=== PATIENT | male | born 1970 | race Caucasian/White ===

== ENCOUNTER → 2017-12-09 12:31 | Outpatient (CLI) | payer MEDICARE, MEDICAID, SELFPAY ==
[2017-12-09 13:37] LABS: Abs Immature Grans 0.04 k/cumm (0.0-0.09); Absolute Basophil Count 0.02 k/cumm (0.0-0.2); Absolute Lymphocyte Count 2.01 k/cumm (1.2-3.4); Absolute Monocyte Count 0.66 k/cumm (0.11-0.7); Absolute Neutrophil Count 6.44 k/cumm (1.2-6.7); Basophils % 0.2; HGB 15.5 g/dL (13.5-17.5); Immature Grans % 0.4; Lymphocytes % 21.9; Mean Corpuscular Hemoglobin 29.1 pg (27.0-33.0); Mean Corpuscular Volume 88.2 fL (80-95); Mean Platelet Volume 9.7 fL (8.0-11.0); Monocytes % 7.2; Neutrophils % 70.3; Platelet Count 240 x1000/uL (130-400); RBC 5.33 m/cumm (4.50-6.00); White Blood Cell Count 9.17 k/cumm (4.4-10.8)
[2017-12-09 14:11] LABS: ALT 24 U/L (12-78); AST 18 U/L (15-37); Albumin 3.6 g/dL (3.4-5.0); Alkaline Phosphatase 97 U/L (46-116); Anion Gap 7.6 mmol/L (3-11); BUN 20 mg/dL (7-18); Bilirubin, Total 0.3 mg/dL (0.2-1.0); CO2 25.4 mmol/L (21.0-32.0); CREATININE 1.44 mg/dL (0.70-1.30); Calcium 9.6 mg/dL (8.5-10.1); Chloride 110 mmol/L (98-107); Estimated GFR 52.58 (mL/min/1.73m2); Glucose 109 mg/dL (70-100); Potassium 4.4 mmol/L (3.5-5.1); Sodium 143 mmol/L (136-145); TSH 0.52 uIU/mL (0.358-3.74); Total Protein 6.6 g/dL (6.4-8.2)
[2017-12-10 22:57] LABS: Clozapine 612 ng/mL (>350); Clozapine+Norclozapine Total 1111 ng/mL (>450); Norclozapine 499 ng/mL
== END ==
PROVIDERS: PCP Internal Medicine; Visit Provider Psychiatry & Neurology Psychiatry
DX: F25.9 Schizoaffective disorder, unspecified (principal); Z51.81 Encounter for therapeutic drug level monitoring; Z79.899 Other long term (current) drug therapy
CPT/HCPCS: 36415; 80053; 80159; 80178; 84443; 85025

== ENCOUNTER 2018-01-03 08:44 | Outpatient (CLI) | payer MEDICARE, MEDICAID, SELFPAY ==
[2018-01-03 09:38] LABS: Abs Immature Grans 0.02 k/cumm (0.0-0.09); Absolute Basophil Count 0.02 k/cumm (0.0-0.2); Absolute Lymphocyte Count 1.71 k/cumm (1.2-3.4); Absolute Monocyte Count 0.56 k/cumm (0.11-0.7); Absolute Neutrophil Count 5.91 k/cumm (1.2-6.7); Basophils % 0.2; HCT 46.8 % (40.0-50.0); HGB 15.7 g/dL (13.5-17.5); Immature Grans % 0.2; Lymphocytes % 20.8; Mean Corp. HGB Concentration 33.5 g/dL (32.0-36.0); Mean Corpuscular Hemoglobin 29.4 pg (27.0-33.0); Mean Corpuscular Volume 87.6 fL (80-95); Mean Platelet Volume 9.5 fL (8.0-11.0); Monocytes % 6.8; Platelet Count 210 x1000/uL (130-400); RBC 5.34 m/cumm (4.50-6.00); RBC Distribution Width 14.3 % (11.8-14.1); White Blood Cell Count 8.22 k/cumm (4.4-10.8)
[2018-01-03 10:43] LABS: Lithium 0.51 mmol/L (0.60-1.20)
[2018-01-03 10:55] LABS: ALT 28 U/L (12-78); AST 14 U/L (15-37); Albumin 3.5 g/dL (3.4-5.0); Alkaline Phosphatase 97 U/L (46-116); Anion Gap 10.4 mmol/L (3-11); BUN 20 mg/dL (7-18); Bilirubin, Total 0.3 mg/dL (0.2-1.0); CO2 25.6 mmol/L (21.0-32.0); CREATININE 1.18 mg/dL (0.70-1.30); Calcium 9.5 mg/dL (8.5-10.1); Chloride 106 mmol/L (98-107); Glucose 123 mg/dL (70-100); Potassium 4.4 mmol/L (3.5-5.1); Sodium 142 mmol/L (136-145); TSH 0.78 uIU/mL (0.358-3.74); Total Protein 6.6 g/dL (6.4-8.2)
[2018-01-07 01:13] LABS: Clozapine 767 ng/mL (>350); Clozapine+Norclozapine Total 1222 ng/mL (>450); Norclozapine 455 ng/mL
== END 2018-01-03 09:04 ==
PROVIDERS: PCP Internal Medicine; Visit Provider Psychiatry & Neurology Psychiatry
DX: F25.9 Schizoaffective disorder, unspecified (principal); Z79.899 Other long term (current) drug therapy; Z51.81 Encounter for therapeutic drug level monitoring
CPT/HCPCS: 80053; 80159; 80178; 84443; 85025

== ENCOUNTER 2018-01-27 08:00 | Outpatient (CLI) | payer MEDICARE, MEDICAID, SELFPAY ==
[2018-01-27 08:33] LABS: Abs Immature Grans 0.02 k/cumm (0.0-0.09); Absolute Basophil Count 0.01 k/cumm (0.0-0.2); Absolute Lymphocyte Count 1.71 k/cumm (1.2-3.4); Absolute Monocyte Count 0.51 k/cumm (0.11-0.7); Absolute Neutrophil Count 4.99 k/cumm (1.2-6.7); Basophils % 0.1; HCT 46.1 % (40.0-50.0); Immature Grans % 0.3; Lymphocytes % 23.6; Mean Corp. HGB Concentration 32.5 g/dL (32.0-36.0); Mean Corpuscular Hemoglobin 28.6 pg (27.0-33.0); Mean Platelet Volume 9.4 fL (8.0-11.0); Platelet Count 226 x1000/uL (130-400); RBC 5.24 m/cumm (4.50-6.00); RBC Distribution Width 14.3 % (11.8-14.1); White Blood Cell Count 7.24 k/cumm (4.4-10.8)
[2018-01-27 08:57] LABS: ALT 28 U/L (12-78); AST 12 U/L (15-37); Albumin 3.3 g/dL (3.4-5.0); Alkaline Phosphatase 83 U/L (46-116); Anion Gap 8.6 mmol/L (3-11); BUN 18 mg/dL (7-18); Bilirubin, Total 0.3 mg/dL (0.2-1.0); CO2 26.4 mmol/L (21.0-32.0); CREATININE 1.17 mg/dL (0.70-1.30); Calcium 9.6 mg/dL (8.5-10.1); Chloride 108 mmol/L (98-107); Glucose 134 mg/dL (70-100); Potassium 3.9 mmol/L (3.5-5.1); Sodium 143 mmol/L (136-145); Total Protein 6.7 g/dL (6.4-8.2)
[2018-01-27 09:24] LABS: Lithium 0.56 mmol/L (0.60-1.20)
[2018-01-28 22:51] LABS: Clozapine 579 ng/mL (>350); Clozapine+Norclozapine Total 953 ng/mL (>450); Norclozapine 374 ng/mL
== END 2018-01-27 08:20 ==
PROVIDERS: PCP Internal Medicine; Visit Provider Psychiatry & Neurology Psychiatry
DX: F25.9 Schizoaffective disorder, unspecified (principal); Z51.81 Encounter for therapeutic drug level monitoring; Z79.899 Other long term (current) drug therapy
CPT/HCPCS: 36415; 80053; 80159; 80178; 84443; 85025

== ENCOUNTER 2018-02-18 12:31 | Outpatient (CLI) | payer MEDICARE, MEDICAID, SELFPAY ==
[2018-02-18 13:02] LABS: Abs Immature Grans 0.03 k/cumm (0.0-0.09); Absolute Basophil Count 0.02 k/cumm (0.0-0.2); Absolute Eosinophil Count 0.01 k/cumm (0.0-0.7); Absolute Lymphocyte Count 2.06 k/cumm (1.2-3.4); Absolute Monocyte Count 0.63 k/cumm (0.11-0.7); Absolute Neutrophil Count 6.79 k/cumm (1.2-6.7); Basophils % 0.2; Eosinophils % 0.1; HCT 43.5 % (40.0-50.0); HGB 14.4 g/dL (13.5-17.5); Immature Grans % 0.3; Lymphocytes % 21.6; Mean Corp. HGB Concentration 33.1 g/dL (32.0-36.0); Mean Corpuscular Volume 87.7 fL (80-95); Mean Platelet Volume 9.4 fL (8.0-11.0); Monocytes % 6.6; Neutrophils % 71.2; Platelet Count 237 x1000/uL (130-400); RBC 4.96 m/cumm (4.50-6.00); RBC Distribution Width 14.4 % (11.8-14.1); White Blood Cell Count 9.54 k/cumm (4.4-10.8)
[2018-02-18 14:21] LABS: ALT 31 U/L (12-78); AST 13 U/L (15-37); Albumin 3.4 g/dL (3.4-5.0); Alkaline Phosphatase 92 U/L (46-116); Anion Gap 8.4 mmol/L (3-11); BUN 22 mg/dL (7-18); Bilirubin, Total 0.3 mg/dL (0.2-1.0); CO2 26.6 mmol/L (21.0-32.0); CREATININE 1.32 mg/dL (0.70-1.30); Calcium 9.3 mg/dL (8.5-10.1); Chloride 109 mmol/L (98-107); Estimated GFR 58.14 (mL/min/1.73m2); Glucose 98 mg/dL (70-100); Potassium 4.2 mmol/L (3.5-5.1); Sodium 144 mmol/L (136-145); TSH (W/Ref FT4) 0.52 uIU/mL (0.358-3.74); Total Protein 6.3 g/dL (6.4-8.2)
[2018-02-18 14:57] LABS: Lithium 0.36 mmol/L (0.60-1.20)
[2018-02-20 05:57] LABS: Clozapine 637 ng/mL (>350); Clozapine+Norclozapine Total 1067 ng/mL (>450); Norclozapine 430 ng/mL
== END 2018-02-18 12:51 ==
PROVIDERS: PCP Internal Medicine; Visit Provider Psychiatry & Neurology Psychiatry
DX: F25.9 Schizoaffective disorder, unspecified (principal); Z51.81 Encounter for therapeutic drug level monitoring; Z79.899 Other long term (current) drug therapy
CPT/HCPCS: 36415; 80053; 80159; 80178; 84443; 85025

== ENCOUNTER 2018-03-10 08:36 | Outpatient (CLI) | payer MEDICARE, MEDICAID, SELFPAY ==
[2018-03-10 09:10] LABS: Abs Immature Grans 0.01 k/cumm (0.0-0.09); Absolute Basophil Count 0.02 k/cumm (0.0-0.2); Absolute Lymphocyte Count 1.43 k/cumm (1.2-3.4); Absolute Monocyte Count 0.54 k/cumm (0.11-0.7); Absolute Neutrophil Count 5.85 k/cumm (1.2-6.7); Basophils % 0.3; HCT 45.1 % (40.0-50.0); HGB 14.6 g/dL (13.5-17.5); Immature Grans % 0.1; Lymphocytes % 18.2; Mean Corp. HGB Concentration 32.4 g/dL (32.0-36.0); Mean Corpuscular Hemoglobin 28.3 pg (27.0-33.0); Mean Corpuscular Volume 87.4 fL (80-95); Mean Platelet Volume 9.4 fL (8.0-11.0); Monocytes % 6.9; Neutrophils % 74.5; Platelet Count 231 x1000/uL (130-400); RBC 5.16 m/cumm (4.50-6.00); RBC Distribution Width 14.6 % (11.8-14.1); White Blood Cell Count 7.85 k/cumm (4.4-10.8)
[2018-03-10 10:31] LABS: Lithium 0.51 mmol/L (0.60-1.20)
[2018-03-10 10:53] LABS: ALT 27 U/L (12-78); AST 14 U/L (15-37); Albumin 3.4 g/dL (3.4-5.0); Alkaline Phosphatase 89 U/L (46-116); Anion Gap 9.3 mmol/L (3-11); BUN 21 mg/dL (7-18); Bilirubin, Total 0.3 mg/dL (0.2-1.0); CO2 26.7 mmol/L (21.0-32.0); CREATININE 1.19 mg/dL (0.70-1.30); Calcium 9.6 mg/dL (8.5-10.1); Chloride 106 mmol/L (98-107); Glucose 125 mg/dL (70-100); Potassium 4.2 mmol/L (3.5-5.1); Sodium 142 mmol/L (136-145); TSH 0.67 uIU/mL (0.358-3.74); Total Protein 6.3 g/dL (6.4-8.2)
[2018-03-11 23:20] LABS: Clozapine 735 ng/mL (>350); Clozapine+Norclozapine Total 1137 ng/mL (>450); Norclozapine 402 ng/mL
== END 2018-03-10 08:56 ==
PROVIDERS: PCP Internal Medicine; Visit Provider Psychiatry & Neurology Psychiatry
DX: F25.9 Schizoaffective disorder, unspecified (principal); Z51.81 Encounter for therapeutic drug level monitoring; Z79.899 Other long term (current) drug therapy
CPT/HCPCS: 36415; 80053; 80159; 80178; 84443; 85025

== ENCOUNTER 2018-03-31 08:10 | Outpatient (CLI) | payer MEDICARE, MEDICAID, SELFPAY ==
[2018-03-31 09:31] LABS: Abs Immature Grans 0.02 k/cumm (0.0-0.09); Absolute Basophil Count 0.02 k/cumm (0.0-0.2); Absolute Lymphocyte Count 1.66 k/cumm (1.2-3.4); Absolute Monocyte Count 0.64 k/cumm (0.11-0.7); Basophils % 0.2; HCT 46.1 % (40.0-50.0); Immature Grans % 0.2; Lymphocytes % 14.5; Mean Corp. HGB Concentration 32.5 g/dL (32.0-36.0); Mean Corpuscular Hemoglobin 28.5 pg (27.0-33.0); Mean Corpuscular Volume 87.6 fL (80-95); Mean Platelet Volume 9.9 fL (8.0-11.0); Monocytes % 5.6; Neutrophils % 79.5; Platelet Count 246 x1000/uL (130-400); RBC 5.26 m/cumm (4.50-6.00); RBC Distribution Width 14.6 % (11.8-14.1); White Blood Cell Count 11.46 k/cumm (4.4-10.8)
[2018-03-31 09:33] LABS: Absolute Neutrophil Count 9.11 k/cumm (1.2-6.7)
[2018-03-31 09:45] LABS: Lithium 0.52 mmol/L (0.60-1.20)
[2018-03-31 09:58] LABS: ALT 25 U/L (12-78); AST 13 U/L (15-37); Albumin 3.4 g/dL (3.4-5.0); Alkaline Phosphatase 86 U/L (46-116); BUN 22 mg/dL (7-18); Bilirubin, Total 0.3 mg/dL (0.2-1.0); CREATININE 1.16 mg/dL (0.70-1.30); Calcium 9.7 mg/dL (8.5-10.1); Chloride 108 mmol/L (98-107); Glucose 129 mg/dL (70-100); Potassium 4.4 mmol/L (3.5-5.1); Sodium 143 mmol/L (136-145); TSH 0.71 uIU/mL (0.358-3.74); Total Protein 6.5 g/dL (6.4-8.2)
[2018-04-02 00:14] LABS: Clozapine 564 ng/mL (>350); Clozapine+Norclozapine Total 938 ng/mL (>450); Norclozapine 374 ng/mL
== END 2018-03-31 08:30 ==
PROVIDERS: PCP Internal Medicine; Visit Provider Psychiatry & Neurology Psychiatry
DX: F25.9 Schizoaffective disorder, unspecified (principal); Z51.81 Encounter for therapeutic drug level monitoring; Z79.899 Other long term (current) drug therapy
CPT/HCPCS: 36415; 80053; 80159; 80178; 84443; 85025

== ENCOUNTER 2018-04-21 07:50 | Outpatient (CLI) | payer MEDICARE, MEDICAID, SELFPAY ==
[2018-04-21 08:35] LABS: Abs Immature Grans 0.02 k/cumm (0.0-0.09); Absolute Basophil Count 0.02 k/cumm (0.0-0.2); Absolute Eosinophil Count 0.01 k/cumm (0.0-0.7); Absolute Lymphocyte Count 1.81 k/cumm (1.2-3.4); Absolute Monocyte Count 0.62 k/cumm (0.11-0.7); Absolute Neutrophil Count 4.74 k/cumm (1.2-6.7); Basophils % 0.3; Eosinophils % 0.1; HCT 45.5 % (40.0-50.0); HGB 14.5 g/dL (13.5-17.5); Immature Grans % 0.3; Lymphocytes % 25.1; Mean Corp. HGB Concentration 31.9 g/dL (32.0-36.0); Mean Corpuscular Hemoglobin 27.7 pg (27.0-33.0); Mean Platelet Volume 9.6 fL (8.0-11.0); Monocytes % 8.6; Neutrophils % 65.6; Platelet Count 273 x1000/uL (130-400); RBC 5.23 m/cumm (4.50-6.00); RBC Distribution Width 14.5 % (11.8-14.1); White Blood Cell Count 7.22 k/cumm (4.4-10.8)
[2018-04-21 09:27] LABS: ALT 25 U/L (12-78); AST 12 U/L (15-37); Albumin 3.3 g/dL (3.4-5.0); Alkaline Phosphatase 98 U/L (46-116); Anion Gap 5.9 mmol/L (3-11); BUN 19 mg/dL (7-18); Bilirubin, Total 0.3 mg/dL (0.2-1.0); CO2 29.1 mmol/L (21.0-32.0); CREATININE 1.36 mg/dL (0.70-1.30); Calcium 9.9 mg/dL (8.5-10.1); Chloride 107 mmol/L (98-107); Estimated GFR 56.17 (mL/min/1.73m2); Glucose 133 mg/dL (70-100); Potassium 4.2 mmol/L (3.5-5.1); Sodium 142 mmol/L (136-145); TSH (W/Ref FT4) 0.79 uIU/mL (0.358-3.74); Total Protein 6.5 g/dL (6.4-8.2)
[2018-04-22 20:49] LABS: Lithium 0.52 mmol/L (0.60-1.20)
[2018-04-23 04:01] LABS: Clozapine 589 ng/mL (>350); Clozapine+Norclozapine Total 984 ng/mL (>450); Norclozapine 395 ng/mL
== END 2018-04-21 08:10 ==
PROVIDERS: PCP Internal Medicine; Visit Provider Psychiatry & Neurology Psychiatry
DX: F25.9 Schizoaffective disorder, unspecified (principal); Z79.899 Other long term (current) drug therapy; Z51.81 Encounter for therapeutic drug level monitoring
CPT/HCPCS: 36415; 80053; 80159; 80178; 84443; 85025

== ENCOUNTER 2018-05-12 08:50 | Outpatient (CLI) | payer MEDICARE, MEDICAID, SELFPAY ==
[2018-05-12 09:25] LABS: Abs Immature Grans 0.02 k/cumm (0.0-0.09); Absolute Basophil Count 0.04 k/cumm (0.0-0.2); Absolute Lymphocyte Count 1.49 k/cumm (1.2-3.4); Absolute Monocyte Count 0.53 k/cumm (0.11-0.7); Absolute Neutrophil Count 5.12 k/cumm (1.2-6.7); Basophils % 0.6; HCT 43.5 % (40.0-50.0); HGB 14.1 g/dL (13.5-17.5); Immature Grans % 0.3; Lymphocytes % 20.7; Mean Corp. HGB Concentration 32.4 g/dL (32.0-36.0); Mean Corpuscular Hemoglobin 27.4 pg (27.0-33.0); Mean Corpuscular Volume 84.5 fL (80-95); Mean Platelet Volume 9.5 fL (8.0-11.0); Monocytes % 7.4; Platelet Count 268 x1000/uL (130-400); RBC 5.15 m/cumm (4.50-6.00); RBC Distribution Width 14.6 % (11.8-14.1)
[2018-05-12 10:32] LABS: Lithium 0.58 mmol/L (0.60-1.20)
[2018-05-12 10:36] LABS: ALT 26 U/L (12-78); AST 13 U/L (15-37); Albumin 3.3 g/dL (3.4-5.0); Alkaline Phosphatase 101 U/L (46-116); Anion Gap 6.1 mmol/L (3-11); BUN 18 mg/dL (7-18); Bilirubin, Total 0.3 mg/dL (0.2-1.0); CO2 27.9 mmol/L (21.0-32.0); CREATININE 1.38 mg/dL (0.70-1.30); Calcium 9.9 mg/dL (8.5-10.1); Chloride 107 mmol/L (98-107); Estimated GFR 55.23 (mL/min/1.73m2); Glucose 127 mg/dL (70-100); Potassium 4.6 mmol/L (3.5-5.1); Sodium 141 mmol/L (136-145); TSH 0.61 uIU/mL (0.358-3.74); Total Protein 6.6 g/dL (6.4-8.2)
[2018-05-14 03:21] LABS: Clozapine 780 ng/mL (>350); Clozapine+Norclozapine Total 1246 ng/mL (>450); Norclozapine 466 ng/mL
== END 2018-05-12 09:10 ==
PROVIDERS: PCP Internal Medicine; Visit Provider Psychiatry & Neurology Psychiatry
DX: F25.9 Schizoaffective disorder, unspecified (principal); Z79.899 Other long term (current) drug therapy; Z51.81 Encounter for therapeutic drug level monitoring
CPT/HCPCS: 36415; 80053; 80159; 80178; 84443; 85025

== ENCOUNTER 2018-06-02 08:40 | Outpatient (CLI) | payer MEDICARE, MEDICAID, SELFPAY ==
[2018-06-02 09:11] LABS: Abs Immature Grans 0.02 k/cumm (0.0-0.09); Absolute Basophil Count 0.02 k/cumm (0.0-0.2); Absolute Lymphocyte Count 1.57 k/cumm (1.2-3.4); Absolute Monocyte Count 0.43 k/cumm (0.11-0.7); Absolute Neutrophil Count 5.57 k/cumm (1.2-6.7); Basophils % 0.3; HCT 42.7 % (40.0-50.0); HGB 13.3 g/dL (13.5-17.5); Immature Grans % 0.3; Lymphocytes % 20.6; Mean Corp. HGB Concentration 31.1 g/dL (32.0-36.0); Mean Corpuscular Hemoglobin 26.1 pg (27.0-33.0); Mean Corpuscular Volume 83.9 fL (80-95); Mean Platelet Volume 9.7 fL (8.0-11.0); Monocytes % 5.7; Neutrophils % 73.1; Platelet Count 255 x1000/uL (130-400); RBC 5.09 m/cumm (4.50-6.00); RBC Distribution Width 14.6 % (11.8-14.1); White Blood Cell Count 7.61 k/cumm (4.4-10.8)
[2018-06-02 10:46] LABS: ALT 24 U/L (12-78); AST 16 U/L (15-37); Albumin 3.2 g/dL (3.4-5.0); Alkaline Phosphatase 98 U/L (46-116); Anion Gap 8.2 mmol/L (3-11); BUN 17 mg/dL (7-18); Bilirubin, Total 0.3 mg/dL (0.2-1.0); CO2 26.8 mmol/L (21.0-32.0); CREATININE 1.31 mg/dL (0.70-1.30); Calcium 9.5 mg/dL (8.5-10.1); Chloride 106 mmol/L (98-107); Estimated GFR 58.65 (mL/min/1.73m2); Glucose 146 mg/dL (70-100); Potassium 4.3 mmol/L (3.5-5.1); Sodium 141 mmol/L (136-145); TSH 0.66 uIU/mL (0.358-3.74); Total Protein 6.5 g/dL (6.4-8.2)
[2018-06-06 00:16] LABS: Clozapine 840 ng/mL (>350); Clozapine+Norclozapine Total 1334 ng/mL (>450); Norclozapine 494 ng/mL
== END 2018-06-02 09:00 ==
PROVIDERS: PCP Internal Medicine; Visit Provider Psychiatry & Neurology Psychiatry
DX: F25.9 Schizoaffective disorder, unspecified (principal); Z79.899 Other long term (current) drug therapy; Z51.81 Encounter for therapeutic drug level monitoring
CPT/HCPCS: 36415; 80053; 80159; 80178; 84443; 85025

== ENCOUNTER 2018-06-06 16:00 | Outpatient (REF) | payer MEDICARE, MEDICAID, SELFPAY ==
[2018-06-11 14:24] LABS: Testosterone, Total 651 ng/dL (240-950)
== END 2018-06-06 16:20 ==
LOC: NCHCN 16:00
PROVIDERS: PCP Internal Medicine; Visit Provider Internal Medicine
DX: E29.1 Testicular hypofunction (principal)
CPT/HCPCS: 84402; 84403

== ENCOUNTER 2018-06-23 09:04 | Outpatient (CLI) | payer MEDICARE, MEDICAID, SELFPAY ==
[2018-06-23 10:03] LABS: Abs Immature Grans 0.01 k/cumm (0.0-0.09); Absolute Basophil Count 0.02 k/cumm (0.0-0.2); Absolute Lymphocyte Count 1.47 k/cumm (1.2-3.4); Absolute Monocyte Count 0.48 k/cumm (0.11-0.7); Absolute Neutrophil Count 4.73 k/cumm (1.2-6.7); Basophils % 0.3; HCT 42.5 % (40.0-50.0); HGB 13.7 g/dL (13.5-17.5); Immature Grans % 0.1; Lymphocytes % 21.9; Mean Corp. HGB Concentration 32.2 g/dL (32.0-36.0); Mean Corpuscular Hemoglobin 26.3 pg (27.0-33.0); Mean Corpuscular Volume 81.7 fL (80-95); Mean Platelet Volume 9.9 fL (8.0-11.0); Monocytes % 7.2; Neutrophils % 70.5; Platelet Count 266 x1000/uL (130-400); RBC Distribution Width 14.8 % (11.8-14.1); White Blood Cell Count 6.71 k/cumm (4.4-10.8)
[2018-06-23 11:30] LABS: Lithium 0.46 mmol/L (0.60-1.20)
[2018-06-23 11:41] LABS: ALT 23 U/L (12-78); AST 14 U/L (15-37); Albumin 3.4 g/dL (3.4-5.0); Alkaline Phosphatase 108 U/L (46-116); BUN 21 mg/dL (7-18); Bilirubin, Total 0.2 mg/dL (0.2-1.0); CREATININE 1.41 mg/dL (0.70-1.30); Calcium 9.7 mg/dL (8.5-10.1); Chloride 106 mmol/L (98-107); Estimated GFR 53.88 (mL/min/1.73m2); Glucose 142 mg/dL (70-100); Potassium 4.1 mmol/L (3.5-5.1); Sodium 141 mmol/L (136-145); TSH 0.53 uIU/mL (0.358-3.74); Total Protein 6.5 g/dL (6.4-8.2)
[2018-06-25 15:44] LABS: Clozapine 763 ng/mL (>350); Clozapine+Norclozapine Total 1176 ng/mL (>450); Norclozapine 413 ng/mL
== END 2018-06-23 09:24 ==
PROVIDERS: PCP Internal Medicine; Visit Provider Psychiatry & Neurology Psychiatry
DX: F25.9 Schizoaffective disorder, unspecified (principal); Z79.899 Other long term (current) drug therapy; Z51.81 Encounter for therapeutic drug level monitoring
CPT/HCPCS: 36415; 80053; 80159; 80178; 84443; 85025

== ENCOUNTER 2018-07-13 13:15 | Emergency (ER) | payer MEDICARE, MEDICAID, SELFPAY ==
[2018-07-13 13:18] VITALS: BP 133/74; PULSE 98; RESP 16; TEMP 36.8; O2SAT 98
--- NOTE | 2018-07-13 13:45 | ED.GENADUL_ITS ---
Discharge Plan Disposition Patient Disposition: HOME Condition: Good Discharge Details Chief Complaint: RashLesion Clinical Impression: Meralgia paraesthetica Primary Care Provider: Tomás Carvalho ED Provider: Ankur Pereyra Home Meds and New Rx's Prescriptions: No Action clozapine [Clozaril] 100 MG tablet 100 mg PO DIRECTED RF: 0 pantoprazole [Protonix] 20 MG tablet,delayed release (DR/EC) 1 tab PO BID RF: 0 lorazepam 2 MG tablet 2 mg PO BID RF: 0 propranolol 10 MG tablet 10 mg PO BID RF: 0 bupropion HCl 150 MG tablet extended release 24 hr 150 - 300 mg PO DIRECTED RF: 0 lithium carbonate 300 MG tablet extended release 600 mg PO HS RF: 0 Androderm 1 EACH patch 24 hour 4 mg Transdermal DAILY RF: 0 Halperidol capsule 1 mg PO TID RF: 0 Discharge Instructions Instructions: Meralgia Paresthetica (ED) Additional Instructions: Please make sure that your belt stays loose at all times around her waist, but not to the point that your pants would fall down. Avoid any pressure on your lower waist as this is what causes your symptoms. If you notice any worsening of your symptoms, or any new symptoms such as vomiting, diarrhea, fever, chills, shortness of breath, chest pain, numbness, weakness, or fainting , please return immediately to the emergency department for reevaluation. Please follow up with your primary care provider as soon as possible for reassessment and reevaluation. As always, it was a pleasure participating in your medical care today. Referrals: Tomás Carvalho MD [Primary Care Provider] - Medical Decision Making This is a pleasant 47-year-old male who presents today for evaluation of tingling over the anterior lateral thigh that started last night. Patient states that he fell asleep in a recliner, with a tight belt on, and when he woke up he had tingling over his right thigh. Physical exam demonstrates no neurologic deficits. Subjective tingling over that location, suggestive for meralgia paresthetica. I suspect that the belt caused the subjective tingling over the lateral cutaneous nerve. With no other focal neurologic deficits, no red flags or risk factors for A. fib, stroke, diabetes or hypertension I do not think that he needs further workup or imaging. I discussed red flags which to return, the importance of keeping his belt loose, and not falling asleep in those positions I have extensively reviewed the treatment plan and discharge instructions with the patient. I have addressed all patient concerns at this time. The patient was made aware of what symptoms to monitor for that would warrant a return to the emergency department. Discussed the plan with the patient, they demonstrate verbal understanding and agreement with our assessment and plan at this time. HPI General Date/Time Provider Initiated Documentation: 07/13/18 13:29 . HPI Narrative: This is a pleasant 47-year-old male who presents for evaluation of anterior lateral thigh tingling. It began last night after he fell asleep with a very tight belt on while in the seated position. Is continued today but is slightly improved with time. He denies any associated weakness, pain, bowel or bladder incontinence, saddle anesthesia, or other complaint. He has no history of stroke or cardiac disease. He has no other complaints or modifying factors at this time. Related Data Home Medications Medication Instructions Recorded Confirmed clozapine [Clozaril] 100 mg PO DIRECTED 11/19/16 07/13/18 lorazepam 2 mg PO BID 11/19/16 07/13/18 pantoprazole [Protonix] 1 tab PO BID 11/19/16 07/13/18 Androderm 4 mg TRANSDERMAL DAILY 12/14/16 07/13/18 bupropion HCl 150 - 300 mg PO DIRECTED 12/14/16 07/13/18 lithium carbonate 600 mg PO HS 12/14/16 07/13/18 propranolol 10 mg PO BID 12/14/16 07/13/18 Halperidol 1 mg PO TID 07/13/18 Allergies Allergy/AdvReac Type Severity Reaction Status Date / Time codeine Allergy Unknown Unverified 07/13/18 13:23 Sulfa (Sulfonamide Allergy Unknown Unverified 07/13/18 13:23 Antibiotics) Penicillins Allergy Unverified 07/13/18 13:23 General Stated Complaint: RashLesion DELORIS: 4 Review of Systems Review of Systems All systems reviewed & are unremarkable except as noted in HPI and below PFSH Social History Smoking/Tobacco Use Status: Current every day Tobacco Type: cigarettes Alcohol Intake: never Drug use: Never Do you feel safe at home: Yes Do you feel safe in your relationship?: Yes Exam Narrative Exam Narrative: 1.Const: Well-nourished, Well-developed, appearing stated age 2.Eyes: PERRL, no conjunctival injection, and symmetrical lids. 3.ENT: Atraumatic external nose and ears. Moist MM. Neck: Symmetric, trachea midline, No thyromegaly. 4.CVS: +S1/S2, No murmurs or gallops. Peripheral pulses 2+ and equal in all extremities. Brisk capillary refill in all extremities. 5.RESP: Unlabored respiratory effort. Clear to auscultation bilaterally. No wheezes rales or rhonchi 6.GI: Soft, Nontender/Nondistended, No hepatosplenomegaly. No guarding or rebound. 7.MSK: Normocephalic/Atraumatic, Extremities w/o deformity or ttp No cyanosis or clubbing, Normal movement of all extremities 8.Skin: Warm, Dry. No rashes or lesions. 9.Neuro: cylinder grinder II-XII grossly intact. Sensation grossly intact, no focal neurologic deficits. Minimal subjective tingling over the right mdirvwzm-ktpx-izp thigh extending down roughly 12 inches from the greater trochanter down towards the knee. No evidence of weakness, or saddle anesthesia all 6 cardinal planes of vision are fully intact. No evidence of rotatory or vertical nystagmus. The patient demonstrated a normal hsymti-dokn-ummfiu, good dexterity. There was no evidence of dysdiadochokinesia. Patient was able to ambulate without difficulty. There was no wide-based gait. Romberg, and sveu-re-ffby are both normal on testing. Sensation was intact bilaterally as well as muscle strength bilaterally for all extremities. Patient was able to verbalize butter cup with no slurring, or miss pronunciation. No midline tenderness to palpation over the CTLS spine. Normal ROM in flexion, extension, side bend, and rotation. Patient has +5 out of 5 strength in the lower extremities in dorsiflexion and plantarflexion, knee flexion and extension, hip flexion and extension. There is +2 over 2 dorsalis pedis pulses bilaterally. There is normal sensation to the skin with light touch at the foot, knee, and hip. Normal saddle sensation. Good sensation over the deep sural nerve area bilaterally. Rectal exam deferred. Reflexes are +2 over 4 in the patellar reflex bilaterally. +5 out of 5 strength in the medial, ulnar, radial nerve distribution bilaterally in the hands as well as intact light touch sensation to these dermatomes on the hands 10.Psych: (AAO) x3. Appropriate mood and affect Course Vital Signs Temperature 36.8 C 07/13/18 13:18 Pulse 98 H 07/13/18 13:18 Respiratory Rate 16 07/13/18 13:18 Blood Pressure 133/74 07/13/18 13:18 Pulse Oximetry 98 07/13/18 13:18 Temperature 36.8 C 07/13/18 13:18 Temperature Source Skin 07/13/18 13:18 Pulse 98 H 07/13/18 13:18 Respiratory Rate 16 07/13/18 13:18 Respiratory Effort 07/13/18 13:22 Blood Pressure 133/74 07/13/18 13:18 Blood Pressure Position Sitting 07/13/18 13:18 Pulse Oximetry 98 07/13/18 13:18 Oxygen Delivery Method Room Air 07/13/18 13:18 Oxygen Flow Rate 0 07/13/18 13:18
[2018-07-13 13:56] VITALS: BP 133/74; PULSE 98; RESP 16; TEMP 36.8; O2SAT 98
== END 2018-07-13 13:57 | disposition home or self-care (01) ==
PROVIDERS: Emergency Provider Student in an Organized Health Care Education/Training Program; PCP Internal Medicine
DX: G57.11 Meralgia paresthetica, right lower limb (principal)
CPT/HCPCS: 99282

== ENCOUNTER 2018-07-21 08:37 | Outpatient (CLI) | payer MEDICARE, MEDICAID, SELFPAY ==
[2018-07-21 09:29] LABS: Abs Immature Grans 0.02 k/cumm (0.0-0.09); Absolute Basophil Count 0.02 k/cumm (0.0-0.2); Absolute Lymphocyte Count 1.65 k/cumm (1.2-3.4); Absolute Monocyte Count 0.68 k/cumm (0.11-0.7); Absolute Neutrophil Count 7.74 k/cumm (1.2-6.7); Basophils % 0.2; HCT 42.2 % (40.0-50.0); HGB 13.5 g/dL (13.5-17.5); Immature Grans % 0.2; Lymphocytes % 16.3; Mean Corpuscular Hemoglobin 25.9 pg (27.0-33.0); Mean Platelet Volume 9.8 fL (8.0-11.0); Monocytes % 6.7; Neutrophils % 76.6; Platelet Count 261 x1000/uL (130-400); RBC 5.21 m/cumm (4.50-6.00); RBC Distribution Width 15.7 % (11.8-14.1); White Blood Cell Count 10.11 k/cumm (4.4-10.8)
[2018-07-21 10:01] LABS: ALT 28 U/L (12-78); AST 12 U/L (15-37); Albumin 3.3 g/dL (3.4-5.0); Alkaline Phosphatase 100 U/L (46-116); Anion Gap 8.4 mmol/L (3-11); BUN 19 mg/dL (7-18); Bilirubin, Total 0.3 mg/dL (0.2-1.0); CO2 27.6 mmol/L (21.0-32.0); CREATININE 1.33 mg/dL (0.70-1.30); Calcium 9.8 mg/dL (8.5-10.1); Chloride 105 mmol/L (98-107); Estimated GFR 57.63 (mL/min/1.73m2); Glucose 149 mg/dL (70-100); Potassium 4.4 mmol/L (3.5-5.1); Sodium 141 mmol/L (136-145); Total Protein 6.5 g/dL (6.4-8.2)
[2018-07-21 10:13] LABS: Lithium 0.45 mmol/L (0.60-1.20)
[2018-07-23 09:44] LABS: Clozapine 618 ng/mL (>350); Clozapine+Norclozapine Total 1061 ng/mL (>450); Norclozapine 443 ng/mL
== END 2018-07-21 08:57 ==
PROVIDERS: PCP Internal Medicine; Visit Provider Psychiatry & Neurology Psychiatry
DX: F25.9 Schizoaffective disorder, unspecified (principal); Z51.81 Encounter for therapeutic drug level monitoring; Z79.899 Other long term (current) drug therapy
CPT/HCPCS: 36415; 80053; 80159; 80178; 84443; 85025

== ENCOUNTER 2018-08-18 08:53 | Outpatient (CLI) | payer MEDICARE, MEDICAID, SELFPAY ==
[2018-08-18 09:38] LABS: Abs Immature Grans 0.02 k/cumm (0.0-0.09); Absolute Basophil Count 0.02 k/cumm (0.0-0.2); Absolute Lymphocyte Count 1.29 k/cumm (1.2-3.4); Absolute Monocyte Count 0.44 k/cumm (0.11-0.7); Absolute Neutrophil Count 4.67 k/cumm (1.2-6.7); Basophils % 0.3; HCT 40.1 % (40.0-50.0); HGB 12.8 g/dL (13.5-17.5); Immature Grans % 0.3; Mean Corp. HGB Concentration 31.9 g/dL (32.0-36.0); Mean Corpuscular Hemoglobin 25.5 pg (27.0-33.0); Mean Corpuscular Volume 79.9 fL (80-95); Mean Platelet Volume 9.8 fL (8.0-11.0); Monocytes % 6.8; Neutrophils % 72.6; Platelet Count 269 x1000/uL (130-400); RBC 5.02 m/cumm (4.50-6.00); RBC Distribution Width 15.8 % (11.8-14.1); White Blood Cell Count 6.44 k/cumm (4.4-10.8)
[2018-08-18 10:07] LABS: Lithium 0.57 mmol/L (0.60-1.20)
[2018-08-18 10:20] LABS: ALT 28 U/L (12-78); AST 12 U/L (15-37); Albumin 3.3 g/dL (3.4-5.0); Alkaline Phosphatase 99 U/L (46-116); Anion Gap 8.9 mmol/L (3-11); BUN 21 mg/dL (7-18); Bilirubin, Total 0.3 mg/dL (0.2-1.0); CO2 25.1 mmol/L (21.0-32.0); Calcium 9.6 mg/dL (8.5-10.1); Chloride 106 mmol/L (98-107); Glucose 136 mg/dL (70-100); Potassium 4.3 mmol/L (3.5-5.1); Sodium 140 mmol/L (136-145); Total Protein 6.4 g/dL (6.4-8.2)
[2018-08-20 13:30] LABS: Clozapine 923 ng/mL (>350); Clozapine+Norclozapine Total 1419 ng/mL (>450); Norclozapine 496 ng/mL
== END 2018-08-18 09:13 ==
PROVIDERS: PCP Internal Medicine; Visit Provider Psychiatry & Neurology Psychiatry
DX: F25.9 Schizoaffective disorder, unspecified (principal); Z79.899 Other long term (current) drug therapy; Z51.81 Encounter for therapeutic drug level monitoring
CPT/HCPCS: 36415; 80053; 80159; 80178; 84443; 85025

== ENCOUNTER 2018-09-09 08:25 | Outpatient (CLI) | payer MEDICARE, MEDICAID, SELFPAY ==
[2018-09-09 09:22] LABS: Abs Immature Grans 0.01 k/cumm (0.0-0.09); Absolute Basophil Count 0.02 k/cumm (0.0-0.2); Absolute Lymphocyte Count 1.43 k/cumm (1.2-3.4); Absolute Monocyte Count 0.48 k/cumm (0.11-0.7); Absolute Neutrophil Count 5.18 k/cumm (1.2-6.7); Basophils % 0.3; HCT 40.4 % (40.0-50.0); HGB 12.8 g/dL (13.5-17.5); Immature Grans % 0.1; Lymphocytes % 20.1; Mean Corp. HGB Concentration 31.7 g/dL (32.0-36.0); Mean Corpuscular Hemoglobin 25.3 pg (27.0-33.0); Mean Platelet Volume 9.9 fL (8.0-11.0); Monocytes % 6.7; Neutrophils % 72.8; Platelet Count 279 x1000/uL (130-400); RBC 5.05 m/cumm (4.50-6.00); RBC Distribution Width 15.8 % (11.8-14.1); White Blood Cell Count 7.12 k/cumm (4.4-10.8)
[2018-09-09 09:48] LABS: ALT 30 U/L (12-78); AST 11 U/L (15-37); Albumin 3.4 g/dL (3.4-5.0); Alkaline Phosphatase 105 U/L (46-116); BUN 23 mg/dL (7-18); Bilirubin, Total 0.3 mg/dL (0.2-1.0); CREATININE 1.31 mg/dL (0.70-1.30); Calcium 9.6 mg/dL (8.5-10.1); Chloride 108 mmol/L (98-107); Estimated GFR 58.65 (mL/min/1.73m2); Glucose 136 mg/dL (70-100); Potassium 4.2 mmol/L (3.5-5.1); Sodium 142 mmol/L (136-145); TSH 0.75 uIU/mL (0.358-3.74); Total Protein 6.5 g/dL (6.4-8.2)
[2018-09-09 09:54] LABS: Lithium 0.52 mmol/L (0.60-1.20)
[2018-09-11 00:44] LABS: Clozapine 1110 ng/mL (>350); Clozapine+Norclozapine Total 1751 ng/mL (>450); Norclozapine 641 ng/mL
== END 2018-09-09 08:45 ==
PROVIDERS: PCP Internal Medicine; Visit Provider Psychiatry & Neurology Psychiatry
DX: F25.9 Schizoaffective disorder, unspecified (principal); Z51.81 Encounter for therapeutic drug level monitoring; Z79.899 Other long term (current) drug therapy
CPT/HCPCS: 36415; 80053; 80159; 80178; 84443; 85025

== ENCOUNTER 2018-09-16 09:09 | Outpatient (REF) | payer MEDICARE, MEDICAID, SELFPAY ==
[2018-09-19 18:47] LABS: Testosterone, Free 4.49 ng/dL (4.26-16.4); Testosterone, Total 132 ng/dL (240-950)
== END 2018-09-16 09:29 ==
LOC: NCHCN 09:09
PROVIDERS: PCP Internal Medicine; Visit Provider Internal Medicine
DX: E29.1 Testicular hypofunction (principal)
CPT/HCPCS: 84402; 84403

== ENCOUNTER 2018-10-06 08:05 | Outpatient (CLI) | payer MEDICARE, MEDICAID, SELFPAY ==
[2018-10-06 08:40] LABS: Abs Immature Grans 0.01 k/cumm (0.0-0.09); Absolute Basophil Count 0.02 k/cumm (0.0-0.2); Absolute Lymphocyte Count 1.44 k/cumm (1.2-3.4); Absolute Monocyte Count 0.54 k/cumm (0.11-0.7); Absolute Neutrophil Count 4.39 k/cumm (1.2-6.7); Basophils % 0.3; HCT 37.4 % (40.0-50.0); HGB 11.4 g/dL (13.5-17.5); Immature Grans % 0.2; Lymphocytes % 22.5; Mean Corp. HGB Concentration 30.5 g/dL (32.0-36.0); Mean Corpuscular Hemoglobin 24.6 pg (27.0-33.0); Mean Corpuscular Volume 80.8 fL (80-95); Mean Platelet Volume 9.5 fL (8.0-11.0); Monocytes % 8.4; Neutrophils % 68.6; Platelet Count 270 x1000/uL (130-400); RBC 4.63 m/cumm (4.50-6.00); RBC Distribution Width 15.6 % (11.8-14.1)
[2018-10-06 09:34] LABS: Lithium 0.58 mmol/L (0.60-1.20)
[2018-10-06 09:51] LABS: ALT 42 U/L (12-78); AST 19 U/L (15-37); Albumin 3.4 g/dL (3.4-5.0); Alkaline Phosphatase 109 U/L (46-116); Anion Gap 8.5 mmol/L (3-11); BUN 16 mg/dL (7-18); Bilirubin, Total 0.3 mg/dL (0.2-1.0); CO2 27.5 mmol/L (21.0-32.0); CREATININE 1.39 mg/dL (0.70-1.30); Calcium 9.5 mg/dL (8.5-10.1); Chloride 110 mmol/L (98-107); Estimated GFR 54.54 (mL/min/1.73m2); Glucose 133 mg/dL (70-100); Potassium 4.3 mmol/L (3.5-5.1); Sodium 146 mmol/L (136-145); Total Protein 6.4 g/dL (6.4-8.2)
[2018-10-08 21:04] LABS: Clozapine 1020 ng/mL (>350); Clozapine+Norclozapine Total 1642 ng/mL (>450); Norclozapine 622 ng/mL
== END 2018-10-06 08:25 ==
PROVIDERS: PCP Internal Medicine; Visit Provider Psychiatry & Neurology Psychiatry
DX: F25.9 Schizoaffective disorder, unspecified (principal); Z79.899 Other long term (current) drug therapy; Z51.81 Encounter for therapeutic drug level monitoring
CPT/HCPCS: 36415; 80053; 80159; 80178; 84443; 85025

== ENCOUNTER 2018-11-03 08:10 | Outpatient (CLI) | payer MEDICARE, MEDICAID, SELFPAY ==
[2018-11-03 08:37] LABS: Abs Immature Grans 0.02 k/cumm (0.0-0.09); Absolute Basophil Count 0.01 k/cumm (0.0-0.2); Absolute Lymphocyte Count 1.43 k/cumm (1.2-3.4); Absolute Monocyte Count 0.46 k/cumm (0.11-0.7); Absolute Neutrophil Count 4.41 k/cumm (1.2-6.7); Basophils % 0.2; HCT 35.4 % (40.0-50.0); Immature Grans % 0.3; Lymphocytes % 22.6; Mean Corp. HGB Concentration 31.1 g/dL (32.0-36.0); Mean Corpuscular Hemoglobin 24.4 pg (27.0-33.0); Mean Corpuscular Volume 78.7 fL (80-95); Mean Platelet Volume 9.7 fL (8.0-11.0); Monocytes % 7.3; Neutrophils % 69.6; Platelet Count 268 x1000/uL (130-400); RBC Distribution Width 15.3 % (11.8-14.1); White Blood Cell Count 6.33 k/cumm (4.4-10.8)
[2018-11-03 10:14] LABS: ALT 26 U/L (12-78); AST 12 U/L (15-37); Albumin 3.2 g/dL (3.4-5.0); Alkaline Phosphatase 103 U/L (46-116); Anion Gap 10.2 mmol/L (3-11); BUN 19 mg/dL (7-18); Bilirubin, Total 0.3 mg/dL (0.2-1.0); CO2 24.8 mmol/L (21.0-32.0); CREATININE 1.23 mg/dL (0.70-1.30); Calcium 9.4 mg/dL (8.5-10.1); Chloride 108 mmol/L (98-107); Glucose 140 mg/dL (70-100); Potassium 4.2 mmol/L (3.5-5.1); Sodium 143 mmol/L (136-145); TSH 0.77 uIU/mL (0.36-3.74); Total Protein 6.4 g/dL (6.4-8.2)
[2018-11-03 10:50] LABS: Lithium 0.52 mmol/L (0.60-1.20)
[2018-11-05 09:43] LABS: Clozapine 1010 ng/mL (>350); Clozapine+Norclozapine Total 1553 ng/mL (>450); Norclozapine 543 ng/mL
== END 2018-11-03 08:30 ==
PROVIDERS: PCP Internal Medicine; Visit Provider Psychiatry & Neurology Psychiatry
DX: F25.9 Schizoaffective disorder, unspecified (principal); Z79.899 Other long term (current) drug therapy; Z51.81 Encounter for therapeutic drug level monitoring
CPT/HCPCS: 36415; 80053; 80159; 80178; 84443; 85025

== ENCOUNTER 2018-11-18 09:01 | Emergency (ER) | payer MEDICARE, MEDICAID, SELFPAY ==
[2018-11-18 09:05] VITALS: BP 108/72; PULSE 78; RESP 15; TEMP 36.4; O2SAT 98
--- NOTE | 2018-11-18 09:17 | ED.GENADUL_ITS ---
Discharge Plan Disposition Patient Disposition: HOME Condition: Stable Discharge Details Chief Complaint: Laceration Clinical Impression: Laceration Primary Care Provider: Tomás Carvalho ED Provider: Racheal Isaac Home Meds and New Rx's Prescriptions: Continued clozapine [Clozaril] 100 MG tablet 100 mg PO DIRECTED RF: 0 pantoprazole [Protonix] 20 MG tablet,delayed release (DR/EC) 1 tab PO BID RF: 0 lorazepam 2 MG tablet 2 mg PO BID RF: 0 propranolol 10 MG tablet 10 mg PO BID RF: 0 bupropion HCl 150 MG tablet extended release 24 hr 300 mg PO DIRECTED RF: 0 lithium carbonate 300 MG tablet extended release 600 mg PO HS RF: 0 Androderm 1 EACH patch 24 hour 4 mg Transdermal DAILY RF: 0 acetaminophen 500 mg Tablet 1,000 mg PO Q6H PRNRF: 0 ascorbic acid (vitamin C) 250 mg Tablet 250 mg PO BID RF: 0 docusate sodium 100 mg Capsule 100 mg PO BID PRNRF: 0 ibuprofen 600 mg Tablet 600 mg PO Q6H PRNRF: 0 lactulose 10 gram/15 mL Solution 15 - 30 ml PO DAILY PRNRF: 0 Halperidol capsule 1 mg PO TID RF: 0 Discharge Instructions Instructions: Laceration (ED) Additional Instructions: Please return immediately to the emergency department he develop any new or worsening symptoms or if you become otherwise concerned. It is extremely important that you call as soon as possible to make an appointment to be seen in follow-up this visit by your primary care doctor. Referrals: Tomás Carvalho MD [Primary Care Provider] - Discharge Data Discharge Date/Time-TO BE ENTERED AT DEPARTURE: 11/18/18 10:03 Medical Decision Making Sean Fernandez is a 48-year-old man with a history of schizophrenia, GERD who presented to the emergency department with skin wound to the left lower leg inflicted by his pet dog scratching him. On exam patient is well and nontoxic appearing. 7 cm somewhat zigzag very superficial laceration to the left anterior lower leg. No gaping wound, no wound closure indicated. Exam/history is not consistent with foreign body, fracture, infection, other acute emergent l eladio/limb-threatening process. Plan for wound irrigation, bacitracin, wound dressing. I had a lengthy discussion with the patient regarding return to emergency department precautions, importance of outpatient follow-up, home care. Patient verbalized understanding of the plan was amenable. Patient was discharged home with clear plan for outpatient follow-up. All questions were answered. Medical Records Medical records reviewed: Yes I reviewed the patient's medical records. HPI General Mode of arrival: ambulatory . Date/Time Provider Initiated Documentation: 11/18/18 09:16 . Limitations to Documentation: no limitations . Information obtained by: patient . HPI Narrative: Sean Fernandez is a 48-year-old man with a history of schizophrenia, GERD presenting to the emergency department with skin wound. Patient reports that this morning he was scratched by his pet dog on his left lower leg. He denies any other injury or pain. Patient reports that he was previously in his usual state of health without recent illness. Patient reports that his dog is vaccinated, and that wound was from dog's nails and not from teeth. Last tetanus 2015. Related Data Home Medications Medication Instructions Recorded Confirmed clozapine [Clozaril] 100 mg PO DIRECTED 11/19/16 11/18/18 lorazepam 2 mg PO BID 11/19/16 11/18/18 pantoprazole [Protonix] 1 tab PO BID 11/19/16 11/18/18 Androderm 4 mg TRANSDERMAL DAILY 12/14/16 11/18/18 bupropion HCl 300 mg PO DIRECTED 12/14/16 11/18/18 lithium carbonate 600 mg PO HS 12/14/16 11/18/18 propranolol 10 mg PO BID 12/14/16 11/18/18 Halperidol 1 mg PO TID 07/13/18 11/18/18 acetaminophen 1,000 mg PO Q6H PRN 11/18/18 11/18/18 ascorbic acid (vitamin C) 250 mg PO BID 11/18/18 11/18/18 docusate sodium 100 mg PO BID PRN 11/18/18 11/18/18 ibuprofen 600 mg PO Q6H PRN 11/18/18 11/18/18 lactulose 15 - 30 ml PO DAILY PRN 11/18/18 11/18/18 Allergies Allergy/AdvReac Type Severity Reaction Status Date / Time codeine Allergy Unknown Unverified 11/18/18 09:11 Sulfa (Sulfonamide Allergy Unknown Unverified 11/18/18 09:11 Antibiotics) esomeprazole [From Nexium] Allergy Unverified 11/18/18 09:22 fenofibrate [From Tricor] Allergy Unverified 11/18/18 09:22 ferrous gluconate Allergy Unverified 11/18/18 09:22 Penicillins Allergy Unverified 11/18/18 09:11 General Stated Complaint: Laceration DELORIS: 4 Review of Systems Review of Systems Constitutional: denies fevers Eyes: denies eye pain ENT: denies facial pain, dental pain, sore throat Cardiovascular: denies chest pain Respiratory: denies cough GI: denies abdominal pain, vomiting, diarrhea : denies flank pain MSK: denies back pain, neck pain, arthralgias, myalgias Skin: Reports skin wound Neuro: denies headaches, numbness, weakness PFSH Social History Smoking/Tobacco Use Status: Current every day Tobacco Type: cigarettes Alcohol Intake: never Drug use: Never Do you feel safe at home: Yes Do you feel safe in your relationship?: Yes Exam Narrative Exam Narrative: Constitutional: well and ieq-nvpgu-ufwqvgowr, pleasant, conversing normally HENT: head atraumatic/normocephalic/normal inspection, mucous membranes moist Eyes: conjunctiva normal, sclera normal, pupils 3mm b/l Neck: no stridor, normal ROM, trachea midline Resp: normal work of breathing, LCTAB Cardio: normal rate, normal rhythm, no murmur appreciated Skin: warm, dry, normal color, no rash, 7 cm somewhat zigzag very superficial laceration to the left anterior lower leg, no bleeding, no drainage, no surrounding erythema Neuro: alert, not altered, grossly non-focal, normal tone Ext: no edema Psych: normal mood, normal affect, normal behavior Course Vital Signs Temperature 36.4 C L 11/18/18 09:05 Pulse 78 11/18/18 09:05 Respiratory Rate 15 11/18/18 09:05 Blood Pressure 108/72 11/18/18 09:05 Pulse Oximetry 98 11/18/18 09:05 Temperature 36.4 C L 11/18/18 09:05 Temperature Source Temporal Artery Scan 11/18/18 09:05 Pulse 78 11/18/18 09:05 Respiratory Rate 15 11/18/18 09:05 Respiratory Effort Non-Labored 11/18/18 09:09 Blood Pressure 108/72 11/18/18 09:05 Blood Pressure Position Sitting 11/18/18 09:05 Pulse Oximetry 98 11/18/18 09:05 Oxygen Delivery Method Room Air 11/18/18 09:05 Oxygen Flow Rate 0 11/18/18 09:05 Pain Level 0 11/18/18 09:10
== END 2018-11-18 10:03 | disposition home or self-care (01) ==
PROVIDERS: Emergency Provider Student in an Organized Health Care Education/Training Program; PCP Internal Medicine
DX: S81.812A Laceration without foreign body, left lower leg, initial encounter (principal); W54.8XXA Other contact with dog, initial encounter
CPT/HCPCS: 99282

== ENCOUNTER 2018-11-29 13:32 | Emergency (ER) | payer MEDICARE, MEDICAID, SELFPAY ==
[2018-11-29 13:37] VITALS: BP 125/78; PULSE 98; RESP 16; TEMP 36.7; O2SAT 95
--- NOTE | 2018-11-29 13:37 | NUR.NOTE ---
Nursing Note: pt has been experiencing increasing SOB for the past week or so
--- NOTE | 2018-11-29 14:03 | DI.RAD_ITS ---
SYMPTOM/DIAGNOSIS: SOB PA AND LATERAL CHEST: The heart is normal in size. The lungs are clear. The mediastinal structures and pleura appear intact. CONCLUSION: Normal chest.
--- NOTE | 2018-11-29 14:05 | ED.GENADUL_ITS ---
Discharge Plan Disposition Patient Disposition: HOME Condition: Improving Discharge Details Chief Complaint: SOB Clinical Impression: Shortness of breath Primary Care Provider: Tomás Carvalho ED Provider: Hira Aceves Home Meds and New Rx's Prescriptions: Continued clozapine [Clozaril] 100 MG tablet 100 mg PO DIRECTED RF: 0 pantoprazole [Protonix] 20 MG tablet,delayed release (DR/EC) 1 tab PO BID RF: 0 lorazepam 2 MG tablet 2 mg PO BID RF: 0 propranolol 10 MG tablet 10 mg PO BID RF: 0 bupropion HCl 150 MG tablet extended release 24 hr 300 mg PO DIRECTED RF: 0 lithium carbonate 300 MG tablet extended release 600 mg PO HS RF: 0 Androderm 1 EACH patch 24 hour 4 mg Transdermal DAILY RF: 0 lactulose 10 gram/15 mL Solution 15 - 30 ml PO DAILY PRNRF: 0 Halperidol capsule 1 mg PO TID RF: 0 Discharge Instructions Instructions: Dyspnea (ED) Additional Instructions: Please keep your scheduled follow-up appointment for further testing of your shortness of breath your pulmonary function testing is on Saturday at 8 AM.. Return to the emergency department for any new or worsening symptoms otherwise use inhaler as directed. Follow-up with your primary care provider for reassessment preferably next week. Referrals: Tomás Carvalho MD [Primary Care Provider] - Discharge Data Discharge Date/Time-TO BE ENTERED AT DEPARTURE: 11/29/18 15:55 Medical Decision Making Patient presenting to the emergency department for chief complaint of shortness of breath. Patient states that this is been intermittent for the past 6 months but he has noticed it more over the past week with some intermittent chest tightness. He does state over the last month he has quit smoking cigarettes and he does have a 68-zgyd-vvbr history. Physical exam is unremarkable and shows clear lung sounds, normal cardiac exam, patient in no signs of distress per and EKG shows sinus rhythm with rate of 92, no STEMI, no acute changes since 2017. Plan to check labs and x-ray imaging. Review of labs is unremarkable except for a baseline anemia, mild decreased renal function but negative troponin, and negative d-dimer. Chest x-ray reviewed and showed no acute findings. Patient did state slight improvement after the inhaler. I do feel that patient is able to be safely discharged and do not feel that additional testing is required at this time given duration of symptoms has been over 6 months. Was able to contact respiratory for arrangement of pulmonary function test as I feel patient may have possible COPD given his smoking history. This was able to be arranged. Return precautions were discussed. Patient placed upon follow-up list with primary care provider the next 1 to 2 weeks HPI General Mode of arrival: ambulatory . Date/Time Provider Initiated Documentation: 11/29/18 13:40 . Limitations to Documentation: no limitations . Information obtained by: patient and RN notes reviewed . History of Present Illness 48 year old M presents to the emergency department with the chief complaint of Shortness of breath, described as moderate and similar to prior episodes, Quality is described as other (Denies pain or discomfort), Patient started experiencing this month(s) (6) and it has been intermittent. Rest improves symptom(s), Other factors that worsen symptoms (Activity) . Patient notes no other symptoms.. Patient did receive the following treatments prior to arrival, none Related Data Home Medications Medication Instructions Recorded Confirmed clozapine [Clozaril] 100 mg PO DIRECTED 11/19/16 11/29/18 lorazepam 2 mg PO BID 11/19/16 11/29/18 pantoprazole [Protonix] 1 tab PO BID 11/19/16 11/29/18 Androderm 4 mg TRANSDERMAL DAILY 12/14/16 11/29/18 bupropion HCl 300 mg PO DIRECTED 12/14/16 11/29/18 lithium carbonate 600 mg PO HS 12/14/16 11/29/18 propranolol 10 mg PO BID 12/14/16 11/29/18 Halperidol 1 mg PO TID 07/13/18 11/29/18 lactulose 15 - 30 ml PO DAILY PRN 11/18/18 11/29/18 Allergies Allergy/AdvReac Type Severity Reaction Status Date / Time codeine Allergy Unknown Unverified 11/29/18 13:42 Sulfa (Sulfonamide Allergy Unknown Unverified 11/29/18 13:42 Antibiotics) esomeprazole [From Nexium] Allergy Unverified 11/29/18 13:42 fenofibrate [From Tricor] Allergy Unverified 11/29/18 13:42 ferrous gluconate Allergy Unverified 11/29/18 13:42 Penicillins Allergy Unverified 11/29/18 13:42 General Stated Complaint: SOB DELORIS: 3 Review of Systems Constitutional Denies chills, Denies fever(s) and Reports malaise Cardiovascular Reports as per HPI, Denies chest pain, Denies chest pain with activity, Denies syncope, Denies irregular heart rhythm, Denies palpitations, Reports dyspnea and Reports dyspnea on exertion Respiratory Denies cough, Denies hemoptysis, Reports dyspnea and Reports dyspnea on exertion Gastrointestinal Denies abdominal pain, Denies nausea and Denies vomiting Neurologic Denies syncope Endocrine Denies palpitations [facility] Social History Smoking/Tobacco Use Status: Former Tobacco Use Quit Date: 10/29/18 Alcohol Intake: never Drug use: Never Substance use type: does not use Do you feel safe at home: Yes Do you feel safe in your relationship?: Yes Exam Const General: cooperative, healthy appearing, comfortable, no acute distress, not diaphoretic and not ill appearing Nutritional Appearance: average body habitus Orientation: alert, awake and oriented x3 Limitations: mental status not altered Neck Neck: normal visual inspection, full ROM, trachea midline, supple and no anterior neck swelling Thyroid: thyroid normal Carotids: normal carotid upstroke and no bruits Chest Chest: normal inspection of the chest Resp Effort & Inspection: normal respiratory effort and able to speak in complete sentences Auscultation: clear to auscultation bilaterally Cardio Jugular venous pressure: no JVD Palpation: normal PMI Rate: regular rate Rhythm: regular rhythm Heart Sounds: S1 normal, S2 normal, no click, no gallops, no murmurs and no rubs Bruits: no abdominal aortic bruits and no carotid bruits Pulses: radial pulses present bilaterally 2+ GI Inspection: normal to inspection Palpation: soft, no aortic enlargement, no pulsatile masses and nontender Auscultation: normal bowel sounds Skin General skin exam: no rashes or lesions noted Neuro General: alert, awake, oriented x3, tone normal and moves all extremities Course Vital Signs Temperature 36.7 C 11/29/18 13:37 Pulse 98 H 11/29/18 13:37 Respiratory Rate 16 11/29/18 13:37 Blood Pressure 125/78 11/29/18 13:37 Pulse Oximetry 95 11/29/18 13:37 Temperature 36.7 C 11/29/18 13:37 Temperature Source Skin 11/29/18 13:37 Pulse 98 H 11/29/18 13:37 Respiratory Rate 16 11/29/18 13:37 Blood Pressure 125/78 11/29/18 13:37 Blood Pressure Position Sitting 11/29/18 13:37 Pulse Oximetry 95 11/29/18 13:37 Oxygen Delivery Method Room Air 11/29/18 13:37 Oxygen Flow Rate 0 11/29/18 13:37 Pain Level 0 11/29/18 13:37
[2018-11-29 14:14] LABS: Abs Immature Grans 0.01 k/cumm (0.0-0.09); Absolute Basophil Count 0.02 k/cumm (0.0-0.2); Absolute Eosinophil Count 0.01 k/cumm (0.0-0.7); Absolute Monocyte Count 0.53 k/cumm (0.11-0.7); Absolute Neutrophil Count 4.36 k/cumm (1.2-6.7); Basophils % 0.3; Eosinophils % 0.2; HCT 37.6 % (40.0-50.0); HGB 11.5 g/dL (13.5-17.5); Immature Grans % 0.2; Lymphocytes % 24.5; Mean Corp. HGB Concentration 30.6 g/dL (32.0-36.0); Mean Corpuscular Hemoglobin 23.3 pg (27.0-33.0); Mean Corpuscular Volume 76.3 fL (80-95); Mean Platelet Volume 9.7 fL (8.0-11.0); Monocytes % 8.1; Neutrophils % 66.7; Platelet Count 345 x1000/uL (130-400); RBC 4.93 m/cumm (4.50-6.00); RBC Distribution Width 15.5 % (11.8-14.1); White Blood Cell Count 6.53 k/cumm (4.4-10.8)
[2018-11-29 14:32] LABS: ALT 20 U/L (12-78); AST 5 U/L (15-37); Albumin 3.2 g/dL (3.4-5.0); Alkaline Phosphatase 106 U/L (46-116); Anion Gap 7.6 mmol/L (3-11); BUN 20 mg/dL (7-18); Bilirubin, Total 0.3 mg/dL (0.2-1.0); CO2 27.4 mmol/L (21.0-32.0); CREATININE 1.44 mg/dL (0.70-1.30); Calcium 9.5 mg/dL (8.5-10.1); Chloride 108 mmol/L (98-107); Estimated GFR 52.36 (mL/min/1.73m2); Glucose 136 mg/dL (70-100); Potassium 3.8 mmol/L (3.5-5.1); Sodium 143 mmol/L (136-145); Total Protein 6.8 g/dL (6.4-8.2)
[2018-11-29 14:33] LABS: Troponin I < 0.05 ng/mL (0.00-0.06)
[2018-11-29 14:47] LABS: D-Dimer 306 ng/mlFEU (<500)
--- NOTE | 2018-11-29 15:02 | DI.VRAD_ITS ---
EXAM: XR Chest, 2 Views EXAM DATE/TIME: 11/29/2018 2:04 PM CLINICAL HISTORY: 48 years old, male; Shortness of breath TECHNIQUE: Imaging protocol: XR of the chest, 2 views. COMPARISON: No relevant prior studies available. FINDINGS: Lungs: Unremarkable. No consolidation. Pleural space: Unremarkable. No pleural effusion. No pneumothorax. Heart/Mediastinum: Unremarkable. No cardiomegaly. Bones/joints: Unremarkable. IMPRESSION: No acute findings. Dictated and Authenticated by: Ezequiel Lerner MD. Ordering:JEET Iniguez MD
[2018-11-29 15:16] VITALS: RESP 16
[2018-11-29] MEDS: Inhaler, Assist Device 1 EACH MC (15:44)
[2018-11-29] MEDS: Normal Saline Flush 10 ML SYR IVP (15:44)
[2018-11-29] MEDS: Albuterol HFA 8 GM 60 PUFF INH IH (15:44)
--- NOTE | 2018-11-29 16:10 | NUR.NOTE ---
referral faxed to pcp [facility].Nursing Note:
== END 2018-11-29 15:55 | disposition home or self-care (01) ==
PROVIDERS: Emergency Provider Nurse Practitioner Family; PCP Internal Medicine
DX: R06.02 Shortness of breath (principal); Z87.891 Personal history of nicotine dependence
CPT/HCPCS: 36415; 80053; 93005; 99285; 71046; 83735; 84484; 85025; 85379; 93010

== ENCOUNTER 2018-11-30 07:19 | Outpatient (CLI) | payer MEDICARE, MEDICAID, SELFPAY ==
[2018-11-30 10:08] LABS: Abs Immature Grans 0.01 k/cumm (0.0-0.09); Absolute Basophil Count 0.02 k/cumm (0.0-0.2); Absolute Eosinophil Count 0.01 k/cumm (0.0-0.7); Absolute Lymphocyte Count 1.35 k/cumm (1.2-3.4); Absolute Monocyte Count 0.63 k/cumm (0.11-0.7); Absolute Neutrophil Count 6.83 k/cumm (1.2-6.7); Basophils % 0.2; Eosinophils % 0.1; HCT 36.5 % (40.0-50.0); HGB 10.9 g/dL (13.5-17.5); Immature Grans % 0.1; Lymphocytes % 15.3; Mean Corp. HGB Concentration 29.9 g/dL (32.0-36.0); Mean Corpuscular Hemoglobin 22.8 pg (27.0-33.0); Mean Corpuscular Volume 76.2 fL (80-95); Mean Platelet Volume 10.3 fL (8.0-11.0); Monocytes % 7.1; Neutrophils % 77.2; Platelet Count 336 x1000/uL (130-400); RBC 4.79 m/cumm (4.50-6.00); RBC Distribution Width 15.4 % (11.8-14.1); White Blood Cell Count 8.85 k/cumm (4.4-10.8)
[2018-11-30 10:21] LABS: Lithium 0.53 mmol/L (0.60-1.20)
[2018-11-30 10:34] LABS: ALT 21 U/L (12-78); Albumin 3.3 g/dL (3.4-5.0); Alkaline Phosphatase 106 U/L (46-116); Anion Gap 9.7 mmol/L (3-11); BUN 21 mg/dL (7-18); Bilirubin, Total 0.2 mg/dL (0.2-1.0); CO2 25.3 mmol/L (21.0-32.0); CREATININE 1.41 mg/dL (0.70-1.30); Calcium 9.9 mg/dL (8.5-10.1); Chloride 107 mmol/L (98-107); Estimated GFR 53.65 (mL/min/1.73m2); Glucose 157 mg/dL (70-100); Potassium 4.4 mmol/L (3.5-5.1); Sodium 142 mmol/L (136-145); TSH 0.15 uIU/mL (0.36-3.74); Total Protein 6.6 g/dL (6.4-8.2)
[2018-11-30 10:39] LABS: AST < 5 U/L (15-37)
[2018-12-02 12:03] LABS: Clozapine 1260 ng/mL (>350); Clozapine+Norclozapine Total 1888 ng/mL (>450); Norclozapine 628 ng/mL
== END 2018-11-30 07:39 ==
PROVIDERS: PCP Internal Medicine; Visit Provider Psychiatry & Neurology Psychiatry
DX: F25.9 Schizoaffective disorder, unspecified (principal); Z79.899 Other long term (current) drug therapy
CPT/HCPCS: 36415; 80053; 80159; 80178; 84443; 85025

== ENCOUNTER 2018-12-01 02:32 | Outpatient (CLI) | payer MEDICARE, MEDICAID, SELFPAY ==
--- NOTE | 2018-12-01 | PFT_ITS ---
PULMONARY FUNCTION TEST REPORT Patient - Sean Fernandez DATE OF SERVICE December 01, 2018 REQUESTING PROVIDER Tomás Carvalho M.D. INTERPRETATION OF STUDY Spirometry shows no evidence of obstructive airways disease. No bronchodilator testing was carried out. LUNG VOLUMES - Lung volumes show mild restriction. DIFFUSION CAPACITY- Mildly reduced, which is normal when corrected to alveolar volume. AIRWAY RESISTANCE - Elevated. IMPRESSION Overall borderline mild restrictive lung disease associated with borderline mild diffusion defect. Clinical correlation recommended. Mulu Terrazas M.D. HILARY/ T- 12/08/2018
== END 2018-12-01 02:52 ==
PROVIDERS: PCP Internal Medicine; Visit Provider Internal Medicine
DX: R06.02 Shortness of breath (principal); Z87.891 Personal history of nicotine dependence
CPT/HCPCS: 94060; 94150; 94726; 94729

== ENCOUNTER 2018-12-02 15:00 | Outpatient (REF) | payer MEDICARE, MEDICAID, SELFPAY ==
[2018-12-02 21:13] LABS: HCT 37.2 % (40.0-50.0); Mean Corp. HGB Concentration 29.6 g/dL (32.0-36.0); Mean Corpuscular Hemoglobin 22.6 pg (27.0-33.0); Mean Corpuscular Volume 76.4 fL (80-95); Mean Platelet Volume 10.7 fL (8.0-11.0); Platelet Count 359 x1000/uL (130-400); RBC 4.87 m/cumm (4.50-6.00); RBC Distribution Width 15.5 % (11.8-14.1); Reticulocyte 1.5 % (0.5-2.4); White Blood Cell Count 7.55 k/cumm (4.4-10.8)
[2018-12-02 21:29] LABS: Iron 24 ug/dL (50-175); Total Iron Binding Capacity 305 ug/dL (250-450); Transferrin Sat 8 % (20-55)
[2018-12-02 21:50] LABS: FREE T4 1.15 ng/dL (0.76-1.46); TSH 0.15 uIU/mL (0.36-3.74)
[2018-12-02 22:10] LABS: NT-proBNP 12 pg/mL
== END 2018-12-02 15:20 ==
LOC: NCHCN 15:00
PROVIDERS: PCP Internal Medicine; Visit Provider Internal Medicine
DX: D50.9 Iron deficiency anemia, unspecified (principal); R06.09 Other forms of dyspnea
CPT/HCPCS: 85027; 83540; 83550; 83880; 84439; 84443; 85045

== ENCOUNTER → 2018-12-12 09:09 | Outpatient (BNVA) | payer MEDICARE, MEDICAID, SELFPAY | PROVIDERS: PCP Internal Medicine; Referring Provider Internal Medicine; Visit Provider Physical Therapy Assistant | DX: D64.9 Anemia, unspecified (principal) | CPT/HCPCS: 99213 ==

== ENCOUNTER 2018-12-29 08:55 | Outpatient (CLI) | payer MEDICARE, MEDICAID, SELFPAY ==
[2018-12-29 09:20] LABS: Abs Immature Grans 0.01 k/cumm (0.0-0.09); Absolute Basophil Count 0.02 k/cumm (0.0-0.2); Absolute Lymphocyte Count 1.42 k/cumm (1.2-3.4); Absolute Monocyte Count 0.49 k/cumm (0.11-0.7); Absolute Neutrophil Count 4.57 k/cumm (1.2-6.7); Basophils % 0.3; HCT 43.6 % (40.0-50.0); HGB 13.3 g/dL (13.5-17.5); Immature Grans % 0.2; Lymphocytes % 21.8; Mean Corp. HGB Concentration 30.5 g/dL (32.0-36.0); Mean Corpuscular Hemoglobin 24.7 pg (27.0-33.0); Mean Corpuscular Volume 80.9 fL (80-95); Mean Platelet Volume 9.9 fL (8.0-11.0); Monocytes % 7.5; Neutrophils % 70.2; RBC 5.39 m/cumm (4.50-6.00); RBC Distribution Width 21.7 % (11.8-14.1); White Blood Cell Count 6.51 k/cumm (4.4-10.8)
[2018-12-29 09:45] LABS: Anisocytosis 2+; Diff Comment RBC Morph Reviewed; Platelet Count 255 x1000/uL (130-400)
[2018-12-29 10:18] LABS: ALT 28 U/L (16-63); AST 13 U/L (15-37); Albumin 3.7 g/dL (3.4-5.0); Alkaline Phosphatase 109 U/L (46-116); Anion Gap 7.7 mmol/L (3-11); BUN 18 mg/dL (7-18); Bilirubin, Total 0.3 mg/dL (0.2-1.0); CO2 26.3 mmol/L (21.0-32.0); CREATININE 1.58 mg/dL (0.70-1.30); Chloride 108 mmol/L (98-107); Estimated GFR 47.04 (mL/min/1.73m2); Glucose 120 mg/dL (70-100); Potassium 4.4 mmol/L (3.5-5.1); Sodium 142 mmol/L (136-145); TSH 0.05 uIU/mL (0.36-3.74); Total Protein 6.8 g/dL (6.4-8.2)
[2018-12-29 11:01] LABS: Lithium 0.61 mmol/L (0.60-1.20)
[2018-12-31 10:59] LABS: Clozapine 767 ng/mL (>350); Clozapine+Norclozapine Total 1263 ng/mL (>450); Norclozapine 496 ng/mL
== END 2018-12-29 09:15 ==
PROVIDERS: PCP Internal Medicine; Visit Provider Psychiatry & Neurology Psychiatry
DX: F25.9 Schizoaffective disorder, unspecified (principal); Z79.899 Other long term (current) drug therapy
CPT/HCPCS: 36415; 80053; 80159; 80178; 84443; 85025

== ENCOUNTER 2019-01-15 07:11 | Day surgery (SDC) | payer MEDICARE, MEDICAID, SELFPAY ==
[2019-01-15 07:32] VITALS: BP 119/66; PULSE 95; RESP 18; TEMP 36.2; O2SAT 98
[2019-01-15] MEDS: Lactated Ringers 1,000 ML 80 ML IV (07:37)
--- NOTE | 2019-01-15 08:20 | BOWEL_PTH ---
PATIENT: Sean Fernandez JR LOC: [facility] U#:[id number] AGE/SX: 48/M ROOM: RE01/15/[address]: Sarah Monsalve : 1970 BED: DIS: 01/15/2019 SPEC #: [id number] RECD: 01/15/19 12:34 STATUS: PIETRO RE #: [id number] JOHN: 01/15/19 08:[address]: Sarah Monsalve DEPT: Surgical Specimen RECD BY: Africa Velásquez ENTERED: 01/15/19 12:36 SP TYPE: Bowel OTHR DR: Tomás Carvalho Tissues: 1 - BIOPSY BOWEL 2 - STOMACH BIOPSY 3 - STOMACH BIOPSY 4 - ESOPHAGUS BIOPSY 5 - ESOPHAGUS BIOPSY Procedures: GROSS AND MICRO LEVEL 4 Comments: [id number]
--- NOTE | 2019-01-15 08:57 | ENDO_ITS ---
Date of service: 01/15/19 Time of Service: 08:58 Endoscopy Report DATE OF PROCEDURE: 01/15/19 PRE-OP DIAGNOSIS: Fe Defn anemia POST-OP DIAGNOSIS: other (bile reflux gastritis/moderate gastritis/sm hiatal hernia ) PROCEDURE: egd ce SURGEON: Sarah Monsalve ANESTHESIA: GETA ESTIMATED BLOOD LOSS: 1 PATHOLOGY: other COMPLICATIONS: None DISPOSITION: same day PREP: Miralax/Dulcolax COLONOSCOPY RETRACTION TIME: 10 mins PROCEDURE DESCRIPTION: After informed consent was obtained the patient was take to the procedure room and placed in a supine position. Monitors were applied and a time out was done. The patients name, date of , procedure type, allergies to medications and metal in their body was reviewed. A bite block was placed and the patient was sedated. Once sedated and comfortable the gastroscope was advanced through the oropharynx which was grossly normal into the esophagus. The proximal and mid-esophagus were nl. In the distal esophagus there was sm hiatal hernia noted. The scope was advanced into the stomach and through the pylorus into the 3rd portion of the duodenum. The duodenum was noted to be nl. Biopsies were done . The scope was retracted back into the stomach and biopsies were done to rule out H. pylori. There were no ulcers. There was some mild gastritis noted around the antrum in a linear striped patter. The scope was retroflexed. The cardia and fundus were noted to be normal. There a sm. hiatal hernia noted. The scope was retracted back into the esophagus and biopsies were done of the GE junction to rule out Samuels's. All specimens are retrieved and no bleeding is noted. The Z line was regular. The scope was removed and the patient was woken up and taken back to [facility] in stable condition. After informed consent was obtained the patient was taken to the procedure room and placed in a left decubitous position. The patients name, date of , procedure, allergies to medications and metal in their body was reviewed. The patient was then sedated. Once sedated and comfortable a rectal exam was done. External exam was normal. Internal exam revealed a normal sphincter tone and no palpable masses. The scope was then introduced and retrofelexed. No internal hemorrhoids were identified. The scope was then advanced to the cecum without difficulty. The TI and appendiceal orifice were identified. The prep was good. The scope was then slowly retracted over 10 minutes back into the rectum. there were no polyps/AVM's or diverticula noted. The scope was removed and the patient was woken up and taken back to Same day surgery in stable condition. The patient tolerated the procedure well and there were no immediate complications. Follow up: The patient should follow up in 10 years unless they develop changes in bowel habits or other new gastrointestinal complaints. -carafate was added -pt will receive IV Iron prior to D/c.
--- NOTE | 2019-01-15 09:02 | W.PM.DSUDISC ---
Discharge Plan Disposition Patient Disposition: HOME Condition: Good Discharge Details Reason For Visit: SCREENING\GERD Attending Provider: Sarah Monsalve Primary Care Provider: Tomás Carvalho Home Meds and New Rx's Prescriptions: New sucralfate 1 gram tablet 1 gm PO QACHS Qty: 120 RF: 12 Discontinued ibuprofen 800 mg tablet 800 mg PO Q6H RF: 0 docusate sodium 100 mg capsule 100 mg PO BID RF: 0 ferrous gluconate 324 mg (37.5 mg iron) tablet 324 mg PO BID RF: 0 No Action polyethylene glycol 3350 17 gram/dose powder 238 g PO ONCE Qty: 238 RF: 0 bisacodyl [Dulcolax (bisacodyl)] 5 mg tablet,delayed release (DR/EC) 5 mg PO ONCE Qty: 4 RF: 0 bupropion HCl 150 mg tablet extended release 24 hr 300 mg PO DAILY RF: 0 Halperidol capsule 1 mg PO TID RF: 0 Androderm 4 mg/24 hr patch 24 hour 4 mg Transdermal DAILY RF: 0 ascorbic acid (vitamin C) 250 mg tablet 250 mg PO BID RF: 0 nicotine 14 mg/24 hr patch 24 hour 1 patch TD Q24H RF: 0 PNV-Select 27-1 mg tablet PO DAILY RF: 0 acetaminophen 500 mg tablet 500 mg PO Q4H PRNRF: 0 nicotine [Nicoderm CQ] 21 mg/24 hr patch 24 hour 1 patch TD Q24H RF: 0 clozapine [Clozaril] 100 MG tablet 100 mg PO DIRECTED RF: 0 pantoprazole [Protonix] 20 MG tablet,delayed release (DR/EC) 1 tab PO BID RF: 0 lorazepam 2 MG tablet 2 mg PO BID RF: 0 propranolol 10 MG tablet 10 mg PO BID RF: 0 lithium carbonate 300 MG tablet extended release 600 mg PO HS RF: 0 lactulose 10 gram/15 mL Solution 15 - 30 ml PO DAILY PRNRF: 0 Discharge Instructions Additional Instructions: Continue with lifestyle modifications: no alcohol, tobacco products, Aspirin or NSAID's (ibuprofen, motrin, naprosyn, aleve, etc). Try to avoid or limit: soda, or any carbonated beverages, caffeine (including tea & chocolate), and acidic foods, (tomatoes, citrus, onions, peppermints) or spicy foods. It is very important to not lie down for 30 minutes after eating, and do not eat 2 hours prior to bedtime. Try to avoid wearing tight fitting clothing/ belts. -added carafate to medication regime- non formulary so will need to do a prior auth. Activity:: no strenuous acitivity x 24 hrs Diet:: sm lt meals for 24 hrs Discharge Orders Discharge Orders: Discharge Order (Routine); Ordered 01/15/19 Ordered By: Sarah Monsalve DS: Diagnosis Discharge Diagnosis (1) Gastritis, bile acid reflux: Status: Acute (2) Hiatal hernia: Status: Chronic
[2019-01-15 09:35] VITALS: BP 110/78; PULSE 71; RESP 18; TEMP 36; O2SAT 95
[2019-01-15] MEDS: IRON SUCROSE COMPLEX 200 MG in Normal Saline 100 ML 110 MG IVPB (09:51)
[2019-01-15 10:38] VITALS: BP 107/78; PULSE 71; RESP 16; TEMP 36.4; O2SAT 97
== END 2019-01-15 11:13 | disposition home or self-care (01) ==
PROVIDERS: PCP Internal Medicine; Visit Provider Surgery
PROC: (CPT 43239; principal; 2019-01-15 08:15)
DX: D50.9 Iron deficiency anemia, unspecified (principal); K31.89 Other diseases of stomach and duodenum; K21.0 Gastro-esophageal reflux disease with esophagitis; K44.9 Diaphragmatic hernia without obstruction or gangrene; K29.60 Other gastritis without bleeding; K63.89 Other specified diseases of intestine
CPT/HCPCS: 43239; 88305; 96365; J1756

== ENCOUNTER 2019-01-25 09:04 | Outpatient (CLI) | payer MEDICARE, MEDICAID, SELFPAY ==
[2019-01-25 09:59] LABS: Abs Immature Grans 0.01 k/cumm (0.0-0.09); Absolute Basophil Count 0.03 k/cumm (0.0-0.2); Absolute Lymphocyte Count 1.56 k/cumm (1.2-3.4); Absolute Monocyte Count 0.64 k/cumm (0.11-0.7); Absolute Neutrophil Count 7.57 k/cumm (1.2-6.7); Basophils % 0.3; HGB 13.1 g/dL (13.5-17.5); Immature Grans % 0.1; Lymphocytes % 15.9; Mean Corpuscular Hemoglobin 26.4 pg (27.0-33.0); Mean Corpuscular Volume 82.5 fL (80-95); Mean Platelet Volume 9.4 fL (8.0-11.0); Monocytes % 6.5; Neutrophils % 77.2; Platelet Count 291 x1000/uL (130-400); RBC 4.97 m/cumm (4.50-6.00); RBC Distribution Width 19.4 % (11.8-14.1); White Blood Cell Count 9.81 k/cumm (4.4-10.8)
[2019-01-25 11:39] LABS: Lithium 0.49 mmol/L (0.60-1.20)
[2019-01-25 11:42] LABS: Iron 29 ug/dL (50-175); Total Iron Binding Capacity 229 ug/dL (250-450); Transferrin Sat 13 % (20-55)
[2019-01-25 11:48] LABS: ALT 25 U/L (16-63); AST 11 U/L (15-37); Albumin 3.4 g/dL (3.4-5.0); Alkaline Phosphatase 115 U/L (46-116); Anion Gap 8.4 mmol/L (3-11); BUN 12 mg/dL (7-18); Bilirubin, Total 0.3 mg/dL (0.2-1.0); CO2 27.6 mmol/L (21.0-32.0); Calcium 9.8 mg/dL (8.5-10.1); Chloride 107 mmol/L (98-107); Glucose 102 mg/dL (70-100); Potassium 4.6 mmol/L (3.5-5.1); Sodium 143 mmol/L (136-145); TSH 0.02 uIU/mL (0.36-3.74); Total Protein 6.7 g/dL (6.4-8.2)
[2019-01-27 07:54] LABS: Clozapine 863 ng/mL (>350); Clozapine+Norclozapine Total 1382 ng/mL (>450); Norclozapine 519 ng/mL
== END 2019-01-25 09:24 ==
PROVIDERS: PCP Internal Medicine; Visit Provider Psychiatry & Neurology Psychiatry
DX: D50.9 Iron deficiency anemia, unspecified (principal); F25.9 Schizoaffective disorder, unspecified; Z79.899 Other long term (current) drug therapy
CPT/HCPCS: 36415; 80053; 80159; 80178; 83540; 83550; 84443; 85025

== ENCOUNTER 2019-02-20 01:54 | Outpatient (CLI) | payer MEDICARE, MEDICAID, SELFPAY ==
--- NOTE | 2019-02-20 10:00 | NS.NUTBLAN_ITS ---
DESCRIPTION:? Sean Fernandez presents for nutrition consult for obesity.? BMI 33? ?States his weight has been stable for 10 years.? He self-reports medications for anxiety and mental/emotional concerns including lithium, lorazepam, haldol and others.? Sean states he just quit cigarettes and is feeling good about this. Sean is not interested in weight loss and does not believe he needs to lose weight, however he is very concerned about his bleeding ulcer and wonders what can be done about that. He takes protonix and colace.? He does take vitamin, vitamin?C and iron. Currently eats breakfast of daryn charms and milk or eggs fried in butter.? He snacks on donuts and candy.? He does not describe contents of his other meals. He drinks coffee, tea and soda and milk. INTERVENTION:? Discussed healthier eating plan that may result in some slow weight loss to include more vegetables.? He wilL stay away from acidic foods like tomato, but will increase other vegetables.? He will cut back on his snack foods in place of 'safe' fruit for snack.? Discussed high calorie foods that are low in nutritional value and he voices understanding. Created list of good foods and foods to avoid including some high fat choices. Discussed other foods to avoid to protect his stomach including pepper, spicy foods, caffeine foods, carbonated foods. He asks about fiber and explained sources of fiber from food and reading the food label. PLAN:? Sean agrees to:? have at least 1 cup vegetables daily from the accepted list; protein source twice a day; fruit for snack; starch with supper; oils in place of butter. ? ? Sean has the contact information for this office and will be in touch if he desires. Face to Face 40 minutes MNT
== END 2019-02-20 02:14 ==
PROVIDERS: PCP Internal Medicine; Visit Provider Dietitian, Registered
DX: E66.9 Obesity, unspecified (principal); Z71.3 Dietary counseling and surveillance
CPT/HCPCS: 97802

== ENCOUNTER 2019-02-23 07:29 | Outpatient (CLI) | payer MEDICARE, MEDICAID, SELFPAY ==
[2019-02-23 08:03] LABS: Abs Immature Grans 0.02 k/cumm (0.0-0.09); Absolute Basophil Count 0.01 k/cumm (0.0-0.2); Absolute Lymphocyte Count 1.53 k/cumm (1.2-3.4); Absolute Monocyte Count 0.48 k/cumm (0.11-0.7); Absolute Neutrophil Count 4.33 k/cumm (1.2-6.7); Basophils % 0.2; HCT 43.9 % (40.0-50.0); HGB 14.3 g/dL (13.5-17.5); Immature Grans % 0.3; Mean Corp. HGB Concentration 32.6 g/dL (32.0-36.0); Mean Corpuscular Hemoglobin 27.6 pg (27.0-33.0); Mean Corpuscular Volume 84.6 fL (80-95); Mean Platelet Volume 9.2 fL (8.0-11.0); Monocytes % 7.5; Platelet Count 234 x1000/uL (130-400); RBC 5.19 m/cumm (4.50-6.00); RBC Distribution Width 17.3 % (11.8-14.1); White Blood Cell Count 6.37 k/cumm (4.4-10.8)
[2019-02-23 08:48] LABS: Lithium 0.55 mmol/L (0.60-1.20)
[2019-02-23 09:00] LABS: ALT 36 U/L (16-63); AST 13 U/L (15-37); Albumin 3.7 g/dL (3.4-5.0); Alkaline Phosphatase 105 U/L (46-116); Anion Gap 12.5 mmol/L (3-11); BUN 24 mg/dL (7-18); Bilirubin, Total 0.2 mg/dL (0.2-1.0); CO2 25.5 mmol/L (21.0-32.0); CREATININE 1.15 mg/dL (0.70-1.30); Calcium 9.6 mg/dL (8.5-10.1); Chloride 107 mmol/L (98-107); Glucose 120 mg/dL (70-100); Potassium 4.2 mmol/L (3.5-5.1); Sodium 145 mmol/L (136-145); TSH 0.24 uIU/mL (0.36-3.74); Total Protein 6.9 g/dL (6.4-8.2)
[2019-02-25 07:15] LABS: Clozapine 491 ng/mL (>350); Clozapine+Norclozapine Total 865 ng/mL (>450); Norclozapine 374 ng/mL
== END 2019-02-23 07:49 ==
PROVIDERS: PCP Internal Medicine; Visit Provider Psychiatry & Neurology Psychiatry
DX: F25.9 Schizoaffective disorder, unspecified (principal); Z79.899 Other long term (current) drug therapy
CPT/HCPCS: 36415; 80053; 80159; 80178; 84443; 85025

== ENCOUNTER 2019-03-21 07:29 | Outpatient (CLI) | payer MEDICARE, MEDICAID, SELFPAY ==
[2019-03-21 09:23] LABS: Abs Immature Grans 0.03 k/cumm (0.0-0.09); Absolute Basophil Count 0.02 k/cumm (0.0-0.2); Absolute Eosinophil Count 0.01 k/cumm (0.0-0.7); Absolute Monocyte Count 0.64 k/cumm (0.11-0.7); Absolute Neutrophil Count 6.57 k/cumm (1.2-6.7); Basophils % 0.2; Eosinophils % 0.1; HCT 42.2 % (40.0-50.0); Immature Grans % 0.3; Mean Corp. HGB Concentration 33.2 g/dL (32.0-36.0); Mean Corpuscular Hemoglobin 28.4 pg (27.0-33.0); Mean Corpuscular Volume 85.6 fL (80-95); Mean Platelet Volume 9.4 fL (8.0-11.0); Monocytes % 7.2; Neutrophils % 74.2; Platelet Count 247 x1000/uL (130-400); RBC 4.93 m/cumm (4.50-6.00); RBC Distribution Width 14.9 % (11.8-14.1); White Blood Cell Count 8.87 k/cumm (4.4-10.8)
[2019-03-21 11:10] LABS: Lithium 0.56 mmol/L (0.60-1.20)
[2019-03-21 11:47] LABS: ALT 27 U/L (16-63); AST 13 U/L (15-37); Albumin 3.7 g/dL (3.4-5.0); Alkaline Phosphatase 101 U/L (46-116); Anion Gap -1.7 mmol/L (3-11); BUN 20 mg/dL (7-18); Bilirubin, Total 0.2 mg/dL (0.2-1.0); CO2 25.7 mmol/L (21.0-32.0); Calcium 9.9 mg/dL (8.5-10.1); Chloride 107 mmol/L (98-107); Glucose 99 mg/dL (74-106); Potassium 4.1 mmol/L (3.5-5.1); Sodium 131 mmol/L (136-145); TSH 1.05 uIU/mL (0.36-3.74); Total Protein 6.7 g/dL (6.4-8.2)
[2019-03-24 16:14] LABS: Clozapine 956 ng/mL (>350); Clozapine+Norclozapine Total 1454 ng/mL (>450); Norclozapine 498 ng/mL
== END 2019-03-21 07:49 ==
PROVIDERS: PCP Internal Medicine; Visit Provider Psychiatry & Neurology Psychiatry
DX: F25.9 Schizoaffective disorder, unspecified (principal); Z79.899 Other long term (current) drug therapy
CPT/HCPCS: 36415; 80053; 80159; 80178; 84443; 85025

== ENCOUNTER 2019-04-17 13:03 | Outpatient (CLI) | payer MEDICARE, MEDICAID, SELFPAY ==
[2019-04-17 13:43] LABS: Abs Immature Grans 0.01 k/cumm (0.0-0.09); Absolute Basophil Count 0.01 k/cumm (0.0-0.2); Absolute Lymphocyte Count 1.45 k/cumm (1.2-3.4); Absolute Neutrophil Count 5.21 k/cumm (1.2-6.7); Basophils % 0.1; HCT 39.9 % (40.0-50.0); Immature Grans % 0.1 %; Lymphocytes % 19.9; Mean Corp. HGB Concentration 32.6 g/dL (32.0-36.0); Mean Corpuscular Hemoglobin 28.1 pg (27.0-33.0); Mean Corpuscular Volume 86.2 fL (80-95); Mean Platelet Volume 9.3 fL (8.0-11.0); Monocytes % 8.2; Neutrophils % 71.7; Platelet Count 267 x1000/uL (130-400); RBC 4.63 m/cumm (4.50-6.00); RBC Distribution Width 14.5 % (11.8-14.1); White Blood Cell Count 7.28 k/cumm (4.4-10.8)
[2019-04-17 14:43] LABS: Lithium 0.39 mmol/L (0.60-1.20)
[2019-04-17 14:55] LABS: ALT 27 U/L (16-63); AST 10 U/L (15-37); Albumin 3.4 g/dL (3.4-5.0); Alkaline Phosphatase 92 U/L (46-116); Anion Gap 10.4 mmol/L (3-11); BUN 18 mg/dL (7-18); Bilirubin, Total 0.2 mg/dL (0.2-1.0); CO2 27.6 mmol/L (21.0-32.0); CREATININE 1.11 mg/dL (0.70-1.30); Calcium 9.8 mg/dL (8.5-10.1); Chloride 108 mmol/L (98-107); Glucose 116 mg/dL (74-106); Potassium 4.1 mmol/L (3.5-5.1); Sodium 146 mmol/L (136-145); TSH 0.62 uIU/mL (0.36-3.74); Total Protein 6.3 g/dL (6.4-8.2)
[2019-04-21 07:08] LABS: Clozapine 812 ng/mL (>350); Clozapine+Norclozapine Total 1362 ng/mL (>450); Norclozapine 550 ng/mL
== END 2019-04-17 13:23 ==
PROVIDERS: PCP Internal Medicine; Visit Provider Psychiatry & Neurology Psychiatry
DX: F25.9 Schizoaffective disorder, unspecified (principal); Z79.899 Other long term (current) drug therapy
CPT/HCPCS: 36415; 80053; 80159; 80178; 84443; 85025

== ENCOUNTER 2019-05-17 08:56 | Outpatient (CLI) | payer MEDICARE, MEDICAID, SELFPAY ==
[2019-05-17 09:41] LABS: Abs Immature Grans 0.02 k/cumm (0.0-0.09); Absolute Basophil Count 0.02 k/cumm (0.0-0.2); Absolute Lymphocyte Count 1.46 k/cumm (1.2-3.4); Absolute Monocyte Count 0.54 k/cumm (0.11-0.7); Absolute Neutrophil Count 5.57 k/cumm (1.2-6.7); Basophils % 0.3; HGB 14.5 g/dL (13.5-17.5); Immature Grans % 0.3 %; Lymphocytes % 19.2; Mean Corp. HGB Concentration 32.2 g/dL (32.0-36.0); Mean Platelet Volume 9.6 fL (8.0-11.0); Monocytes % 7.1; Neutrophils % 73.1; Platelet Count 276 x1000/uL (130-400); RBC 5.17 m/cumm (4.50-6.00); RBC Distribution Width 15.1 % (11.8-14.1); White Blood Cell Count 7.61 k/cumm (4.4-10.8)
[2019-05-17 10:08] LABS: Lithium 0.61 mmol/L (0.60-1.20)
[2019-05-17 10:11] LABS: ALT 27 U/L (16-63); AST 12 U/L (15-37); Albumin 3.9 g/dL (3.4-5.0); Alkaline Phosphatase 114 U/L (46-116); Anion Gap 10.2 mmol/L (3-11); BUN 18 mg/dL (7-18); Bilirubin, Total 0.3 mg/dL (0.2-1.0); CO2 26.8 mmol/L (21.0-32.0); CREATININE 1.46 mg/dL (0.70-1.30); Calcium 10.3 mg/dL (8.5-10.1); Chloride 108 mmol/L (98-107); Estimated GFR 51.53 (mL/min/1.73m2); Glucose 114 mg/dL (74-106); Potassium 4.3 mmol/L (3.5-5.1); Sodium 145 mmol/L (136-145); TSH 0.19 uIU/mL (0.36-3.74)
[2019-05-20 09:23] LABS: Clozapine 568 ng/mL (>350); Clozapine+Norclozapine Total 1021 ng/mL (>450); Norclozapine 453 ng/mL
== END 2019-05-17 09:16 ==
PROVIDERS: PCP Internal Medicine; Visit Provider Psychiatry & Neurology Psychiatry
DX: F25.9 Schizoaffective disorder, unspecified (principal); Z79.899 Other long term (current) drug therapy
CPT/HCPCS: 36415; 80053; 80159; 80178; 84443; 85025

== ENCOUNTER 2019-06-14 09:04 | Outpatient (CLI) | payer MEDICARE, MEDICAID, SELFPAY ==
[2019-06-14 09:26] LABS: Abs Immature Grans 0.02 k/cumm (0.0-0.09); Absolute Basophil Count 0.02 k/cumm (0.0-0.2); Absolute Eosinophil Count 0.01 k/cumm (0.0-0.7); Absolute Lymphocyte Count 1.91 k/cumm (1.2-3.4); Absolute Monocyte Count 0.63 k/cumm (0.11-0.7); Absolute Neutrophil Count 6.94 k/cumm (1.2-6.7); Basophils % 0.2; Eosinophils % 0.1; HCT 43.4 % (40.0-50.0); HGB 14.1 g/dL (13.5-17.5); Immature Grans % 0.2 %; Mean Corp. HGB Concentration 32.5 g/dL (32.0-36.0); Mean Corpuscular Hemoglobin 28.7 pg (27.0-33.0); Mean Corpuscular Volume 88.2 fL (80-95); Mean Platelet Volume 8.9 fL (8.0-11.0); Monocytes % 6.6; Neutrophils % 72.9; Platelet Count 254 x1000/uL (130-400); RBC 4.92 m/cumm (4.50-6.00); RBC Distribution Width 15.4 % (11.8-14.1); White Blood Cell Count 9.53 k/cumm (4.4-10.8)
[2019-06-14 10:25] LABS: Lithium 0.56 mmol/L (0.60-1.20)
[2019-06-14 10:38] LABS: ALT 32 U/L (16-63); AST 12 U/L (15-37); Albumin 3.6 g/dL (3.4-5.0); Alkaline Phosphatase 109 U/L (46-116); Anion Gap 6.3 mmol/L (3-11); BUN 22 mg/dL (7-18); Bilirubin, Total 0.3 mg/dL (0.2-1.0); CO2 29.7 mmol/L (21.0-32.0); CREATININE 1.15 mg/dL (0.70-1.30); Chloride 106 mmol/L (98-107); Glucose 105 mg/dL (74-106); Potassium 4.4 mmol/L (3.5-5.1); Sodium 142 mmol/L (136-145); TSH 0.25 uIU/mL (0.36-3.74); Total Protein 6.5 g/dL (6.4-8.2)
[2019-06-16 09:01] LABS: Clozapine 322 ng/mL (>350); Clozapine+Norclozapine Total 616 ng/mL (>450); Norclozapine 294 ng/mL
== END 2019-06-14 09:24 ==
PROVIDERS: PCP Internal Medicine; Visit Provider Psychiatry & Neurology Psychiatry
DX: F25.9 Schizoaffective disorder, unspecified (principal); Z79.899 Other long term (current) drug therapy
CPT/HCPCS: 36415; 80053; 80159; 80178; 84443; 85025

== ENCOUNTER 2019-07-11 00:46 | Outpatient (CLI) | payer MEDICARE, MEDICAID, SELFPAY ==
[2019-07-11 09:52] LABS: Abs Immature Grans 0.03 k/cumm (0.0-0.09); Absolute Basophil Count 0.02 k/cumm (0.0-0.2); Absolute Lymphocyte Count 1.48 k/cumm (1.2-3.4); Absolute Monocyte Count 0.61 k/cumm (0.11-0.7); Absolute Neutrophil Count 5.82 k/cumm (1.2-6.7); Basophils % 0.3; HCT 45.5 % (40.0-50.0); Immature Grans % 0.4 %; Lymphocytes % 18.6; Mean Corpuscular Hemoglobin 28.6 pg (27.0-33.0); Mean Corpuscular Volume 86.7 fL (80-95); Mean Platelet Volume 9.5 fL (8.0-11.0); Monocytes % 7.7; Platelet Count 254 x1000/uL (130-400); RBC 5.25 m/cumm (4.50-6.00); RBC Distribution Width 15.1 % (11.8-14.1); White Blood Cell Count 7.96 k/cumm (4.4-10.8)
[2019-07-11 10:44] LABS: Lithium 0.66 mmol/L (0.60-1.20)
[2019-07-11 10:51] LABS: ALT 81 U/L (16-63); AST 25 U/L (15-37); Albumin 3.9 g/dL (3.4-5.0); Alkaline Phosphatase 130 U/L (46-116); Anion Gap 9.2 mmol/L (3-11); BUN 19 mg/dL (7-18); Bilirubin, Total 0.4 mg/dL (0.2-1.0); CO2 28.8 mmol/L (21.0-32.0); Calcium 10.2 mg/dL (8.5-10.1); Chloride 104 mmol/L (98-107); Estimated GFR 58.92 (mL/min/1.73m2); Glucose 117 mg/dL (74-106); Potassium 4.6 mmol/L (3.5-5.1); Sodium 142 mmol/L (136-145); Total Protein 7.1 g/dL (6.4-8.2)
[2019-07-14 04:32] LABS: Clozapine 615 ng/mL (>350); Clozapine+Norclozapine Total 1027 ng/mL (>450); Norclozapine 412 ng/mL
== END 2019-07-11 01:06 ==
PROVIDERS: PCP Internal Medicine; Visit Provider Psychiatry & Neurology Psychiatry
DX: F25.9 Schizoaffective disorder, unspecified (principal); Z79.899 Other long term (current) drug therapy
CPT/HCPCS: 36415; 80053; 80159; 80178; 84443; 85025

== ENCOUNTER 2019-08-10 00:56 | Outpatient (CLI) | payer MEDICARE, MEDICAID, SELFPAY ==
[2019-08-10 09:37] LABS: Abs Immature Grans 0.01 k/cumm (0.0-0.09); Absolute Basophil Count 0.02 k/cumm (0.0-0.2); Absolute Lymphocyte Count 1.67 k/cumm (1.2-3.4); Absolute Monocyte Count 0.54 k/cumm (0.11-0.7); Absolute Neutrophil Count 6.36 k/cumm (1.2-6.7); Basophils % 0.2; HCT 42.5 % (40.0-50.0); Immature Grans % 0.1 %; Lymphocytes % 19.4; Mean Corp. HGB Concentration 32.9 g/dL (32.0-36.0); Mean Corpuscular Hemoglobin 28.7 pg (27.0-33.0); Mean Corpuscular Volume 87.1 fL (80-95); Mean Platelet Volume 9.1 fL (8.0-11.0); Monocytes % 6.3; Platelet Count 254 x1000/uL (130-400); RBC 4.88 m/cumm (4.50-6.00); RBC Distribution Width 15.1 % (11.8-14.1)
[2019-08-10 11:00] LABS: Lithium 0.55 mmol/L (0.60-1.20)
[2019-08-10 11:06] LABS: ALT 30 U/L (16-63); AST 14 U/L (15-37); Albumin 3.6 g/dL (3.4-5.0); Alkaline Phosphatase 93 U/L (46-116); Anion Gap 8.2 mmol/L (3-11); BUN 16 mg/dL (7-18); Bilirubin, Total 0.3 mg/dL (0.2-1.0); CO2 27.8 mmol/L (21.0-32.0); CREATININE 1.21 mg/dL (0.70-1.30); Chloride 104 mmol/L (98-107); Glucose 128 mg/dL (74-106); Potassium 4.2 mmol/L (3.5-5.1); Sodium 140 mmol/L (136-145); TSH 0.62 uIU/mL (0.36-3.74); Total Protein 6.6 g/dL (6.4-8.2)
[2019-08-12 02:46] LABS: Clozapine 638 ng/mL (>350); Clozapine+Norclozapine Total 1088 ng/mL (>450); Norclozapine 450 ng/mL
== END 2019-08-10 01:16 ==
PROVIDERS: PCP Internal Medicine; Visit Provider Psychiatry & Neurology Psychiatry
DX: F25.9 Schizoaffective disorder, unspecified (principal); Z79.899 Other long term (current) drug therapy
CPT/HCPCS: 36415; 80053; 80159; 80178; 84443; 85025

== ENCOUNTER 2019-09-08 01:36 | Outpatient (CLI) | payer MEDICARE, MEDICAID, SELFPAY ==
[2019-09-08 08:03] LABS: Abs Immature Grans 0.01 k/cumm (0.0-0.09); Absolute Basophil Count 0.01 k/cumm (0.0-0.2); Absolute Lymphocyte Count 1.34 k/cumm (1.2-3.4); Absolute Monocyte Count 0.47 k/cumm (0.11-0.7); Absolute Neutrophil Count 5.55 k/cumm (1.2-6.7); Basophils % 0.1; HCT 40.9 % (40.0-50.0); HGB 13.4 g/dL (13.5-17.5); Immature Grans % 0.1 %; Lymphocytes % 18.2; Mean Corp. HGB Concentration 32.8 g/dL (32.0-36.0); Mean Corpuscular Volume 88.5 fL (80-95); Mean Platelet Volume 9.3 fL (8.0-11.0); Monocytes % 6.4; Neutrophils % 75.2; Platelet Count 233 x1000/uL (130-400); RBC 4.62 m/cumm (4.50-6.00); RBC Distribution Width 14.8 % (11.8-14.1); White Blood Cell Count 7.38 k/cumm (4.4-10.8)
[2019-09-08 09:58] LABS: Lithium 0.59 mmol/L (0.60-1.20)
[2019-09-08 10:03] LABS: ALT 47 U/L (16-63); AST 16 U/L (15-37); Albumin 3.5 g/dL (3.4-5.0); Alkaline Phosphatase 101 U/L (46-116); Anion Gap 5.7 mmol/L (3-11); BUN 21 mg/dL (7-18); Bilirubin, Total 0.3 mg/dL (0.2-1.0); CO2 27.3 mmol/L (21.0-32.0); CREATININE 1.21 mg/dL (0.70-1.30); Calcium 9.9 mg/dL (8.5-10.1); Chloride 107 mmol/L (98-107); Glucose 121 mg/dL (74-106); Potassium 4.2 mmol/L (3.5-5.1); Sodium 140 mmol/L (136-145); TSH 0.68 uIU/mL (0.36-3.74); Total Protein 6.4 g/dL (6.4-8.2)
[2019-09-10 23:15] LABS: Clozapine 414 ng/mL (350-600); Clozapine+Norclozapine Total 738 ng/mL; Norclozapine 324 ng/mL
== END 2019-09-08 01:56 ==
PROVIDERS: PCP Internal Medicine; Visit Provider Psychiatry & Neurology Psychiatry
DX: F25.9 Schizoaffective disorder, unspecified (principal); Z79.899 Other long term (current) drug therapy
CPT/HCPCS: 80053; 80159; 80178; 84443; 85025

== ENCOUNTER 2019-09-28 14:35 | Emergency (ER) | payer MEDICARE, MEDICAID, SELFPAY ==
[2019-09-28 14:40] VITALS: BP 124/83; PULSE 99; RESP 17; TEMP 36.5; O2SAT 96
--- NOTE | 2019-09-28 15:23 | ED.GENADUL_ITS ---
Discharge Plan Disposition Patient Disposition: HOME Condition: Stable Discharge Details Chief Complaint: Headache Clinical Impression: Otitis externa Primary Care Provider: Tomás Carvalho ED Provider: Román Dover Home Meds and New Rx's Prescriptions: New Cortisporin-TC 3.3-3-10-0.5 mg/mL drops,suspension 4 drp OT TID 7 Days Qty: 10 RF: 0 Continued bupropion HCl 150 mg tablet extended release 24 hr 300 mg PO DAILY RF: 0 Halperidol capsule 1 mg PO TID RF: 0 Androderm 4 mg/24 hr patch 24 hour 4 mg Transdermal DAILY RF: 0 ascorbic acid (vitamin C) 250 mg tablet 250 mg PO BID RF: 0 PNV-Select 27-1 mg tablet PO DAILY RF: 0 clozapine [Clozaril] 100 MG tablet 100 mg PO DIRECTED RF: 0 pantoprazole [Protonix] 20 MG tablet,delayed release (DR/EC) 1 tab PO BID RF: 0 lorazepam 2 MG tablet 2 mg PO BID RF: 0 propranolol 10 MG tablet 10 mg PO BID RF: 0 lithium carbonate 300 MG tablet extended release 600 mg PO HS RF: 0 lactulose 10 gram/15 mL Solution 15 - 30 ml PO DAILY PRNRF: 0 Discharge Instructions Instructions: Otitis Externa (ED) Additional Instructions: Cortisporin as directed. [id number] Tylenol and/or Motrin as directed for discomfort. Please watch for new or worsening symptoms and return to the ER for any concerns. I do recommend that you follow-up with your primary care provider 1 week from today as already scheduled. Discharge Data Discharge Date/Time-TO BE ENTERED AT DEPARTURE: 09/28/19 15:25 Medical Decision Making 39-year-old gentleman presents with 3-day history of left ear discomfort which is also associated with what he describes as head pain directly behind his ear. There is no mastoid discomfort or erythema. He denies any other symptoms. He is neurologically intact and appears well. Examination is consistent with a mild and otitis externa and I believe initiating antibiotic therapy is reasonable. Discussed this with patient he is agreeable. He is scheduled to be seen by his primary care provider in 1 week from today and will follow-up regarding his symptoms, otherwise return to the ER for new or worsening symptoms. Medical Records Medical records reviewed: Yes I reviewed the patient's medical records. HPI General Mode of arrival: ambulatory . Date/Time Provider Initiated Documentation: 09/28/19 14:48 . Limitations to Documentation: no limitations . Information obtained by: patient . HPI Narrative: This is a 49-year-old gentleman with history of thyroid disease, anemia, anxiety, fatigue, gastritis, hepatitis C, schizoaffective disorder, presenting to the ER today for what he describes as a pain in and just behind his left ear. He reports a minimal decrease of hearing from his left ear. He denies a global headache, neck pain, fever, ear discharge, sore throat, cough, shortness of breath. He denies recent illness or trauma. He denies any symptoms of his right ear. I do see in his triage note that he reports the pain is sharp and stabbing although to me he reports at times it is dull and aching, is not constantly there, comes in twinges every 30 seconds or so. He denies any radiation of his pain. Denies numbness, tingling, weakness. Related Data Home Medications Medication Instructions Recorded Confirmed clozapine [Clozaril] 100 mg PO DIRECTED 11/19/16 09/28/19 lorazepam 2 mg PO BID 11/19/16 09/28/19 pantoprazole [Protonix] 1 tab PO BID 11/19/16 09/28/19 lithium carbonate 600 mg PO HS 12/14/16 09/28/19 propranolol 10 mg PO BID 12/14/16 09/28/19 lactulose 15 - 30 ml PO DAILY PRN 11/18/18 09/28/19 Halperidol 1 mg PO TID 12/08/18 09/28/19 ascorbic acid (vitamin C) 250 mg 250 mg PO BID 12/08/18 09/28/19 tablet bupropion HCl 150 mg 24 hr tablet, 300 mg PO DAILY 12/08/18 09/28/19 extended release vit,calcium no.40-iron tab PO DAILY tab 12/08/18 12/12/18 fum 27 mg iron-folate no.1 1 mg tablet testosterone 4 mg/24 hr 4 mg TRANSDERMAL DAILY 12/08/18 09/28/19 transdermal 24 hour patch yqwnmffh-suyick-SD-thonzonium 4 drp OT TID 7 Days #10 ml 09/28/19 [Cortisporin-TC] Previous Rx's Medication Instructions Recorded jiigekry-chwety-EV-thonzonium 4 drp OT TID 7 Days #10 ml 09/28/19 [Cortisporin-TC] Allergies Allergy/AdvReac Type Severity Reaction Status Date / Time codeine Allergy Unknown Verified 01/15/19 07:24 Sulfa (Sulfonamide Allergy Unknown Verified 01/15/19 07:24 Antibiotics) esomeprazole [From Nexium] Allergy Verified 01/15/19 07:24 fenofibrate [From Tricor] Allergy Verified 01/15/19 07:24 ferrous gluconate Allergy Verified 01/15/19 07:24 Penicillins Allergy Verified 01/15/19 07:24 General Stated Complaint: Headache DELORIS: 3 Review of Systems Constitutional Constitutional: Denies fatigue, Denies fever(s), Reports headache(s) and Denies weakness Eyes Eyes: Denies change in vision ENT Ears, Nose, Mouth, and Throat: Denies dizziness, Reports otalgia, Reports headache(s), Denies neck pain and Denies sore throat Cardiovascular Cardiovascular: Denies chest pain and Denies dyspnea Respiratory Respiratory: Denies cough and Denies dyspnea Gastrointestinal Gastrointestinal: Denies abdominal pain, Denies nausea and Denies vomiting Musculoskeletal Musculoskeletal: Denies back pain, Denies neck pain, Denies numbness and Denies tingling Integumentary/Breasts Skin/Breast: Denies rash Neurologic Neurologic: Denies dizziness, Reports headache(s), Denies numbness, Denies tingling and Denies weakness Endocrine Endocrine: Denies fatigue [facility] Medical History Abnormal thyroid stimulating hormone (TSH) level (Acute) Anemia (Chronic) Anxiety (Chronic) Chronic constipation (Acute) Dyspepsia (Acute) Dysphagia (Acute) Fatigue (Acute) Former smoker (Acute) Gastritis (Acute) Gastritis, bile acid reflux (Acute) Heme positive stool (Acute) Hepatitis C (Chronic) Hiatal hernia (Chronic) History of hepatitis C (Acute) Hypogonadism (Acute) Lactose intolerance (Acute) Lightheadedness (Acute) Low energy (Acute) Microcytic anemia (Acute) Obesity (Chronic) Onychomycosis of toenail (Acute) Schizoaffective disorder (Acute) SOB (shortness of breath) on exertion (Acute) Vitamin D deficiency (Acute) Surgical History H/O esophagogastroduodenoscopy (Chronic) History of surgery (Acute) Surgery to penis Normal colonoscopy (Acute) Social History Smoking/Tobacco Use Status: Former Tobacco Use Quit Date: 10/29/18 Alcohol Intake: never Drug use: Never Substance use type: does not use Do you feel safe at home: Yes Do you feel safe in your relationship?: Yes Exam Const General: cooperative, healthy appearing, comfortable and no acute distress Orientation: alert, awake and oriented x3 HENMT Head: normal to inspection, no palpable skull fracture, normocephalic and atraumatic Ears: external ears normal, TM's normal bilaterally, mastoids normal, no periauricular adenopathy and EAC abnormal erythema on the left (Minimal, as sociated with mild swelling, no drainage) General nose exam: external nose normal Face and sinus: normal facial exam Mouth: oral mucosae normal and moist mucous membranes Eyes Conjunctivae: conjunctivae normal Sclera: sclerae normal Neck Neck: normal visual inspection, full ROM, no lymphadenopathy, no meningeal signs, trachea midline, supple and nontender Resp Effort & Inspection: normal respiratory effort and able to speak in complete sentences Cardio Rate: regular rate Rhythm: regular rhythm Skin General skin exam: no rashes or lesions noted Neuro General: patient alert, patient awake, patient oriented x3, moves all extremities and no focal motor deficits Cranial Nerves: CN's II-XI intact bilaterally Cognition: normal cognition Speech: speech normal Gait: normal gait Motor: muscle tone normal throughout and strength 5/5 throughout Sensory Exam: no sensory deficits noted Extrem General: normal to inspection, full ROM and capillary refill normal Psych Appearance: grossly normal Mental Status: mental status grossly normal Course Vital Signs Vital signs: Vital Signs Temperature 36.5 C 09/28/19 14:40 Pulse 99 H 09/28/19 14:40 Respiratory Rate 17 09/28/19 14:40 Blood Pressure 124/83 09/28/19 14:40 Pulse Oximetry 96 09/28/19 14:40 Temperature 36.5 C 09/28/19 14:40 Temperature Source Temporal Artery Scan 09/28/19 14:40 Pulse 99 H 09/28/19 14:40 Respiratory Rate 17 09/28/19 14:40 Blood Pressure 124/83 09/28/19 14:40 Blood Pressure Position Sitting 09/28/19 14:40 Pulse Oximetry 96 09/28/19 14:40 Oxygen Delivery Method Room Air 09/28/19 14:40 Oxygen Flow Rate 0 09/28/19 14:40 Pain Level 7 09/28/19 14:40
== END 2019-09-28 15:25 | disposition home or self-care (01) ==
PROVIDERS: Emergency Provider Physician Assistant; PCP Internal Medicine
DX: R51 Headache (principal); H60.502 Unspecified acute noninfective otitis externa, left ear
CPT/HCPCS: 99283

== ENCOUNTER 2019-10-05 01:16 | Outpatient (CLI) | payer MEDICARE, MEDICAID, SELFPAY ==
[2019-10-05 13:41] LABS: Abs Immature Grans 0.02 k/cumm (0.0-0.09); Absolute Basophil Count 0.01 k/cumm (0.0-0.2); Absolute Eosinophil Count 0.01 k/cumm (0.0-0.7); Absolute Lymphocyte Count 1.83 k/cumm (1.2-3.4); Absolute Monocyte Count 0.43 k/cumm (0.11-0.7); Absolute Neutrophil Count 5.96 k/cumm (1.2-6.7); Basophils % 0.1; Eosinophils % 0.1; HCT 42.1 % (40.0-50.0); HGB 13.8 g/dL (13.5-17.5); Immature Grans % 0.2 %; Lymphocytes % 22.2; Mean Corp. HGB Concentration 32.8 g/dL (32.0-36.0); Mean Corpuscular Hemoglobin 29.2 pg (27.0-33.0); Mean Corpuscular Volume 89.2 fL (80-95); Mean Platelet Volume 9.2 fL (8.0-11.0); Monocytes % 5.2; Neutrophils % 72.2; Platelet Count 247 x1000/uL (130-400); RBC 4.72 m/cumm (4.50-6.00); RBC Distribution Width 14.7 % (11.8-14.1); White Blood Cell Count 8.26 k/cumm (4.4-10.8)
[2019-10-05 14:25] LABS: Lithium 0.46 mmol/L (0.60-1.20)
[2019-10-05 14:36] LABS: ALT 44 U/L (16-63); AST 20 U/L (15-37); Albumin 3.5 g/dL (3.4-5.0); Alkaline Phosphatase 97 U/L (46-116); Anion Gap 8.2 mmol/L (3-11); BUN 14 mg/dL (7-18); Bilirubin, Total 0.3 mg/dL (0.2-1.0); CO2 26.8 mmol/L (21.0-32.0); CREATININE 1.16 mg/dL (0.70-1.30); Calcium 10.2 mg/dL (8.5-10.1); Chloride 109 mmol/L (98-107); Glucose 108 mg/dL (74-106); Sodium 144 mmol/L (136-145); Total Protein 6.5 g/dL (6.4-8.2)
[2019-10-07 07:04] LABS: Clozapine 370 ng/mL (350-600); Clozapine+Norclozapine Total 706 ng/mL; Norclozapine 336 ng/mL
== END 2019-10-05 01:36 ==
PROVIDERS: PCP Internal Medicine; Visit Provider Psychiatry & Neurology Psychiatry
DX: F25.9 Schizoaffective disorder, unspecified (principal); Z79.899 Other long term (current) drug therapy
CPT/HCPCS: 36415; 80053; 80159; 80178; 84443; 85025

== ENCOUNTER 2019-10-05 11:48 | Outpatient (REF) | payer MEDICARE, MEDICAID, SELFPAY ==
[2019-10-11 16:37] LABS: Testosterone, Free 1.89 ng/dL (4.26-16.4); Testosterone, Total 86 ng/dL (240-950)
== END 2019-10-05 12:08 ==
LOC: NCHCN 11:48
PROVIDERS: PCP Internal Medicine; Visit Provider Internal Medicine
DX: E29.1 Testicular hypofunction (principal)
CPT/HCPCS: 84402; 84403

== ENCOUNTER 2019-11-02 02:22 | Outpatient (CLI) | payer MEDICARE, MEDICAID, SELFPAY ==
[2019-11-02 08:43] LABS: Abs Immature Grans 0.02 k/cumm (0.0-0.09); Absolute Basophil Count 0.02 k/cumm (0.0-0.2); Absolute Monocyte Count 0.73 k/cumm (0.11-0.7); Absolute Neutrophil Count 7.37 k/cumm (1.2-6.7); Basophils % 0.2; HCT 44.8 % (40.0-50.0); HGB 14.9 g/dL (13.5-17.5); Immature Grans % 0.2 %; Lymphocytes % 12.8; Mean Corp. HGB Concentration 33.3 g/dL (32.0-36.0); Mean Corpuscular Hemoglobin 29.6 pg (27.0-33.0); Mean Corpuscular Volume 89.1 fL (80-95); Mean Platelet Volume 9.6 fL (8.0-11.0); Monocytes % 7.8; Platelet Count 225 x1000/uL (130-400); RBC 5.03 m/cumm (4.50-6.00); RBC Distribution Width 14.4 % (11.8-14.1); White Blood Cell Count 9.34 k/cumm (4.4-10.8)
[2019-11-02 09:37] LABS: CREATININE 1.16 mg/dL (0.70-1.30); TSH 0.58 uIU/mL (0.36-3.74)
[2019-11-04 16:26] LABS: Testosterone, Free 6.02 ng/dL (4.26-16.4); Testosterone, Total 215 ng/dL (240-950)
== END 2019-11-02 02:42 ==
PROVIDERS: PCP Internal Medicine; Visit Provider Psychiatry & Neurology Psychiatry
DX: F20.0 Paranoid schizophrenia (principal); E29.1 Testicular hypofunction; Z79.899 Other long term (current) drug therapy
CPT/HCPCS: 36415; 84402; 84403; 80178; 82310; 82565; 84443; 85025

== ENCOUNTER 2019-11-30 01:59 | Outpatient (CLI) | payer MEDICARE, MEDICAID, SELFPAY ==
[2019-11-30 07:19] LABS: Abs Immature Grans 0.02 10^3/uL (0.0-0.06); Absolute Basophil Count 0.03 10^3/uL (0.0-0.2); Absolute Lymphocyte Count 1.48 10^3/uL (1.2-3.4); Absolute Monocyte Count 0.52 10^3/uL (0.1-0.8); Absolute Neutrophil Count 5.57 10^3/uL (1.2-6.7); Basophils % 0.4; HCT 43.5 % (40.0-50.0); HGB 14.2 g/dL (13.5-17.5); Immature Grans % 0.3; Lymphocytes % 19.4; MCH 28.9 pg (27.0-33.0); MCHC 32.6 % (32.0-36.0); MCV 88.4 fL (80-95); MPV 9.4 fL (8.0-11.0); Monocytes % 6.8; Neutrophils % 73.1; Nucleated RBC 0 %; Platelet Count 202 10^3/uL (130-400); RBC 4.92 10^6/uL (4.36-5.78); RDW 13.8 % (11.8-14.1); RDW-SD 44.9 fL; WBC 7.62 10^3/uL (4.4-10.8)
[2019-11-30 08:27] LABS: Lithium 0.53 mmol/L (0.60-1.20)
[2019-12-03 12:58] LABS: Testosterone, Free 1.65 ng/dL (4.26-16.4); Testosterone, Total 59 ng/dL (240-950)
== END 2019-11-30 02:19 ==
PROVIDERS: PCP Internal Medicine; Visit Provider Psychiatry & Neurology Psychiatry
DX: F20.0 Paranoid schizophrenia (principal); Z79.899 Other long term (current) drug therapy; E29.1 Testicular hypofunction
CPT/HCPCS: 36415; 84402; 84403; 80178; 85025

== ENCOUNTER 2019-12-28 03:03 | Outpatient (CLI) | payer MEDICARE, MEDICAID, SELFPAY ==
[2019-12-28 08:02] LABS: Abs Immature Grans 0.03 10^3/uL (0.0-0.06); Absolute Basophil Count 0.03 10^3/uL (0.0-0.2); Absolute Lymphocyte Count 1.72 10^3/uL (1.2-3.4); Absolute Monocyte Count 0.51 10^3/uL (0.1-0.8); Basophils % 0.4; HCT 45.5 % (40.0-50.0); HGB 14.6 g/dL (13.5-17.5); Immature Grans % 0.4; Lymphocytes % 21.3; MCH 28.6 pg (27.0-33.0); MCHC 32.1 % (32.0-36.0); MPV 9.3 fL (8.0-11.0); Monocytes % 6.3; Neutrophils % 71.6; Nucleated RBC 0 %; Platelet Count 218 10^3/uL (130-400); RBC 5.11 10^6/uL (4.36-5.78); RDW 14.2 % (11.8-14.1); RDW-SD 46.5 fL; WBC 8.09 10^3/uL (4.4-10.8)
[2019-12-28 09:06] LABS: Lithium 0.58 mmol/L (0.60-1.20)
[2019-12-28 09:20] LABS: CREATININE 1.29 mg/dL (0.70-1.30); Calcium 9.8 mg/dL (8.5-10.1); TSH 0.61 uIU/mL (0.36-3.74)
== END 2019-12-28 03:23 ==
PROVIDERS: PCP Internal Medicine; Visit Provider Psychiatry & Neurology Psychiatry
DX: F20.0 Paranoid schizophrenia (principal); Z79.899 Other long term (current) drug therapy; Z51.81 Encounter for therapeutic drug level monitoring
CPT/HCPCS: 36415; 80178; 82310; 82565; 84443; 85025

== ENCOUNTER 2020-01-25 01:38 | Outpatient (CLI) | payer MEDICARE, MEDICAID, SELFPAY ==
[2020-01-25 07:26] LABS: Abs Immature Grans 0.02 10^3/uL (0.0-0.06); Absolute Basophil Count 0.03 10^3/uL (0.0-0.2); Absolute Lymphocyte Count 1.26 10^3/uL (1.2-3.4); Absolute Monocyte Count 0.54 10^3/uL (0.1-0.8); Basophils % 0.4; HCT 45.6 % (40.0-50.0); HGB 14.8 g/dL (13.5-17.5); Immature Grans % 0.3; Lymphocytes % 17.4; MCH 29.1 pg (27.0-33.0); MCHC 32.5 % (32.0-36.0); MCV 89.6 fL (80-95); MPV 9.6 fL (8.0-11.0); Monocytes % 7.4; Neutrophils % 74.5; Nucleated RBC 0 %; Platelet Count 223 10^3/uL (130-400); RBC 5.09 10^6/uL (4.36-5.78); RDW 14.1 % (11.8-14.1); RDW-SD 46.6 fL; WBC 7.25 10^3/uL (4.4-10.8)
[2020-01-25 08:23] LABS: Lithium 0.65 mmol/L (0.60-1.20)
[2020-01-25 08:37] LABS: CREATININE 1.33 mg/dL (0.70-1.30); Estimated GFR 57.15 (mL/min/1.73m2); TSH 0.62 uIU/mL (0.36-3.74)
[2020-02-02 21:06] LABS: Testosterone, Total 117 ng/dL (240-950)
== END 2020-01-25 01:58 ==
PROVIDERS: PCP Internal Medicine; Visit Provider Psychiatry & Neurology Psychiatry
DX: F20.0 Paranoid schizophrenia (principal); Z79.899 Other long term (current) drug therapy; Z51.81 Encounter for therapeutic drug level monitoring; E29.1 Testicular hypofunction
CPT/HCPCS: 36415; 84403; 80178; 82310; 82565; 84443; 85025

== ENCOUNTER 2020-02-04 10:42 | Emergency (ER) | payer MEDICARE, MEDICAID, SELFPAY ==
--- NOTE | 2020-02-04 11:01 | PDOC.CMSAFED ---
- If Service Date Differs Date of service: 02/04/20 Time of Service: 11:01 Care Management Safety Plan Chief Complaint: Sean is a 49 year old male who comes to the ED via police on a Warrant for Emergency Examination. Sean reportedly placed an ad in the newspaper over the weekend that raised concerns for the safety of an [facility] employee. When Sean was contacted by telephone by [facility] to discuss the ad, he refused to talk about it and hung up the telephone. A Warrant for Emergency Examination was subsequently obtained so Sean could be brought to the ED by police and evaluated by [facility] crisis screener. CM will respond to ED to assess patient after patient has been medically cleared and assessed by screener. If screener deems patient meets criteria for psychiatric stabilization CM will facilitate interdepartmental huddle with [facility] screener for safety planning considerations and meet with patient to review [facility] policy and safety plan, establish individual wishes for treatment and maintain patient rights. In the interim; please note safety plan below to guide patient care while awaiting further assessment in the ED. SAFETY PLAN: 1. Will remain on suicide precautions and in paper clothes. 2. Will remain in room under direct supervision of one-on-one staff at all times provided by [employer], [employer], [employer] labor gang supervisor. 3. May have paper cups, plates, finger foods as well as a cardboard spoon with which to eat meals. 4. Follow [facility] Management of the Admitted Behavioral Health Patient policy. 5. Comfort bath system only. 6. No personal belongings 7. Visitors: No visitors at this time. 8. Activities: Soft tip markers, paper, books, television if available, and other activities at nursing discretion. 8. No telephone privileges at this time. 9. Due to VOLUNTARY status, if patient wishes to leave [facility], the [facility] cooler worker must be contacted to evaluate patient prior to patient exiting the building. If deemed appropriate for inpatient psychiatric care, safety plan will be established with patient, and care team, to adhere to patient goals, identify restrictions based on behavioral status, address nutrition, and determine allowed personal belongings, tools for hygiene and personal care. As well plan will determine level of activity including ambulation, level of supervision, visitors, and determine privileges based on level of acuity, behaviors and level of engagement by patient. DISPOSITION: Sean is evaluated by [facility] crisis screener, and found not to meet criteria for an involuntary hospitalization. Sean is discharged home with his mother.
[2020-02-04 11:03] VITALS: BP 116/83; PULSE 98; RESP 16; TEMP 35.9; O2SAT 98
--- NOTE | 2020-02-04 11:05 | ED.GENADUL_ITS ---
Discharge Plan Disposition Patient Disposition: HOME Condition: Stable Discharge Details Clinical Impression: General psychiatric examination requested by authority Primary Care Provider: Tomás Carvalho ED Provider: Radha Murdock Home Meds and New Rx's Prescriptions: Continued bupropion HCl 150 mg tablet extended release 24 hr 300 mg PO DAILY RF: 0 Halperidol capsule 1 mg PO TID RF: 0 Androderm 4 mg/24 hr patch 24 hour 4 mg Transdermal DAILY RF: 0 ascorbic acid (vitamin C) 250 mg tablet 250 mg PO BID RF: 0 PNV-Select 27-1 mg tablet PO DAILY RF: 0 clozapine [Clozaril] 100 MG tablet 100 mg PO DIRECTED RF: 0 pantoprazole [Protonix] 20 MG tablet,delayed release (DR/EC) 1 tab PO BID RF: 0 lorazepam 2 MG tablet 2 mg PO BID RF: 0 propranolol 10 MG tablet 10 mg PO BID RF: 0 lithium carbonate 300 MG tablet extended release 600 mg PO HS RF: 0 lactulose 10 gram/15 mL Solution 15 - 30 ml PO DAILY PRNRF: 0 Discharge Instructions Instructions: Normal Exam (ED) Additional Instructions: Continue your regular medications as directed. You can contact [facility] [employer] by their listed phone number as needed. Follow-up with your therapist and psychiatrist as directed. Return immediately to the emergency department if you develop any worsening or new concerning symptoms. Discharge Data Discharge Physician: Radha Murdock Medical Decision Making 49-year-old male with a history of schizophrenia, anxiety presents for evaluatio n with mental health and law enforcement per request from mental health for questioning behavior this week. Patient printed an add in the local newspaper offering a reward for someone to know the whereabouts of a specific [facility] worker. Patient denies any suicidal or homicidal ideation. He states he was purely trying to contact her to help him. He is being followed by a counselor and psychiatrist in [place]. He denies any acute complaints. He states he has been doing well at his new job at [employer] for the past month. Patient evaluated by myself and Zulay from mental health at bedside and we agree that there does not appear to be an acute psychiatric condition requiring further evaluation or placement at this time. Patient is cleared for discharge to home and advised to follow-up with his psychiatrist in [place]. Usual and customary return precautions given prior to discharge. Medical Records Medical records reviewed: Yes I reviewed the patient's medical records. HPI General Mode of arrival: ambulatory . Date/Time Provider Initiated Documentation: 02/04/20 10:52 . Limitations to Documentation: no limitations . Information obtained by: patient . 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 Per Zulay from [facility], it was found this week that patient had posted an article in the newspaper this her last week offering a reward for anyone who had information about the whereabouts of one of [facility] human services geothermal hvac technician. Noble chang [employer] attempted to reach the patient this week to ask him about this and he was not answering all questions and hung up on him. A warrant was obtained through a drug to have patient evaluated regarding his actions which was signed by the drugs this morning and patient is brought here in the ED for evaluation and questioning. Patient was picked up at his workplace at [employer] by mental health and law enforcement. 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 Patient states his intentions were only to speak with her and think her for her health in the past with him. Patient is currently being followed by therapy and psychiatrist Dr. Rashid in [place]. He denies any suicidal or homicidal ideation or hallucinations. He denies any alcohol or drug use. Patient denies any recent illnesses, fever, headache, vomiting. He started working at [employer] 1 month ago and has been doing well. Related Data Home Medications Medication Instructions Recorded Confirmed clozapine [Clozaril] 100 mg PO DIRECTED 11/19/16 09/28/19 lorazepam 2 mg PO BID 11/19/16 09/28/19 pantoprazole [Protonix] 1 tab PO BID 11/19/16 09/28/19 lithium carbonate 600 mg PO HS 12/14/16 09/28/19 propranolol 10 mg PO BID 12/14/16 09/28/19 lactulose 15 - 30 ml PO DAILY PRN 11/18/18 09/28/19 Halperidol 1 mg PO TID 12/08/18 09/28/19 ascorbic acid (vitamin C) 250 mg 250 mg PO BID 12/08/18 09/28/19 tablet bupropion HCl 150 mg 24 hr tablet, 300 mg PO DAILY 12/08/18 09/28/19 extended release vit,calcium no.40-iron tab PO DAILY tab 12/08/18 12/12/18 fum 27 mg iron-folate no.1 1 mg tablet testosterone 4 mg/24 hr 4 mg TRANSDERMAL DAILY 12/08/18 09/28/19 transdermal 24 hour patch Allergies Allergy/AdvReac Type Severity Reaction Status Date / Time codeine Allergy Unknown Verified 02/04/20 11:08 Sulfa (Sulfonamide Allergy Unknown Verified 02/04/20 11:08 Antibiotics) esomeprazole [From Nexium] Allergy Verified 02/04/20 11:08 fenofibrate [From Tricor] Allergy Verified 02/04/20 11:08 ferrous gluconate Allergy Verified 02/04/20 11:08 Penicillins Allergy Verified 02/04/20 11:08 General DELORIS: 3 Review of Systems All systems reviewed & are unremarkable except as noted in HPI and below Constitutional Constitutional: Reports as per HPI, Denies chills and Denies fever(s) Eyes Eyes: Denies blurry vision ENT Ears, Nose, Mouth, and Throat: Denies dizziness, Denies sore throat and Denies throat swelling Cardiovascular Cardiovascular: Denies chest pain and Denies dyspnea Respiratory Respiratory: Denies cough and Denies dyspnea Gastrointestinal Gastrointestinal: Denies abdominal pain, Denies diarrhea and Denies vomiting Genitourinary Genitourinary: Denies hematuria and Denies dysuria Musculoskeletal Musculoskeletal: Denies back pain and Denies numbness Integumentary/Breasts Skin/Breast: Denies lesions and Denies rash Neurologic Neurologic: Denies dizziness, Denies localized weakness and Denies numbness Allergic/Immunologic Allergic/Immunologic: Denies throat swelling [facility] Medical History (Updated 02/04/20 @ 11:41 by Radha Murdock DO) Abnormal thyroid stimulating hormone (TSH) level Anemia Anxiety Chronic constipation Dyspepsia Dysphagia Fatigue Former smoker Gastritis Gastritis, bile acid reflux Heme positive stool Hepatitis C Hiatal hernia History of hepatitis C Hypogonadism Lactose intolerance Lightheadedness Low energy Microcytic anemia Obesity Onychomycosis of toenail Schizoaffective disorder SOB (shortness of breath) on exertion Vitamin D deficiency Surgical History H/O esophagogastroduodenoscopy History of surgery Surgery to penis Normal colonoscopy Social History Smoking/Tobacco Use Status: Former Tobacco Use Quit Date: 10/29/18 Alcohol Intake: never Drug use: Never Substance use type: does not use Do you feel safe at home: Yes Do you feel safe in your relationship?: Yes Exam Const General: cooperative and no acute distress Orientation: alert, awake and oriented x3 HENMT Head: normal to inspection Face and sinus: normal facial exam Eyes General: appearance normal, both eyes and all related structures Pupils: PERRL EOM: EOM intact bilaterally Neck Neck: normal visual inspection and No submandibular swelling Lymphatic: no lymphadenopathy noted Chest Chest: normal inspection of the chest and no tenderness Resp Effort & Inspection: normal respiratory effort and able to speak in complete sentences Auscultation: clear to auscultation bilaterally Cardio Rate: regular rate Rhythm: regular rhythm GI Inspection: normal to inspection Palpation: soft, not firm, not rigid and nontender Auscultation: normal bowel sounds Skin General skin exam: no rashes or lesions noted Neuro General: patient alert, patient awake and patient oriented x3 Cognition: normal cognition Speech: speech normal Motor: muscle tone normal throughout Sensory Exam: no sensory deficits noted Extrem General: normal to inspection, full ROM, capillary refill normal, no calf tenderness bilaterally and no edema Psych Appearance: grossly normal Mental Status: mental status grossly normal Speech and Movement: speech and movement normal Affect: blunted
--- NOTE | 2020-02-04 20:52 | PDOC.MHCN_ITS ---
Date of service: 02/04/20 Time of Service: 20:52 Mental Health Crisis Note Presenting Issue How did you arrive at the ED and why did you come: Sean arrived today via [place] [employer] after a MH Warrant was written for him to be evaluated. Precipitating Factors Sean denied SI and HI. He is not showing any signs of delusions or halluciantions. Disposition BEHAVIOR: Sean is cooperative and engaged. He is friendly and respectful. He is slightly anxious about the reason that he is at the ER but handles that appropriately. EYE CONTACT: Eye contact is great and appropriate. MOOD: Sean's mood appears normal and expected and he is in good control dispite the circumstances. AFFECT: Affect is flat and blunted however, this is normal for him. APPETITE: Sean reports good appetite. SLEEP(trouble falling/staying asleep: Sean reports good sleep. Plan Patt is to be discharged and to continue to follow treatment recommendations of his psychiatrist, therapist and [employer] case manger as directed in his care plans. Sean to continue taking medications as prescribed/ Signature Clinician's Name/Title: Zulay Og MS, [facility] Emergency Services Clinician
== END 2020-02-04 11:50 | disposition home or self-care (01) ==
LOC: ER 11:53
PROVIDERS: Emergency Provider Physician Assistant; PCP Internal Medicine
DX: F25.9 Schizoaffective disorder, unspecified (principal)
CPT/HCPCS: 99284; 99283

== ENCOUNTER 2020-02-22 03:44 | Outpatient (CLI) | payer MEDICARE, MEDICAID, SELFPAY ==
[2020-02-22 08:13] LABS: Abs Immature Grans 0.02 10^3/uL (0.0-0.06); Absolute Basophil Count 0.03 10^3/uL (0.0-0.2); Absolute Lymphocyte Count 1.66 10^3/uL (1.2-3.4); Absolute Monocyte Count 0.53 10^3/uL (0.1-0.8); Absolute Neutrophil Count 5.94 10^3/uL (1.2-6.7); Basophils % 0.4; HCT 49.3 % (40.0-50.0); HGB 15.9 g/dL (13.5-17.5); Immature Grans % 0.2; Lymphocytes % 20.3; MCH 28.4 pg (27.0-33.0); MCHC 32.3 % (32.0-36.0); MCV 88.2 fL (80-95); MPV 9.1 fL (8.0-11.0); Monocytes % 6.5; Neutrophils % 72.6; Nucleated RBC 0 %; Platelet Count 217 10^3/uL (130-400); RBC 5.59 10^6/uL (4.36-5.78); RDW 13.8 % (11.8-14.1); RDW-SD 44.4 fL; WBC 8.18 10^3/uL (4.4-10.8)
[2020-02-22 10:05] LABS: CREATININE 1.27 mg/dL (0.70-1.30); Calcium 9.9 mg/dL (8.5-10.1); TSH 0.58 uIU/mL (0.36-3.74)
[2020-02-22 11:11] LABS: Lithium 0.59 mmol/L (0.60-1.20)
== END 2020-02-22 04:04 ==
PROVIDERS: PCP Internal Medicine; Visit Provider Psychiatry & Neurology Psychiatry
DX: F20.9 Schizophrenia, unspecified (principal); Z79.899 Other long term (current) drug therapy; Z51.81 Encounter for therapeutic drug level monitoring
CPT/HCPCS: 36415; 80178; 82310; 82565; 84443; 85025

== ENCOUNTER 2020-03-21 03:02 | Outpatient (CLI) | payer MEDICARE, MEDICAID, SELFPAY ==
[2020-03-21 09:39] LABS: Abs Immature Grans 0.02 10^3/uL (0.0-0.06); Absolute Basophil Count 0.03 10^3/uL (0.0-0.2); Absolute Lymphocyte Count 1.59 10^3/uL (1.2-3.4); Absolute Monocyte Count 0.61 10^3/uL (0.1-0.8); Absolute Neutrophil Count 7.08 10^3/uL (1.2-6.7); Basophils % 0.3; HCT 46.5 % (40.0-50.0); HGB 15.6 g/dL (13.5-17.5); Immature Grans % 0.2; MCH 28.9 pg (27.0-33.0); MCHC 33.5 % (32.0-36.0); MCV 86.3 fL (80-95); MPV 9.3 fL (8.0-11.0); Monocytes % 6.5; Nucleated RBC 0 %; Platelet Count 221 10^3/uL (130-400); RBC 5.39 10^6/uL (4.36-5.78); RDW-SD 44.3 fL; WBC 9.33 10^3/uL (4.4-10.8)
[2020-03-21 10:46] LABS: Lithium 0.61 mmol/L (0.60-1.20)
[2020-03-21 11:00] LABS: CREATININE 1.28 mg/dL (0.70-1.30); Calcium 9.8 mg/dL (8.5-10.1); Estimated GFR 59.73 (mL/min/1.73m2); TSH 0.67 uIU/mL (0.36-3.74)
== END 2020-03-21 03:22 ==
PROVIDERS: PCP Internal Medicine; Visit Provider Psychiatry & Neurology Psychiatry
DX: F20.0 Paranoid schizophrenia (principal); Z51.81 Encounter for therapeutic drug level monitoring; Z79.899 Other long term (current) drug therapy
CPT/HCPCS: 36415; 80178; 82310; 82565; 84443; 85025

== ENCOUNTER 2020-04-18 04:05 | Outpatient (CLI) | payer MEDICARE, MEDICAID, SELFPAY ==
[2020-04-18 08:47] LABS: Abs Immature Grans 0.02 10^3/uL (0.0-0.06); Absolute Basophil Count 0.03 10^3/uL (0.0-0.2); Absolute Lymphocyte Count 1.49 10^3/uL (1.2-3.4); Absolute Monocyte Count 0.54 10^3/uL (0.1-0.8); Absolute Neutrophil Count 5.97 10^3/uL (1.2-6.7); Basophils % 0.4; HCT 49.5 % (40.0-50.0); HGB 15.8 g/dL (13.5-17.5); Immature Grans % 0.2; Lymphocytes % 18.5; MCH 28.2 pg (27.0-33.0); MCHC 31.9 % (32.0-36.0); MCV 88.4 fL (80-95); MPV 9.2 fL (8.0-11.0); Monocytes % 6.7; Neutrophils % 74.2; Nucleated RBC 0 %; Platelet Count 238 10^3/uL (130-400); RDW 13.9 % (11.8-14.1); RDW-SD 45.1 fL; WBC 8.05 10^3/uL (4.4-10.8)
== END 2020-04-18 04:25 ==
PROVIDERS: PCP Internal Medicine; Visit Provider Psychiatry & Neurology Psychiatry
DX: F20.0 Paranoid schizophrenia (principal); Z79.899 Other long term (current) drug therapy
CPT/HCPCS: 36415; 85025

== ENCOUNTER 2020-04-21 09:34 | Outpatient (REF) | payer MEDICARE, MEDICAID, SELFPAY ==
[2020-04-21 21:09] LABS: ALT 28 U/L (16-63); AST 13 U/L (15-37); Albumin 3.8 g/dL (3.4-5.0); Alkaline Phosphatase 99 U/L (46-116); Anion Gap 9.8 mmol/L (3-11); BUN 18 mg/dL (7-18); Bilirubin, Total 0.4 mg/dL (0.2-1.0); CO2 25.2 mmol/L (21.0-32.0); Chloride 107 mmol/L (98-107); Glucose 94 mg/dL (74-106); Lipase 81 U/L (73-393); Potassium 4.3 mmol/L (3.5-5.1); Sodium 142 mmol/L (136-145); Total Protein 6.8 g/dL (6.4-8.2)
== END 2020-04-21 09:54 ==
LOC: NCHCN 09:34
PROVIDERS: PCP Internal Medicine; Visit Provider Internal Medicine
DX: R10.13 Epigastric pain (principal)
CPT/HCPCS: 80053; 83690

== ENCOUNTER 2020-04-24 01:12 | Inpatient (IN) | payer MEDICARE, MEDICAID, SELFPAY ==
[2020-04-24] VITALS (7 sets, daily range): BP systolic 107–111; BP diastolic 68–71; PULSE 88–99; RESP 16–18; TEMP 36–37.3; O2SAT 96–99
--- NOTE | 2020-04-24 01:12 | W.ED.GENAD ---
Discharge Plan Disposition Patient Disposition: [facility] INPATIENT Condition: Fair Discharge Details Clinical Impression: Unsteady gait, Confusion Primary Care Provider: Tomás Carvalho ED Provider: Rhys Hall [place] Meds and New Rx's Prescriptions: No Action bupropion HCl 150 mg tablet extended release 24 hr 300 mg PO DAILY RF: 0 Halperidol capsule 1 mg PO TID RF: 0 Androderm 4 mg/24 hr patch 24 hour 2 patch Transdermal DAILY RF: 0 ascorbic acid (vitamin C) 250 mg tablet 250 mg PO BID RF: 0 PNV-Select 27-1 mg tablet PO DAILY RF: 0 clozapine [Clozaril] 100 MG tablet 100 mg PO DIRECTED RF: 0 pantoprazole [Protonix] 20 MG tablet,delayed release (DR/EC) 40 mg PO BID RF: 0 lorazepam 2 MG tablet 2 mg PO BID RF: 0 propranolol 10 MG tablet 10 mg PO BID RF: 0 lithium carbonate 300 MG tablet extended release 600 mg PO HS RF: 0 lactulose 10 gram/15 mL Solution 15 - 30 ml PO DAILY PRNRF: 0 sucralfate 1 gram tablet RF: 0 Medical Decision Making Patient presenting with altered mental status, confusion, intermittent abdominal pain, vomiting, dizziness and falling when walking. Symptoms ongoing for a couple weeks. I did speak with his mother to help with history as he seems slow and confused here. Exam is otherwise unremarkable though gait is not tested. Will obtain laboratory studies including lithium level. CBC and CMP from few days ago were okay. CT head as well as abdomen pelvis. Patient's laboratory studies are unremarkable. [place] level is therapeutic. TSH is normal. CT scan of the head unremarkable. CT scan of abdomen pelvis with slight ileus otherwise unremarkable. Spoke with mother again. Per nursing patient very ataxic and almost fell just trying to transfer to CT scan table. Case discussed with hospitalist. Will admit for further work-up and MRI of brain. Medical Records Medical records reviewed: Yes I reviewed the patient's medical records. Lab Data Lab results reviewed: Yes I reviewed the patient's lab results. ECG Data Attestation: I personally reviewed and interpreted this ECG (s) as follows: Interpretation: see EKG HPI General Mode of arrival: EMS. Date/Time Provider Initiated Documentation: 04/24/20 01:12. Limitations to Documentation: no limitations. Information obtained by: patient, family and RN notes reviewed. HPI Narrative: Patient brought in by ambulance after his mother called due to dizziness and falling. Patient has history of schizophrenia. He is a little difficult to understand. Currently he states that he does not feel dizzy. He denies having pain anywhere. He states that his dad recently. Since then he has not felt well. He is not eating and drinking. When he does it makes his abdomen hurt. He does admit to feeling dizzy at times. I called his mother whom he lives with. She report that he has been complaining of abdominal pain on and off. He has not been eating or drinking. He has been vomiting repeatedly. Tonight he is fallen 3 times whenever he gets up and tries to walk. She gets very dizzy and starts falling forward, unable to stand and falls. He has been confused. He did see primary care a few days ago. Labs were drawn and further outpatient work-up was supposed to be ordered. Related Data Home Medications Medication Instructions Recorded Confirmed clozapine [Clozaril] 100 mg PO DIRECTED 11/19/16 04/24/20 lorazepam 2 mg PO BID 11/19/16 04/24/20 pantoprazole [Protonix] 40 mg PO BID 11/19/16 04/24/20 lithium carbonate 600 mg PO HS 12/14/16 04/24/20 propranolol 10 mg PO BID 12/14/16 04/24/20 lactulose 15 - 30 ml PO DAILY PRN 11/18/18 04/24/20 Halperidol 1 mg PO TID 12/08/18 04/24/20 ascorbic acid (vitamin C) 250 mg 250 mg PO BID 12/08/18 04/24/20 tablet bupropion HCl 150 mg 24 hr tablet, 300 mg PO DAILY 12/08/18 04/24/20 extended release vit,calcium no.40-iron tab PO DAILY tab 12/08/18 12/12/18 fum 27 mg iron-folate no.1 1 mg tablet testosterone 4 mg/24 hr 2 patch TRANSDERMAL DAILY 12/08/18 04/24/20 transdermal 24 hour patch sucralfate 04/24/20 04/24/20 Allergies Allergy/AdvReac Type Severity Reaction Status Date / Time codeine Allergy Unknown Verified 02/04/20 11:08 Sulfa (Sulfonamide Allergy Unknown Verified 02/04/20 11:08 Antibiotics) esomeprazole [From Nexium] Allergy Verified 02/04/20 11:08 fenofibrate [From Tricor] Allergy Verified 02/04/20 11:08 ferrous gluconate Allergy Verified 02/04/20 11:08 Penicillins Allergy Verified 02/04/20 11:08 General Stated Complaint: Abd Prob DELORIS: 3 Review of Systems Unobtainable due to mental status [facility] Medical History (Updated 04/24/20 @ 03:07 by Rhys Hall MD) Abnormal thyroid stimulating hormone (TSH) level Anemia Anxiety Chronic constipation Dyspepsia Dysphagia Fatigue Former smoker Gastritis Gastritis, bile acid reflux Heme positive stool Hepatitis C Hiatal hernia History of hepatitis C Hypogonadism Lactose intolerance Lightheadedness Low energy Microcytic anemia Obesity Onychomycosis of toenail Schizoaffective disorder SOB (shortness of breath) on exertion Vitamin D deficiency Surgical History H/O esophagogastroduodenoscopy History of surgery Surgery to penis Normal colonoscopy Social History Smoking/Tobacco Use Status: Current every day Tobacco Type: cigarettes Smoking risk assessment performed?: Yes Alcohol Intake: never Drug use: Never Substance use type: does not use Do you feel safe at home: Yes Do you feel safe in your relationship?: Yes Exam Narrative Exam Narrative: Const: WDWN male in NAD. HEENT: NC/AT. Normal facial exam. Eyes: PERRL and EOMI. No nystagmus. Normal conjunctiva and sclera. Neck: Supple. Trachea midline. Lungs: Normal respiratory effort. Lungs are clear. Cor: RRR without murmur/gallop. Good radial pulses. GI: Soft. NT/ND. No guarding or rebound. Neuro: A+O x 3. Slowed speech and mentation. Cranial nerves II - XII grossly intact. No gross motor or sensory deficit. Ext: No C/C/E. Skin: Warm and dry without rash. Course Vital Signs Vital signs: Vital Signs Temperature 96.8 F L 04/24/20 01:02 Temperature 96.8 F L 04/24/20 01:02 Temperature Source Skin 04/24/20 01:02 Respiratory Effort 04/24/20 01:08 Pain Level 0 04/24/20 01:02
--- NOTE | 2020-04-24 01:15 | RT.EKG_ITS ---
APPROVED REPORT Exam: Resting ECG Patient Location: E HR:97 bpm ECG Measurements Heart Rate 97 AXIS TN 151 P 57 QRSd 137 QRS -51 QT 380 T 26 QTc 483 Conclusion Sinus rhythm...normal P axis, V-rate 60- 99 RBBB and LAFB...QRSd >120mS, axis(-40,240) Borderline ST elevation, lateral leads...ST >0.06mV, I aVL V5 V6 There are no significant changes compared to prior EKG performed on 11/29/2018 at 13:43.
--- NOTE | 2020-04-24 01:30 | DI.CT_ITS ---
EXAM: CT ABDOMEN PELVIS W CLINICAL HISTORY: vomiting, intermittent pain, not eating. TECHNIQUE: Imaging Protocol: Axial computed tomography images with coronal and sagittal reformatted images were created and reviewed CONTRAST MATERIAL: Intravenous: Omnipaque 350 Contrast volume:structured data in ml Oral: yes / no COMPARISON: No exams were available for comparison FINDINGS: Exam is somewhat limited by motion. ABDOMEN: Lung Bases: Normal where visualized. Liver: Normal density. No measurable mass. Gallbladder and biliary tract: No radiodense calculus or dilation. Pancreas: Normal density, no abnormal calcifications or inflammatory process. Spleen: Normal. Kidneys: Normal size, contour and axis. No radiodense stones or obstructive uropathy. No masses seen. Adrenal glands: No masses seen. Abdominal Aorta: Abdominal portion non-dilated. PELVIS: Bladder: Symmetric distention, no gross wall thickening. Bowel: Dilated loops of small bowel in the upper and mid abdomen. There are few loops distal decompr essed small bowel. There may be a transition point in the mid abdomen at the level of the umbilicus. The appendix appears normal. There is increased stool in the colon. No bowel wall thickening or p neumatosis is seen. Peritoneal cavity: No ascites, collection or mesenteric inflammatory response. Bones: Degenerative changes are seen in the spine. Reproductive organs: Within normal limits. Lymph nodes: Unremarkable. Impression: Dilated loops of small bowel with question of transition point in the mid abdomen with distal decompr essed loops, suspicious for partial small bowel obstruction. RADIATION DOSE DELIVERED: 916.89mGy.cm Total DLP DATA REPOSITORY: All CT scans at this facility are submitted to the National Radiology Data Registry (NRDR) Dose Index Registry (DIR) with the [employer] ([employer]). RADIATION OPTIMIZATION: All CT scans at this facility use at least one of these dose optimization te chniques: automated exposure control; mA and/or kV adjustment per patient size (includes targeted exa ms where dose is matched to clinical indication); or iterative reconstruction.
--- NOTE | 2020-04-24 01:30 | DI.CT_ITS ---
EXAM: CT HEAD WO CLINICAL HISTORY: dizzy with falls. TECHNIQUE: Imaging Protocol: Axial computed tomography images with coronal and sagittal reformatted images were created and reviewed COMPARISON: CT HEAD WITHOUT CONTRAST from 09/13/2015 FINDINGS: Ventricles and Extra axial spaces: Normal in size and morphology for the patient's age. Hemorrhage: None. Cerebral parenchyma: Normal. Midline shift: None. Brainstem/Cerebellum: Normal. Calvarium: Normal. Visualized Paranasal sinuses/Mastoids: Clear. Soft Tissues: Unremarkable. IMPRESSION: No acute intracranial process. RADIATION DOSE DELIVERED: 777.73mGy.cm Total DLP DATA REPOSITORY: All CT scans at this facility are submitted to the National Radiology Data Registry (NRDR) Dose Index Registry (DIR) with the [employer] (ACR). RADIATION OPTIMIZATION: All CT scans at this facility use at least one of these dose optimization te chniques: automated exposure control; mA and/or kV adjustment per patient size (includes targeted exa ms where dose is matched to clinical indication); or iterative reconstruction.
[2020-04-24 01:55] LABS: ALT 19 U/L (16-63); AST 10 U/L (15-37); Alkaline Phosphatase 80 U/L (46-116); Anion Gap 8.2 mmol/L (3-11); BUN 30 mg/dL (7-18); Bilirubin, Total 0.6 mg/dL (0.2-1.0); CO2 25.8 mmol/L (21.0-32.0); CREATININE 1.42 mg/dL (0.70-1.30); Calcium 9.4 mg/dL (8.5-10.1); Chloride 106 mmol/L (98-107); Estimated GFR 52.99 (mL/min/1.73m2); Glucose 124 mg/dL (74-106); Lipase 26 U/L (73-393); Magnesium 2.2 mg/dL (1.8-2.4); Potassium 3.8 mmol/L (3.5-5.1); Sodium 140 mmol/L (136-145); Total Protein 6.5 g/dL (6.4-8.2)
[2020-04-24 02:07] LABS: Troponin I < 0.05 ng/mL (<0.06)
--- NOTE | 2020-04-24 02:08 | NUR.NOTE ---
LORI Godinez from home with c/o dizziness, nausea, confusion and difficulty walking x 1 week. Lives at home with mom. Sent in for eval. Pt reports lightheadedness. Denies chest/abd pain. Speech slurred, per EMS is his baseline. #20 RAC, labs drawn, LR infusing. LSCTA. Abd soft, reports pain on palpation. MD Hall spoke with pt mother to confirm pt med list.
[2020-04-24 02:15] LABS: Lithium 0.99 mmol/L (0.60-1.20)
[2020-04-24 02:28] LABS: Abs Immature Grans 0.01 10^3/uL (0.0-0.06); Absolute Basophil Count 0.03 10^3/uL (0.0-0.2); Absolute Lymphocyte Count 1.21 10^3/uL (1.2-3.4); Absolute Monocyte Count 0.91 10^3/uL (0.1-0.8); Basophils % 0.5; HCT 45.1 % (40.0-50.0); HGB 14.8 g/dL (13.5-17.5); Immature Grans % 0.2; Lymphocytes % 19.6; MCH 28.7 pg (27.0-33.0); MCHC 32.8 % (32.0-36.0); MCV 87.4 fL (80-95); Monocytes % 14.8; Neutrophils % 64.9; Nucleated RBC 0 %; Platelet Count 230 10^3/uL (130-400); RBC 5.16 10^6/uL (4.36-5.78); RDW 13.6 % (11.8-14.1); RDW-SD 43.9 fL; WBC 6.16 10^3/uL (4.4-10.8)
[2020-04-24] MEDS: Omnipaque 350 MG/ML 100 ML BTL IJ (02:32)
[2020-04-24] MEDS: Normal Saline - Diluent 50 ML VIAL IV (02:33)
--- NOTE | 2020-04-24 02:35 | NUR.NOTE ---
To CT via stretcher. Pt ataxic when attempting to move from bed to CT stretcher. MD Hall aware.
--- NOTE | 2020-04-24 02:42 | DI.VRAD_ITS ---
PROCEDURE INFORMATION: Exam: CT Head Without Contrast Exam date and time: 04/24/2020 2:20 AM Age: 49 years old Clinical indication: Dizziness; Patient HX: Dizzy with falls TECHNIQUE: Imaging protocol: Computed tomography of the head without contrast. COMPARISON: No relevant prior studies available. FINDINGS: Brain: Normal. No hemorrhage. Unremarkable white matter. No mass effect. Cerebral ventricles: No ventriculomegaly. Bones/joints: Unremarkable. No acute fracture. Paranasal sinuses: Visualized sinuses are unremarkable. No fluid levels. Mastoid air cells: Visualized mastoid air cells are well aerated. Soft tissues: Unremarkable. IMPRESSION: No acute intracranial abnormality. Dictated and Authenticated by: Hood Galdamez MD. Ordering:SUSAN Joiner MD
--- NOTE | 2020-04-24 02:44 | DI.VRAD_ITS ---
PROCEDURE INFORMATION: Exam: CT Abdomen And Pelvis With Contrast Exam date and time: 04/24/2020 2:25 AM Age: 49 years old Clinical indication: Abdominal pain; Generalized; Patient HX: Vomiting, intermittent pain, not eating; Additional info: Per PT: Hiccups for 2 days TECHNIQUE: Imaging protocol: Computed tomography of the abdomen and pelvis with intravenous contrast. COMPARISON: No relevant prior studies available. FINDINGS: Liver: Normal. No mass. Gallbladder and bile ducts: Normal. No calcified stones. No ductal dilation. Pancreas: Normal. No ductal dilation. Spleen: Normal. No splenomegaly. Adrenal glands: Normal. No mass. Kidneys and ureters: Normal. No hydronephrosis. Stomach and bowel: Mildly dilated small bowel loops in the left lower quadrant could indicate ileus or element of obstruction. Appendix: No evidence of appendicitis. Intraperitoneal space: Unremarkable. No free air. No significant fluid collection. Vasculature: Unremarkable. No abdominal aortic aneurysm. Lymph nodes: Unremarkable. No enlarged lymph nodes. Urinary bladder: Unremarkable as visualized. Reproductive: Unremarkable as visualized. Bones/joints: Unremarkable. No acute fracture. Soft tissues: Unremarkable. IMPRESSION: Mildly dilated small bowel loops in the left lower quadrant could indicate ileus or element of obstruction. Dictated and Authenticated by: Hood Galdamez MD. Ordering:SUSAN Joiner MD
[2020-04-24 02:50] LABS: TSH (W/Ref FT4) 0.72 uIU/mL (0.36-3.74)
[2020-04-24 03:56] LABS: Ammonia 13 umol/L (11-32)
[2020-04-24] MEDS: Normal Saline 1,000 ML 80 ML IV ×2 (04:49→11:45)
--- NOTE | 2020-04-24 06:28 | HPE_ITS ---
Date of service: 04/24/20 Time of Service: 03:19 Assessment and Plan Assessment and plan (1) Unsteady gait: Status: Acute Assessment and plan: CT head negative. If persists despite hydration, consider MRI. Likely d/t dehydration. IV fluids. PT eval. (2) Gastritis, bile acid reflux: Status: Acute Assessment and plan: Cont PPI He doesn't describe pain but N/V; possibly a viral gastroenteritis. For any recurrence of N/V would have to use antiemetics caustiously d/t interactiions with his psychiatric meds. PRN diphenhydramine ordered. (3) Lightheadedness: Status: Acute Assessment and plan: Likely from dehydration d/t N/V. IV hydration. Orthostatic VS (4) ANAND (acute kidney injury): Status: Acute Assessment and plan: Mild; pre-renal d/t decreased intake and emesis. Creatinine 1.42; normally in the 1.2 range. He feels he has had the flu. He calls abdominal symptoms the flu. H/O gastritis. IV fluids Monitor. History of Present Illness History of Present Illness Chief Complaint: Dizziness and falls Narrative: This is a 49 yo male with a h/o schizoaffective disorder, gastritis, hypogonadism. He present by ambulance after his mother called due to dizziness and falling. On initial evaluation in the ED he stated that he did not feel d jakob. He denied having pain anywhere. He stated to the ED physician that his dad recently and siince then he has not felt well. He had not been eating and drinking adequately. When he does, he stated, it makes his abdomen hurt. He mentioned that he feels this way with dizziness when I have the flu. When asked he confirms he means a GI illness. The ED physician called his mother whom he lives with. She report that he has been complaining of abdominal pain on and off. He has not been eating or drinking well. He has been vomiting repeatedly. She endorsed that he had fallen 3 times;whenever he gets up and tries to walk. She gets very dizzy and starts falling forward, unable to stand and falls. He has been confused. He did see primary care a few days ago. Labs were drawn and further outpatient work-up was supposed to be ordered. When he stood to transfer to the radiology table for a CT he flailed his arms and was unsteady. When asked he stated he did not feel like he or the room were spinning at that time, but rather that he felt like he might pass out. Lab and CT head were unremarkable other than mildly elevated BUN and creatinine. Vital signs normal other than a HR in the 90's. He has had no fever/chills, cough, SOA/dyspnea on exertion, CP/palpitations. No diarrhea/melena/hematochezia/hematemesis. COUNTS INCLUDE 234 BEDS AT THE [facility] Medical History (Updated 04/24/20 @ 06:49 by Mulugeta Chisholm MD) Abnormal thyroid stimulating hormone (TSH) level Anemia Anxiety Chronic constipation Dyspepsia Dysphagia Fatigue Former smoker Gastritis Gastritis, bile acid reflux Heme positive stool Hepatitis C Hiatal hernia History of hepatitis C Hypogonadism Lactose intolerance Lightheadedness Low energy Microcytic anemia Obesity Onychomycosis of toenail Schizoaffective disorder SOB (shortness of breath) on exertion Vitamin D deficiency Surgical History H/O esophagogastroduodenoscopy History of surgery Surgery to penis Normal colonoscopy Social History Smoking/Tobacco Use Status: Current every day Tobacco Type: cigarettes Smoking risk assessment performed?: Yes Alcohol Intake: never Drug use: Never Substance use type: does not use Do you feel safe at home: Yes Do you feel safe in your relationship?: Yes Meds Home Medications and Allergies Home Medications Medication Instructions Recorded Confirmed Type clozapine [Clozaril] 100 mg PO DIRECTED 11/19/16 04/24/20 History lorazepam 2 mg PO BID 11/19/16 04/24/20 History pantoprazole [Protonix] 40 mg PO BID 11/19/16 04/24/20 History lithium carbonate 600 mg PO HS 12/14/16 04/24/20 History propranolol 10 mg PO BID 12/14/16 04/24/20 History lactulose 15 - 30 ml PO DAILY PRN 11/18/18 04/24/20 History Halperidol 1 mg PO TID 12/08/18 04/24/20 History ascorbic acid (vitamin C) 250 mg 250 mg PO BID 12/08/18 04/24/20 History tablet bupropion HCl 150 mg 24 hr tablet, 300 mg PO DAILY 12/08/18 04/24/20 History extended release vit,calcium no.40-iron tab PO DAILY tab 12/08/18 12/12/18 History fum 27 mg iron-folate no.1 1 mg tablet testosterone 4 mg/24 hr 2 patch TRANSDERMAL DAILY 12/08/18 04/24/20 History transdermal 24 hour patch sucralfate 04/24/20 04/24/20 History Allergies Allergy/AdvReac Type Severity Reaction Status Date / Time codeine Allergy Unknown Verified 02/04/20 11:08 Sulfa (Sulfonamide Allergy Unknown Verified 02/04/20 11:08 Antibiotics) esomeprazole [From Nexium] Allergy Verified 02/04/20 11:08 fenofibrate [From Tricor] Allergy Verified 02/04/20 11:08 ferrous gluconate Allergy Verified 02/04/20 11:08 Penicillins Allergy Verified 02/04/20 11:08 Exam Const General: cooperative and no acute distress Nutritional Appearance: overweight Orientation: alert, oriented to person and oriented to place [facility] Head: normocephalic and atraumatic Eyes Sclera: sclerae normal Pupils: pupil size (equal) Resp Effort & Inspection: normal respiratory effort Auscultation: clear to auscultation bilaterally Cardio Rate: tachycardic Rhythm: regular rhythm Heart Sounds: S1 normal and S2 normal GI Palpation: soft and nontender Auscultation: normal bowel sounds Skin General skin exam: no rashes or lesions noted Extrem General: no pedal edema and no calf tenderness Psych Appearance: grossly normal Speech and Movement: speech and movement normal Affect: blunted Results Labs Result diagrams: 04/24/20 01:30 04/24/20 01:30 Labs: Laboratory Results - last 24 hr 04/24/20 04/24/20 04/24/20 01:30 01:30 01:30 WBC 6.16 RBC 5.16 Hgb 14.8 Hct 45.1 MCV 87.4 MCH 28.7 MCHC 32.8 RDW 13.6 Plt Count 230 MPV 10.0 Immature Gran % 0.2 Neutrophils % 64.9 Lymphocytes % 19.6 Monocytes % 14.8 Eosinophils % 0.0 Basophils % 0.5 Nucleated RBC % 0 Absolute Neutrophils 4.00 Absolute Lymphocytes 1.21 Absolute Monocytes 0.91 H Absolute Eosinophils 0.00 Absolute Basophils 0.03 Sodium 140 Potassium 3.8 Chloride 106 Carbon Dioxide 25.8 Anion Gap 8.2 BUN 30 H D Creatinine 1.42 H Estimated GFR/1.73 m2 52.99 Glucose 124 H Calcium 9.4 Magnesium 2.2 Total Bilirubin 0.6 AST 10 L ALT 19 Alkaline Phosphatase 80 Ammonia Troponin I < 0.05 Total Protein 6.5 Albumin 3.0 L Lipase 26 TSH [place] 0.99 04/24/20 04/24/20 02:30 03:40 WBC RBC Hgb Hct MCV MCH MCHC RDW Plt Count MPV Immature Gran % Neutrophils % Lymphocytes % Monocytes % Eosinophils % Basophils % Nucleated RBC % Absolute Neutrophils Absolute Lymphocytes Absolute Monocytes Absolute Eosinophils Absolute Basophils Sodium Potassium Chloride Carbon Dioxide Anion Gap BUN Creatinine Estimated GFR/1.73 m2 Glucose Calcium Magnesium Total Bilirubin AST ALT Alkaline Phosphatase Ammonia 13 Troponin I Total Protein Albumin Lipase TSH 0.72 [place] Last Vital Signs Temp 36.6 C 04/24/20 04:56 Pulse 96 H 04/24/20 04:56 Resp 18 04/24/20 04:56 BP 107/71 04/24/20 04:56 Pulse Ox 97 04/24/20 04:56 COVID-19 Screening Have you, or household traveled for leisure in last 14 days?: No Had IN PERSON contact w/suspected or confirmed C-19 person: No
[2020-04-24] MEDS: Normal Saline 500 ML IV (07:37)
[2020-04-24] MEDS: Propranolol 10 MG TAB PO (08:01)
[2020-04-24] MEDS: Pantoprazole 20 MG TABCR 40 MG PO (08:01)
[2020-04-24] MEDS: buPROPion-XL 150 MG TABCR 300 MG PO (08:01)
[2020-04-24] MEDS: Haloperidol 1 MG TAB PO (08:02)
[2020-04-24] MEDS: Enoxaparin 40 MG/0.4 ML SYR SC (08:02)
[2020-04-24 09:48] LABS: Anion Gap 5.4 mmol/L (3-11); BUN 23 mg/dL (7-18); CO2 24.6 mmol/L (21.0-32.0); CREATININE 1.25 mg/dL (0.70-1.30); Calcium 9.5 mg/dL (8.5-10.1); Chloride 110 mmol/L (98-107); Glucose 125 mg/dL (74-106); Potassium 4.1 mmol/L (3.5-5.1); Sodium 140 mmol/L (136-145)
--- NOTE | 2020-04-24 11:20 | IN_ITS ---
Date of service: 04/24/20 Time of Service: 11:05 PT Notes Visit Reasons: DIZZINESS WITH FALLS Inpatient Physical Therapy Evaluation Date: 04/24/20 Referring Doctor: Dr. Chisholm PT Orders: PT CONSULT: unsteady gait Precautions: fall, standard Patient Profile/Admitting Diagnosis: Patient admitted early this morning from the ED, where he presented with c/o abdominal pain and falls at home. Diagnosed with ANAND and dehydration. PMHX: Abnormal thyroid stimulating hormone (TSH) level Anemia Anxiety Chronic constipation Dyspepsia Dysphagia Fatigue Former smoker Gastritis Gastritis, bile acid reflux Heme positive stool Hepatitis C Hiatal hernia History of hepatitis C Hypogonadism Lactose intolerance Lightheadedness Low energy Microcytic anemia Obesity Onychomycosis of toenail Schizoaffective disorder SOB (shortness of breath) on exertion Vitamin D deficiency Social History/Home Situation: Patient lives in a private home with his mother. Denies mobility issues at baseline. No use of assistive device. States that he's having a lot of anxiety. He reports that his father had similar symptoms prior to passing away, and so he's very nervous. Equipment Owned/DME: none Subjective: Sean states that he hasn't been feeling well for a few days. He c/o abdominal pain and feeling like he has the flu. States that he fell at home 7 times yesterday. No prior history of falls. Objective: General Observation: Resting in bed with IV in RUE, telemetry in place. Patient in no acute distress. Mental Status: A&Ox3. Reports feeling anxious about his health status. Pain: ongoing abdominal pain ROM: Right Upper Extremity: WNL Left Upper Extremity: WNL Right Lower Extremity: WNL Left Lower Extremity: WNL Strength: Right Upper Extremity: Shoulder flexion 4/5. Biceps 4+/5. Wrist flexion 4/5. Wrist extension 4/5. Insurance Sales Executive is weak, but equal. Patient is tremulous with all resisted motions. Left Upper Extremity: Shoulder flexion 4/5. Biceps 4+/5. Wrist flexion 4/5. Wrist extension 4/5. Insurance Sales Executive is weak, but equal. Patient is tremulous with all resisted motions. Right Lower Extremity: Hip flexion 4+/5. Quads 4+/5. Ankle DF 5/5 Left Lower Extremity: Hip flexion 4+/5. Quads 4+/5. Ankle DF 5/5 Sensation: intact distally Bed Mobility/Transfers: supine-sit: independent sit-supine: independent sit-stand: supervision, with impulsive movements and decreased safety awareness stand-sit: supervision, with impulsive movements and decreased safety awareness. Gait: Patient ambulates 25' with FWW and CGA. He ambulates an additional 10' with CGA and no assistive device, although with poor safety awareness and with deviating path. Balance: Static Sitting: normal Dynamic Sitting: normal Static Standing: good Dynamic Standing: fair Special Tests: Rhomberg (-) Static standing with vestibular cancellation is normal rapid alternating motions of LEs show diminished coordination fine motor is diminished with thumb to digit tapping Mobility Limitations Standardized Measure [facility] AM-PAC 6 clicks Basic Mobility Inpatient Short Form: Raw Score: 21 CMS Score: 29% deficit Informed Consent/Education: Patient instructed in purpose of PT consult and plan of care. Patient was instructed in seated and standing exercises for balance retraining and UE/LE strengthening, as noted on flowsheet. Assessment: Patient is a 49 year old male referred to physical therapy services with the diagnosis of ataxic gait. Patient presents with clinical signs and symptoms consistent with diagnosis, as demonstrated by the following impairment level findings: 1. Decreased LE strength 2. decreased coordination 3. gait impairments 4. balance deficits 5. h/o falls 6. limited safety awareness Impairments are contributing to the following functional limitations: 1. increased fall risk 2. unable to safely ambulate without assistive device Patient is assessed as Moderate [id number] complexity based on the following: History: 49 year old male presenting with gait impairments. Patient undergoing work up for GI symptoms. Complicating factors include mental health issues, with patient reporting significant anxiety around current symptoms. Additional medical history as noted above. Examination: functional limitations as noted above Presentation: evolving Decision Making: moderate complexity Goals: Goals X1 week 1. Supine-Sit : independent 2. Sit-Supine : independent 3. Sit-Stand : independent 4. Stand-Sit : independent 5. Bed-Chair: independent 6. Chair-Bed : independent 7. Gait: supervision x 50' without AD Plan of Care/Treatment Plan: 1-2x/day, 7 days/week x 1 week. Plan of care has been reviewed with the CONSTRUCTION TRADES CONTRACTOR providing the service under Physical Therapy direction. Initiate Physical Therapy intervention for strengthening, bed mobility, transfers, gait, stairs, balance training, use of assistive device. DISCHARGE RECOMMENDATIONS: home, without anticipated equipment needs TREATMENT CODE/TIME: 11:05-11:25 ([id number]) Rachel Cleary, PT, DPT [facility]
--- NOTE | 2020-04-24 11:50 | NUR.NOTE ---
Nursing Note: Patient stated that he took carafate with meals r/t gastric hx. Not ordered on his mar at this time, but noted on home med rec. I have forwarded this info to the [facility]
--- NOTE | 2020-04-24 13:42 | DSE_ITS ---
Date of service: 04/24/20 Time of Service: 13:43 DS: Diagnosis Discharge Diagnosis (1) Unsteady gait: Start date: 04/24/20 Start time: 13:44 Status: Resolved Asessment and Plan: Resolved worked with PT they recommend home without any equipment needs (2) Gastritis, bile acid reflux: Start date: 04/24/20 Start time: 13:45 Status: Resolved Asessment and Plan: Will give carafate and omeprazole for treatment. Follow up with PCP in 2 weeks Follow bland diet for a couple of days (3) Lightheadedness: Start date: 04/24/20 Start time: 13:46 Status: Resolved Asessment and Plan: Hydrated with IVF overnight, resolved. Ambulated and able to get up without any problems with lightheadedness. (4) ANAND (acute kidney injury): Start date: 04/24/20 Start time: 13:47 Status: Resolved Asessment and Plan: Resolved with IV hydration above case discussed with Dr. Rutledge who is in agreement Discharge Plan Disposition Patient Disposition: HOME Condition: Improving Discharge Details Reason For Visit: DIZZINESS WITH FALLS Admit Date/Time: 04/24/20 03:02 Admit Provider: Mulugeta Chisholm Attending Provider: Mulugeta Chisholm Primary Care Provider: Tomás Carvalho Hospital Course Hospital Course: This is a 49 yo male with a h/o schizoaffective disorder, gastritis, hypogonadism. He presented to [facility] by ambulance after his mother called due to dizziness and falling. On initial evaluation in the ED he stated that he did not feel dizzy. He denied having pain anywhere. He stated to the ED physician that his dad recently and since then he has not felt well. He had not been eating and drinking adequately. When he does, he stated, it makes his abdomen hurt. He mentioned that he feels this way with dizziness when I have the flu. When asked he confirms he means a GI illness. The ED physician called his mother whom he lives with. She report that he has been complaining of abdominal pain on and off. He has not been eating or drinking well. He has been vomiting repeatedly. She endorsed that he had fallen 3 times;whenever he gets up and tries to walk. She gets very dizzy and starts falling forward, unable to stand and falls. He has been confused. He did see primary care a few days ago. Labs were drawn and further outpatient work-up was supposed to be ordered. When he stood to transfer to the radiology table for a CT he flailed his arms and was unsteady. When asked he stated he did not feel like he or the room were spinning at that time, but rather that he felt like he might pass out. Lab and CT head were unremarkable other than mildly elevated BUN and creatinine. Vital signs normal other than a HR in the 90's. He was admitted for IVF, started on carafate and omeprazole. PT evaluated him this morning and he was cleared for home with no services. He has not vomited since admission, denies dizziness, ambulated in the hallway with [employer]PORATE HEALTH CONSULTANT without any difficulty and therefore is being discharged home. Likely his pain is gastritis he will be discharged home on omeprazole and carafate with follow up with PCP in 2 weeks. He has had no fever/chills, cough, SOA/dyspnea on exertion, CP/palpitations. No diarrhea/melena/hematochezia/hematemesis. Total discharge time 30 mins. Home Meds and New Rx's Prescriptions: New sucralfate 1 gram Tablet 1 g PO AC & HS Qty: 120 RF: 0 dicyclomine 10 mg capsule 10 mg PO TID Qty: 30 RF: 0 Continued bupropion HCl 150 mg tablet extended release 24 hr 300 mg PO DAILY RF: 0 Halperidol capsule 1 mg PO TID RF: 0 Androderm 4 mg/24 hr patch 24 hour 2 patch Transdermal DAILY RF: 0 ascorbic acid (vitamin C) 250 mg tablet 250 mg PO BID RF: 0 PNV-Select 27-1 mg tablet PO DAILY RF: 0 clozapine [Clozaril] 100 MG tablet 100 mg PO DIRECTED RF: 0 pantoprazole [Protonix] 20 MG tablet,delayed release (DR/EC) 40 mg PO BID RF: 0 lorazepam 2 MG tablet 2 mg PO BID RF: 0 propranolol 10 MG tablet 10 mg PO BID RF: 0 lithium carbonate 300 MG tablet extended release 600 mg PO HS RF: 0 lactulose 10 gram/15 mL Solution 15 - 30 ml PO DAILY PRNRF: 0 Discontinued sucralfate 1 gram tablet RF: 0 Discharge Instructions Instructions: Dehydration (DC), Acute Kidney Injury (DC), Chronic Abdominal Pain (GEN) Additional Instructions: Make sure you drink plenty of water especially in setting of lithium Take dicyclomine TID as needed for abdominal pain Follow up with your PCP in 1-2 weeks Your lithium level was normal PT worked with you and cleared you Stand Alone Forms: Nursing Discharge Form Referrals: Tomás Carvalho MD [Primary Care Provider] - (Please call to make a follow up appointment on Saturday. ) Activity:: Activity as Tolerated Equipment/Supplies:: No Equipment Needed Diet:: Low Sodium Discharge Orders Discharge Orders: Discharge Order (Routine); Ordered 04/24/20 Ordered By: Chelo Lobo DS: Summary Status at Discharge Functional status at discharge: independent ambulation Overall status at discharge: patient is back to baseline Mental Status: mental status grossly normal Speech and Movement: speech and movement normal Mood: congruent mood Affect: blunted Exam Const General: cooperative and no acute distress Nutritional Appearance: overweight Orientation: alert, oriented to person and oriented to place [facility] Head: normocephalic and atraumatic Eyes Sclera: sclerae normal Pupils: pupil size (equal) Resp Effort & Inspection: normal respiratory effort Auscultation: clear to auscultation bilaterally Cardio Rate: tachycardic Rhythm: regular rhythm Heart Sounds: S1 normal and S2 normal GI Palpation: soft and nontender Auscultation: normal bowel sounds Skin General skin exam: no rashes or lesions noted Extrem General: no pedal edema and no calf tenderness Psych Appearance: grossly normal Mental Status: mental status grossly normal Speech and Movement: speech and movement normal Mood: congruent mood Affect: blunted DS: Data Vitals/I&O Vitals and I&O: Vital Signs Temperature 37.3 C 04/24/20 11:23 Temperature Source Tympanic 04/24/20 11:23 Pulse 94 H 04/24/20 11:23 Pulse Rhythm Regular 04/24/20 11:09 Respiratory Rate 18 04/24/20 11:23 Respiratory Effort Non-Labored 04/24/20 11:09 Respiratory Depth Normal 04/24/20 11:09 Respiratory Pattern Normal 04/24/20 11:09 Blood Pressure 108/70 04/24/20 11:23 Pulse Oximetry 96 04/24/20 11:23 Oxygen Delivery Method Room Air 04/24/20 11:23 Oxygen Flow Rate 0 04/24/20 11:23 Pain Level 0 04/24/20 11:23 Intake & Output 04/23/20 04/24/20 04/24/20 23:59 11:59 23:59 Intake Total 554.667 / 554.667 Output Total 600 / 600 Balance -45.333 / -45.333 Weight 86.6 kg Intake: IV 554.667 / 554.667 Output: Urine 600 / 600 Other: Urine Color Yellow Urine Appearance Clear Voiding Methods Toilet Data Completed and Pending Completed studies during hospitalization [Text1]: COMPARISON: No relevant prior studies available. FINDINGS: Brain: Normal. No hemorrhage. Unremarkable white matter. No mass effect. Cerebral ventricles: No ventriculomegaly. Bones/joints: Unremarkable. No acute fracture. Paranasal sinuses: Visualized sinuses are unremarkable. No fluid levels. Mastoid air cells: Visualized mastoid air cells are well aerated. Soft tissues: Unremarkable. IMPRESSION: No acute intracranial abnormality. FINDINGS: Liver: Normal. No mass. Gallbladder and bile ducts: Normal. No calcified stones. No ductal dilation. Pancreas: Normal. No ductal dilation. Spleen: Normal. No splenomegaly. Adrenal glands: Normal. No mass. Kidneys and ureters: Normal. No hydronephrosis. Stomach and bowel: Mildly dilated small bowel loops in the left lower quadrant could indicate ileus or element of obstruction. Appendix: No evidence of appendicitis. Intraperitoneal space: Unremarkable. No free air. No significant fluid collection. Vasculature: Unremarkable. No abdominal aortic aneurysm. Lymph nodes: Unremarkable. No enlarged lymph nodes. Urinary bladder: Unremarkable as visualized. Reproductive: Unremarkable as visualized. Bones/joints: Unremarkable. No acute fracture. Soft tissues: Unremarkable. IMPRESSION: Mildly dilated small bowel loops in the left lower quadrant could indicate ileus or element of obstruction. Labs on day of discharge: Labs from last 24 hours 04/24/20 04/24/20 04/24/20 09:35 03:40 03:40 WBC RBC Hgb Hct MCV MCH MCHC RDW Plt Count MPV Immature Gran % Neutrophils % Lymphocytes % Monocytes % Eosinophils % Basophils % Nucleated RBC % Absolute Neutrophils Absolute Lymphocytes Absolute Monocytes Absolute Eosinophils Absolute Basophils Sodium 140 Potassium 4.1 Chloride 110 H Carbon Dioxide 24.6 Anion Gap 5.4 BUN 23 H Creatinine 1.25 Estimated GFR/1.73 m2 >= 60.00 Glucose 125 H Calcium 9.5 Magnesium Total Bilirubin AST ALT Alkaline Phosphatase Ammonia 13 Troponin I Total Protein Albumin Lipase 25-Hydroxyvitamin D2 25-Hydroxyvitamin D3 Total 25-OH Vitamin D TSH [place] SARS-CoV-2 (PCR) Pending Nasopharyn COVID-19 PCR Pending Ref Test Perform Site Pending 04/24/20 04/24/20 04/24/20 02:30 02:30 01:30 WBC 6.16 RBC 5.16 Hgb 14.8 Hct 45.1 MCV 87.4 MCH 28.7 MCHC 32.8 RDW 13.6 Plt Count 230 MPV 10.0 Immature Gran % 0.2 Neutrophils % 64.9 Lymphocytes % 19.6 Monocytes % 14.8 Eosinophils % 0.0 Basophils % 0.5 Nucleated RBC % 0 Absolute Neutrophils 4.00 Absolute Lymphocytes 1.21 Absolute Monocytes 0.91 H Absolute Eosinophils 0.00 Absolute Basophils 0.03 Sodium Potassium Chloride Carbon Dioxide Anion Gap BUN Creatinine Estimated GFR/1.73 m2 Glucose Calcium Magnesium Total Bilirubin AST ALT Alkaline Phosphatase Ammonia Troponin I Total Protein Albumin Lipase 25-Hydroxyvitamin D2 Pending 25-Hydroxyvitamin D3 Pending Total 25-OH Vitamin D Pending TSH 0.72 [place] SARS-CoV-2 (PCR) Nasopharyn COVID-19 PCR Ref Test Perform Site 04/24/20 04/24/20 01:30 01:30 WBC RBC Hgb Hct MCV MCH MCHC RDW Plt Count MPV Immature Gran % Neutrophils % Lymphocytes % Monocytes % Eosinophils % Basophils % Nucleated RBC % Absolute Neutrophils Absolute Lymphocytes Absolute Monocytes Absolute Eosinophils Absolute Basophils Sodium 140 Potassium 3.8 Chloride 106 Carbon Dioxide 25.8 Anion Gap 8.2 BUN 30 H D Creatinine 1.42 H Estimated GFR/1.73 m2 52.99 Glucose 124 H Calcium 9.4 Magnesium 2.2 Total Bilirubin 0.6 AST 10 L ALT 19 Alkaline Phosphatase 80 Ammonia Troponin I < 0.05 Total Protein 6.5 Albumin 3.0 L Lipase 26 25-Hydroxyvitamin D2 25-Hydroxyvitamin D3 Total 25-OH Vitamin D TSH [place] 0.99 SARS-CoV-2 (PCR) Nasopharyn COVID-19 PCR Ref Test Perform Site [facility] Medical History Abnormal thyroid stimulating hormone (TSH) level Anemia Anxiety Chronic constipation Dyspepsia Dysphagia Fatigue Former smoker Gastritis Gastritis, bile acid reflux Heme positive stool Hepatitis C Hiatal hernia History of hepatitis C Hypogonadism Lactose intolerance Lightheadedness Low energy Microcytic anemia Obesity Onychomycosis of toenail Schizoaffective disorder SOB (shortness of breath) on exertion Vitamin D deficiency Surgical History H/O esophagogastroduodenoscopy History of surgery Surgery to penis Normal colonoscopy Social History Smoking/Tobacco Use Status: Current every day Tobacco Type: cigarettes Smoking risk assessment performed?: Yes Alcohol Intake: never Drug use: Never Substance use type: does not use Do you feel safe at home: Yes Do you feel safe in your relationship?: Yes
--- NOTE | 2020-04-24 13:49 | PHA.REVIEW ---
Pharmacy Admission Review - Admission Clinical Review (Last Reviewed 04/24/20 @ 13:47 by Chelo Lboo NP) Confusion (Acute) codeine Allergy (Unknown, Verified 02/04/20 11:08) Sulfa (Sulfonamide Antibiotics) Allergy (Unknown, Verified 02/04/20 11:08) esomeprazole [From Nexium] Allergy (Verified 02/04/20 11:08) fenofibrate [From Tricor] Allergy (Verified 02/04/20 11:08) ferrous gluconate Allergy (Verified 02/04/20 11:08) Penicillins Allergy (Verified 02/04/20 11:08) Height 5 ft 4 in Weight 86.6 kg - Renal Dosing Renal Dosing: BUN 23 mg/dL (7-18) H 04/24/20 09:35 Creatinine 1.25 mg/dL (0.70-1.30) 04/24/20 09:35 Medications needing adjustments: Reviewed List of meds needing interventions: eCrCl 59 ml/min, higher if use abw - Anticoagulation Anticoagulation: Hgb 14.8 g/dL (13.5-17.5) 04/24/20 01:30 Hct 45.1 % (40.0-50.0) 04/24/20 01:30 Plt Count 230 10^3/uL (130-400) 04/24/20 01:30 Creatinine 1.25 mg/dL (0.70-1.30) 04/24/20 09:35 DVT Prohphylaxis: Reviewed Medications: Enoxaparin - Opiate Usage Evaluate Pain Scale/Pains Meds: N/A - Relevant Labs Sodium 140 mmol/L (136-145) 04/24/20 09:35 Potassium 4.1 mmol/L (3.5-5.1) 04/24/20 09:35 Chloride 110 mmol/L (98-107) H 04/24/20 09:35 Magnesium 2.2 mg/dL (1.8-2.4) 04/24/20 01:30 Electrolytes, C-Reactive P, ESR: Reviewed - DM Control DM Control: Glucose 125 mg/dL (74-106) H 04/24/20 09:35 Insulin Dosing: N/A - Heart Failure/NJ Heart Failure/N[place]: Troponin I < 0.05 ng/mL (<0.06) 04/24/20 01:30 EF%, MARIBEL's, B-Blockers, Diuretics: Reviewed - BP Control BP Control: Blood Pressure 108/70 Blood Pressure 107/70 Blood Pressure 107/71 Blood Pressure 107/71 Blood Pressure 111/68 If elevated: Reviewed List meds needing interventions: consider parameters if bp drops lower - Qtc Review If Elevated: Reviewed List meds needing interventions: QTc 483 on admission - IV to PO Switch IV Medications: Reviewed - Home Meds Home Med List reviewed: Reviewed Relevent Home Meds Not ordered & why?: confirmed clozapine dose with pharmacy, entered in ANC value on registry and verified eligibility
[2020-04-24 21:07] LABS: COVID-19 RT-PCR UVMMC Result Negative (Negative)
--- NOTE | 2020-04-25 08:37 | INDS_ITS ---
Date of service: 04/25/20 Time of Service: 08:37 PT Notes Visit Reasons: DIZZINESS WITH FALLS Physical Therapy Inpatient Discharge Summary Date: 04/25/20 Date of service: 04/25/2020 only This is a clinical summary of care provided on the duration of dates listed above. No charge was made in the completion of this documentation. Referring Doctor: Dr. Chisholm PT Orders: PT CONSULT: unsteady gait Precautions: fall, standard Patient Profile/Admitting Diagnosis: Patient admitted early this morning from the ED, where he presented with c/o abdominal pain and falls at home. Diagnosed with ANAND and dehydration. PMHX: Abnormal thyroid stimulating hormone (TSH) level Anemia Anxiety Chronic constipation Dyspepsia Dysphagia Fatigue Former smoker Gastritis Gastritis, bile acid reflux Heme positive stool Hepatitis C Hiatal hernia History of hepatitis C Hypogonadism Lactose intolerance Lightheadedness Low energy Microcytic anemia Obesity Onychomycosis of toenail Schizoaffective disorder SOB (shortness of breath) on exertion Vitamin D deficiency Social History/Home Situation: Patient lives in a private home with his mother. Denies mobility issues at baseline. No use of assistive device. States that he's having a lot of anxiety. He reports that his father had similar symptoms prior to passing away, and so he's very nervous. Equipment Owned/DME: none Subjective: NT. See most recent RADIO FREQUENCY TECHNICIAN notes. Objective: General Observation: NT. See most recent RADIO FREQUENCY TECHNICIAN notes. Mental Status: NT. See most recent RADIO FREQUENCY TECHNICIAN notes. Pain: oNT. See most recent RADIO FREQUENCY TECHNICIAN notes. ROM: Right Upper Extremity: WNL Left Upper Extremity: WNL Right Lower Extremity: WNL Left Lower Extremity: WNL Strength: Right Upper Extremity: Shoulder flexion 4/5. Biceps 4+/5. Wrist flexion 4/5. Wrist extension 4/5. Theater Manager is weak, but equal. Patient is tremulous with all resisted motions. Left Upper Extremity: Shoulder flexion 4/5. Biceps 4+/5. Wrist flexion 4/5. Wrist extension 4/5. Theater Manager is weak, but equal. Patient is tremulous with all resisted motions. Right Lower Extremity: Hip flexion 4+/5. Quads 4+/5. Ankle DF 5/5 Left Lower Extremity: Hip flexion 4+/5. Quads 4+/5. Ankle DF 5/5 Sensation: intact distally Bed Mobility/Transfers: supine-sit: independent sit-supine: independent sit-stand: supervision, with impulsive movements and decreased safety awareness stand-sit: supervision, with impulsive movements and decreased safety awareness. Gait: Patient ambulates 25' with FWW and CGA. He ambulates an additional 10' with CGA and no assistive device, although with poor safety awareness and with deviating path. Balance: Static Sitting: normal Dynamic Sitting: normal Static Standing: good Dynamic Standing: fair Special Tests: Rhomberg (-) Static standing with vestibular cancellation is normal rapid alternating motions of LEs show diminished coordination fine motor is diminished with thumb to digit tapping Assessment: Patient has only been seen once by physical therapy on initial evaluation. Patient is a 49 year old male referred to physical therapy services with the diagnosis of ataxic gait. Patient presents with clinical signs and symptoms consistent with diagnosis, as demonstrated by the following impairment level findings: 1. Decreased LE strength 2. decreased coordination 3. gait impairments 4. balance deficits 5. h/o falls 6. limited safety awareness Impairments are contributing to the following functional limitations: 1. increased fall risk 2. unable to safely ambulate without assistive device Goals: Goals X1 week 1. Supine-Sit : independent MET 2. Sit-Supine : independent NOT MET 3. Sit-Stand : independent NOT MET 4. Stand-Sit : independent NOT MET 5. Bed-Chair: independent NOT MET 6. Chair-Bed : independent NOT MET 7. Gait: supervision x 50' without AD NOT MET DISCHARGE RECOMMENDATIONS: home, without anticipated equipment needs TREATMENT CODE/TIME: NC Thank you for the opportunity to participate in the care of this patient. Hannah Buchanan PT, DPT, CLT [facility] [place], [place]
[2020-04-27 16:20] LABS: 25-Hydroxy D Total 25 ng/mL; 25-Hydroxy D2 <4.0 ng/mL; 25-Hydroxy D3 25 ng/mL
== END 2020-04-24 14:12 | disposition home or self-care (01) | DRG 684 ==
LOC: ER 03:27 → MS 03:58
PROVIDERS: Nurse Practitioner Family; Admitting Provider Family Medicine; Emergency Provider Emergency Medicine; PCP Internal Medicine; Visit Provider Family Medicine
DX: N17.9 Acute kidney failure, unspecified (principal); K29.60 Other gastritis without bleeding; R42 Dizziness and giddiness; R26.81 Unsteadiness on feet; F25.9 Schizoaffective disorder, unspecified; R29.6 Repeated falls; F41.9 Anxiety disorder, unspecified; K59.09 Other constipation; E73.9 Lactose intolerance, unspecified; D50.9 Iron deficiency anemia, unspecified; E66.9 Obesity, unspecified; E55.9 Vitamin D deficiency, unspecified; F17.210 Nicotine dependence, cigarettes, uncomplicated; Z86.19 Personal history of other infectious and parasitic diseases
CPT/HCPCS: 36415; 80048; 80053; 82306; 83690; 93005; 97162; 99222; 99238; 99285; J1650; U0003; 70450; 74177; 80178; 82140; 83735; 84443; 84484; 85025; 93010; J3490

== ENCOUNTER 2020-05-10 01:51 | Outpatient (CLI) | payer MEDICARE, MEDICAID, SELFPAY ==
--- NOTE | 2020-05-10 | DI.US_ITS ---
EXAM: US ABDOMEN CLINICAL HISTORY: EPIGASTRIC ABD PAIN,R1013,H/O GI BLEED,Z87.19 TECHNIQUE: Ultrasound abdomen performed using standard protocol. COMPARISON: CT CT ABDOMEN PELVIS W from 04/24/[address] ABDOMEN PELVIS W from 04/24/2020 FINDINGS: LIVER: Normal size and echogenicity. No focal liver lesions are seen.. GALLBLADDER: Few mobile stones are seen. No evidence of wall thickening. No pericholecystic fluid id entified. SANDOVAL'S SIGN: Negative. BILIARY SYSTEM: No intrahepatic or extrahepatic biliary ductal dilation. KIDNEYS: Kidneys are symmetric in size. No evidence of renal calculi. No evidence of hydronephrosis. No renal mass or cyst identified. Duplex collecting system left kidney. PANCREAS: Normal where visualized. SPLEEN: Not enlarged. ABDOMINAL AORTA AND IVC: Visualized portions normal caliber. ASCITES: None seen. IMPRESSION: Cholelithiasis. No evidence of acute cholecystitis. DATA REPOSITORY:
== END 2020-05-10 02:11 ==
PROVIDERS: PCP Internal Medicine; Visit Provider Internal Medicine
DX: K80.20 Calculus of gallbladder without cholecystitis without obstruction (principal); Z87.19 Personal history of other diseases of the digestive system
CPT/HCPCS: 76700

== ENCOUNTER 2020-05-16 04:23 | Outpatient (CLI) | payer MEDICARE, MEDICAID, SELFPAY ==
[2020-05-16 07:56] LABS: Abs Immature Grans 0.03 10^3/uL (0.0-0.06); Absolute Basophil Count 0.03 10^3/uL (0.0-0.2); Absolute Lymphocyte Count 1.35 10^3/uL (1.2-3.4); Absolute Neutrophil Count 4.45 10^3/uL (1.2-6.7); Basophils % 0.5; HCT 45.8 % (40.0-50.0); HGB 14.7 g/dL (13.5-17.5); Immature Grans % 0.5; Lymphocytes % 21.2; MCH 28.2 pg (27.0-33.0); MCHC 32.1 % (32.0-36.0); MCV 87.7 fL (80-95); MPV 9.5 fL (8.0-11.0); Monocytes % 7.9; Neutrophils % 69.9; Nucleated RBC 0 %; Platelet Count 215 10^3/uL (130-400); RBC 5.22 10^6/uL (4.36-5.78); RDW 13.8 % (11.8-14.1); RDW-SD 44.8 fL; WBC 6.36 10^3/uL (4.4-10.8)
[2020-05-16 08:43] LABS: CREATININE 1.3 mg/dL (0.70-1.30); Calcium 9.9 mg/dL (8.5-10.1); Estimated GFR 58.67 (mL/min/1.73m2); TSH 1.55 uIU/mL (0.36-3.74)
[2020-05-16 08:51] LABS: Lithium 0.6 mmol/l (0.6-1.2)
== END 2020-05-16 04:43 ==
PROVIDERS: PCP Internal Medicine; Visit Provider Psychiatry & Neurology Psychiatry
DX: F20.0 Paranoid schizophrenia (principal); Z79.899 Other long term (current) drug therapy; Z51.81 Encounter for therapeutic drug level monitoring
CPT/HCPCS: 36415; 80178; 82310; 82565; 84443; 85025

== ENCOUNTER 2020-06-13 04:29 | Outpatient (CLI) | payer MEDICARE, MEDICAID, SELFPAY ==
[2020-06-13 07:31] LABS: Abs Immature Grans 0.02 10^3/uL (0.0-0.06); Absolute Basophil Count 0.03 10^3/uL (0.0-0.2); Absolute Lymphocyte Count 1.38 10^3/uL (1.2-3.4); Absolute Monocyte Count 0.41 10^3/uL (0.1-0.8); Absolute Neutrophil Count 5.72 10^3/uL (1.2-6.7); Basophils % 0.4; HCT 44.9 % (40.0-50.0); HGB 14.2 g/dL (13.5-17.5); Immature Grans % 0.3; Lymphocytes % 18.3; MCH 27.4 pg (27.0-33.0); MCHC 31.6 % (32.0-36.0); MCV 86.7 fL (80-95); MPV 9.4 fL (8.0-11.0); Monocytes % 5.4; Neutrophils % 75.6; Nucleated RBC 0 %; Platelet Count 222 10^3/uL (130-400); RBC 5.18 10^6/uL (4.36-5.78); RDW 13.8 % (11.8-14.1); RDW-SD 44.5 fL; WBC 7.56 10^3/uL (4.4-10.8)
[2020-06-13 09:00] LABS: CREATININE 1.4 mg/dL (0.70-1.30); Calcium 9.9 mg/dL (8.5-10.1); Estimated GFR 53.86 (mL/min/1.73m2); TSH 0.36 uIU/mL (0.36-3.74)
[2020-06-13 09:08] LABS: Lithium 0.5 mmol/l (0.6-1.2)
== END 2020-06-13 04:30 | disposition home or self-care (01) ==
PROVIDERS: PCP Internal Medicine; Visit Provider Psychiatry & Neurology Psychiatry
DX: F20.0 Paranoid schizophrenia (principal); Z79.899 Other long term (current) drug therapy
CPT/HCPCS: 36415; 80178; 82310; 82565; 84443; 85025

== ENCOUNTER 2020-07-06 04:19 | Outpatient (CLI) | payer MEDICARE, MEDICAID, SELFPAY ==
[2020-07-06 11:08] LABS: Lithium < 0.2 mmol/l (0.6-1.2)
[2020-07-06 11:26] LABS: CREATININE 1.2 mg/dL (0.70-1.30); Calcium 9.9 mg/dL (8.5-10.1)
[2020-07-06 11:44] LABS: FREE T4 1.06 ng/dL (0.76-1.46)
== END 2020-07-06 04:20 | disposition home or self-care (01) ==
PROVIDERS: PCP Internal Medicine; Visit Provider Psychiatry & Neurology Psychiatry
DX: R79.89 Other specified abnormal findings of blood chemistry (principal); F20.0 Paranoid schizophrenia; Z79.899 Other long term (current) drug therapy; Z51.81 Encounter for therapeutic drug level monitoring
CPT/HCPCS: 36415; 80178; 82310; 82565; 84439; 84443

== ENCOUNTER 2020-07-11 04:22 | Outpatient (CLI) | payer MEDICARE, MEDICAID, SELFPAY ==
[2020-07-11 09:02] LABS: Lithium < 0.2 mmol/l (0.6-1.2)
[2020-07-11 09:09] LABS: CREATININE 1.3 mg/dL (0.70-1.30); Calcium 9.7 mg/dL (8.5-10.1); Estimated GFR 58.67 (mL/min/1.73m2); TSH (W/Ref FT4) 0.51 uIU/mL (0.36-3.74)
[2020-07-11 09:14] LABS: Abs Immature Grans 0.04 10^3/uL (0.0-0.06); Absolute Basophil Count 0.03 10^3/uL (0.0-0.2); Absolute Lymphocyte Count 1.58 10^3/uL (1.2-3.4); Absolute Monocyte Count 0.61 10^3/uL (0.1-0.8); Absolute Neutrophil Count 6.78 10^3/uL (1.2-6.7); Basophils % 0.3; HCT 44.3 % (40.0-50.0); Immature Grans % 0.4; Lymphocytes % 17.5; MCH 26.9 pg (27.0-33.0); MCHC 31.6 % (32.0-36.0); MCV 85.2 fL (80-95); MPV 9.2 fL (8.0-11.0); Monocytes % 6.7; Neutrophils % 75.1; Nucleated RBC 0 %; Platelet Count 257 10^3/uL (130-400); RDW 12.8 % (11.8-14.1); RDW-SD 40.3 fL; WBC 9.04 10^3/uL (4.4-10.8)
== END 2020-07-11 04:23 | disposition home or self-care (01) ==
LOC: LBO 04:23
PROVIDERS: PCP Internal Medicine; Visit Provider Psychiatry & Neurology Psychiatry
DX: F20.0 Paranoid schizophrenia (principal); Z79.899 Other long term (current) drug therapy; Z51.81 Encounter for therapeutic drug level monitoring
CPT/HCPCS: 36415; 80178; 82310; 82565; 84443; 85025

== ENCOUNTER 2020-07-25 15:30 | Outpatient (REF) | payer MEDICARE, MEDICAID, SELFPAY ==
[2020-07-28 16:15] LABS: Testosterone, Total 706 ng/dL (240-950)
== END 2020-07-25 15:31 | disposition home or self-care (01) ==
LOC: NCHCN 15:30
PROVIDERS: PCP Internal Medicine; Visit Provider Internal Medicine
DX: E29.1 Testicular hypofunction (principal)
CPT/HCPCS: 84403

== ENCOUNTER 2020-08-08 04:14 | Outpatient (CLI) | payer MEDICARE, MEDICAID, SELFPAY ==
[2020-08-08 08:19] LABS: Abs Immature Grans 0.02 10^3/uL (0.0-0.06); Absolute Basophil Count 0.02 10^3/uL (0.0-0.2); Absolute Lymphocyte Count 1.51 10^3/uL (1.2-3.4); Absolute Monocyte Count 0.51 10^3/uL (0.1-0.8); Absolute Neutrophil Count 4.71 10^3/uL (1.2-6.7); Basophils % 0.3; HCT 46.2 % (40.0-50.0); HGB 14.3 g/dL (13.5-17.5); Immature Grans % 0.3; Lymphocytes % 22.3; MCH 25.6 pg (27.0-33.0); MCV 82.8 fL (80-95); MPV 9.1 fL (8.0-11.0); Monocytes % 7.5; Neutrophils % 69.6; Nucleated RBC 0 %; Platelet Count 263 10^3/uL (130-400); RBC 5.58 10^6/uL (4.36-5.78); RDW 13.4 % (11.8-14.1); RDW-SD 39.8 fL; WBC 6.77 10^3/uL (4.4-10.8)
[2020-08-08 09:10] LABS: CREATININE 1.4 mg/dL (0.70-1.30); Calcium 9.8 mg/dL (8.5-10.1); Estimated GFR 53.86 (mL/min/1.73m2); Lithium < 0.2 mmol/l (0.6-1.2)
[2020-08-08 09:34] LABS: TSH (W/Ref FT4) 0.24 uIU/mL (0.36-3.74)
== END 2020-08-08 04:15 | disposition home or self-care (01) ==
PROVIDERS: PCP Internal Medicine; Visit Provider Psychiatry & Neurology Psychiatry
DX: F20.0 Paranoid schizophrenia (principal); R79.89 Other specified abnormal findings of blood chemistry; Z79.899 Other long term (current) drug therapy; Z51.81 Encounter for therapeutic drug level monitoring
CPT/HCPCS: 36415; 80178; 82310; 82565; 84439; 84443; 85025

== ENCOUNTER 2020-09-06 03:35 | Outpatient (CLI) | payer MEDICARE, MEDICAID, SELFPAY ==
[2020-09-06 12:45] LABS: Abs Immature Grans 0.01 10^3/uL (0.0-0.06); Absolute Basophil Count 0.02 10^3/uL (0.0-0.2); Absolute Lymphocyte Count 1.57 10^3/uL (1.2-3.4); Absolute Neutrophil Count 3.65 10^3/uL (1.2-6.7); Basophils % 0.3; HCT 40.5 % (40.0-50.0); HGB 12.5 g/dL (13.5-17.5); Immature Grans % 0.2; Lymphocytes % 27.3; MCH 24.4 pg (27.0-33.0); MCHC 30.9 % (32.0-36.0); MCV 78.9 fL (80-95); MPV 9.4 fL (8.0-11.0); Monocytes % 8.7; Neutrophils % 63.5; Nucleated RBC 0 %; Platelet Count 278 10^3/uL (130-400); RBC 5.13 10^6/uL (4.36-5.78); RDW 13.9 % (11.8-14.1); RDW-SD 39.8 fL; WBC 5.75 10^3/uL (4.4-10.8)
[2020-09-06 13:58] LABS: Lithium < 0.2 mmol/l (0.6-1.2)
[2020-09-06 14:08] LABS: CREATININE 1.2 mg/dL (0.70-1.30); Calcium 9.4 mg/dL (8.5-10.1); TSH (W/Ref FT4) 0.25 uIU/mL (0.36-3.74)
[2020-09-06 14:27] LABS: FREE T4 1.11 ng/dL (0.76-1.46)
== END 2020-09-06 03:36 | disposition home or self-care (01) ==
PROVIDERS: PCP Internal Medicine; Visit Provider Psychiatry & Neurology Psychiatry
DX: F20.0 Paranoid schizophrenia (principal); R79.89 Other specified abnormal findings of blood chemistry; Z79.899 Other long term (current) drug therapy
CPT/HCPCS: 36415; 80178; 82310; 82565; 84439; 84443; 85025

== ENCOUNTER 2020-10-03 03:13 | Outpatient (CLI) | payer MEDICARE, MEDICAID, SELFPAY ==
[2020-10-03 08:08] LABS: Abs Immature Grans 0.02 10^3/uL (0.0-0.06); Absolute Basophil Count 0.03 10^3/uL (0.0-0.2); Absolute Lymphocyte Count 1.38 10^3/uL (1.2-3.4); Absolute Monocyte Count 0.43 10^3/uL (0.1-0.8); Absolute Neutrophil Count 4.32 10^3/uL (1.2-6.7); Basophils % 0.5; HCT 39.9 % (40.0-50.0); HGB 12.2 g/dL (13.5-17.5); Immature Grans % 0.3; Lymphocytes % 22.3; MCH 23.5 pg (27.0-33.0); MCHC 30.6 % (32.0-36.0); MCV 76.9 fL (80-95); MPV 9.4 fL (8.0-11.0); Neutrophils % 69.9; Nucleated RBC 0 %; Platelet Count 242 10^3/uL (130-400); RBC 5.19 10^6/uL (4.36-5.78); RDW 14.9 % (11.8-14.1); RDW-SD 40.6 fL; WBC 6.18 10^3/uL (4.4-10.8)
[2020-10-03 09:21] LABS: Lithium < 0.2 mmol/l (0.6-1.2)
[2020-10-03 09:28] LABS: CREATININE 1.3 mg/dL (0.70-1.30); Calcium 9.6 mg/dL (8.5-10.1); Estimated GFR 58.43 (mL/min/1.73m2)
[2020-10-03 09:52] LABS: FREE T4 1.03 ng/dL (0.76-1.46)
== END 2020-10-03 03:14 | disposition home or self-care (01) ==
LOC: LBO 03:13
PROVIDERS: PCP Internal Medicine; Visit Provider Psychiatry & Neurology Psychiatry
DX: R79.89 Other specified abnormal findings of blood chemistry (principal); F20.0 Paranoid schizophrenia; Z79.899 Other long term (current) drug therapy; Z51.81 Encounter for therapeutic drug level monitoring
CPT/HCPCS: 36415; 80178; 82310; 82565; 84439; 84443; 85025

== ENCOUNTER 2020-10-31 03:26 | Outpatient (CLI) | payer MEDICARE, MEDICAID, SELFPAY ==
[2020-10-31 12:09] LABS: CREATININE 1.5 mg/dL (0.70-1.30); Calcium 9.7 mg/dL (8.5-10.1); Estimated GFR 49.54 (mL/min/1.73m2); TSH (W/Ref FT4) 0.45 uIU/mL (0.36-3.74)
[2020-10-31 12:24] LABS: Lithium < 0.2 mmol/l (0.6-1.2)
== END 2020-10-31 03:27 | disposition home or self-care (01) ==
PROVIDERS: PCP Internal Medicine; Visit Provider Psychiatry & Neurology Psychiatry
DX: F20.0 Paranoid schizophrenia (principal); R79.89 Other specified abnormal findings of blood chemistry; Z79.899 Other long term (current) drug therapy; Z51.81 Encounter for therapeutic drug level monitoring
CPT/HCPCS: 36415; 80178; 82310; 82565; 84443

== ENCOUNTER 2020-10-31 08:51 | Outpatient (REF) | payer MEDICARE, MEDICAID, SELFPAY | END 2020-10-31 08:52 | disposition home or self-care (01) | LOC: NCHCN 08:51 | PROVIDERS: PCP Internal Medicine; Visit Provider Family Medicine | DX: N39.0 Urinary tract infection, site not specified; R94.6 Abnormal results of thyroid function studies | CPT/HCPCS: 84443; 87086 ==

== ENCOUNTER 2020-11-28 03:18 | Outpatient (CLI) | payer MEDICARE, MEDICAID, SELFPAY ==
[2020-11-28 09:31] LABS: Abs Immature Grans 0.02 10^3/uL (0.0-0.06); Absolute Basophil Count 0.03 10^3/uL (0.0-0.2); Absolute Lymphocyte Count 1.33 10^3/uL (1.2-3.4); Absolute Monocyte Count 0.61 10^3/uL (0.1-0.8); Absolute Neutrophil Count 6.14 10^3/uL (1.2-6.7); Basophils % 0.4; HCT 38.3 % (40.0-50.0); HGB 11.4 g/dL (13.5-17.5); Immature Grans % 0.2; Lymphocytes % 16.4; MCH 22.2 pg (27.0-33.0); MCHC 29.8 % (32.0-36.0); MCV 74.5 fL (80-95); MPV 9.5 fL (8.0-11.0); Monocytes % 7.5; Neutrophils % 75.5; Nucleated RBC 0 %; Platelet Count 266 10^3/uL (130-400); RBC 5.14 10^6/uL (4.36-5.78); RDW 16.7 % (11.8-14.1); RDW-SD 44.7 fL; WBC 8.13 10^3/uL (4.4-10.8)
[2020-11-28 10:25] LABS: Diff Comment Diff Reviewed; Microcytosis 2+
[2020-11-28 10:26] LABS: Poikilocytes 1+
[2020-11-28 10:41] LABS: Lithium < 0.2 mmol/l (0.6-1.2)
[2020-11-28 10:56] LABS: CREATININE 1.3 mg/dL (0.70-1.30); Calcium 9.9 mg/dL (8.5-10.1); Estimated GFR 58.43 (mL/min/1.73m2); TSH 0.46 uIU/mL (0.36-3.74)
== END 2020-11-28 03:19 | disposition home or self-care (01) ==
LOC: LBO 03:18
PROVIDERS: PCP Internal Medicine; Visit Provider Psychiatry & Neurology Psychiatry
DX: F20.0 Paranoid schizophrenia (principal); Z79.899 Other long term (current) drug therapy; Z51.81 Encounter for therapeutic drug level monitoring
CPT/HCPCS: 36415; 80178; 82310; 82565; 84443; 85025

== ENCOUNTER 2020-12-01 14:03 | Emergency (ER) | payer MEDICARE, MEDICAID, SELFPAY ==
--- NOTE | 2020-12-01 14:00 | RT.EKG_ITS ---
APPROVED REPORT Exam: Resting ECG Reason for Exam: sob Patient Location: E HR:90 bpm ECG Measurements Heart Rate 90 AXIS WV 163 P 30 QRSd 132 QRS -42 QT 375 T 22 QTc 460 Conclusion Sinus rhythm...normal P axis, V-rate 60- 99 RBBB and LAFB...QRSd >120mS, axis(-40,240)
[2020-12-01 14:26] VITALS: BP 113/80; PULSE 92; RESP 22; TEMP 36.6; O2SAT 96
--- NOTE | 2020-12-01 14:30 | DI.RAD_ITS ---
Exam(s) XR PORTABLE CHEST AP EXAM: XR PORTABLE CHEST AP CLINICAL HISTORY: cough TECHNIQUE: 2D digital imaging was performed. COMPARISON: No exams were available for comparison FINDINGS: MEDIASTINUM: Normal. HEART: Normal. PULMONARY VASCULATURE: Normal. LUNGS: Clear. PLEURAL SPACE: No pleural effusion or pneumothorax. BONE:Within normal limits for the patient's age. OTHER FINDINGS:Normal. IMPRESSION: No acute pulmonary findings. DATA REPOSITORY: RADIATION DOSE DELIVERED:
--- NOTE | 2020-12-01 14:47 | W.ED.GENAD ---
Discharge Plan Disposition Patient Disposition: HOME Condition: Stable Discharge Details Clinical Impression: Cough, Shortness of breath Primary Care Provider: Tomás Carvalho ED Provider: Hood Deleon Home Meds and New Rx's Prescriptions: New prednisone 20 mg tablet 60 mg PO DAILY 4 Days Qty: 12 RF: 0 doxycycline hyclate 100 mg tablet 100 mg PO BID Qty: 14 RF: 0 Continued bupropion HCl 150 mg tablet extended release 24 hr 300 mg PO DAILY RF: 0 Halperidol capsule 1 mg PO TID RF: 0 Androderm 4 mg/24 hr patch 24 hour 2 patch Transdermal DAILY RF: 0 ascorbic acid (vitamin C) 250 mg tablet 250 mg PO BID RF: 0 PNV-Select 27-1 mg tablet PO DAILY RF: 0 clozapine [Clozaril] 100 MG tablet 100 mg PO DIRECTED RF: 0 pantoprazole [Protonix] 20 MG tablet,delayed release (DR/EC) 40 mg PO BID RF: 0 lorazepam 2 MG tablet 2 mg PO BID RF: 0 propranolol 10 MG tablet 10 mg PO BID RF: 0 lithium carbonate 300 MG tablet extended release 600 mg PO HS RF: 0 lactulose 10 gram/15 mL Solution 15 - 30 ml PO DAILY PRNRF: 0 sucralfate 1 gram Tablet 1 g PO AC & HS Qty: 120 RF: 0 dicyclomine 10 mg capsule 10 mg PO TID Qty: 30 RF: 0 Discharge Instructions Additional Instructions: your blood work and chest xray did not show any concerning findings follow up with your primary care provider in 1-2 weeks if you feel more ill, have worsening shortness of breath or fevers return to the emergency department Stand Alone Forms: PENDING COVID-19 TESTING Medical Decision Making 50 yo male with hx of anxiety, schizoaffective disorer, former smoker, who comes in with complaints of productive cough without fevers for 3 days and when he coughs he has anterior chest pain and also feels short of breath with coughing. He denies any chest pain currently and no abdomen pain. He appears well speaking in full sentences on exam. HE has clear lungs on exam and normal heart sounds, no leg swelling or jvd. Suspect bronchitis vs pneumonia vs covid based on symptoms, will obtain xray and though his chest pain is only when he coughs and doesn't seem typical for acs will obtain troponin. He has no hypoxia, tachycardia or leg pain/swelling so doubt PE at this time. Pt's labs and xray unremarkable and he remains stable. Given over a day of symptoms do not feel delta troponin indicated. He does state he is diagnosed with copd so suspect copd as a component of his symptoms, will start him on prednisone and doxy for the increaed cough from baseline and advised to isolate until covid test returns. Return precautions given Differential Diagnosis Differential Diagnosis: pneumonia, bronchitis, nstemi, covid Medical Records Medical records reviewed: Yes I reviewed the patient's medical records. Imaging Data Radiologic Study: Attestation: I personally reviewed and interpreted this imaging study as follows: Radiologist's impression: no acute findings Lab Data Lab results reviewed: Yes I reviewed the patient's lab results. ECG Data Attestation: I personally reviewed and interpreted this ECG (s) as follows: Prior ECG tracings: available for review Interpretation: sinus rhythm, rat eof [address] t wave ischemic changes from prior ekg HPI General Mode of arrival: ambulatory. Date/Time Provider Initiated Documentation: 12/01/20 14:27. Limitations to Documentation: no limitations. Information obtained by: patient. History of Present Illness 50 year old M presents to the emergency department with the chief complaint of cough, described as moderate, Patient started experiencing this day(s) (3) and it has been constant. No relieving factors improve symptom(s), No exacerbating factors reported . Patient notes denies fever/chills. Patient did receive the following treatments prior to arrival, none Related Data Home Medications Medication Instructions Recorded Confirmed clozapine [Clozaril] 100 mg PO DIRECTED 11/19/16 04/24/20 lorazepam 2 mg PO BID 11/19/16 04/24/20 pantoprazole [Protonix] 40 mg PO BID 11/19/16 04/24/20 lithium carbonate 600 mg PO HS 12/14/16 04/24/20 propranolol 10 mg PO BID 12/14/16 04/24/20 lactulose 15 - 30 ml PO DAILY PRN 11/18/18 04/24/20 Halperidol 1 mg PO TID 12/08/18 04/24/20 ascorbic acid (vitamin C) 250 mg 250 mg PO BID 12/08/18 04/24/20 tablet bupropion HCl 150 mg 24 hr tablet, 300 mg PO DAILY 12/08/18 04/24/20 extended release vit,calcium no.40-iron tab PO DAILY tab 12/08/18 12/12/18 fum 27 mg iron-folate no.1 1 mg tablet testosterone 4 mg/24 hr 2 patch TRANSDERMAL DAILY 12/08/18 04/24/20 transdermal 24 hour patch dicyclomine 10 mg PO TID #30 cap 04/24/20 sucralfate 1 g PO AC & HS #120 tab 04/24/20 doxycycline hyclate 100 mg PO BID #14 tab 12/01/20 prednisone 60 mg PO DAILY 4 Days #12 tab 12/01/20 Previous Rx's Medication Instructions Recorded dicyclomine 10 mg PO TID #30 cap 04/24/20 sucralfate 1 g PO AC & HS #120 tab 04/24/20 doxycycline hyclate 100 mg PO BID #14 tab 12/01/20 prednisone 60 mg PO DAILY 4 Days #12 tab 12/01/20 Allergies Allergy/AdvReac Type Severity Reaction Status Date / Time codeine Allergy Unknown Verified 12/01/20 14:27 Sulfa (Sulfonamide Allergy Unknown Verified 12/01/20 14:27 Antibiotics) esomeprazole [From Nexium] Allergy Verified 12/01/20 14:27 fenofibrate [From Tricor] Allergy Verified 12/01/20 14:27 ferrous gluconate Allergy Verified 12/01/20 14:27 Penicillins Allergy Verified 12/01/20 14:27 General Stated Complaint: RespSymp DELORIS: 3 Review of Systems All systems reviewed & are unremarkable except as noted in HPI and below Constitutional Constitutional: Denies chills, Denies fever(s) and Denies weakness Gastrointestinal Gastrointestinal: Denies abdominal pain, Denies nausea and Denies vomiting Musculoskeletal Musculoskeletal: Denies joint swelling Neurologic Neurologic: Denies weakness [facility] Medical History Abnormal thyroid stimulating hormone (TSH) level Anemia Anxiety Chronic constipation Dyspepsia Dysphagia Fatigue Former smoker Gastritis Gastritis, bile acid reflux Heme positive stool Hepatitis C Hiatal hernia History of hepatitis C Hypogonadism Lactose intolerance Lightheadedness Low energy Microcytic anemia Obesity Onychomycosis of toenail Schizoaffective disorder SOB (shortness of breath) on exertion Vitamin D deficiency Surgical History H/O esophagogastroduodenoscopy History of surgery Surgery to penis Normal colonoscopy Social History Smoking/Tobacco Use Status: Former Tobacco Use Quit Date: 10/29/18 Smoking risk assessment performed?: Yes Alcohol Intake: never Drug use: Never Substance use type: does not use Do you feel safe at home: Yes Do you feel safe in your relationship?: Yes Exam Const General: no acute distress Orientation: alert HENMT Head: normal to inspection Ears: external ears normal General nose exam: external nose normal Mouth: moist mucous membranes Eyes General: appearance normal, both eyes and all related structures Neck Neck: normal visual inspection Resp Effort & Inspection: normal respiratory effort and able to speak in complete sentences Cardio Rate: regular rate Skin General skin exam: no rashes or lesions noted Neuro General: patient alert and patient oriented x3 Extrem General: normal to inspection Psych Mental Status: mental status grossly normal Course Vital Signs Vital signs: Vital Signs Temperature 36.6 C 12/01/20 14:26 Pulse 92 H 12/01/20 14:26 Respiratory Rate 22 12/01/20 14:26 Blood Pressure 113/80 12/01/20 14:26 Pulse Oximetry 96 12/01/20 14:26 Temperature 36.6 C 12/01/20 14:26 Temperature Source Skin 12/01/20 14:26 Pulse 92 H 12/01/20 14:26 Respiratory Rate 22 12/01/20 14:26 Respiratory Effort Non-Labored 12/01/20 14:31 Blood Pressure 113/80 12/01/20 14:26 Blood Pressure Position Supine 12/01/20 14:26 Pulse Oximetry 96 12/01/20 14:26 Oxygen Delivery Method Room Air 12/01/20 14:26 Oxygen Flow Rate 0 12/01/20 14:26 Pain Level 8 12/01/20 14:26
[2020-12-01 15:30] LABS: Abs Immature Grans 0.02 10^3/uL (0.0-0.06); Absolute Basophil Count 0.04 10^3/uL (0.0-0.2); Absolute Lymphocyte Count 1.31 10^3/uL (1.2-3.4); Absolute Monocyte Count 0.56 10^3/uL (0.1-0.8); Absolute Neutrophil Count 4.34 10^3/uL (1.2-6.7); Basophils % 0.6; HCT 36.1 % (40.0-50.0); HGB 10.9 g/dL (13.5-17.5); Immature Grans % 0.3; Lymphocytes % 20.9; MCHC 30.2 % (32.0-36.0); MCV 72.9 fL (80-95); MPV 9.5 fL (8.0-11.0); Monocytes % 8.9; Neutrophils % 69.3; Nucleated RBC 0 %; Platelet Count 276 10^3/uL (130-400); RBC 4.95 10^6/uL (4.36-5.78); RDW 16.5 % (11.8-14.1); RDW-SD 42.6 fL; WBC 6.27 10^3/uL (4.4-10.8)
[2020-12-01 15:38] LABS: Diff Comment RBC Morph Reviewed; Microcytosis 3+
[2020-12-01 15:43] LABS: Magnesium 2.4 mg/dL (1.8-2.4)
[2020-12-01 15:49] LABS: ALT 16 U/L (16-63); AST 6 U/L (15-37); Albumin 3.1 g/dL (3.4-5.0); Alkaline Phosphatase 102 U/L (46-116); BUN 20 mg/dL (7-18); Bilirubin, Total 0.3 mg/dL (0.2-1.0); CREATININE 1.4 mg/dL (0.70-1.30); Calcium 9.7 mg/dL (8.5-10.1); Chloride 110 mmol/L (98-107); Estimated GFR 53.64 (mL/min/1.73m2); Glucose 125 mg/dL (74-106); Potassium 4.2 mmol/L (3.5-5.1); Sodium 143 mmol/L (136-145); Total Protein 6.7 g/dL (6.4-8.2)
[2020-12-01 15:50] LABS: Troponin I < 0.05 ng/mL (<0.06)
--- NOTE | 2020-12-01 17:10 | DI.VRAD_ITS ---
PROCEDURE INFORMATION: Exam: XR Chest Exam date and time: 12/01/2020 2:44 PM Age: 50 years old Clinical indication: Cough TECHNIQUE: Imaging protocol: XR of the chest. Views: 1 view. COMPARISON: CR XR CHEST 2V PA LATERAL 11/29/2018 2:29 PM FINDINGS: Lungs: No mass. No consolidation. Pleural spaces: Unremarkable. No pleural effusion. No pneumothorax. Heart/Mediastinum: Unremarkable cardiomediastinal silhouette. No cardiomegaly. Bones/joints: Unremarkable. IMPRESSION: No evidence for acute cardiopulmonary disease. Dictated and Authenticated by: Julio De La Cruz MD. Ordering:GERRI Morataya MD
[2020-12-01] MEDS: Albuterol HFA 8 GM 60 PUFF INH IH (17:33)
[2020-12-01] MEDS: Doxycycline Hyclate 100 MG CAP PO (17:34)
[2020-12-01] MEDS: predniSONE 20 MG TAB 60 MG PO (17:34)
[2020-12-01] MEDS: Inhaler, Assist Device 1 EACH MC (17:34)
[2020-12-01 17:39] VITALS: BP 113/80; PULSE 92; RESP 22; TEMP 36.6; O2SAT 96
[2020-12-03 13:23] LABS: COVID-19 RT-PCR UVMMC Result Negative (Negative)
--- NOTE | 2020-12-03 17:28 | NUR.NOTE ---
Nursing Note: Attempted to call with Negative Covid result. Both phone numbers listed were unable to recieve calls. Result mailed to pt.
== END 2020-12-01 17:38 | disposition home or self-care (01) ==
PROVIDERS: Emergency Provider Emergency Medicine; PCP Internal Medicine
DX: R06.02 Shortness of breath (principal); R05 Cough; Z87.891 Personal history of nicotine dependence; Z20.822 Contact with and (suspected) exposure to COVID-19; Z03.818 Encounter for observation for suspected exposure to other biological agents ruled out
CPT/HCPCS: 36415; 80053; 93005; 99285; U0003; U0005; 71045; 83735; 84484; 85025; 93010; 99284; J7512

== ENCOUNTER 2020-12-22 12:00 | Outpatient (REF) | payer MEDICARE, MEDICAID, SELFPAY ==
[2020-12-22 15:50] LABS: HGB 10.8 g/dL (13.5-17.5)
== END 2020-12-22 12:01 | disposition home or self-care (01) ==
LOC: NCHCN 12:00
PROVIDERS: PCP Internal Medicine; Visit Provider Internal Medicine
DX: Z87.19 Personal history of other diseases of the digestive system (principal)
CPT/HCPCS: 85014; 85018

== ENCOUNTER 2020-12-26 04:22 | Outpatient (CLI) | payer MEDICARE, MEDICAID, SELFPAY ==
[2020-12-26 10:07] LABS: Abs Immature Grans 0.01 10^3/uL (0.0-0.06); Absolute Basophil Count 0.04 10^3/uL (0.0-0.2); Absolute Lymphocyte Count 1.33 10^3/uL (1.2-3.4); Absolute Monocyte Count 0.38 10^3/uL (0.1-0.8); Absolute Neutrophil Count 4.09 10^3/uL (1.2-6.7); Basophils % 0.7; HCT 36.5 % (40.0-50.0); HGB 10.8 g/dL (13.5-17.5); Immature Grans % 0.2; Lymphocytes % 22.7; MCH 22.3 pg (27.0-33.0); MCHC 29.6 % (32.0-36.0); MCV 75.3 fL (80-95); MPV 9.8 fL (8.0-11.0); Monocytes % 6.5; Neutrophils % 69.9; Nucleated RBC 0 %; Platelet Count 290 10^3/uL (130-400); RBC 4.85 10^6/uL (4.36-5.78); RDW 17.3 % (11.8-14.1); RDW-SD 46.1 fL; WBC 5.85 10^3/uL (4.4-10.8)
== END 2020-12-26 04:23 | disposition home or self-care (01) ==
LOC: LBO 04:22
PROVIDERS: PCP Internal Medicine; Visit Provider Psychiatry & Neurology Psychiatry
DX: F20.0 Paranoid schizophrenia (principal); Z79.899 Other long term (current) drug therapy
CPT/HCPCS: 36415; 85025

== ENCOUNTER 2021-01-19 10:18 | Outpatient (REF) | payer MEDICARE, MEDICAID, SELFPAY ==
[2021-01-19 14:15] LABS: HCT 43.9 % (40.0-50.0); HGB 12.9 g/dL (13.5-17.5); MCH 23.2 pg (27.0-33.0); MCHC 29.4 % (32.0-36.0); MCV 78.8 fL (80-95); MPV 10.1 fL (8.0-11.0); Platelet Count 247 10^3/uL (130-400); RBC 5.57 10^6/uL (4.36-5.78); RDW 20.9 % (11.8-14.1); WBC 5.95 10^3/uL (4.4-10.8)
[2021-01-19 14:47] LABS: ALT 25 U/L (16-63); AST 12 U/L (15-37); Alkaline Phosphatase 113 U/L (46-116); Anion Gap 4.7 mmol/L (3-11); BUN 27 mg/dL (7-18); Bilirubin, Total 0.3 mg/dL (0.2-1.0); CO2 30.3 mmol/L (21.0-32.0); CREATININE 1.3 mg/dL (0.70-1.30); Calcium 10.3 mg/dL (8.5-10.1); Chloride 108 mmol/L (98-107); Estimated GFR 58.43 (mL/min/1.73m2); Glucose 115 mg/dL (74-106); Iron 130 ug/dL (65-175); Potassium 4.4 mmol/L (3.5-5.1); Sodium 143 mmol/L (136-145); Total Iron Binding Capacity 323 ug/dL (250-450); Total Protein 7.2 g/dL (6.4-8.2); Transferrin Sat 40 % (20-55)
== END 2021-01-19 10:19 | disposition home or self-care (01) ==
LOC: NCHCN 10:18
PROVIDERS: PCP Internal Medicine; Visit Provider Internal Medicine
DX: D50.9 Iron deficiency anemia, unspecified (principal); R63.4 Abnormal weight loss; E29.1 Testicular hypofunction; N18.31 Chronic kidney disease, stage 3a; Z87.19 Personal history of other diseases of the digestive system
CPT/HCPCS: 80053; 85027; 83540; 83550

== ENCOUNTER 2021-01-23 01:44 | Outpatient (CLI) | payer MEDICARE, MEDICAID, SELFPAY ==
[2021-01-23 08:59] LABS: Abs Immature Grans 0.01 10^3/uL (0.0-0.06); Absolute Basophil Count 0.02 10^3/uL (0.0-0.2); Absolute Lymphocyte Count 1.44 10^3/uL (1.2-3.4); Absolute Monocyte Count 0.45 10^3/uL (0.1-0.8); Absolute Neutrophil Count 5.09 10^3/uL (1.2-6.7); Basophils % 0.3; HCT 40.5 % (40.0-50.0); HGB 12.1 g/dL (13.5-17.5); Immature Grans % 0.1; Lymphocytes % 20.5; MCH 23.7 pg (27.0-33.0); MCHC 29.9 % (32.0-36.0); MCV 79.3 fL (80-95); Monocytes % 6.4; Neutrophils % 72.7; Nucleated RBC 0 %; Platelet Count 220 10^3/uL (130-400); RBC 5.11 10^6/uL (4.36-5.78); RDW 20.5 % (11.8-14.1); RDW-SD 58.1 fL; WBC 7.01 10^3/uL (4.4-10.8)
[2021-01-23 09:13] LABS: Anisocytosis 2+; Diff Comment Diff Reviewed; Hypochromasia 1+; Microcytosis 1+; Poikilocytes 1+
== END 2021-01-23 01:45 | disposition home or self-care (01) ==
PROVIDERS: PCP Internal Medicine; Visit Provider Psychiatry & Neurology Psychiatry
DX: Z79.899 Other long term (current) drug therapy (principal); F20.0 Paranoid schizophrenia
CPT/HCPCS: 36415; 85025

== ENCOUNTER 2021-02-20 04:06 | Outpatient (CLI) | payer MEDICARE, MEDICAID, SELFPAY ==
[2021-02-20 10:39] LABS: Abs Immature Grans 0.03 10^3/uL (0.0-0.06); Absolute Basophil Count 0.03 10^3/uL (0.0-0.2); Absolute Lymphocyte Count 1.62 10^3/uL (1.2-3.4); Absolute Monocyte Count 0.57 10^3/uL (0.1-0.8); Absolute Neutrophil Count 8.22 10^3/uL (1.2-6.7); Basophils % 0.3; HCT 40.4 % (40.0-50.0); HGB 12.3 g/dL (13.5-17.5); Immature Grans % 0.3; Lymphocytes % 15.5; MCH 24.1 pg (27.0-33.0); MCHC 30.4 % (32.0-36.0); MCV 79.2 fL (80-95); Monocytes % 5.4; Neutrophils % 78.5; Nucleated RBC 0 %; Platelet Count 271 10^3/uL (130-400); RDW 17.5 % (11.8-14.1); WBC 10.47 10^3/uL (4.4-10.8)
== END 2021-02-20 04:07 | disposition home or self-care (01) ==
LOC: LBO 04:06
PROVIDERS: PCP Internal Medicine; Visit Provider Psychiatry & Neurology Psychiatry
DX: F20.0 Paranoid schizophrenia (principal); Z79.899 Other long term (current) drug therapy
CPT/HCPCS: 36415; 85025

== ENCOUNTER 2021-02-21 15:23 | Outpatient (REF) | payer MEDICARE, MEDICAID, SELFPAY ==
[2021-02-21 14:15] LABS: HCT 41.8 % (40.0-50.0); HGB 12.4 g/dL (13.5-17.5); MCH 23.7 pg (27.0-33.0); MCHC 29.7 % (32.0-36.0); MCV 79.9 fL (80-95); Platelet Count 317 10^3/uL (130-400); RBC 5.23 10^6/uL (4.36-5.78); RDW 17.6 % (11.8-14.1); RDW-SD 51.5 fL; WBC 7.42 10^3/uL (4.4-10.8)
[2021-02-22 00:22] LABS: NT-proBNP 24 pg/mL (<300); TSH 0.26 uIU/mL (0.36-3.74)
[2021-02-23 18:29] LABS: T3, Total 142 ng/dL (97-169)
== END 2021-02-21 15:24 | disposition home or self-care (01) ==
LOC: NCHCN 15:23
PROVIDERS: PCP Internal Medicine; Visit Provider Internal Medicine
DX: F41.9 Anxiety disorder, unspecified (principal); R00.2 Palpitations; R06.02 Shortness of breath
CPT/HCPCS: 85027; 83880; 84443; 84480

== ENCOUNTER 2021-02-23 00:59 | Outpatient (CLI) | payer MEDICARE, MEDICAID, SELFPAY ==
--- NOTE | 2021-02-23 09:14 | DI.RAD_ITS ---
Exam(s) XR CHEST 2V PA LATERAL EXAM: XR CHEST 2V PA LATERAL CLINICAL HISTORY: SOB,R06.02 TECHNIQUE: 2D digital imaging was performed. COMPARISON: CR,XR XR PORTABLE CHEST AP from 12/01/2020 FINDINGS: MEDIASTINUM: Normal. HEART: Normal. PULMONARY VASCULATURE: Normal. LUNGS: Clear. PLEURAL SPACE: No pleural effusion or pneumothorax. BONE:Flowing osteophytes are noted in the spine. IMPRESSION: No acute abnormality. DATA REPOSITORY: RADIATION DOSE DELIVERED:
== END 2021-02-23 01:19 ==
PROVIDERS: PCP Internal Medicine; Visit Provider Internal Medicine
DX: R06.02 Shortness of breath (principal)
CPT/HCPCS: 71046

== ENCOUNTER 2021-03-20 03:14 | Outpatient (CLI) | payer MEDICARE, MEDICAID, SELFPAY ==
[2021-03-20 09:48] LABS: Abs Immature Grans 0.02 10^3/uL (0.0-0.06); Absolute Basophil Count 0.04 10^3/uL (0.0-0.2); Absolute Lymphocyte Count 1.72 10^3/uL (1.2-3.4); Absolute Monocyte Count 0.42 10^3/uL (0.1-0.8); Absolute Neutrophil Count 4.37 10^3/uL (1.2-6.7); Basophils % 0.6; HCT 42.2 % (40.0-50.0); HGB 12.5 g/dL (13.5-17.5); Immature Grans % 0.3; Lymphocytes % 26.2; MCH 23.9 pg (27.0-33.0); MCHC 29.6 % (32.0-36.0); MCV 80.7 fL (80-95); MPV 9.3 fL (8.0-11.0); Monocytes % 6.4; Neutrophils % 66.5; Nucleated RBC 0 %; Platelet Count 265 10^3/uL (130-400); RBC 5.23 10^6/uL (4.36-5.78); RDW 16.5 % (11.8-14.1); RDW-SD 48.4 fL; WBC 6.57 10^3/uL (4.4-10.8)
== END 2021-03-20 03:15 | disposition home or self-care (01) ==
LOC: LBO 03:14
PROVIDERS: PCP Internal Medicine; Visit Provider Psychiatry & Neurology Psychiatry
DX: F20.0 Paranoid schizophrenia (principal); Z79.899 Other long term (current) drug therapy
CPT/HCPCS: 36415; 85025

== ENCOUNTER 2021-04-17 02:47 | Outpatient (CLI) | payer MEDICARE, MEDICAID, SELFPAY ==
[2021-04-17 09:48] LABS: Abs Immature Grans 0.02 10^3/uL (0.0-0.06); Absolute Basophil Count 0.03 10^3/uL (0.0-0.2); Absolute Lymphocyte Count 1.55 10^3/uL (1.2-3.4); Absolute Monocyte Count 0.47 10^3/uL (0.1-0.8); Absolute Neutrophil Count 4.18 10^3/uL (1.2-6.7); Basophils % 0.5; HCT 42.2 % (40.0-50.0); HGB 12.7 g/dL (13.5-17.5); Immature Grans % 0.3; Lymphocytes % 24.8; MCH 24.3 pg (27.0-33.0); MCHC 30.1 % (32.0-36.0); MCV 80.7 fL (80-95); MPV 9.2 fL (8.0-11.0); Monocytes % 7.5; Neutrophils % 66.9; Nucleated RBC 0 %; Platelet Count 227 10^3/uL (130-400); RBC 5.23 10^6/uL (4.36-5.78); RDW 15.4 % (11.8-14.1); RDW-SD 45.1 fL; WBC 6.25 10^3/uL (4.4-10.8)
== END 2021-04-17 02:48 | disposition home or self-care (01) ==
LOC: LBO 02:47
PROVIDERS: PCP Internal Medicine; Visit Provider Psychiatry & Neurology Psychiatry
DX: Z79.899 Other long term (current) drug therapy (principal); F20.9 Schizophrenia, unspecified
CPT/HCPCS: 36415; 85025

== ENCOUNTER 2021-04-19 09:51 | Emergency (ER) | payer MEDICARE, MEDICAID, SELFPAY ==
[2021-04-19 09:56] VITALS: BP 109/79; PULSE 97; RESP 17; TEMP 36.2; O2SAT 97
--- NOTE | 2021-04-19 10:02 | ED.GENADUL_ITS ---
Discharge Plan Disposition Patient Disposition: HOME Condition: Stable Discharge Details Clinical Impression: Lesion of mouth Primary Care Provider: Tomás Carvalho ED Provider: Román Dover Home Meds and New Rx's Prescriptions: Continued bupropion HCl 150 mg tablet extended release 24 hr 300 mg PO DAILY RF: 0 Halperidol capsule 1 mg PO TID RF: 0 Androderm 4 mg/24 hr patch 24 hour 2 patch Transdermal DAILY RF: 0 PNV-Select 27-1 mg tablet PO DAILY RF: 0 clozapine [Clozaril] 100 MG tablet 100 mg PO TID RF: 0 pantoprazole [Protonix] 20 MG tablet,delayed release (DR/EC) 40 mg PO BID RF: 0 lorazepam 2 MG tablet 2 mg PO BID RF: 0 propranolol 10 MG tablet 10 mg PO BID RF: 0 lithium carbonate 300 MG tablet extended release 150 mg PO HS RF: 0 lactulose 10 gram/15 mL Solution 15 - 30 ml PO DAILY PRNRF: 0 Discharge Instructions Additional Instructions: The lesion in your mouth may just be secondary to irritation from friction from your teeth. As we discussed, please watch for new or worsening symptoms and return to the ER for any concerns. If the lesion does not resolve on its own, or worsen, you develop pain, fever, this may require additional evaluation from an oral surgeon for potential biopsy for further evaluation. Please follow-up with your dentist as already scheduled in the next month. Please contact your primary care provider to discuss your ongoing symptoms and potential need for reevaluation and outpatient referral. Medical Decision Making 50-year-old gentleman presents for a painless lesion to the right inside of his mouth. Patient reports noticing the couple of days ago. Clinically he appears well, nontoxic. He is hemodynamically stable. No difficulty with maintaining an airway, speaking, breathing. No evidence of trismus. Neck with full range of motion, no lymphadenopathy patient does have a small area of irritation to the right occlusion line although he does not recall biting his cheek. There are no signs of obvious abscess, infection, nothing to physically drain. Discussed findings with patient. Discussed conservative measures of simply observing, not picking at the area, and hopefully this will resolve on its own. Patient asks if this could be cancer. We explained the importance of outpatient follow-up if things are not improving on their own. He may require a biopsy. He tells me he has an appointment with his dentist on May 18. Strict discharge and return precautions provided, he was encouraged to return to the ER for new or worsening symptoms. Otherwise he will follow up with his dentist as directed. We discussed contacting his primary care provider if symptoms not resolving on their own in the next several days in order to discuss outpatient referral for potential oral surgeon for a biopsy. Patient is agreeable to this plan and has no additional questions or concerns. Medical Records Medical records reviewed: Yes I reviewed the patient's medical records. HPI General Mode of arrival: ambulatory . Date/Time Provider Initiated Documentation: 04/19/21 10:02 . Limitations to Documentation: no limitations . Information obtained by: patient . HPI Narrative: This is a 50-year-old male, past medical history that includes anxiety, former smoker, hepatitis C, anemia, schizoaffective disorder, presents to the ER for evaluation of a painless lesion he noticed in his mouth a couple of days ago. Patient states that he touches his mouth and face very frequently and incidentally noted some irritation to his right inner cheek. He denies any fever, mouth pain, difficulty speaking, breathing, swallowing, swelling. Patient denies any difficulty with p.o. intak e. Patient wonders if there is anything to drain. Related Data Home Medications Medication Instructions Recorded Confirmed clozapine [Clozaril] 100 mg PO TID 11/19/16 04/24/20 lorazepam 2 mg PO BID 11/19/16 04/24/20 pantoprazole [Protonix] 40 mg PO BID 11/19/16 04/24/20 lithium carbonate 150 mg PO HS 12/14/16 04/19/21 propranolol 10 mg PO BID 12/14/16 04/24/20 lactulose 15 - 30 ml PO DAILY PRN 11/18/18 04/24/20 Halperidol 1 mg PO TID 12/08/18 04/24/20 bupropion HCl 150 mg 24 hr tablet, 300 mg PO DAILY 12/08/18 04/24/20 extended release vit,calcium no.40-iron tab PO DAILY tab 12/08/18 12/12/18 fum 27 mg iron-folate no.1 1 mg tablet testosterone 4 mg/24 hr 2 patch TRANSDERMAL DAILY 12/08/18 04/24/20 transdermal 24 hour patch Allergies Allergy/AdvReac Type Severity Reaction Status Date / Time codeine Allergy Unknown Verified 04/19/21 10:01 Sulfa (Sulfonamide Allergy Unknown Verified 04/19/21 10:01 Antibiotics) esomeprazole [From Nexium] Allergy Verified 04/19/21 10:01 fenofibrate [From Tricor] Allergy Verified 04/19/21 10:01 ferrous gluconate Allergy Verified 04/19/21 10:01 Penicillins Allergy Verified 04/19/21 10:01 General Stated Complaint: DentalOral DELORIS: 4 Review of Systems Constitutional Constitutional: Denies fever(s) and Denies headache(s) ENT Ears, Nose, Mouth, and Throat: Denies headache(s), Reports mouth lesions, Denies sore throat, Denies throat swelling and Denies tongue swelling Cardiovascular Cardiovascular: Denies chest pain and Denies dyspnea Respiratory Respiratory: Denies dyspnea Integumentary/Breasts Skin/Breast: Denies rash Neurologic Neurologic: Denies headache(s) Allergic/Immunologic Allergic/Immunologic: Denies throat swelling and Denies tongue swelling PFSH All Active Problems Cough (Acute) Shortness of breath (Acute) Lesion of mouth (Acute) Confusion (Acute) Hiatal hernia (Chronic) Medical History Abnormal thyroid stimulating hormone (TSH) level Anemia Anxiety Chronic constipation Dyspepsia Dysphagia Fatigue Former smoker Gastritis Heme positive stool Hepatitis C History of hepatitis C Hypogonadism Lactose intolerance Low energy Microcytic anemia Obesity Onychomycosis of toenail Schizoaffective disorder SOB (shortness of breath) on exertion Vitamin D deficiency Surgical History H/O esophagogastroduodenoscopy History of surgery Surgery to penis Normal colonoscopy Social History Smoking/Tobacco Use Status: Former Tobacco Use Quit Date: 10/29/18 Smoking risk assessment performed?: Yes Alcohol Intake: never Drug use: Never Substance use type: does not use Do you feel safe at home: Yes Do you feel safe in your relationship?: Yes Exam Const General: cooperative, healthy appearing, comfortable and no acute distress Orientation: alert and awake [facility] Head: normal to inspection, normocephalic and atraumatic General nose exam: external nose normal Face and sinus: normal facial exam Mouth: lip normal, tongue normal, moist mucous membranes and no trismus Teeth and gingiva: poor dentition Throat: posterior oropharynx normal Other: Along the right cheek occlusion line there is a mild amount of irritated looking tissue. There is no tenderness to palpation, fluctuance, induration. Eyes General: appearance normal, both eyes and all related structures Conjunctivae: conjunctivae normal Neck Neck: normal visual inspection, full ROM, no lymphadenopathy, no meningeal signs, trachea midline, supple and nontender Resp Effort & Inspection: normal respiratory effort and able to speak in complete sentences Skin Rashes: no rashes Neuro General: patient alert, patient awake, moves all extremities and no focal motor deficits Sensory Exam: no sensory deficits noted Psych Appearance: grossly normal Mental Status: mental status grossly normal Course Vital Signs Vital signs: Vital Signs Temperature 36.2 C L 04/19/21 09:56 Pulse 97 H 04/19/21 09:56 Respiratory Rate 17 04/19/21 09:56 Blood Pressure 109/79 04/19/21 09:56 Pulse Oximetry 97 04/19/21 09:56 Temperature 36.2 C L 04/19/21 09:56 Temperature Source Temporal Artery Scan 04/19/21 09:56 Pulse 97 H 04/19/21 09:56 Respiratory Rate 17 04/19/21 09:56 Respiratory Effort Non-Labored 04/19/21 09:59 Blood Pressure 109/79 04/19/21 09:56 Blood Pressure Position Sitting 04/19/21 09:56 Pulse Oximetry 97 04/19/21 09:56 Oxygen Delivery Method Room Air 04/19/21 09:56 Oxygen Flow Rate 0 04/19/21 09:56 Pain Level 0 04/19/21 09:59
[2021-04-19 10:30] VITALS: BP 109/79; PULSE 97; RESP 17; TEMP 36.2; O2SAT 97
== END 2021-04-19 10:27 | disposition home or self-care (01) ==
PROVIDERS: Emergency Provider Physician Assistant; PCP Internal Medicine
DX: K13.79 Other lesions of oral mucosa (principal)
CPT/HCPCS: 99281

== ENCOUNTER 2021-05-10 01:46 | Outpatient (CLI) | payer MEDICARE, MEDICAID, SELFPAY ==
[2021-05-10 12:04] LABS: Abs Immature Grans 0.02 10^3/uL (0.0-0.06); Absolute Basophil Count 0.03 10^3/uL (0.0-0.2); Absolute Lymphocyte Count 1.71 10^3/uL (1.2-3.4); Absolute Monocyte Count 0.31 10^3/uL (0.1-0.8); Absolute Neutrophil Count 4.08 10^3/uL (1.2-6.7); Basophils % 0.5; HCT 43.7 % (40.0-50.0); HGB 13.2 g/dL (13.5-17.5); Immature Grans % 0.3; Lymphocytes % 27.8; MCH 24.3 pg (27.0-33.0); MCHC 30.2 % (32.0-36.0); MCV 80.5 fL (80-95); MPV 9.3 fL (8.0-11.0); Neutrophils % 66.4; Nucleated RBC 0 %; Platelet Count 254 10^3/uL (130-400); RBC 5.43 10^6/uL (4.36-5.78); RDW 15.4 % (11.8-14.1); RDW-SD 44.9 fL; WBC 6.15 10^3/uL (4.4-10.8)
[2021-05-10 13:00] LABS: Lithium < 0.2 mmol/l (0.6-1.2)
[2021-05-10 13:05] LABS: CREATININE 1.3 mg/dL (0.70-1.30); Calcium 9.9 mg/dL (8.5-10.1); Estimated GFR 58.43 (mL/min/1.73m2); TSH 0.33 uIU/mL (0.36-3.74)
== END 2021-05-10 01:47 | disposition home or self-care (01) ==
LOC: LBO 01:46
PROVIDERS: PCP Internal Medicine; Visit Provider Psychiatry & Neurology Psychiatry
DX: F20.0 Paranoid schizophrenia (principal); Z79.899 Other long term (current) drug therapy
CPT/HCPCS: 36415; 80178; 82310; 82565; 84443; 85025

== ENCOUNTER 2021-06-05 02:49 | Outpatient (CLI) | payer MEDICARE, MEDICAID, SELFPAY ==
[2021-06-05 10:29] LABS: Abs Immature Grans 0.03 10^3/uL (0.0-0.06); Absolute Basophil Count 0.03 10^3/uL (0.0-0.2); Absolute Lymphocyte Count 1.77 10^3/uL (1.2-3.4); Absolute Monocyte Count 0.59 10^3/uL (0.1-0.8); Absolute Neutrophil Count 6.09 10^3/uL (1.2-6.7); Basophils % 0.4; HCT 40.9 % (40.0-50.0); HGB 12.5 g/dL (13.5-17.5); Immature Grans % 0.4; Lymphocytes % 20.8; MCH 24.5 pg (27.0-33.0); MCHC 30.6 % (32.0-36.0); MCV 80.2 fL (80-95); MPV 9.4 fL (8.0-11.0); Monocytes % 6.9; Neutrophils % 71.5; Nucleated RBC 0 %; Platelet Count 219 10^3/uL (130-400); WBC 8.51 10^3/uL (4.4-10.8)
[2021-06-05 12:49] LABS: Lithium < 0.2 mmol/l (0.6-1.2)
[2021-06-05 13:06] LABS: CREATININE 1.2 mg/dL (0.70-1.30); Calcium 9.7 mg/dL (8.5-10.1); TSH 0.46 uIU/mL (0.36-3.74)
== END 2021-06-05 02:50 | disposition home or self-care (01) ==
LOC: LBO 02:49
PROVIDERS: PCP Internal Medicine; Visit Provider Psychiatry & Neurology Psychiatry
DX: F20.0 Paranoid schizophrenia (principal); Z79.899 Other long term (current) drug therapy
CPT/HCPCS: 36415; 80178; 82310; 82565; 84443; 85025

== ENCOUNTER 2021-07-03 03:34 | Outpatient (CLI) | payer MEDICARE, MEDICAID, SELFPAY ==
[2021-07-03 10:23] LABS: Abs Immature Grans 0.02 10^3/uL (0.0-0.06); Absolute Basophil Count 0.04 10^3/uL (0.0-0.2); Absolute Monocyte Count 0.46 10^3/uL (0.1-0.8); Absolute Neutrophil Count 4.12 10^3/uL (1.2-6.7); Basophils % 0.7; HCT 40.5 % (40.0-50.0); HGB 12.2 g/dL (13.5-17.5); Immature Grans % 0.3; Lymphocytes % 24.4; MCH 24.2 pg (27.0-33.0); MCHC 30.1 % (32.0-36.0); MCV 80.4 fL (80-95); MPV 9.1 fL (8.0-11.0); Monocytes % 7.5; Neutrophils % 67.1; Nucleated RBC 0 %; Platelet Count 242 10^3/uL (130-400); RBC 5.04 10^6/uL (4.36-5.78); RDW 15.9 % (11.8-14.1); RDW-SD 46.5 fL; WBC 6.14 10^3/uL (4.4-10.8)
== END 2021-07-03 03:35 | disposition home or self-care (01) ==
LOC: LBO 03:35
PROVIDERS: PCP Internal Medicine; Visit Provider Psychiatry & Neurology Psychiatry
DX: Z79.899 Other long term (current) drug therapy (principal); F20.0 Paranoid schizophrenia
CPT/HCPCS: 36415; 85025

== ENCOUNTER 2021-07-29 08:11 | Emergency (ER) | payer MEDICARE, MEDICAID, SELFPAY ==
[2021-07-29 08:16] VITALS: BP 137/80; PULSE 95; RESP 16; TEMP 36.7; O2SAT 98
--- NOTE | 2021-07-29 08:43 | ED.GENADUL_ITS ---
Discharge Plan Disposition Patient Disposition: HOME Condition: Stable Discharge Details Clinical Impression: Meralgia paresthetica of right side Primary Care Provider: Tomás Carvalho ED Provider: Román Dover Home Meds and New Rx's Prescriptions: Continued bupropion HCl 150 mg tablet extended release 24 hr 300 mg PO DAILY 0RF Label Comments: 12/08/18 30 mg daily Halperidol capsule 1 mg PO TID 0RF Label Comments: 12/08/18 taking bid. TUYET Androderm 4 mg/24 hr patch 24 hour 2 patch Transdermal DAILY 0RF Label Comments: 12/08/18 1 patch Saturday, Saturday, Saturday. 2 patches the other days tuyet PNV-Select 27-1 mg tablet PO DAILY 0RF clozapine [Clozaril] 100 MG tablet 100 mg PO TID 0RF Label Comments: pt states he takes 100mg AM 100 mg afternoon and 350 mg HS pantoprazole [Protonix] 20 MG tablet,delayed release (DR/EC) 40 mg PO BID 0RF lorazepam 2 MG tablet 2 mg PO BID 0RF propranolol 10 MG tablet 10 mg PO BID 0RF lithium carbonate 300 MG tablet extended release 150 mg PO HS 0RF lactulose 10 gram/15 mL Solution 15 - 30 ml PO DAILY [id number] Discharge Instructions Instructions: Meralgia Paresthetica (ED) Additional Instructions: I recommend that you wear more loose fitting clothing and be sure not to wear your belt tightly or to bed. You may take [id number]-[id number]-[id number] medications such as Tylenol and or Motrin as directed for discomfort and/or symptomatic control. Gentle stretching as tolerated. Cool and/or warm compresses every 2 hours for 20 minutes. If conservative measures are not improving your overall symptoms then I would follow-up with your primary care provider to discuss potential outpatient physical therapy and/or referral to orthopedics for potential steroid injection. Please watch for new or worsening symptoms and return to the ER for any concerns. Medical Decision Making This is a 50-year-old gentleman, presenting to the ER today reporting 3-day history of right sided hip-leg tingling. He states it began 4 days ago as slight discomfort in his right hip, the next morning the pain was gone and he was left with altered sensation. Clinically he appears well, nontoxic. There is no evidence of any neurological deficit. He reports symptoms today are slightly better when compared to 3 days ago but not resolved. Examination is most distant with meralgia paresthetica. Given he has no other focal neurologic deficit, denies recent illness or trauma, lacks risk factors such as diabetes, hypertension, dysrhythmia, etc., I do not feel so further emergent work-up is indicated here in the ER. He denies any IV drug use, there is no midline back tenderness, no evidence of cauda equina, he is neurologically intact. We discussed strict discharge and return precautions. We discussed conservative measures of gentle stretching, cool and/or warm compresses, wvan-pzz-pryasgb medications such as Tylenol and/or anti-inflammatories. We discussed the importance of outpatient follow-up to his primary care, to contact them on Saturday, if symptoms persist and outpatient physical therapy and/or referral to orthopedics for potential steroid injection may be indicated. Patient understands this, has no additional questions or concerns, and is comfortable discharge. This documentation was generated using [employer] system, please disregard any oddities of phrase or misspellings. Medical Records Medical records reviewed: Yes I reviewed the patient's medical records. HPI General Mode of arrival: ambulatory . Date/Time Provider Initiated Documentation: 07/29/21 08:12 . Limitations to Documentation: no limitations . Information obtained by: patient . HPI Narrative: This is a 50-year-old gentleman, past medical history that includes anemia, anxiety, chronic constipation, gastritis, schizoaffective disorder, presenting to the ER reporting lateral right hip altered sensation for the past 3 days. Patient reports that these symptoms are exactly the same as what he experienced in the past when he was wearing his belt too tightly. He states about 4 days ago he felt as though his belt was rather tight and began having some soreness to his right hip but no altered sensation. He states that he typically wears his belt to bed, but that night did not wear his belt to bed, awoke in the morning with an altered sensation but now there was no discomfort. The altered sensation is very focal, does not travel or radiate. He states that it might be slightly better today than it was 3 days ago. He denies recent illness or trauma, fever, associated weakness, bowel or bladder incontinence, saddle pare sthesias, discomfort, or any other symptoms. Nothing makes his symptoms worse or better. He has not taken any medication for his symptoms. Denies headache, facial paresthesias or asymmetry, any symptoms of his upper extremities or left lower extremity. Related Data Home Medications Medication Instructions Recorded Confirmed clozapine 100 mg tablet (Clozaril) 100 mg PO TID 11/19/16 07/29/21 lorazepam 2 mg tablet 2 mg PO BID 11/19/16 07/29/21 pantoprazole 20 mg tablet,delayed 40 mg PO BID 11/19/16 07/29/21 release (Protonix) lithium carbonate 300 mg 150 mg PO HS 12/14/16 07/29/21 tablet,extended release propranolol 10 mg tablet 10 mg PO BID 12/14/16 07/29/21 lactulose 10 gram/15 mL oral 15 - 30 ml PO DAILY PRN 11/18/18 07/29/21 solution Halperidol 1 mg PO TID 12/08/18 07/29/21 bupropion HCl 150 mg 24 hr tablet, 300 mg PO DAILY 12/08/18 07/29/21 extended release vit,calcium no.40-iron tab PO DAILY tab 12/08/18 12/12/18 fum 27 mg iron-folate no.1 1 mg tablet (PNV-Select) testosterone 4 mg/24 hr 2 patch TRANSDERMAL DAILY 12/08/18 07/29/21 transdermal 24 hour patch (Androderm) Allergies Allergy/AdvReac Type Severity Reaction Status Date / Time codeine Allergy Unknown Verified 07/29/21 08:20 Sulfa (Sulfonamide Allergy Unknown Verified 07/29/21 08:20 Antibiotics) esomeprazole [From Nexium] Allergy Verified 07/29/21 08:20 fenofibrate [From Tricor] Allergy Verified 07/29/21 08:20 ferrous gluconate Allergy Verified 07/29/21 08:20 Penicillins Allergy Verified 07/29/21 08:20 General Stated Complaint: Orthopedic DELORIS: 4 Review of Systems Constitutional Constitutional: Denies fever(s), Denies headache(s) and Denies weakness ENT Ears, Nose, Mouth, and Throat: Denies headache(s) Cardiovascular Cardiovascular: Denies chest pain and Denies dyspnea Respiratory Respiratory: Denies dyspnea Gastrointestinal Gastrointestinal: Denies abdominal pain, Denies fecal incontinence, Denies diarrhea, Denies nausea and Denies vomiting Genitourinary Genitourinary: Denies urinary incontinence Musculoskeletal Musculoskeletal: Denies back pain, Denies arthralgias, Denies numbness, Denies stiffness and Reports tingling Integumentary/Breasts Skin/Breast: Denies rash Neurologic Neurologic: Denies headache(s), Denies numbness, Reports tingling and Denies w eakness [facility] All Active Problems Cough (Acute) Shortness of breath (Acute) Meralgia paresthetica of right side (Acute) Confusion (Acute) Hiatal hernia (Chronic) Medical History Abnormal thyroid stimulating hormone (TSH) level Anemia Anxiety Chronic constipation Dyspepsia Dysphagia Fatigue Former smoker Gastritis Heme positive stool Hepatitis C History of hepatitis C Hypogonadism Lactose intolerance Low energy Microcytic anemia Obesity Onychomycosis of toenail Schizoaffective disorder SOB (shortness of breath) on exertion Vitamin D deficiency Surgical History H/O esophagogastroduodenoscopy History of surgery Surgery to penis Normal colonoscopy Social History Smoking/Tobacco Use Status: Former Tobacco Use Quit Date: 10/29/18 Smoking risk assessment performed?: Yes Alcohol Intake: never Drug use: Never Substance use type: does not use Do you feel safe at home: Yes Do you feel safe in your relationship?: Yes Exam Const General: cooperative, healthy appearing, comfortable and no acute distress Orientation: alert, awake and oriented x3 HENMT Head: normal to inspection, normocephalic and atraumatic Face and sinus: normal facial exam Mouth: moist mucous membranes Eyes General: appearance normal, both eyes and all related structures Conjunctivae: conjunctivae normal Neck Neck: normal visual inspection, full ROM, no meningeal signs, trachea midline and supple Resp Effort & Inspection: normal respiratory effort and able to speak in complete sentences Auscultation: clear to auscultation bilaterally Cardio Rate: regular rate Rhythm: regular rhythm GI Palpation: soft and nontender Back/Spine/Pelvis Back: No back tenderness Skin General skin exam: no rashes or lesions noted Neuro General: patient alert, patient awake, patient oriented x3, moves all extremities, no focal motor deficits and CN's II-XI intact bilaterally Cognition: normal cognition Speech: speech normal Gait: normal gait Motor: muscle tone normal throughout, strength 5/5 throughout and no fasciculations Other: Upper extremities and left lower extremity unremarkable. Right lower extremity, sensation is grossly intact, no focal neurologic deficits. He is subjective mild tingling, altered sensation, over the right anterior thigh extending approximately 8 inches from the greater trochanter. 5 out of 5 strength. No weakness. No saddle paresthesias. Light touch sensation intact. Extrem General: normal to inspection, full ROM, capillary refill normal, no pedal edema and no calf tenderness Psych Appearance: grossly normal Mental Status: mental status grossly normal Course Vital Signs Vital signs: Vital Signs Temperature 36.7 C 07/29/21 08:16 Pulse 95 H 07/29/21 08:16 Respiratory Rate 16 07/29/21 08:16 Blood Pressure 137/80 07/29/21 08:16 Pulse Oximetry 98 07/29/21 08:16 Temperature 36.7 C 07/29/21 08:16 Temperature Source Skin 07/29/21 08:16 Pulse 95 H 07/29/21 08:16 Respiratory Rate 16 07/29/21 08:16 Respiratory Effort 07/29/21 08:16 Blood Pressure 137/80 07/29/21 08:16 Blood Pressure Position Sitting 07/29/21 08:16 Pulse Oximetry 98 07/29/21 08:16 Oxygen Delivery Method Room Air 07/29/21 08:16 Oxygen Flow Rate 0 07/29/21 08:16 Pain Level 0 07/29/21 08:16
== END 2021-07-29 08:49 | disposition home or self-care (01) ==
PROVIDERS: Emergency Provider Physician Assistant; PCP Internal Medicine
DX: G57.11 Meralgia paresthetica, right lower limb (principal)
CPT/HCPCS: 99282

== ENCOUNTER 2021-08-18 11:08 | Emergency (ER) | payer MEDICARE, MEDICAID, SELFPAY ==
[2021-08-18 11:10] VITALS: BP 115/77; PULSE 88; RESP 16; TEMP 36.1; O2SAT 98
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
--- NOTE | 2021-08-18 11:23 | ED.GENADUL_ITS ---
Discharge Plan Disposition Patient Disposition: HOME Condition: Improving Discharge Details Clinical Impression: Right ankle sprain Primary Care Provider: Tomás Carvalho ED Provider: Noble Sharma Home Meds and New Rx's Prescriptions: Continued bupropion HCl 150 mg tablet extended release 24 hr 150 mg PO DAILY 0RF Label Comments: 12/08/18 30 mg daily Halperidol capsule 1 mg PO TID 0RF Label Comments: 12/08/18 taking bid. TUYET Androderm 4 mg/24 hr patch 24 hour 2 patch Transdermal DAILY 0RF Label Comments: 12/08/18 1 patch Saturday, Saturday, Saturday. 2 patches the other days tuyet PNV-Select 27-1 mg tablet PO DAILY 0RF Label Comments: not taking clozapine [Clozaril] 100 MG tablet 100 mg PO TID 0RF Label Comments: pt states he takes 100mg AM 100 mg afternoon and 350 mg HS pantoprazole [Protonix] 20 MG tablet,delayed release (DR/EC) 40 mg PO BID 0RF lorazepam 2 MG tablet 2 mg PO BID 0RF propranolol 10 MG tablet 10 mg PO BID 0RF lithium carbonate 300 MG tablet extended release 150 mg PO HS 0RF lactulose 10 gram/15 mL Solution 15 - 30 ml PO DAILY PRN0RF Discharge Instructions Instructions: Ankle Sprain (ED) Additional Instructions: Elevate above the level of the heart to reduce pain and swelling. Wear lace up ankle brace an additional 7 to 10 days as needed. May remove for bathing and at bedtime. Apply cool compress to area to reduce discomfort. Return to the ER for any acute concerns. Medical Decision Making 50-year-old male suffered an inversion injury to the right ankle approximately 7 to 8 days ago. Now reports ongoing pain, worse with weightbearing. He has been able to walk. There is lateral malleoli are tenderness and mild swelling present on exam. Patient is referred for x-ray which does not show acute fracture, see formal report. Patient placed in lace up ankle brace. Instructed on anticipated course of resolution. Stable for discharge. HPI General Mode of arrival: ambulatory . Date/Time Provider Initiated Documentation: 08/18/21 11:10 . Limitations to Documentation: no limitations . Information obtained by: patient . History of Present Illness 50 year old M presents to the emergency department with the chief complaint of Right ankle pain after inversion, described as moderate, Quality is described as dull and constant, and is localized to the right and lower extremity. Patient reports no radiation. Patient started experiencing this day(s) and it has been intermittent. improves with Rest improves symptom(s), Movement worsens symptoms . Patient notes denies syncope and weakness. Related Data Home Medications Medication Instructions Recorded Confirmed clozapine 100 mg tablet (Clozaril) 100 mg PO TID 11/19/16 08/18/21 lorazepam 2 mg tablet 2 mg PO BID 11/19/16 08/18/21 pantoprazole 20 mg tablet,delayed 40 mg PO BID 11/19/16 08/18/21 release (Protonix) lithium carbonate 300 mg 150 mg PO HS 12/14/16 08/18/21 tablet,extended release propranolol 10 mg tablet 10 mg PO BID 12/14/16 08/18/21 lactulose 10 gram/15 mL oral 15 - 30 ml PO DAILY PRN 11/18/18 08/18/21 solution Halperidol 1 mg PO TID 12/08/18 08/18/21 bupropion HCl 150 mg 24 hr tablet, 150 mg PO DAILY 12/08/18 08/18/21 extended release vit,calcium no.40-iron tab PO DAILY tab 12/08/18 12/12/18 fum 27 mg iron-folate no.1 1 mg tablet (PNV-Select) testosterone 4 mg/24 hr 2 patch TRANSDERMAL DAILY 12/08/18 08/18/21 transdermal 24 hour patch (Androderm) Allergies Allergy/AdvReac Type Severity Reaction Status Date / Time codeine Allergy Unknown Verified 08/18/21 11:16 Sulfa (Sulfonamide Allergy Unknown Verified 08/18/21 11:16 Antibiotics) esomeprazole [From Nexium] Allergy Verified 08/18/21 11:16 fenofibrate [From Tricor] Allergy Verified 08/18/21 11:16 ferrous gluconate Allergy Verified 08/18/21 11:16 Penicillins Allergy Verified 08/18/21 11:16 General Stated Complaint: Orthopedic DELORIS: 4 Review of Systems Narrative: Denies other injury. Patient has otherwise been well. 6 systems were reviewed and negative PFSH All Active Problems (Updated 08/18/21 @ 11:49 by Noble Sharma MD) Cough (Acute) Shortness of breath (Acute) Meralgia paresthetica of right side (Acute) Right ankle sprain (Acute) Confusion (Acute) Hiatal hernia (Chronic) Medical History Abnormal thyroid stimulating hormone (TSH) level Anemia Anxiety Chronic constipation Dyspepsia Dysphagia Fatigue Former smoker Gastritis Heme positive stool Hepatitis C History of hepatitis C Hypogonadism Lactose intolerance Low energy Microcytic anemia Obesity Onychomycosis of toenail Schizoaffective disorder SOB (shortness of breath) on exertion Vitamin D deficiency Surgical History H/O esophagogastroduodenoscopy History of surgery Surgery to penis Normal colonoscopy Social History Smoking/Tobacco Use Status: Former Tobacco Use Quit Date: 10/29/18 Smoking risk assessment performed?: Yes Alcohol Intake: never Drug use: Never Substance use type: does not use Do you feel safe at home: Yes Do you feel safe in your relationship?: Yes Exam Narrative Exam Narrative: GEN: awake, alert, oriented 3. Pleasant, well groomed, interactive. HEAD: Normocephalic, atraumatic ENT: Mucous membranes moist, oropharynx unremarkable, External ear exam unrema rkable EYES: PERRL, EOMI NECK: Full ROM, no BONIFACIO, no menigismus CHEST/RESP: No respiratory distress EXT: Full ROM, right lateral malleoli are tenderness and mild swelling present. No laxity. Neuro: Grossly normal neurologic exam, conversant, interactive. Psych: Speech fluent, thoughts congruent, affect normal Course Vital Signs Vital signs: Vital Signs Temperature 36.1 C L 08/18/21 11:10 Pulse 88 08/18/21 11:10 Respiratory Rate 16 08/18/21 11:10 Blood Pressure 115/77 08/18/21 11:10 Pulse Oximetry 98 08/18/21 11:10 Temperature 36.1 C L 08/18/21 11:10 Temperature Source Skin 08/18/21 11:10 Pulse 88 08/18/21 11:10 Respiratory Rate 16 08/18/21 11:10 Respiratory Effort 08/18/21 11:18 Blood Pressure 115/77 08/18/21 11:10 Blood Pressure Position Sitting 08/18/21 11:10 Pulse Oximetry 98 08/18/21 11:10 Oxygen Delivery Method Room Air 08/18/21 11:10 Oxygen Flow Rate 0 08/18/21 11:10 Pain Level 5 08/18/21 11:10
== END 2021-08-18 13:53 | disposition home or self-care (01) ==
PROVIDERS: Emergency Provider Emergency Medicine; PCP Internal Medicine
DX: S93.491A Sprain of other ligament of right ankle, initial encounter (principal); X50.1XXA Overexertion from prolonged static or awkward postures, initial encounter
CPT/HCPCS: 29515; 99283; 73610

== ENCOUNTER 2021-08-28 03:23 | Outpatient (CLI) | payer MEDICARE, MEDICAID, SELFPAY ==
[2021-08-28 08:04] LABS: Abs Immature Grans 0.02 10^3/uL (0.0-0.06); Absolute Basophil Count 0.02 10^3/uL (0.0-0.2); Absolute Lymphocyte Count 1.45 10^3/uL (1.2-3.4); Absolute Monocyte Count 0.45 10^3/uL (0.1-0.8); Absolute Neutrophil Count 3.87 10^3/uL (1.2-6.7); Basophils % 0.3; HCT 40.8 % (40.0-50.0); HGB 12.2 g/dL (13.5-17.5); Immature Grans % 0.3; MCH 23.5 pg (27.0-33.0); MCHC 29.9 % (32.0-36.0); MCV 79 fL (80-95); MPV 9.3 fL (8.0-11.0); Monocytes % 7.7; Neutrophils % 66.7; Platelet Count 239 10^3/uL (130-400); RBC 5.19 10^6/uL (4.36-5.78); RDW 15.6 % (11.8-14.1); RDW-SD 43.9 fL; WBC 5.81 10^3/uL (4.4-10.8)
[2021-08-28 08:48] LABS: CREATININE 1.3 mg/dL (0.70-1.30); Calcium 9.3 mg/dL (8.5-10.1); Estimated GFR 58.43 (mL/min/1.73m2); TSH (W/Ref FT4) 0.39 uIU/mL (0.36-3.74)
[2021-08-28 08:57] LABS: Lithium < 0.2 mmol/l (0.6-1.2)
[2021-08-31 00:32] LABS: Clozapine 1300 ng/mL (350-600); Clozapine+Norclozapine Total 1925 ng/mL; Norclozapine 625 ng/mL
== END 2021-08-28 03:24 | disposition home or self-care (01) ==
LOC: LBO 03:23
PROVIDERS: PCP Internal Medicine; Visit Provider Psychiatry & Neurology Psychiatry
DX: F20.0 Paranoid schizophrenia (principal); Z79.899 Other long term (current) drug therapy
CPT/HCPCS: 36415; 80159; 80178; 82310; 82565; 84443; 85025

== ENCOUNTER 2021-09-25 04:24 | Outpatient (CLI) | payer MEDICARE, MEDICAID, SELFPAY ==
[2021-09-25 08:09] LABS: Abs Immature Grans 0.01 10^3/uL (0.0-0.06); Absolute Basophil Count 0.04 10^3/uL (0.0-0.2); Absolute Lymphocyte Count 1.63 10^3/uL (1.2-3.4); Absolute Monocyte Count 0.52 10^3/uL (0.1-0.8); Absolute Neutrophil Count 3.43 10^3/uL (1.2-6.7); Basophils % 0.7; HCT 41.5 % (40.0-50.0); HGB 12.5 g/dL (13.5-17.5); Immature Grans % 0.2; MCH 23.2 pg (27.0-33.0); MCHC 30.1 % (32.0-36.0); MCV 77 fL (80-95); MPV 9.1 fL (8.0-11.0); Monocytes % 9.2; Neutrophils % 60.9; Platelet Count 230 10^3/uL (130-400); RBC 5.38 10^6/uL (4.36-5.78); RDW-SD 44.6 fL; WBC 5.63 10^3/uL (4.4-10.8)
[2021-09-25 09:13] LABS: CREATININE 1.2 mg/dL (0.70-1.30); Calcium 9.9 mg/dL (8.5-10.1); TSH (W/Ref FT4) 0.65 uIU/mL (0.36-3.74)
[2021-09-25 15:43] LABS: Lithium < 0.2 mmol/l (0.6-1.2)
[2021-09-27 23:20] LABS: Clozapine 1270 ng/mL (350-600); Clozapine+Norclozapine Total 1844 ng/mL; Norclozapine 574 ng/mL
== END 2021-09-25 04:25 | disposition home or self-care (01) ==
LOC: LBO 04:24
PROVIDERS: PCP Internal Medicine; Visit Provider Psychiatry & Neurology Psychiatry
DX: F20.0 Paranoid schizophrenia (principal); Z51.81 Encounter for therapeutic drug level monitoring; Z79.899 Other long term (current) drug therapy
CPT/HCPCS: 36415; 80159; 80178; 82310; 82565; 84443; 85025

== ENCOUNTER 2021-10-11 15:02 | Emergency (ER) | payer MEDICARE, MEDICAID, SELFPAY ==
[2021-10-11 15:27] VITALS: BP 116/69; PULSE 102; RESP 16; TEMP 36.7; O2SAT 98
--- NOTE | 2021-10-11 15:45 | DI.CT_ITS ---
Exam(s) CT ABDOMEN PELVIS WO EXAM: CT ABDOMEN PELVIS WO CLINICAL HISTORY: abdominal pain, nausea vomiting. TECHNIQUE: Imaging Protocol: Axial computed tomography images with coronal and sagittal reformatted images were created and reviewed. COMPARISON: CT CT ABDOMEN PELVIS W from 04/24/2020 FINDINGS: ABDOMEN: Lung Bases: Normal where visualized. Liver: Normal density. No measurable mass. Gallbladder and biliary tract: No radiodense calculus or biliary ductal dilation. Pancreas: Normal density, no abnormal calcifications or inflammatory process. Spleen: Normal. Kidneys: Normal size, contour and axis.No radiodense stones or obstructive uropathy. No masses seen. Adrenal glands: No mass is seen. Lymph nodes: Within normal limits. Abdominal Aorta: Abdominal portion non-dilated. PELVIS: Bladder:Symmetric distention, no gross wall thickening. Bowel: No evidence of obstruction. Appendix is unremarkable. There is a loop of small bowel in the right lower quadrant which appears distended relative to the surrounding bowel loops. There is a que stion of bowel wall thickening but there is no inflammation in the surrounding soft tissues. Evaluat ion is limited due to lack of oral contrast. Peritoneal cavity: No ascites, collection or mesenteric inflammatory response. No free air. Reproductive organs: Unremarkable as visualized. Bones: Within normal limits. Soft Tissues: Within normal limits. IMPRESSION: 1. Focally distended loop of small bowel in the right lower quadrant. Further evaluation is limited due to lack of oral contrast. No definite inflammatory changes are seen in the surrounding soft tiss ues. Further evaluation with a small-bowel follow-through is recommended to exclude mass or other ab normality. 2. Otherwise unremarkable CT scan of the abdomen and pelvis. RADIATION DOSE DELIVERED: 877.85mGy.cm Total DLP DATA REPOSITORY: All CT scans at this facility are submitted to the National Radiology Data Registry (NRDR) Dose Index Registry (DIR) with the [employer] ([employer]). RADIATION OPTIMIZATION: All CT scans at this facility use at least one of these dose optimization te chniques: automated exposure control; mA and/or kV adjustment per patient size (includes targeted exa ms where dose is matched to clinical indication); or iterative reconstruction.
--- NOTE | 2021-10-11 15:59 | W.ED.GENAD ---
Discharge Plan Disposition Patient Disposition: HOME Condition: Improving Discharge Details Chief Complaint: Abd Prob Clinical Impression: Nausea Primary Care Provider: Tomás Carvalho ED Provider: Mulugeta Jack Home Meds and New Rx's Prescriptions: No Action bupropion HCl 150 mg tablet extended release 24 hr 150 mg PO DAILY Label Comments: 12/08/18 30 mg daily Halperidol capsule 1 mg PO TID Label Comments: 12/08/18 taking bid. TUYET Androderm 4 mg/24 hr patch 24 hour 2 patch Transdermal DAILY Label Comments: 12/08/18 1 patch Saturday, Saturday, Saturday. 2 patches the other days tuyet PNV-Select 27-1 mg tablet PO DAILY Label Comments: not taking clozapine [Clozaril] 100 MG tablet 100 mg PO TID Label Comments: pt states he takes 100mg AM 100 mg afternoon and 350 mg HS pantoprazole [Protonix] 20 MG tablet,delayed release (DR/EC) 40 mg PO BID lorazepam 2 MG tablet 2 mg PO BID propranolol 10 MG tablet 10 mg PO BID lithium carbonate 300 MG tablet extended release 150 mg PO HS lactulose 10 gram/15 mL Solution 15 - 30 ml PO DAILY PRN Discharge Instructions Instructions: Acute Nausea and Vomiting (ED) Additional Instructions: Please follow-up with your primary care physician. Please return to the emergency department if you are unable to keep down food, develop worsening pain nausea vomiting fevers or signs of dehydration. Medical Decision Making 51-year-old male presents with 4 days of nausea vomiting abdominal pain in the setting of eating [place] buffet, denies diarrhea, denies history of abdominal surgery, afebrile nontoxic, mildly tachycardic on arrival, abdomen soft nontender nondistended, nonperitoneal, nausea without active vomiting currently. Consider enteritis versus colitis versus foodborne illness versus gastritis versus biliary colic versus early cholecystitis versus appendicitis versus less likely diverticulitis. Screening labs fluids antiemetics imaging close reassessment disposition pending results. 18: 52 patient feeling much better after fluids and meds. No vomiting. Labs and imaging unremarkable. HPI General Date/Time Provider Initiated Documentation: 10/11/21 15:03. HPI Narrative: 51-year-old male presents with abdominal pain nausea vomiting since Saturday, endorses going to a [place] buffet and getting sick shortly after eating, denies diarrhea, denies history of abdominal surgery. Denies any new medication changes. Related Data Home Medications Medication Instructions Recorded Confirmed clozapine 100 mg tablet (Clozaril) 100 mg PO TID 11/19/16 10/11/21 lorazepam 2 mg tablet 2 mg PO BID 11/19/16 10/11/21 pantoprazole 20 mg tablet,delayed 40 mg PO BID 11/19/16 10/11/21 release (Protonix) lithium carbonate 300 mg 150 mg PO HS 12/14/16 10/11/21 tablet,extended release propranolol 10 mg tablet 10 mg PO BID 12/14/16 10/11/21 lactulose 10 gram/15 mL oral 15 - 30 ml PO DAILY PRN 11/18/18 10/11/21 solution Halperidol 1 mg PO TID 12/08/18 10/11/21 bupropion HCl 150 mg 24 hr tablet, 150 mg PO DAILY 12/08/18 10/11/21 extended release vit,calcium no.40-iron tab PO DAILY 12/08/18 12/12/18 fum 27 mg iron-folate no.1 1 mg tablet (PNV-Select) testosterone 4 mg/24 hr 2 patch transdermal DAILY 12/08/18 10/11/21 transdermal 24 hour patch (Androderm) Allergies Allergy/AdvReac Type Severity Reaction Status Date / Time codeine Allergy Unknown Verified 10/11/21 15:33 Sulfa (Sulfonamide Allergy Unknown Verified 10/11/21 15:33 Antibiotics) esomeprazole [From Nexium] Allergy Verified 10/11/21 15:33 fenofibrate [From Tricor] Allergy Verified 10/11/21 15:33 ferrous gluconate Allergy Verified 10/11/21 15:33 Penicillins Allergy Verified 10/11/21 15:33 General Stated Complaint: Abd Prob DELORIS: 4 Review of Systems Narrative: Review of Systems Constitutional: negative Eyes: negative ENT: negative Cardiovascular: negative Respiratory: negative Gastrointestinal: Nausea vomiting abdominal pain : negative Musculoskeletal: negative Skin: negative Neurologic: negative Psych: negative PFSH All Active Problems (Updated 10/11/21 @ 18:53 by Mulugeta Jack MD) Cough (Acute) Shortness of breath (Acute) Nausea (Acute) Confusion (Acute) Hiatal hernia (Chronic) Medical History Abnormal thyroid stimulating hormone (TSH) level Anemia Anxiety Chronic constipation Dyspepsia Dysphagia Fatigue Former smoker Gastritis Heme positive stool Hepatitis C History of hepatitis C Hypogonadism Lactose intolerance Low energy Microcytic anemia Obesity Onychomycosis of toenail Schizoaffective disorder SOB (shortness of breath) on exertion Vitamin D deficiency Surgical History H/O esophagogastroduodenoscopy History of surgery Surgery to penis Normal colonoscopy Social History Smoking/Tobacco Use Status: Former Tobacco Use Quit Date: 10/29/18 Smoking risk assessment performed?: Yes Alcohol Intake: never Drug use: Never Substance use type: does not use Do you feel safe at home: Yes Do you feel safe in your relationship?: Yes Exam Narrative Exam Narrative: Physical Examination General: alert, awake, cooperative, resting comfortably, no acute distress HEENT: normocephalic, atraumatic; PERRL, EOM intact, conjunctiva normal; no nasal discharge; moist mucous membranes, oral and pharyngeal mucosa normal, tolerating secretions Neck: supple, trachea midline; full ROM Chest: normal to inspection Respiratory: normal respiratory effort, speaking in full sentences, clear to auscultation, no wheezing, rales or rhonchi Cardiac: regular rate, regular rhythm, S1S2 intact, no murmurs rubs or gallops GI: abdomen soft, non-tender, non-distended; no palpable mass or hepatosplenomegaly Skin: no lesions, rashes or trauma appreciated Neuro: AAOx3, normal speech, moving all extremities Psych: Appropriate mood and affect Course Vital Signs Vital signs: Vital Signs Temperature 36.7 C 10/11/21 15:27 Pulse 102 H 10/11/21 15:27 Respiratory Rate 16 10/11/21 15:27 Blood Pressure 116/69 10/11/21 15:27 Pulse Oximetry 98 10/11/21 15:27 Temperature 36.7 C 10/11/21 15:27 Temperature Source Temporal Artery Scan 10/11/21 15:27 Pulse 102 H 10/11/21 15:27 Respiratory Rate 16 10/11/21 15:27 Respiratory Effort 10/11/21 15:27 Blood Pressure 116/69 10/11/21 15:27 Pulse Oximetry 98 10/11/21 15:27 Oxygen Delivery Method Room Air 10/11/21 15:27 Oxygen Flow Rate 0 10/11/21 15:27 Pain Level 10 10/11/21 15:27
[2021-10-11 16:17] LABS: Abs Immature Grans 0.02 10^3/uL (0.0-0.06); Absolute Basophil Count 0.03 10^3/uL (0.0-0.2); Absolute Eosinophil Count 0.01 10^3/uL (0.0-0.7); Absolute Lymphocyte Count 1.36 10^3/uL (1.2-3.4); Absolute Neutrophil Count 3.26 10^3/uL (1.2-6.7); Basophils % 0.6; Eosinophils % 0.2; HGB 12.1 g/dL (13.5-17.5); Immature Grans % 0.4; Lymphocytes % 26.8; MCH 23.7 pg (27.0-33.0); MCV 76 fL (80-95); MPV 9.5 fL (8.0-11.0); Monocytes % 7.9; Neutrophils % 64.1; Platelet Count 250 10^3/uL (130-400); RBC 5.11 10^6/uL (4.36-5.78); RDW 16.1 % (11.8-14.1); RDW-SD 44.4 fL; WBC 5.08 10^3/uL (4.4-10.8)
[2021-10-11] MEDS: Normal Saline 1,000 ML 1000 ML IV (16:20)
[2021-10-11] MEDS: Ondansetron 4 MG/2 ML VIAL IVP (16:25)
[2021-10-11] MEDS: Famotidine 20 MG/2 ML VIAL IVP (16:30)
[2021-10-11 16:31] LABS: ALT 25 U/L (16-63); AST 11 U/L (15-37); Albumin 3.4 g/dL (3.4-5.0); Alkaline Phosphatase 100 U/L (46-116); Anion Gap 6.1 mmol/L (3-11); BUN 15 mg/dL (7-18); Bilirubin, Total 0.3 mg/dL (0.2-1.0); CO2 26.9 mmol/L (21.0-32.0); CREATININE 1.3 mg/dL (0.70-1.30); Calcium 9.5 mg/dL (8.5-10.1); Chloride 107 mmol/L (98-107); Glucose 159 mg/dL (74-106); Lipase 87 U/L (73-393); Potassium 3.8 mmol/L (3.5-5.1); Sodium 140 mmol/L (136-145); Total Protein 6.9 g/dL (6.4-8.2)
[2021-10-11 17:18] LABS: Lithium < 0.2 mmol/l (0.6-1.2)
--- NOTE | 2021-10-11 17:38 | DI.VRAD_ITS ---
PROCEDURE INFORMATION: Exam: CT Abdomen And Pelvis Without Contrast Exam date and time: 10/11/2021 4:49 PM Age: 51 years old Clinical indication: Abd pain, nausea, vomiting TECHNIQUE: Imaging protocol: Computed tomography of the abdomen and pelvis without contrast. COMPARISON: CT ABDOMEN PELVIS W 04/24/2020 2:25 AM FINDINGS: Liver: Normal. No mass. Gallbladder and bile ducts: Normal. No calcified stones. No ductal dilation. Pancreas: Normal. No ductal dilation. Spleen: The spleen is just above the upper limits of normal in AP diameter measuring approximately 14 cm (image 16, series 2), similar to prior examination and could be related to orientation. Adrenal glands: Normal. No mass. Kidneys and ureters: No hydronephrosis. Stomach and bowel: No obstruction. No mucosal thickening. Appendix: No evidence of appendicitis. Intraperitoneal space: No free air. No significant fluid collection. Vasculature: No abdominal aortic aneurysm. Lymph nodes: No enlarged lymph nodes. Urinary bladder: Unremarkable as visualized. Reproductive: Unremarkable as visualized. Bones/joints: No acute fracture. Soft tissues: Unremarkable. IMPRESSION: No evidence of bowel obstruction or suggestion of acute bowel inflammation. Dictated and Authenticated by: Kendra Mckeon MD. Ordering:PRINCE Dalal MD
[2021-10-11 18:58] VITALS: BP 133/74; PULSE 95; RESP 15; TEMP 36.6; O2SAT 99
== END 2021-10-11 18:56 | disposition home or self-care (01) ==
PROVIDERS: Emergency Provider Emergency Medicine; PCP Internal Medicine
DX: R11.2 Nausea with vomiting, unspecified (principal); R10.9 Unspecified abdominal pain
CPT/HCPCS: 36415; 80053; 83690; 96361; 96374; 96375; 99284; 74176; 80178; 85025; 99283; J2405

== ENCOUNTER 2021-10-19 04:05 | Outpatient (CLI) | payer MEDICARE, MEDICAID, SELFPAY ==
[2021-10-19 08:11] LABS: Abs Immature Grans 0.02 10^3/uL (0.0-0.06); Absolute Basophil Count 0.03 10^3/uL (0.0-0.2); Absolute Lymphocyte Count 1.44 10^3/uL (1.2-3.4); Absolute Monocyte Count 0.53 10^3/uL (0.1-0.8); Absolute Neutrophil Count 4.26 10^3/uL (1.2-6.7); Basophils % 0.5; HCT 38.7 % (40.0-50.0); Immature Grans % 0.3; Lymphocytes % 22.9; MCH 23.4 pg (27.0-33.0); MCV 76 fL (80-95); MPV 9.4 fL (8.0-11.0); Monocytes % 8.4; Neutrophils % 67.9; Platelet Count 225 10^3/uL (130-400); RBC 5.12 10^6/uL (4.36-5.78); RDW 15.9 % (11.8-14.1); RDW-SD 43.1 fL; WBC 6.28 10^3/uL (4.4-10.8)
[2021-10-19 08:42] LABS: CREATININE 1.3 mg/dL (0.70-1.30); Calcium 9.6 mg/dL (8.5-10.1); TSH (W/Ref FT4) 0.76 uIU/mL (0.36-3.74)
[2021-10-19 08:50] LABS: Lithium < 0.2 mmol/l (0.6-1.2)
[2021-10-20 22:59] LABS: Clozapine 1810 ng/mL (350-600); Clozapine+Norclozapine Total 2576 ng/mL; Norclozapine 766 ng/mL
== END 2021-10-19 04:06 | disposition home or self-care (01) ==
LOC: LBO 04:05
PROVIDERS: PCP Internal Medicine; Visit Provider Psychiatry & Neurology Psychiatry
DX: F20.0 Paranoid schizophrenia (principal); Z51.81 Encounter for therapeutic drug level monitoring; Z79.899 Other long term (current) drug therapy
CPT/HCPCS: 36415; 80159; 80178; 82310; 82565; 84443; 85025

== ENCOUNTER 2021-11-14 16:52 | Outpatient (REF) | payer MEDICARE, MEDICAID, SELFPAY ==
[2021-11-24 13:37] LABS: Testosterone, Free 13.6 ng/dL (4.06-15.6); Testosterone, Total 272 ng/dL (240-950)
== END 2021-11-14 16:53 | disposition home or self-care (01) ==
LOC: NCHCN 16:52
PROVIDERS: PCP Internal Medicine; Visit Provider Internal Medicine
DX: E29.1 Testicular hypofunction (principal); F41.9 Anxiety disorder, unspecified; E66.9 Obesity, unspecified
CPT/HCPCS: 84402; 84403

== ENCOUNTER 2021-11-20 03:47 | Outpatient (CLI) | payer MEDICARE, MEDICAID, SELFPAY ==
[2021-11-20 09:44] LABS: Abs Immature Grans 0.02 10^3/uL (0.0-0.06); Absolute Basophil Count 0.02 10^3/uL (0.0-0.2); Absolute Lymphocyte Count 1.37 10^3/uL (1.2-3.4); Absolute Monocyte Count 0.41 10^3/uL (0.1-0.8); Absolute Neutrophil Count 3.45 10^3/uL (1.2-6.7); Basophils % 0.4; HCT 39.9 % (40.0-50.0); HGB 12.4 g/dL (13.5-17.5); Immature Grans % 0.4; MCH 23.1 pg (27.0-33.0); MCHC 31.1 % (32.0-36.0); MCV 74 fL (80-95); MPV 9.4 fL (8.0-11.0); Monocytes % 7.8; Neutrophils % 65.4; Platelet Count 256 10^3/uL (130-400); RBC 5.37 10^6/uL (4.36-5.78); RDW-SD 42.7 fL; WBC 5.27 10^3/uL (4.4-10.8)
[2021-11-20 10:22] LABS: CREATININE 1.3 mg/dL (0.70-1.30); Calcium 9.7 mg/dL (8.5-10.1); TSH (W/Ref FT4) 0.59 uIU/mL (0.36-3.74)
[2021-11-20 12:00] LABS: Lithium < 0.2 mmol/l (0.6-1.2)
[2021-11-22 00:42] LABS: Clozapine 1600 ng/mL (350-600); Clozapine+Norclozapine Total 2329 ng/mL; Norclozapine 729 ng/mL
== END 2021-11-20 03:48 | disposition home or self-care (01) ==
LOC: LBO 03:48
PROVIDERS: PCP Internal Medicine; Visit Provider Psychiatry & Neurology Psychiatry
DX: Z79.899 Other long term (current) drug therapy (principal); F20.0 Paranoid schizophrenia
CPT/HCPCS: 36415; 80159; 80178; 82310; 82565; 84443; 85025

== ENCOUNTER 2021-12-19 02:25 | Outpatient (CLI) | payer MEDICARE, MEDICAID, SELFPAY ==
[2021-12-19 09:54] LABS: Abs Immature Grans 0.02 10^3/uL (0.0-0.06); Absolute Basophil Count 0.03 10^3/uL (0.0-0.2); Absolute Lymphocyte Count 1.49 10^3/uL (1.2-3.4); Absolute Monocyte Count 0.55 10^3/uL (0.1-0.8); Absolute Neutrophil Count 5.38 10^3/uL (1.2-6.7); Basophils % 0.4; HCT 39.4 % (40.0-50.0); HGB 11.7 g/dL (13.5-17.5); Immature Grans % 0.3; Lymphocytes % 19.9; MCH 22.1 pg (27.0-33.0); MCHC 29.7 % (32.0-36.0); MCV 75 fL (80-95); MPV 9.6 fL (8.0-11.0); Monocytes % 7.4; Platelet Count 244 10^3/uL (130-400); RBC 5.29 10^6/uL (4.36-5.78); RDW 15.9 % (11.8-14.1); RDW-SD 42.2 fL; WBC 7.47 10^3/uL (4.4-10.8)
[2021-12-19 10:45] LABS: Lithium 0.2 mmol/l (0.6-1.2)
[2021-12-19 10:58] LABS: CREATININE 1.4 mg/dL (0.70-1.30); Calcium 9.8 mg/dL (8.5-10.1); Estimated GFR 60.85 (mL/min/1.73m2); TSH (W/Ref FT4) 0.37 uIU/mL (0.36-3.74)
[2021-12-21 01:57] LABS: Clozapine 1440 ng/mL (350-600); Clozapine+Norclozapine Total 2113 ng/mL; Norclozapine 673 ng/mL
== END 2021-12-19 02:26 | disposition home or self-care (01) ==
LOC: LBO 02:26
PROVIDERS: PCP Internal Medicine; Visit Provider Psychiatry & Neurology Psychiatry
DX: Z79.899 Other long term (current) drug therapy (principal); F20.0 Paranoid schizophrenia
CPT/HCPCS: 36415; 80159; 80178; 82310; 82565; 84443; 85025

== ENCOUNTER 2022-01-15 04:43 | Outpatient (CLI) | payer MEDICARE, MEDICAID, SELFPAY ==
[2022-01-15 13:27] LABS: Abs Immature Grans 0.01 10^3/uL (0.0-0.06); Absolute Basophil Count 0.02 10^3/uL (0.0-0.2); Absolute Lymphocyte Count 1.42 10^3/uL (1.2-3.4); Absolute Monocyte Count 0.38 10^3/uL (0.1-0.8); Absolute Neutrophil Count 2.76 10^3/uL (1.2-6.7); Basophils % 0.4; HCT 36.8 % (40.0-50.0); HGB 10.8 g/dL (13.5-17.5); Immature Grans % 0.2; Lymphocytes % 30.9; MCH 22.1 pg (27.0-33.0); MCHC 29.3 % (32.0-36.0); MCV 75 fL (80-95); MPV 9.2 fL (8.0-11.0); Monocytes % 8.3; Neutrophils % 60.2; Platelet Count 233 10^3/uL (130-400); RBC 4.89 10^6/uL (4.36-5.78); RDW 16.7 % (11.8-14.1); RDW-SD 43.9 fL; WBC 4.59 10^3/uL (4.4-10.8)
[2022-01-15 14:06] LABS: Lithium < 0.2 mmol/l (0.6-1.2)
[2022-01-15 14:16] LABS: CREATININE 1.3 mg/dL (0.70-1.30); Calcium 9.8 mg/dL (8.5-10.1); Estimated GFR 66.51 (mL/min/1.73m2); TSH (W/Ref FT4) 0.61 uIU/mL (0.36-3.74)
[2022-01-17 01:49] LABS: Clozapine 1080 ng/mL (350-600); Clozapine+Norclozapine Total 1776 ng/mL; Norclozapine 696 ng/mL
== END 2022-01-15 04:44 | disposition home or self-care (01) ==
LOC: LBO 04:43
PROVIDERS: PCP Internal Medicine; Visit Provider Psychiatry & Neurology Psychiatry
DX: F20.0 Paranoid schizophrenia (principal); Z79.899 Other long term (current) drug therapy; Z51.81 Encounter for therapeutic drug level monitoring
CPT/HCPCS: 36415; 80159; 80178; 82310; 82565; 84443; 85025

== ENCOUNTER 2022-02-07 18:22 | Emergency (ER) | payer MEDICARE, MEDICAID, SELFPAY ==
[2022-02-07] VITALS (28 sets, daily range): BP systolic 113–136; BP diastolic 69–89; PULSE 85–119; RESP 13–24; TEMP 36.8; O2SAT 97–100
--- NOTE | 2022-02-07 18:15 | RT.EKG_ITS ---
APPROVED REPORT Exam: Resting ECG Reason for Exam: SOB Patient Location: E HR:115 bpm ECG Measurements Heart Rate 115 AXIS GA 149 P 30 QRSd 128 QRS -73 QT 336 T 1 QTc 464 Conclusion Sinus tachycardia...rate> 99 RBBB and LAFB...QRSd >120mS, axis(-40,240). Sinus. RBBB. No STEMI. I have reviewed and interpreted ECG and agree with software generated interpretation.
--- NOTE | 2022-02-07 19:00 | W.ED.GENAD ---
Discharge Plan Disposition Patient Disposition: HOME Condition: Stable Discharge Details Clinical Impression: Pulmonary embolism Primary Care Provider: Tomás Carvalho ED Provider: Román Dover Home Meds and New Rx's Prescriptions: New Xarelto 15 mg tablet 15 mg PO BID 21 Days Qty: 42 0RF Rx Instructions: must administer with evening meal Continued bupropion HCl 150 mg tablet extended release 24 hr 150 mg PO DAILY Label Comments: 12/08/18 30 mg daily Halperidol capsule 1 mg PO TID Label Comments: 12/08/18 taking bid. TUYET Androderm 4 mg/24 hr patch 24 hour 2 patch Transdermal DAILY Label Comments: 12/08/18 1 patch Saturday, Saturday, Saturday. 2 patches the other days tuyet PNV-Select 27-1 mg tablet 1 tab PO DAILY Label Comments: not taking clozapine [Clozaril] 100 MG tablet 100 mg PO TID Label Comments: pt states he takes 100mg AM 100 mg afternoon and 350 mg HS pantoprazole [Protonix] 20 MG tablet,delayed release (DR/EC) 40 mg PO BID lorazepam 2 MG tablet 2 mg PO BID propranolol 10 MG tablet 10 mg PO BID lithium carbonate 300 MG tablet extended release 150 mg PO HS lactulose 10 gram/15 mL Solution 15 - 30 ml PO DAILY PRN Discharge Instructions Instructions: Pulmonary Embolism (ED) Additional Instructions: Your work-up in the ER reveals bilateral pulmonary embolism; however, it is unclear why you have these. It was recommended that you be admitted to our facility for further evaluation but you have declined. I have started you on Xarelto, this medication has the risk of bleeding so please be mindful to seek evaluation for falls, car accidents, etc. that you deem minor and would normally not seek medical attention. I have placed you on the care management list to help expedite outpatient primary care follow-up with your primary care provider. Please contact them tomorrow to discuss your ER visit, your diagnosis, and the importance of outpatient follow-up. Please watch for new or worsening symptoms and return to the ER for any concerns. Medical Decision Making This is a 51-year-old gentleman with past medical history of thyroid disease, anemia, anxiety, previous smoker, hepatitis C, schizoaffective disorder, presenting to the ER for a 1 month history of what he describes as a dry cough, shortness of breath, chest pain with coughing, lung pain. Clinically his pulse is 114 otherwise his evaluation is unremarkable. Given the duration of his symptoms, low suspicion for ACS. I believe obtaining a single troponin is reasonable for cardiac rule out but given his tachycardia we will also obtain D-dimer. He is afebrile, cough is nonproductive, O2 sat 99% on room air, lungs are clear to auscultation, less suspicious for infectious process. Laboratory values reveal no evidence of leukocytosis. He has mild anemia which appears to be at his baseline. Platelet count of 256. D-dimer elevated to 892, will pursue with a CTA of his chest to rule out PE. Sodium 141 potassium 3.6 BUN 18 creatinine 1.4 with a GFR of 60.85. Glucose 185, troponin less than 50. TSH 0.79 Patient receiving 1 L IV fluid, heart rate now in the 80s. COVID, flu, RSV negative CT reveals acute pulmonary emboli within the lobar and segmental branches of the bilateral lower lobes. No evidence of acute right heart strain. Small right pleural effusion. Added on coags Discussed work-up and CT findings with patient. We discussed his bilateral PE findings. Given his initial tachycardia, multiple comorbidities, new findings of PE, I believe admission for further evaluation is warranted. Patient understands the risk but declines admission, states that he has too much to do but may be could come back in a day or 2. He is currently satting 99%, heart rate in the 80s, no distress whatsoever. The patient and I had a very tisha conversation regarding the situation and diagnosis, needing anticoagulation and further work-up. Patient has capacity to make decisions and assures me he will return immediately for new or worsening symptoms. I will initiate Xarelto loading dose over the next 21 days. I have also placed him on the care management list to help expedite outpatient primary care follow-up Strict discharge and return precautions were provided. Patient understands, is agreeable to this plan, and has no additional questions or concerns upon discharge. This documentation was generated using [employer] system, please disregard any oddities of phrase or misspellings. Medical Records Medical records reviewed: Yes I reviewed the patient's medical records. Imaging Data Radiologic Study: Attestation: I personally reviewed and interpreted this imaging study as follows: Imaging: CT Scan Radiologist's impression: Initial Report created on 02/07/2022 9:05 PM Eastern Time ([place] & [place]): PROCEDURE INFORMATION: Exam: CTA Chest With Contrast Exam date and time: 02/07/2022 8:35 PM Age: 51 years old Clinical indication: Shortness of breath; Patient HX: Elevated d-dimer TECHNIQUE: Imaging protocol: Computed tomographic angiography of the chest with contrast. 3D rendering (Not supervised by radiologist): MIP and/or 3D reconstructed images were created by the technologist. Radiation optimization: All CT scans at this facility use at least one of these dose optimization techniques: automated exposure control; mA and/or kV adjustment per patient size (includes targeted exams where dose is matched to clinical indication); or iterative reconstruction. Contrast material: OMNIPAQUE 350; Contrast volume: 100 ml; Contrast route: INTRAVENOUS (IV); COMPARISON: CR XR CHEST 2V PA LATERAL 02/23/2021 9:14 AM FINDINGS: Pulmonary arteries: Acute pulmonary emboli within the lobar and segmental branches of the bilateral lower lobes. Aorta: Unremarkable. No aortic aneurysm. No aortic dissection. Lungs: Unremarkable. No consolidation. No masses Pleural spaces: Small right pleural effusion. Heart: No evidence of acute right heart strain (RV/LV ratio 0.9). Lymph nodes: Unremarkable. No enlarged lymph nodes. Bones/joints: Multilevel thoracic spine degenerative disc space narrowing and osteophyte formation. Soft tissues: Unremarkable. IMPRESSION: 1. Acute pulmonary emboli within the lobar and segmental branches of the bilateral lower lobes. No evidence of acute right heart strain (RV/LV ratio 0.9). 2. Small right pleural effusion. Thank you for allowing us to participate in the care of your patient Lab Data Lab results reviewed: Yes I reviewed the patient's lab results. Labs: Laboratory Tests Range/Units 02/07/22 02/07/22 02/07/22 18:55 18:55 18:55 WBC (4.4-10.8) 10^3/uL 6.25 RBC (4.36-5.78) 10^6/uL 5.10 Hgb (13.5-17.5) g/dL 11.3 L Hct (40.0-50.0) % 37.7 L MCV (80-95) fL 74 L MCH (27.0-33.0) pg 22.2 L MCHC (32.0-36.0) % 30.0 L RDW (11.8-14.1) % 16.6 H Plt Count (130-400) 10^3/uL 256 MPV (8.0-11.0) fL 9.4 Immature Gran % 0.2 Neutrophils % 62.5 Lymphocytes % 29.0 Monocytes % 8.0 Eosinophils % 0.0 Basophils % 0.3 Nucleated RBC % (0.0-0.3) % 0.0 Absolute Neutrophils (1.2-6.7) 10^3/uL 3.91 Absolute Lymphocytes (1.2-3.4) 10^3/uL 1.81 Absolute Monocytes (0.1-0.8) 10^3/uL 0.50 Absolute Eosinophils (0.0-0.7) 10^3/uL 0.00 Absolute Basophils (0.0-0.2) 10^3/uL 0.02 RBC Morphology See Below Microcytosis 2+ PT (9.3-11.0) sec INR (0.9-1.1) APTT (21.0-27.5) sec D-Dimer (<500) ng/mlFEU 892 H Sodium (136-145) mmol/L 141 Potassium (3.5-5.1) mmol/L 3.6 Chloride (98-107) mmol/L 108 H Carbon Dioxide (21.0-32.0) mmol/L 26.8 Anion Gap (3-11) mmol/L 6.2 BUN (7-18) mg/dL 18 Creatinine (0.70-1.30) mg/dL 1.4 H Est GFR (CKD-EPI 2020) (mL/min/1.73m2) 60.85 Glucose (74-106) mg/dL 185 H Calcium (8.5-10.1) mg/dL 10.0 Magnesium (1.8-2.4) mg/dL 2.1 Total Bilirubin (0.2-1.0) mg/dL 0.3 AST (15-37) U/L 12 L ALT (16-63) U/L 21 Alkaline Phosphatase (46-116) U/L 102 Troponin I (<or=60) ng/L < 50 Total Protein (6.4-8.2) g/dL 7.0 Albumin (3.4-5.0) g/dL 3.5 TSH (0.36-3.74) uIU/mL COVID-19 Source SARS-CoV-2 (PCR) (Negative) Influenza Type A (PCR) (Negative) Influenza Type B (PCR) (Negative) RSV (PCR) (Negative) Range/Units 02/07/22 02/07/22 02/07/22 18:55 19:20 21:15 WBC (4.4-10.8) 10^3/uL RBC (4.36-5.78) 10^6/uL Hgb (13.5-17.5) g/dL Hct (40.0-50.0) % MCV (80-95) fL MCH (27.0-33.0) pg MCHC (32.0-36.0) % RDW (11.8-14.1) % Plt Count (130-400) 10^3/uL MPV (8.0-11.0) fL Immature Gran % Neutrophils % Lymphocytes % Monocytes % Eosinophils % Basophils % Nucleated RBC % (0.0-0.3) % Absolute Neutrophils (1.2-6.7) 10^3/uL Absolute Lymphocytes (1.2-3.4) 10^3/uL Absolute Monocytes (0.1-0.8) 10^3/uL Absolute Eosinophils (0.0-0.7) 10^3/uL Absolute Basophils (0.0-0.2) 10^3/uL RBC Morphology Microcytosis PT (9.3-11.0) sec 10.2 INR (0.9-1.1) 1.0 APTT (21.0-27.5) sec 24.0 D-Dimer (<500) ng/mlFEU Sodium (136-145) mmol/L Potassium (3.5-5.1) mmol/L Chloride (98-107) mmol/L Carbon Dioxide (21.0-32.0) mmol/L Anion Gap (3-11) mmol/L BUN (7-18) mg/dL Creatinine (0.70-1.30) mg/dL Est GFR (CKD-EPI 2020) (mL/min/1.73m2) Glucose (74-106) mg/dL Calcium (8.5-10.1) mg/dL Magnesium (1.8-2.4) mg/dL Total Bilirubin (0.2-1.0) mg/dL AST (15-37) U/L ALT (16-63) U/L Alkaline Phosphatase (46-116) U/L Troponin I (<or=60) ng/L Total Protein (6.4-8.2) g/dL Albumin (3.4-5.0) g/dL TSH (0.36-3.74) uIU/mL 0.79 COVID-19 Source Nasopharynx SARS-CoV-2 (PCR) (Negative) Negative Influenza Type A (PCR) (Negative) Negative Influenza Type B (PCR) (Negative) Negative RSV (PCR) (Negative) Negative ECG Data Attestation: I personally reviewed and interpreted this ECG (s) as follows: Interpretation: Sinus tachycardia, ventricular rate of 115. Right bundle branch block. No STEMI HPI General Mode of arrival: ambulatory. Date/Time Provider Initiated Documentation: 02/07/22 18:26. Limitations to Documentation: no limitations. Information obtained by: patient. HPI Narrative: This is a 51-year-old gentleman with a past medical history of anxiety, anemia, thyroid disease, previous smoker, schizoaffective disorder presenting to the ER for month-long history of symptoms that include a dry cough, shortness of breath, lung pain, chest wall pain with coughing. Cough is dry. He is requesting a chest x-ray. He denies any other recent illness or trauma. Denies taking any [id number] medications for his symptoms. Denies headache, visual changes, neck pain, productive cough, abdominal pain, nausea, vomiting, change in bowel or bladder function, pain or swelling in his lower extremities Related Data Home Medications Medication Instructions Recorded Confirmed clozapine 100 mg tablet (Clozaril) 100 mg PO TID 11/19/16 02/07/22 lorazepam 2 mg tablet 2 mg PO BID 11/19/16 02/07/22 pantoprazole 20 mg tablet,delayed 40 mg PO BID 11/19/16 02/07/22 release (Protonix) lithium carbonate 300 mg 150 mg PO HS 12/14/16 02/07/22 tablet,extended release propranolol 10 mg tablet 10 mg PO BID 12/14/16 02/07/22 lactulose 10 gram/15 mL oral 15 - 30 ml PO DAILY PRN 11/18/18 02/07/22 solution Halperidol 1 mg PO TID 12/08/18 02/07/22 bupropion HCl 150 mg 24 hr tablet, 150 mg PO DAILY 12/08/18 02/07/22 extended release vit,calcium no.40-iron 1 tab PO DAILY 12/08/18 02/07/22 fum 27 mg iron-folate no.1 1 mg tablet (PNV-Select) testosterone 4 mg/24 hr 2 patch transdermal DAILY 12/08/18 02/07/22 transdermal 24 hour patch (Androderm) rivaroxaban 15 mg tablet (Xarelto) 15 mg PO BID 21 days #42 tabs 02/07/22 Previous Rx's Medication Instructions Recorded rivaroxaban 15 mg tablet (Xarelto) 15 mg PO BID 21 days #42 tabs 02/07/22 Allergies Allergy/AdvReac Type Severity Reaction Status Date / Time codeine Allergy Unknown Verified 02/07/22 18:29 Sulfa (Sulfonamide Allergy Unknown Verified 02/07/22 18:29 Antibiotics) esomeprazole [From Nexium] Allergy Verified 02/07/22 18:29 fenofibrate [From Tricor] Allergy Verified 02/07/22 18:29 ferrous gluconate Allergy Verified 02/07/22 18:29 Penicillins Allergy Verified 02/07/22 18:29 General Stated Complaint: Chest Pain DELORIS: 2 Review of Systems Constitutional Constitutional: Denies fever(s), Denies headache(s) and Denies weakness ENT Ears, Nose, Mouth, and Throat: Denies headache(s) and Denies neck pain Cardiovascular Cardiovascular: Reports chest pain and Reports dyspnea Respiratory Respiratory: Reports cough and Reports dyspnea Gastrointestinal Gastrointestinal: Denies abdominal pain, Denies nausea and Denies vomiting Musculoskeletal Musculoskeletal: Denies back pain and Denies neck pain Integumentary/Breasts Skin/Breast: Denies rash Neurologic Neurologic: Denies headache(s) and Denies weakness Hematologic/Lymphatic Hematologic/Lymphatic: Denies easy bleeding and Denies easy bruising PFSH All Active Problems (Updated 02/07/22 @ 21:20 by BRANDON Shanks) Cough (Acute) Shortness of breath (Acute) Pulmonary embolism (Chronic) Confusion (Acute) Hiatal hernia (Chronic) Medical History Abnormal thyroid stimulating hormone (TSH) level Anemia Anxiety Chronic constipation Dyspepsia Dysphagia Fatigue Former smoker Gastritis Heme positive stool Hepatitis C History of hepatitis C Hypogonadism Lactose intolerance Low energy Microcytic anemia Obesity Onychomycosis of toenail Schizoaffective disorder SOB (shortness of breath) on exertion Vitamin D deficiency Surgical History H/O esophagogastroduodenoscopy History of surgery Surgery to penis Normal colonoscopy Social History Smoking/Tobacco Use Status: Former Tobacco Use Quit Date: 10/29/18 Smoking risk assessment performed?: Yes Alcohol Intake: never Drug use: Never Substance use type: does not use Do you feel safe at home: Yes Do you feel safe in your relationship?: Yes Exam Const General: cooperative, healthy appearing, comfortable and no acute distress Orientation: alert, awake and oriented x3 HENMT Head: normal to inspection, normocephalic and atraumatic Face and sinus: normal facial exam Mouth: moist mucous membranes Throat: posterior oropharynx normal Eyes Conjunctivae: conjunctivae normal Neck Neck: normal visual inspection, full ROM, no meningeal signs, trachea midline and supple Chest Chest: normal inspection of the chest and normal palpation of entire chest wall Resp Effort & Inspection: normal respiratory effort and able to speak in complete sentences Auscultation: clear to auscultation bilaterally Cardio Rate: tachycardic (112) Rhythm: regular rhythm GI Inspection: normal to inspection Palpation: soft, not firm, no guarding, no pulsatile masses and nontender Auscultation: normal bowel sounds Back/Spine/Pelvis Back: no CVA tenderness and No back tenderness Skin General skin exam: no rashes or lesions noted Neuro General: patient alert, patient awake, patient oriented x3, moves all extremities and no focal motor deficits Cognition: normal cognition Speech: speech normal Gait: normal gait Motor: muscle tone normal throughout Sensory Exam: no sensory deficits noted Extrem General: normal to inspection, full ROM, capillary refill normal, no pedal edema and no calf tenderness Psych Appearance: grossly normal Mental Status: mental status grossly normal Course Vital Signs Vital signs: Vital Signs Temperature 36.8 C 02/07/22 18:26 Pulse 114 H 02/07/22 18:26 Respiratory Rate 18 02/07/22 18:26 Blood Pressure 136/83 02/07/22 18:26 Pulse Oximetry 99 02/07/22 18:26 Temperature 36.8 C 02/07/22 18:26 Temperature Source Oral 02/07/22 18:26 Pulse 114 H 02/07/22 18:26 Respiratory Rate 18 02/07/22 18:32 Respiratory Effort Short of Breath 02/07/22 18:32 Respiratory Depth Normal 02/07/22 18:32 Respiratory Pattern Normal 02/07/22 18:32 Blood Pressure 136/83 02/07/22 18:26 Blood Pressure Position Sitting 02/07/22 18:26 Pulse Oximetry 99 02/07/22 18:26 Oxygen Delivery Method Room Air 02/07/22 18:26 Oxygen Flow Rate 0 02/07/22 18:26 Pain Level 3 02/07/22 18:32
[2022-02-07 19:06] LABS: Abs Immature Grans 0.01 10^3/uL (0.0-0.06); Absolute Basophil Count 0.02 10^3/uL (0.0-0.2); Absolute Lymphocyte Count 1.81 10^3/uL (1.2-3.4); Absolute Neutrophil Count 3.91 10^3/uL (1.2-6.7); Basophils % 0.3; HCT 37.7 % (40.0-50.0); HGB 11.3 g/dL (13.5-17.5); Immature Grans % 0.2; MCH 22.2 pg (27.0-33.0); MCV 74 fL (80-95); MPV 9.4 fL (8.0-11.0); Neutrophils % 62.5; Platelet Count 256 10^3/uL (130-400); RDW 16.6 % (11.8-14.1); RDW-SD 44.2 fL; WBC 6.25 10^3/uL (4.4-10.8)
[2022-02-07 19:28] LABS: ALT 21 U/L (16-63); AST 12 U/L (15-37); Albumin 3.5 g/dL (3.4-5.0); Alkaline Phosphatase 102 U/L (46-116); Anion Gap 6.2 mmol/L (3-11); BUN 18 mg/dL (7-18); Bilirubin, Total 0.3 mg/dL (0.2-1.0); CO2 26.8 mmol/L (21.0-32.0); CREATININE 1.4 mg/dL (0.70-1.30); Chloride 108 mmol/L (98-107); Estimated GFR 60.85 (mL/min/1.73m2); Glucose 185 mg/dL (74-106); Magnesium 2.1 mg/dL (1.8-2.4); Potassium 3.6 mmol/L (3.5-5.1); Sodium 141 mmol/L (136-145); Troponin I < 50 ng/L (<or=60)
[2022-02-07 19:39] LABS: Diff Comment RBC Morph Reviewed; Microcytosis 2+
[2022-02-07 19:43] LABS: D-Dimer 892 ng/mlFEU (<500)
[2022-02-07 19:54] LABS: TSH (W/Ref FT4) 0.79 uIU/mL (0.36-3.74)
[2022-02-07 20:08] LABS: COVID-19 PCR Negative (Negative); Influenza A PCR Negative (Negative); Influenza B PCR Negative (Negative); RSV PCR Negative (Negative)
[2022-02-07] MEDS: Omnipaque 350 MG/ML 100 ML BTL IJ (20:25)
[2022-02-07] MEDS: Normal Saline Flush 10 ML SYR IVP (20:27)
[2022-02-07 20:30] LABS: Source Nasopharynx
--- NOTE | 2022-02-07 20:40 | DI.CT_ITS ---
Exam(s) CT CHEST PE CTA EXAM: CT CHEST PE CTA CLINICAL HISTORY: sob,elevated dimer. TECHNIQUE: Imaging Protocol: Axial CT angiography was performed with multi-slice acquisition and mu lti-planar and/or 3D reconstructions. CONTRAST MATERIAL: Intravenous: Omnipaque 350 contrast volume:100 mL COMPARISON: CT CT ABDOMEN PELVIS WO from 10/11/2021 FINDINGS: The examination is limited due to patient motion artifact. Tracheobronchial tree: Patent where visualized. Pulmonary parenchyma: No consolidation or dominant measurable mass. No architectural distortion. Pulmonary Arteries: There are filling defects in branches of the pulmonary arteries to the right and left lower lobes consistent with pulmonary emboli. Mediastinum and Leona: No dominant adenopathy or fluid collection. The esophagus is unremarkable. Visualized thyroid gland: Unremarkable. Pleura: There is a small right pleural effusion. No left pleural effusion. No pneumothorax. Heart: The heart is not dilated. No coronary artery calcifications are seen. No pericardial effusion. There is no evidence of right heart strain. Aorta: Thoracic aorta non-dilated. No evidence of dissection. Upper abdomen: Unremarkable. Soft tissues: Unremarkable. Bones: Within normal limits for the patient's age. IMPRESSION: 1. Findings of pulmonary emboli bilaterally in the lower lobes without evidence of right heart strain . 2. Small right pleural effusion. RADIATION DOSE DELIVERED: 439.24mGy.cm Total DLP DATA REPOSITORY: All CT scans at this facility are submitted to the National Radiology Data Registry (NRDR) Dose Index Registry (DIR) with the [employer] (A[employer]). RADIATION OPTIMIZATION: All CT scans at this facility use at least one of these dose optimization te chniques: automated exposure control; mA and/or kV adjustment per patient size (includes targeted exa ms where dose is matched to clinical indication); or iterative reconstruction.
--- NOTE | 2022-02-07 21:06 | DI.VRAD_ITS ---
Addendum created by Cyrus Schulte MD on 02/07/2022 9:08:44 PM EDT: THIS REPORT CONTAINS FINDINGS THAT MAY BE CRITICAL TO PATIENT CARE. The findings were verbally communicated by me to Román Dover via telephone conference at 9:08 PM EDT on 02/07/2022. The findings were acknowledged and understood. Initial report created on 02/07/2022 9:05:57 PM EDT: PROCEDURE INFORMATION: Exam: CTA Chest With Contrast Exam date and time: 02/07/2022 8:35 PM Age: 51 years old Clinical indication: Shortness of breath; Patient HX: Elevated d-dimer TECHNIQUE: Imaging protocol: Computed tomographic angiography of the chest with contrast. 3D rendering (Not supervised by radiologist): MIP and/or 3D reconstructed images were created by the technologist. Radiation optimization: All CT scans at this facility use at least one of these dose optimization techniques: automated exposure control; mA and/or kV adjustment per patient size (includes targeted exams where dose is matched to clinical indication); or iterative reconstruction. Contrast material: OMNIPAQUE 350; Contrast volume: 100 ml; Contrast route: INTRAVENOUS (IV); COMPARISON: CR XR CHEST 2V PA LATERAL 02/23/2021 9:14 AM FINDINGS: Pulmonary arteries: Acute pulmonary emboli within the lobar and segmental branches of the bilateral lower lobes. Aorta: Unremarkable. No aortic aneurysm. No aortic dissection. Lungs: Unremarkable. No consolidation. No masses. Pleural spaces: Small right pleural effusion. Heart: No evidence of acute right heart strain (RV/LV ratio 0.9). Lymph nodes: Unremarkable. No enlarged lymph nodes. Bones/joints: Multilevel thoracic spine degenerative disc space narrowing and osteophyte formation. Soft tissues: Unremarkable. IMPRESSION: 1. Acute pulmonary emboli within the lobar and segmental branches of the bilateral lower lobes. No evidence of acute right heart strain (RV/LV ratio 0.9). 2. Small right pleural effusion. Dictated and Authenticated by: Cyrus Schulte MD. Ordering:COLIN France MD
--- NOTE | 2022-02-07 21:22 | NUR.NOTE ---
Referral faxed to [facility], Dr Carvalho for f/u [facility] for P.E. patient started on xarelto.Nursing Note:
[2022-02-07 21:35] LABS: Prothrombin Time 10.2 sec (9.3-11.0)
[2022-02-07] MEDS: Rivaroxaban 15 MG TABLET PO (21:46)
== END 2022-02-07 21:47 | disposition home or self-care (01) ==
PROVIDERS: Physician Assistant; Emergency Provider Physician Assistant; PCP Internal Medicine
DX: I26.99 Other pulmonary embolism without acute cor pulmonale (principal); R00.0 Tachycardia, unspecified; R06.02 Shortness of breath; Z20.822 Contact with and (suspected) exposure to COVID-19; R79.1 Abnormal coagulation profile
CPT/HCPCS: 71275; 80053; 87637; 93005; 99284; 99285; 83735; 84443; 84484; 85025; 85379; 85610; 85730; 93010; J3490

== ENCOUNTER 2022-02-07 22:28 | Emergency (ER) | payer MEDICARE, MEDICAID, SELFPAY ==
[2022-02-07 22:33] VITALS: BP 128/78; PULSE 95; RESP 20; TEMP 36.8; O2SAT 98
--- NOTE | 2022-02-07 22:45 | ED.GENADUL_ITS ---
Discharge Plan Disposition Patient Disposition: ELOPED Discharge Details Chief Complaint: GenMedical Clinical Impression: Pulmonary embolism Primary Care Provider: Tomás Carvalho ED Provider: Román Dover Home Meds and New Rx's Prescriptions: No Action bupropion HCl 150 mg tablet extended release 24 hr 150 mg PO DAILY Label Comments: 12/08/18 30 mg daily Halperidol capsule 1 mg PO TID Label Comments: 12/08/18 taking bid. TUYET Androderm 4 mg/24 hr patch 24 hour 2 patch Transdermal DAILY Label Comments: 12/08/18 1 patch Saturday, Saturday, Saturday. 2 patches the other days tuyet PNV-Select 27-1 mg tablet 1 tab PO DAILY Label Comments: not taking clozapine [Clozaril] 100 MG tablet 100 mg PO TID Label Comments: pt states he takes 100mg AM 100 mg afternoon and 350 mg HS pantoprazole [Protonix] 20 MG tablet,delayed release (DR/EC) 40 mg PO BID lorazepam 2 MG tablet 2 mg PO BID propranolol 10 MG tablet 10 mg PO BID lithium carbonate 300 MG tablet extended release 150 mg PO HS lactulose 10 gram/15 mL Solution 15 - 30 ml PO DAILY PRN Xarelto 15 mg tablet 15 mg PO BID 21 Days Qty: 42 0RF Rx Instructions: must administer with evening meal Medical Decision Making 51-year-old gentleman who was evaluated in the ER earlier today by me, diagnosed with bilateral PE, initiated on Xarelto, at that time we discussed the potential of admission and he declined, now returns requesting admission, no new or evolving symptoms. He states that he went home and talked with his family and after reconsidering he would be open for admission. Upon this evaluation he appears well, nontoxic, speaks in full sentences, pulse in the 90s, respirations 20, O2 sat 98% on room air. He is hemodynamically stable without evidence of tachycardia or hypoxemia. I discussed the case with our hospitalist, Dr. Rutledge. He felt as though the patient was already initiated on Xarelto, was hemodynamically stable, and saw no clear reason for emergent admission. He did suggest that we could provide another 15 mg dose of Xarelto to take in the morning so that they would have time to fill the prescription without having to prieto around first thing in the morning. I discussed the conversation with Dr. Rutledge with the patient and his mother. They immediately became upset and eloped from the ER stating that they were going to go to [facility]. I did not have the opportunity to contact our hospitalist team again to discuss potential admission based upon family concern and their unhappiness being told that admission was not required. They could not understand why we discussed admission during his previous visit but now this was not an option. I tried to explain to them the admission process, the initial diagnosis here in the ER and then discussing the case with her hospitalist team to decide whether admission is warranted or not. They eloped without any paperwork This documentation was generated using [employer] system, please disregard any oddities of phrase or misspellings. Medical Records Medical records reviewed: Yes I reviewed the patient's medical records. HPI General Mode of arrival: ambulatory . Date/Time Provider Initiated Documentation: 02/07/22 22:38 . Limitations to Documentation: no limitations . Information obtained by: patient and family . HPI Narrative: This is a 51-year-old gentleman who I personally evaluated earlier this evening, diagnosed with bilateral PE, we discussed admission but he declined, initiated on Xarelto, and placed on the care management list to help expedite outpatient follow-up, now presenting having gone home, talked with his mother, and would like to be admitted. Patient active discharge actually called me at 2212 re questing admission and that he would like to return to the ER. I explained to him that I would contact the hospitalist and call him back but that he could certainly return to the ER for reevaluation. He then called me back approximately 5 minutes later stating that he was returning to the ER for evaluation. Patient reports 1 month history of dry cough, shortness of breath, lung pain and chest pain with coughing. Patient reports no new or evolving symptoms when compared to his earlier visit. Please see my initial note from earlier today. Related Data Home Medications Medication Instructions Recorded Confirmed clozapine 100 mg tablet (Clozaril) 100 mg PO TID 11/19/16 02/07/22 lorazepam 2 mg tablet 2 mg PO BID 11/19/16 02/07/22 pantoprazole 20 mg tablet,delayed 40 mg PO BID 11/19/16 02/07/22 release (Protonix) lithium carbonate 300 mg 150 mg PO HS 12/14/16 02/07/22 tablet,extended release propranolol 10 mg tablet 10 mg PO BID 12/14/16 02/07/22 lactulose 10 gram/15 mL oral 15 - 30 ml PO DAILY PRN 11/18/18 02/07/22 solution Halperidol 1 mg PO TID 12/08/18 02/07/22 bupropion HCl 150 mg 24 hr tablet, 150 mg PO DAILY 12/08/18 02/07/22 extended release vit,calcium no.40-iron 1 tab PO DAILY 12/08/18 02/07/22 fum 27 mg iron-folate no.1 1 mg tablet (PNV-Select) testosterone 4 mg/24 hr 2 patch transdermal DAILY 12/08/18 02/07/22 transdermal 24 hour patch (Androderm) rivaroxaban 15 mg tablet (Xarelto) 15 mg PO BID 21 days #42 tabs 02/07/22 Previous Rx's Medication Instructions Recorded rivaroxaban 15 mg tablet (Xarelto) 15 mg PO BID 21 days #42 tabs 02/07/22 Allergies Allergy/AdvReac Type Severity Reaction Status Date / Time codeine Allergy Unknown Verified 02/07/22 18:29 Sulfa (Sulfonamide Allergy Unknown Verified 02/07/22 18:29 Antibiotics) esomeprazole [From Nexium] Allergy Verified 02/07/22 18:29 fenofibrate [From Tricor] Allergy Verified 02/07/22 18:29 ferrous gluconate Allergy Verified 02/07/22 18:29 Penicillins Allergy Verified 02/07/22 18:29 General Stated Complaint: GenMedical DELORIS: 4 Review of Systems Unobtainable due to (Not obtained at this visit) PFSH All Active Problems (Updated 02/07/22 @ 22:59 by BRANDON Shanks) Cough (Acute) Shortness of breath (Acute) Pulmonary embolism (Chronic) Confusion (Acute) Hiatal hernia (Chronic) Medical History Abnormal thyroid stimulating hormone (TSH) level Anemia Anxiety Chronic constipation Dyspepsia Dysphagia Fatigue Former smoker Gastritis Heme positive stool Hepatitis C History of hepatitis C Hypogonadism Lactose intolerance Low energy Microcytic anemia Obesity Onychomycosis of toenail Schizoaffective disorder SOB (shortness of breath) on exertion Vitamin D deficiency Surgical History H/O esophagogastroduodenoscopy History of surgery Surgery to penis Normal colonoscopy Social History Smoking/Tobacco Use Status: Former Tobacco Use Quit Date: 10/29/18 Smoking risk assessment performed?: Yes Alcohol Intake: never Drug use: Never Substance use type: does not use Do you feel safe at home: Yes Do you feel safe in your relationship?: Yes Exam Const General: cooperative, healthy appearing, comfortable and no acute distress Orientation: alert and awake [facility] Head: normal to inspection, normocephalic and atraumatic Eyes Conjunctivae: conjunctivae normal Neck Neck: normal visual inspection, full ROM, no meningeal signs, trachea midline and supple Resp Effort & Inspection: normal respiratory effort and able to speak in complete sentences Cardio Rate: regular rate Rhythm: regular rhythm Neuro General: patient alert, patient awake, moves all extremities and no focal motor deficits Psych Appearance: grossly normal Mental Status: mental status grossly normal Course Vital Signs Vital signs: Vital Signs Temperature 36.8 C 02/07/22 22:33 Pulse 95 H 02/07/22 22:33 Respiratory Rate 20 02/07/22 22:33 Blood Pressure 128/78 02/07/22 22:33 Pulse Oximetry 98 02/07/22 22:33 Temperature 36.8 C 02/07/22 22:33 Temperature Source Tympanic 02/07/22 22:33 Pulse 95 H 02/07/22 22:33 Respiratory Rate 20 02/07/22 22:33 Respiratory Effort Non-Labored 02/07/22 22:38 Respiratory Depth Normal 02/07/22 22:38 Respiratory Pattern Normal 02/07/22 22:38 Blood Pressure 128/78 02/07/22 22:33 Blood Pressure Position Sitting 02/07/22 22:33 Pulse Oximetry 98 02/07/22 22:33 Oxygen Delivery Method Room Air 02/07/22 22:33 Oxygen Flow Rate 0 02/07/22 22:33
--- NOTE | 2022-02-07 23:26 | NUR.NOTE ---
Patient left on second admission to ER by elopjorge. Patient was ambulatory, no increased WOB, normal VS prior to elopement. Exstensive education of PE pathophysiology was reviewed with patient by this RN prior to BRANDON [place] seeing patient. Patient left prior to discussion with admitting team by ER provider, and prior to receiving discharge papers. Patient in NAD. Nursing Note:
== END 2022-02-07 22:41 ==
PROVIDERS: Emergency Provider Physician Assistant; PCP Internal Medicine
DX: I26.99 Other pulmonary embolism without acute cor pulmonale (principal); Z53.29 Procedure and treatment not carried out because of patient's decision for other reasons
CPT/HCPCS: 71275; 80053; 87637; 93005; 99281; 99284; 99285; 83735; 84443; 84484; 85025; 85379; 85610; 85730; J3490

== ENCOUNTER 2022-02-08 15:11 | Outpatient (REF) | payer MEDICARE, MEDICAID, SELFPAY ==
[2022-02-08 22:29] LABS: PSA, Screening 0.5 ng/mL (<=3.5)
== END 2022-02-08 15:12 | disposition home or self-care (01) ==
LOC: NCHCN 15:11
PROVIDERS: PCP Internal Medicine; Visit Provider Internal Medicine
DX: Z12.5 Encounter for screening for malignant neoplasm of prostate (principal); E29.1 Testicular hypofunction
CPT/HCPCS: 84153

== ENCOUNTER 2022-02-12 03:05 | Outpatient (CLI) | payer MEDICARE, MEDICAID, SELFPAY ==
[2022-02-12 15:25] LABS: Abs Immature Grans 0.03 10^3/uL (0.0-0.06); Absolute Basophil Count 0.03 10^3/uL (0.0-0.2); Absolute Lymphocyte Count 1.64 10^3/uL (1.2-3.4); Basophils % 0.3; HCT 37.2 % (40.0-50.0); Immature Grans % 0.3; Lymphocytes % 18.6; MCH 21.7 pg (27.0-33.0); MCHC 29.6 % (32.0-36.0); MCV 73 fL (80-95); MPV 9.5 fL (8.0-11.0); Monocytes % 6.8; Platelet Count 295 10^3/uL (130-400); RBC 5.07 10^6/uL (4.36-5.78); RDW 16.7 % (11.8-14.1); RDW-SD 43.8 fL
[2022-02-12 16:15] LABS: Anisocytosis 1+; Diff Comment RBC Morph Reviewed; Microcytosis 1+; Polychromasia Present
[2022-02-12 16:16] LABS: Poikilocytes 1+
[2022-02-12 16:40] LABS: Lithium < 0.2 mmol/l (0.6-1.2)
[2022-02-12 16:55] LABS: CREATININE 1.3 mg/dL (0.70-1.30); Estimated GFR 66.51 (mL/min/1.73m2); TSH (W/Ref FT4) 0.98 uIU/mL (0.36-3.74)
[2022-02-14 21:55] LABS: Clozapine 1290 ng/mL (350-600); Clozapine+Norclozapine Total 1998 ng/mL; Norclozapine 708 ng/mL
== END 2022-02-12 03:06 | disposition home or self-care (01) ==
LOC: LBO 03:05
PROVIDERS: PCP Internal Medicine; Visit Provider Psychiatry & Neurology Psychiatry
DX: F20.0 Paranoid schizophrenia (principal); Z79.899 Other long term (current) drug therapy; Z51.81 Encounter for therapeutic drug level monitoring
CPT/HCPCS: 36415; 80159; 80178; 82310; 82565; 84443; 85025

== ENCOUNTER 2022-02-27 06:50 | Emergency (ER) | payer MEDICARE, MEDICAID, SELFPAY ==
[2022-02-27] VITALS (56 sets, daily range): BP systolic 75–113; BP diastolic 27–85; PULSE 78–130; RESP 16–33; O2SAT 93–99
--- NOTE | 2022-02-27 07:00 | RT.EKG_ITS ---
APPROVED REPORT Exam: Resting ECG Reason for Exam: tachy/hypotension Patient Location: E HR:119 bpm ECG Measurements Heart Rate [address] 157 P 14 QRSd 133 QRS -64 QT 329 T 13 QTc 463 Conclusion Sinus tachycardia...rate> 99 RBBB and LAFB...QRSd >120mS, axis(-40,240) Physician: unchanged from prior ekg on 02/07/22
--- NOTE | 2022-02-27 07:06 | DI.CT_ITS ---
Exam(s) CT CHEST PE ABD PELVIS W EXAM: CT CHEST PE ABD PELVIS W CLINICAL HISTORY: Hx of PE's, now CP, SOB, tachy, hypotensive. TECHNIQUE: Imaging Protocol: Axial CT angiography was performed with multi-slice acquisition and m ulti-planar and/or 3D reconstructions. CONTRAST MATERIAL: Intravenous: Omnipaque 350 Contrast volume:100 ml Oral: None COMPARISON: CT CT CHEST PE CTA from 02/07/2022 FINDINGS: CHEST: PULMONARY ARTERIES: There are presently no obvious intraluminal filling defects (as was evident on CT scan of 02/07/2022) to suggest acute pulmonary emboli. There has been improvement in pulmonary veronica hanna when compared to the prior study. LUNGS: There is extensive infiltrate now evident in the right lung involving all lobes, both confluen t and nodular in configuration and not associated with pleural effusion. This was not evident on CT scan 02/07/2022. The opposite-left lung appears clear. No pleural effusion.. MEDIASTINUM: There is no hilar nor mediastinal adenopathy. Visualized thyroid unremarkable. CARDIAC: Heart size is upper normal. There is no pericardial effusion. There is no significant shif t of the interventricular septum.Caliber of the thoracic aorta is within normal limits. No dissectio n. OSSEOUS: No significant osseous lesions.. ABDOMEN: There is no ascites. LIVER: There are no focal hepatic lesions nor dilatation of intrahepatic ducts. GALLBLADDER/BILIARY: No obvious gallbladder pathology. CBD is not dilated. PANCREAS: No evidence of pancreatic mass nor dilatation of the pancreatic duct. SPLEEN: Spleen is not enlarged. There are no intrasplenic lesions. Splenic and portal veins are burden nt. ADRENALS: There are no significant adrenal masses. KIDNEYS:No cysts evident. No calculi nor hydronephrosis. No solid renal masses. ABDOMINAL AORTA: Abdominal aorta is not enlarged. LYMPH NODES: There is no retroperitoneal or para-aortic adenopathy. ABDOMINAL WALL/GI: No evidence of significant anterior abdominal wall hernia. Somewhat prominent issa iber size of the entire colon but without bowel wall edema or thickening to suggest colitis. There i s no significant sigmoid diverticular disease. No evidence of appendicitis. PELVIS: LYMPH NODES: There is no intrapelvic nor inguinal adenopathy. GI: No evidence of appendicitis.No evidence of sigmoid diverticulitis. URINARY BLADDER: No calculi nor masses evident REPRODUCTIVE: Prostate not enlarged. OSSEOUS: No significant osseous lesions. IMPRESSION: 1. Compared to the prior CT scan 02/07/2022 there has been clearing of the previously present bilater al pulmonary emboli. There presently no obvious intraluminal filling defects within the pulmonary ar terial tree. However, there is now extensive infiltrate throughout the right lung which was not prev iously present. No associated pleural effusion. Opposite-left lung is clear. 2. No acute rcyus-dudndnjky-rnkfvjzznrg findings. Appendix appears unremarkable. 3. Diameter of the colon is slightly prominent but without colitis pattern. 4. There is no ascites. RADIATION DOSE DELIVERED: 1,557.37mGy.cm Total DLP DATA REPOSITORY: All CT scans at this facility are submitted to the National Radiology Data Registry (NRDR) Dose Index Registry (DIR) with the [employer] (ACR). RADIATION OPTIMIZATION: All CT scans at this facility use at least one of these dose optimization te chniques: automated exposure control; mA and/or kV adjustment per patient size (includes targeted exa ms where dose is matched to clinical indication); or iterative reconstruction.
--- NOTE | 2022-02-27 07:07 | ED.GENADUL_ITS ---
Discharge Plan Disposition Patient Disposition: STILL A PATIENT Condition: Serious Discharge Details Chief Complaint: Abd Prob Clinical Impression: Abdominal pain, RLQ, Chest pain Primary Care Provider: Tomás Carvalho ED Provider: Ankur Pereyra Home Meds and New Rx's Prescriptions: No Action bupropion HCl 150 mg tablet extended release 24 hr 150 mg PO DAILY Label Comments: 12/08/18 30 mg daily Halperidol capsule 1 mg PO TID Label Comments: 12/08/18 taking bid. TUYET Androderm 4 mg/24 hr patch 24 hour 2 patch Transdermal DAILY Label Comments: 12/08/18 1 patch Saturday, Saturday, Saturday. 2 patches the other days tuyet PNV-Select 27-1 mg tablet 1 tab PO DAILY Label Comments: not taking clozapine [Clozaril] 100 MG tablet 100 mg PO TID Label Comments: pt states he takes 100mg AM 100 mg afternoon and 350 mg HS pantoprazole [Protonix] 20 MG tablet,delayed release (DR/EC) 40 mg PO BID lorazepam 2 MG tablet 2 mg PO BID propranolol 10 MG tablet 10 mg PO BID lithium carbonate 300 MG tablet extended release 150 mg PO HS lactulose 10 gram/15 mL Solution 15 - 30 ml PO DAILY PRN haloperidol 1 mg tablet 1 mg PO DAILY lithium carbonate 150 mg capsule 150 mg PO DAILY Label Comments: TAKE 1 CAPSULE BY MOUTH AT BEDTIME FOR 7 DAYS propranolol 10 mg tablet 10 mg PO DAILY Label Comments: TAKE 1 TABLET BY MOUTH TWICE DAILY FOR 7 DAYS lorazepam 2 mg tablet 2 mg pantoprazole 40 mg tablet,delayed release (DR/EC) 40 mg PO DAILY Label Comments: TAKE 1 TABLET BY MOUTH EVERY DAY lactulose 10 gram/15 mL solution Label Comments: TAKE 15 TO 30 ML BY MOUTH EVERY DAY NEEDED Xarelto 10 mg tablet 20 tab PO DAILY Medical Decision Making This is a 51-year-old male with a past medical history of previous hepatitis C, schizoaffective disorder, recently diagnosed pulmonary embolisms on 02/07/2022 currently on Xarelto who presents today for feelings of anxiety, pain with breathing, and right lower quadrant abdominal pain. Patient states that the pain in the right lower quadrant has been present for the last few weeks but notably worsening over the last day or so. The pain with breathing has been worsening over the last day or 2 since she was originally diagnosed with pulmonary emboli. He denies any syncope. He does admit to chest pain with a deep breath. He denies any arm neck or shoulder pain. He denies any tearing or ripping sensation. He states that he feels very anxious and this is slightl y abnormal for him. No other complaints at this time. No hemoptysis or cough. No urinary discomfort or dysuria. Physical exam demonstrates a tachycardic, slightly hypertensive male, who is ANO x3, and keenly responsive. Lungs are clear, oxygenation stable. Positive right lower quadrant pain on exam. But no evidence of an acute surgical abdomen clinically. Differential is notably broad, and includes potential cardiac strain from PEs, worsening PE burden, appendicitis, kidney stone, and less likely aortic pathology. We will rehydrate, perform bedside E fast and cardiac ultrasound, evaluate for these concerning etiologies, monitor closely and reassess 7:12 AM EKG shows right bundle branch block, does not appear to be changed or altered significantly from prior EKG 2 weeks HPI General Date/Time Provider Initiated Documentation: 02/27/22 06:56 . HPI Narrative: This is a 51-year-old male with a past medical history of previous hepatitis C, schizoaffective disorder, recently diagnosed pulmonary embolisms on 02/07/2022 currently on Xarelto who presents today for feelings of anxiety, pain with breathing, and right lower quadrant abdominal pain. Patient states that the pain in the right lower quadrant has been present for the last few weeks but notably worsening over the last day or so. The pain with breathing has been worsening over the last day or 2 since she was originally diagnosed with pulmonary emboli. He denies any syncope. He does admit to chest pain with a deep breath. He denies any arm neck or shoulder pain. He denies any tearing or ripping sensation. He states that he feels very anxious and this is slightly abnormal for him. No other complaints at this time. No hemoptysis or cough. No urinary discomfort or dysuria. Related Data Home Medications Medication Instructions Recorded Confirmed clozapine 100 mg tablet (Clozaril) 100 mg PO TID 11/19/16 02/27/22 lorazepam 2 mg tablet 2 mg PO BID 11/19/16 02/27/22 pantoprazole 20 mg tablet,delayed 40 mg PO BID 11/19/16 02/07/22 release (Protonix) lithium carbonate 300 mg 150 mg PO HS 12/14/16 02/07/22 tablet,extended release propranolol 10 mg tablet 10 mg PO BID 12/14/16 02/07/22 lactulose 10 gram/15 mL oral 15 - 30 ml PO DAILY PRN 11/18/18 02/07/22 solution Halperidol 1 mg PO TID 12/08/18 02/07/22 bupropion HCl 150 mg 24 hr tablet, 150 mg PO DAILY 12/08/18 02/27/22 extended release vit,calcium no.40-iron 1 tab PO DAILY 12/08/18 02/27/22 fum 27 mg iron-folate no.1 1 mg tablet (PNV-Select) testosterone 4 mg/24 hr 2 patch transdermal DAILY 12/08/18 02/27/22 transdermal 24 hour patch (Androderm) haloperidol 1 mg tablet 1 mg PO DAILY 02/27/22 02/27/22 lactulose 10 gram/15 mL oral 02/27/22 02/27/22 solution lithium carbonate 150 mg capsule 150 mg PO DAILY 02/27/22 02/27/22 lorazepam 2 mg tablet 2 mg 02/27/22 pantoprazole 40 mg tablet,delayed 40 mg PO DAILY 02/27/22 02/27/22 release propranolol 10 mg tablet 10 mg PO DAILY 02/27/22 02/27/22 rivaroxaban 10 mg tablet (Xarelto) 20 tab PO DAILY 02/27/22 02/27/22 Allergies Allergy/AdvReac Type Severity Reaction Status Date / Time codeine Allergy Unknown Verified 02/07/22 18:29 Sulfa (Sulfonamide Allergy Unknown Verified 02/07/22 18:29 Antibiotics) esomeprazole [From Nexium] Allergy Verified 02/07/22 18:29 fenofibrate [From Tricor] Allergy Verified 02/07/22 18:29 ferrous gluconate Allergy Verified 02/07/22 18:29 Penicillins Allergy Verified 02/07/22 18:29 General Stated Complaint: Abd Prob DELORIS: 2 Review of Systems All systems reviewed & are unremarkable except as noted in HPI and below PFSH All Active Problems (Updated 02/27/22 @ 08:00 by Ankur Pereyra DO) Cough (Acute) Shortness of breath (Acute) Pulmonary embolism (Chronic) Abdominal pain, RLQ (Acute) Chest pain (Acute) Confusion (Acute) Hiatal hernia (Chronic) Medical History Abnormal thyroid stimulating hormone (TSH) level Anemia Anxiety Chronic constipation Dyspepsia Dysphagia Fatigue Former smoker Gastritis Heme positive stool Hepatitis C History of hepatitis C Hypogonadism Lactose intolerance Low energy Microcytic anemia Obesity Onychomycosis of toenail Schizoaffective disorder SOB (shortness of breath) on exertion Vitamin D deficiency Surgical History H/O esophagogastroduodenoscopy History of surgery Surgery to penis Normal colonoscopy Social History Smoking/Tobacco Use Status: Former Tobacco Use Quit Date: 10/29/18 Smoking risk assessment performed?: Yes Alcohol Intake: never Drug use: Never Substance use type: does not use Do you feel safe at home: Yes Do you feel safe in your relationship?: Yes Exam Narrative Exam Narrative: 1.Const: Well-nourished, Well-developed, appearing stated age 2.Eyes: PERRL, no conjunctival injection, and symmetrical lids. 3.ENT: Atraumatic external nose and ears. Moist MM. Neck: Symmetric, trachea midline, No thyromegaly. 4.CVS: +S1/S2, No murmurs or gallops. Peripheral pulses 2+ and equal in all extremities. Brisk capillary refill in all extremities. 5.RESP: Unlabored respiratory effort. Clear to auscultation bilaterally. No wheezes rales or rhonchi 6.GI: Soft, Nontender/Nondistended, No hepatosplenomegaly. No guarding or rebound. Mild reproducible right lower quadrant tenderness. No inguinal hernia. No testicular tenderness. Negative Ybarra's 7.MSK: Normocephalic/Atraumatic, Extremities w/o deformity or ttp No cyanosis or clubbing, Normal movement of all extremities 8.Skin: Warm, Dry. No rashes or lesions. 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 Sensation grossly intact, no focal neurologic deficits. 10.Psych: (AAO) x3. Appropriate mood and affect Course Vital Signs Vital signs: Vital Signs Pulse 130 H 02/27/22 06:55 Respiratory Rate 30 H 02/27/22 06:55 Blood Pressure 91/53 L 02/27/22 06:55 Pulse Oximetry 97 02/27/22 06:55 Pulse 130 H 02/27/22 06:55 Respiratory Rate 30 H 02/27/22 06:55 Blood Pressure 91/53 L 02/27/22 06:55 Blood Pressure Position Sitting 02/27/22 06:55 Pulse Oximetry 97 02/27/22 06:55 Oxygen Delivery Method Room Air 02/27/22 06:55 Oxygen Flow Rate 0 02/27/22 06:55 Pain Level 7 02/27/22 06:55
[2022-02-27 07:18] LABS: Bilirubin Negative (Negative); Blood Negative (Negative); Clarity Clear (Clear); Glucose Negative (Negative); Ketones 15 mg/dL (Negative); Leukocyte Esterase Trace (Negative); Nitrite Negative (Negative); Specific Gravity >= 1.030 (1.005-1.025); Urobilinogen 0.2 EU/dL (Up TO 0.2); pH 5.5 (5-8)
[2022-02-27 07:32] LABS: Bacteria Negative HPF (Negative); Epithelial Cells Rare HPF (Negative); RBC 0-2 HPF (0-2)
[2022-02-27 07:33] LABS: C & S Indicated? No; Casts Negative LPF (Negative); Crystals Many Calcium Oxalate HPF (Negative); Mucus Moderate (Negative)
[2022-02-27] MEDS: Normal Saline 1,000 ML 1000 ML IV ×2 (07:37→11:20)
[2022-02-27 07:40] LABS: HCT 39.4 % (40.0-50.0); HGB 11.6 g/dL (13.5-17.5); Lactate 2.9 mmol/L (0.6-1.4); MCH 21.6 pg (27.0-33.0); MCHC 29.4 % (32.0-36.0); MCV 74 fL (80-95); MPV 9.3 fL (8.0-11.0); RBC 5.36 10^6/uL (4.36-5.78); RDW 16.6 % (11.8-14.1); RDW-SD 43.8 fL; WBC 12.72 10^3/uL (4.4-10.8)
[2022-02-27 07:56] LABS: INR 1.6 (0.9-1.1); PTT Activated 34.1 sec (21.0-27.5); Prothrombin Time 15.4 sec (9.3-11.0)
[2022-02-27 08:07] LABS: Anisocytosis 1+; Diff Comment Manual Differential; Hypochromasia 1+; Microcytosis 1+; Polychromasia Present
[2022-02-27 08:08] LABS: ALT 16 U/L (16-63); AST 9 U/L (15-37); Absolute Lymphocyte Count 1.02 10^3/uL (1.2-3.4); Absolute Monocyte Count 0.76 10^3/uL (0.1-0.8); Absolute Neutrophil Count 10.94 10^3/uL (1.2-6.7); Albumin 3.6 g/dL (3.4-5.0); Alkaline Phosphatase 97 U/L (46-116); Anion Gap 11.6 mmol/L (3-11); BUN 31 mg/dL (7-18); Bands % 4; Bilirubin, Total 0.4 mg/dL (0.2-1.0); CO2 23.4 mmol/L (21.0-32.0); Calcium 9.9 mg/dL (8.5-10.1); Chloride 108 mmol/L (98-107); Estimated GFR 39.66 (mL/min/1.73m2); Glucose 171 mg/dL (74-106); NT-proBNP 96 pg/mL (<300); Platelet Count 267 10^3/uL (130-400); Poikilocytes 1+; Potassium 3.5 mmol/L (3.5-5.1); Sodium 143 mmol/L (136-145); Total Protein 7.1 g/dL (6.4-8.2); Troponin I < 50 ng/L (<or=60)
[2022-02-27 08:25] LABS: FREE T4 1.26 ng/dL (0.76-1.46)
[2022-02-27] MEDS: Normal Saline - Diluent 50 ML VIAL IV (09:09)
[2022-02-27] MEDS: Normal Saline Flush 10 ML SYR IVP (09:10)
[2022-02-27] MEDS: Omnipaque 350 MG/ML 500 ML BTL-Imaging package IJ (09:11)
[2022-02-27] MEDS: Lactated Ringers 1,000 ML 1000 ML IV (09:45)
--- NOTE | 2022-02-27 09:47 | ED.PROG_ITS ---
Date of service: 02/27/22 Time of Service: 09:47 Medical Decision Making -- Care was signed out by Dr. Pereyra with plan to follow-up on CT imaging and reassess patient for disposition. Please see Dr. Pereyra's documentation regarding initial ED presentation and course. Labs reviewed concerning for leukocytosis with lactic acidosis. CT of the chest was interpreted by radiology who I spoke with: No pulmonary embolism, right lower lobe infiltrate. CT of the abdomen pelvis was interpreted by radiology who I spoke with: No acute or notable findings. Plan to initiate treatment with antibiotics. I spoke with the patient about penicillin allergy and he notes mild rash, no anaphylaxis. As such safe to proc eed with ceftriaxone. Plan to initiate treatment for right lower lobe pneumonia with ceftriaxone 1 g IV and doxycycline 100 mg daily. Patient was reassessed and heart rate improved now 99. Blood pressure also improved to 100/66. Plan to hospitalize for treatment for sepsis with pneumonia. I spoke with Dr. Patten, discussed ED presentation course, she will admit the patient. 1320 --patient now wound is blood pressure trending down. MAP of 63. Plan to initiate Levophed infusion. [facility] medical surgical floor unable to accept the patient given blood pressure. No ICU beds available. I spoke again with Dr. Patten who requests transfer if another facility has capacity. I called [facility] to request transfer and awaiting callback. 1422 --I received call back from clinical clothing supervisor Bryce at [facility] and they are unable to accept the patient in transfer. I called [facility] [[email or web address] transfer center to request transfer to [facility] and awaiting callback. Critical Care Time Critical Care Time Critical Care Time: Yes Total Critical Care Time: 45 Attestation: I spent greater than 45 minutes addressing this patient's immediate life threats. Please see MDM section of note. This time was spent engaged in work directly related to the patient's care, exclusive of separate procedures, and failure to initiate these interventions would have likely resulted in clinically significant or life threatening deterioration in the patient's condition. Sign Out Sign Out Data: Sign Out Comment: 30-minute follow-up on labs, and imaging. Suspect PE burden versus acute process in the abdomen. Last updated by Ankur Pereyra DO at 02/27/22 08:12 Discharge Plan Disposition Patient Disposition: Transfer-Acute Inpatient Care Specific Acute Inpt Facility: [facility] Condition: Critical Discharge Details Chief Complaint: Abd Prob Clinical Impression: Acute pneumonia, Abdominal pain, RLQ Primary Care Provider: Tomás Carvalho ED Provider: Gildardo Isaac Home Meds and New Rx's Prescriptions: No Action bupropion HCl 150 mg tablet extended release 24 hr 150 mg PO DAILY Label Comments: 12/08/18 30 mg daily Halperidol capsule 1 mg PO TID Label Comments: 12/08/18 taking bid. TUYET Androderm 4 mg/24 hr patch 24 hour 2 patch Transdermal DAILY Label Comments: 12/08/18 1 patch Saturday, Saturday, Saturday. 2 patches the other days tuyet PNV-Select 27-1 mg tablet 1 tab PO DAILY Label Comments: not taking clozapine [Clozaril] 100 MG tablet 100 mg PO TID Label Comments: pt states he takes 100mg AM 100 mg afternoon and 350 mg HS pantoprazole [Protonix] 20 MG tablet,delayed release (DR/EC) 40 mg PO BID lorazepam 2 MG tablet 2 mg PO BID propranolol 10 MG tablet 10 mg PO BID lithium carbonate 300 MG tablet extended release 150 mg PO HS lactulose 10 gram/15 mL Solution 15 - 30 ml PO DAILY PRN haloperidol 1 mg tablet 1 mg PO DAILY lithium carbonate 150 mg capsule 150 mg PO DAILY Label Comments: TAKE 1 CAPSULE BY MOUTH AT BEDTIME FOR 7 DAYS propranolol 10 mg tablet 10 mg PO DAILY Label Comments: TAKE 1 TABLET BY MOUTH TWICE DAILY FOR 7 DAYS lorazepam 2 mg tablet 2 mg pantoprazole 40 mg tablet,delayed release (DR/EC) 40 mg PO DAILY Label Comments: TAKE 1 TABLET BY MOUTH EVERY DAY lactulose 10 gram/15 mL solution Label Comments: TAKE 15 TO 30 ML BY MOUTH EVERY DAY NEEDED Xarelto 10 mg tablet 20 tab PO DAILY Discharge Data Discharge Date/Time-TO BE ENTERED AT DEPARTURE: 02/27/22 16:10
[2022-02-27 10:00] LABS: Source Nasal/Nares
[2022-02-27] MEDS: cefTRIAXone 1 GM/50 ML BAG IVPB (10:12)
[2022-02-27 10:33] LABS: COVID-19 PCR Negative (Negative)
[2022-02-27] MEDS: DOXYCYCLINE 100 MG in Normal Saline 100 ML IVPB (10:57)
[2022-02-27 11:34] LABS: Troponin I < 50 ng/L (<or=60)
[2022-02-27 13:04] LABS: Lab Add On Test DONE
[2022-02-27 13:28] LABS: C-Reactive Protein 3.01 mg/dL (0.0-0.3)
[2022-02-27 13:58] LABS: Lactate 1.6 mmol/L (0.6-1.4)
== END 2022-02-27 16:10 | disposition short-term general hospital (02) ==
PROVIDERS: Internal Medicine; Student in an Organized Health Care Education/Training Program; Emergency Provider Student in an Organized Health Care Education/Training Program; PCP Internal Medicine
DX: R10.31 Right lower quadrant pain (principal); R07.9 Chest pain, unspecified; F25.9 Schizoaffective disorder, unspecified; I26.99 Other pulmonary embolism without acute cor pulmonale; Z79.01 Long term (current) use of anticoagulants; R06.02 Shortness of breath
CPT/HCPCS: 36410; 36415; 71275; 74177; 80053; 84145; 87040; 87635; 93005; 93308; 96361; 96365; 96366; 96367; 96368; 96375; 99285; 81003; 81015; 83605; 83880; 84439; 84443; 84484; 85025; 85610; 85730; 86140; 93010; J0696

== ENCOUNTER 2022-03-07 02:48 | Outpatient (CLI) | payer MEDICARE, MEDICAID, SELFPAY ==
[2022-03-07 08:32] LABS: Abs Immature Grans 0.04 10^3/uL (0.0-0.06); Absolute Basophil Count 0.02 10^3/uL (0.0-0.2); Absolute Lymphocyte Count 1.53 10^3/uL (1.2-3.4); Absolute Monocyte Count 0.39 10^3/uL (0.1-0.8); Absolute Neutrophil Count 3.94 10^3/uL (1.2-6.7); Basophils % 0.3; HCT 35.2 % (40.0-50.0); HGB 10.4 g/dL (13.5-17.5); Immature Grans % 0.7; Lymphocytes % 25.8; MCH 21.8 pg (27.0-33.0); MCHC 29.5 % (32.0-36.0); MCV 74 fL (80-95); MPV 9.1 fL (8.0-11.0); Monocytes % 6.6; Neutrophils % 66.6; Platelet Count 286 10^3/uL (130-400); RBC 4.78 10^6/uL (4.36-5.78); RDW 17.1 % (11.8-14.1); WBC 5.92 10^3/uL (4.4-10.8)
[2022-03-07 08:41] LABS: Diff Comment RBC Morph Reviewed; Microcytosis 2+
[2022-03-07 09:17] LABS: CREATININE 1.2 mg/dL (0.70-1.30); Calcium 9.8 mg/dL (8.5-10.1); Estimated GFR 73.22 (mL/min/1.73m2); TSH (W/Ref FT4) 0.32 uIU/mL (0.36-3.74)
[2022-03-07 09:34] LABS: FREE T4 1.26 ng/dL (0.76-1.46)
[2022-03-07 09:35] LABS: Lithium < 0.2 mmol/l (0.6-1.2)
[2022-03-09 22:25] LABS: Clozapine 1170 ng/mL (350-600); Clozapine+Norclozapine Total 1820 ng/mL; Norclozapine 650 ng/mL
== END 2022-03-07 02:49 | disposition home or self-care (01) ==
LOC: LBO 02:48
PROVIDERS: PCP Internal Medicine; Visit Provider Psychiatry & Neurology Psychiatry
DX: F20.0 Paranoid schizophrenia (principal); Z79.899 Other long term (current) drug therapy; Z51.81 Encounter for therapeutic drug level monitoring
CPT/HCPCS: 36415; 80159; 80178; 82310; 82565; 84439; 84443; 85025

== ENCOUNTER 2022-04-02 03:19 | Outpatient (CLI) | payer MEDICARE, MEDICAID, SELFPAY ==
[2022-04-02 11:36] LABS: Abs Immature Grans 0.02 10^3/uL (0.0-0.06); Absolute Basophil Count 0.04 10^3/uL (0.0-0.2); Absolute Lymphocyte Count 1.48 10^3/uL (1.2-3.4); Absolute Monocyte Count 0.47 10^3/uL (0.1-0.8); Absolute Neutrophil Count 3.98 10^3/uL (1.2-6.7); Basophils % 0.7; HCT 34.1 % (40.0-50.0); HGB 10.2 g/dL (13.5-17.5); Immature Grans % 0.3; Lymphocytes % 24.7; MCH 21.4 pg (27.0-33.0); MCHC 29.9 % (32.0-36.0); MCV 72 fL (80-95); MPV 9.8 fL (8.0-11.0); Monocytes % 7.8; Neutrophils % 66.5; Platelet Count 277 10^3/uL (130-400); RBC 4.77 10^6/uL (4.36-5.78); RDW 16.9 % (11.8-14.1); RDW-SD 43.4 fL; WBC 5.99 10^3/uL (4.4-10.8)
[2022-04-02 11:49] LABS: Diff Comment RBC Morph Reviewed; Microcytosis 2+
[2022-04-02 12:08] LABS: CREATININE 1.2 mg/dL (0.70-1.30); Calcium 9.8 mg/dL (8.5-10.1); Estimated GFR 73.22 (mL/min/1.73m2); TSH (W/Ref FT4) 0.02 uIU/mL (0.36-3.74)
[2022-04-02 12:24] LABS: FREE T4 1.32 ng/dL (0.76-1.46); Lithium < 0.2 mmol/l (0.6-1.2)
[2022-04-03 23:31] LABS: Clozapine 1380 ng/mL (350-600); Clozapine+Norclozapine Total 2106 ng/mL; Norclozapine 726 ng/mL
== END 2022-04-02 03:20 | disposition home or self-care (01) ==
PROVIDERS: PCP Internal Medicine; Visit Provider Psychiatry & Neurology Psychiatry
DX: F20.0 Paranoid schizophrenia (principal)
CPT/HCPCS: 36415; 80159; 80178; 82310; 82565; 84439; 84443; 85025

== ENCOUNTER 2022-04-04 10:57 | Outpatient (REF) | payer MEDICARE, MEDICAID, SELFPAY ==
[2022-04-04 14:39] LABS: Iron 21 ug/dL (65-175); Total Iron Binding Capacity 298 ug/dL (250-450); Transferrin Sat 7 % (20-55)
[2022-04-04 15:08] LABS: Vitamin B12 483 pg/mL (193-986)
== END 2022-04-04 10:58 | disposition home or self-care (01) ==
LOC: NCHCN 10:57
PROVIDERS: PCP Internal Medicine; Visit Provider Internal Medicine
DX: D50.9 Iron deficiency anemia, unspecified (principal); Z87.01 Personal history of pneumonia (recurrent); Z86.711 Personal history of pulmonary embolism; Z79.899 Other long term (current) drug therapy
CPT/HCPCS: 82607; 83540; 83550

== ENCOUNTER 2022-04-30 01:27 | Outpatient (CLI) | payer MEDICARE, MEDICAID, SELFPAY ==
--- NOTE | 2022-04-30 09:35 | DI.RAD_ITS ---
Exam(s) XR CHEST 2V PA LATERAL EXAM: XR CHEST 2V PA LATERAL CLINICAL HISTORY: H/O PNEUMONIA, Z78.01 TECHNIQUE: 2D digital imaging was performed of the chest. Two images were obtained. PA and lateral views were obtained. COMPARISON: CR XR CHEST 2V PA LATERAL from 02/23/2021 FINDINGS: MEDIASTINUM: Normal. HEART: Normal. PULMONARY VASCULATURE: Normal. LUNGS: Clear. PLEURAL SPACE: No pleural effusion or pneumothorax. BONE:Within normal limits for the patient's age. OTHER FINDINGS:Normal. IMPRESSION: No acute pulmonary findings. DATA REPOSITORY: RADIATION DOSE DELIVERED:
== END 2022-04-30 01:47 ==
LOC: DI 01:27
PROVIDERS: PCP Internal Medicine; Visit Provider Internal Medicine
DX: Z87.01 Personal history of pneumonia (recurrent) (principal)
CPT/HCPCS: 71046

== ENCOUNTER 2022-04-30 03:07 | Outpatient (CLI) | payer MEDICARE, MEDICAID, SELFPAY ==
[2022-04-30 12:17] LABS: Abs Immature Grans 0.02 10^3/uL (0.0-0.06); Absolute Basophil Count 0.03 10^3/uL (0.0-0.2); Absolute Lymphocyte Count 1.57 10^3/uL (1.2-3.4); Absolute Monocyte Count 0.47 10^3/uL (0.1-0.8); Absolute Neutrophil Count 3.82 10^3/uL (1.2-6.7); Basophils % 0.5; HCT 43.3 % (40.0-50.0); HGB 12.7 g/dL (13.5-17.5); Immature Grans % 0.3; Lymphocytes % 26.6; MCH 23.4 pg (27.0-33.0); MCHC 29.3 % (32.0-36.0); MCV 80 fL (80-95); MPV 9.6 fL (8.0-11.0); Neutrophils % 64.6; Platelet Count 247 10^3/uL (130-400); RBC 5.42 10^6/uL (4.36-5.78); RDW-SD 65.2 fL; WBC 5.91 10^3/uL (4.4-10.8)
[2022-04-30 12:55] LABS: Diff Comment RBC Morph Reviewed
[2022-04-30 12:56] LABS: Anisocytosis 2+
[2022-04-30 13:14] LABS: ALT 23 U/L (16-63); AST 15 U/L (15-37); Albumin 3.7 g/dL (3.4-5.0); Alkaline Phosphatase 108 U/L (46-116); Anion Gap 7.1 mmol/L (3-11); BUN 20 mg/dL (7-18); Bilirubin, Total 0.3 mg/dL (0.2-1.0); CO2 24.9 mmol/L (21.0-32.0); CREATININE 1.2 mg/dL (0.70-1.30); Calcium 9.6 mg/dL (8.5-10.1); Chloride 108 mmol/L (98-107); Estimated GFR 73.22 (mL/min/1.73m2); Glucose 111 mg/dL (74-106); Potassium 4.3 mmol/L (3.5-5.1); Sodium 140 mmol/L (136-145); TSH (W/Ref FT4) 0.09 uIU/mL (0.36-3.74); Total Protein 6.8 g/dL (6.4-8.2)
[2022-04-30 13:21] LABS: Lithium < 0.2 mmol/l (0.6-1.2)
[2022-04-30 22:40] LABS: T3, Total 138 ng/dL (97-169)
[2022-05-02 00:24] LABS: Clozapine 991 ng/mL (350-600); Clozapine+Norclozapine Total 1587 ng/mL; Norclozapine 596 ng/mL
== END 2022-04-30 03:08 | disposition home or self-care (01) ==
PROVIDERS: PCP Internal Medicine; Visit Provider Psychiatry & Neurology Psychiatry
DX: F20.0 Paranoid schizophrenia (principal); R94.6 Abnormal results of thyroid function studies; Z79.899 Other long term (current) drug therapy; Z51.81 Encounter for therapeutic drug level monitoring
CPT/HCPCS: 36415; 80053; 71046; 80159; 80178; 84439; 84443; 84480; 85025

== ENCOUNTER 2022-05-07 10:45 | Emergency (ER) | payer MEDICARE, MEDICAID, SELFPAY ==
--- NOTE | 2022-05-07 10:45 | RT.EKG_ITS ---
APPROVED REPORT Exam: Resting ECG Reason for Exam: Irregular Heart Rate Patient Location: E HR:86 bpm ECG Measurements Heart Rate 86 AXIS NM 153 P 0 QRSd 132 QRS -32 QT 344 T 11 QTc 412 Conclusion Sinus rhythm. Right bundle branch block. Nonspecific ST changes
[2022-05-07 10:52] VITALS: BP 123/81; PULSE 86; RESP 18; O2SAT 98
--- NOTE | 2022-05-07 11:00 | DI.RAD_ITS ---
Exam(s) XR CHEST 2V PA LATERAL EXAM: XR CHEST 2V PA LATERAL CLINICAL HISTORY: Irregular heartbeat TECHNIQUE: 2D digital imaging was performed. COMPARISON: CR XR CHEST 2V PA LATERAL from 04/30/2022 FINDINGS: HEART: Normal size. Aorta: Not dilated. PULMONARY VASCULATURE: Normal. LUNGS: Clear. PLEURAL SPACE: No pleural effusion or pneumothorax. BONE:Syndesmophyte formation along thoracic spine IMPRESSION: No acute abnormality. DATA REPOSITORY: RADIATION DOSE DELIVERED:
[2022-05-07 11:26] VITALS: RESP 18
[2022-05-07 11:37] LABS: Abs Immature Grans 0.03 10^3/uL (0.0-0.06); Absolute Basophil Count 0.03 10^3/uL (0.0-0.2); Absolute Lymphocyte Count 1.59 10^3/uL (1.2-3.4); Absolute Monocyte Count 0.54 10^3/uL (0.1-0.8); Absolute Neutrophil Count 5.31 10^3/uL (1.2-6.7); Basophils % 0.4; HCT 40.3 % (40.0-50.0); Immature Grans % 0.4; Lymphocytes % 21.2; MCH 24.2 pg (27.0-33.0); MCHC 29.8 % (32.0-36.0); MCV 81 fL (80-95); MPV 9.3 fL (8.0-11.0); Monocytes % 7.2; Neutrophils % 70.8; Platelet Count 225 10^3/uL (130-400); RBC 4.95 10^6/uL (4.36-5.78)
[2022-05-07 11:44] LABS: INR 1.3 (0.9-1.1); PTT Activated 35.2 sec (21.0-27.5); Prothrombin Time 13.2 sec (9.3-11.0)
--- NOTE | 2022-05-07 11:44 | ED.GENADUL_ITS ---
Discharge Plan Disposition Patient Disposition: Home Condition: Stable Discharge Details Clinical Impression: Symptomatic PVCs Primary Care Provider: Tomás Carvalho ED Provider: Hira Aceves Home Meds and New Rx's Prescriptions: Continued bupropion HCl 150 mg tablet extended release 24 hr 150 mg PO DAILY Label Comments: 12/08/18 30 mg daily Androderm 4 mg/24 hr patch 24 hour 2 patch Transdermal DAILY Label Comments: 12/08/18 1 patch Saturday, Saturday, Saturday. 2 patches the other days ev PNV-Select 27-1 mg tablet 1 tab PO DAILY Label Comments: not taking haloperidol 1 mg tablet 1 mg PO BID albuterol sulfate [Ventolin HFA] 90 mcg/actuation HFA aerosol inhaler 2 puff inhalation Q6H PRN bupropion HCl [Wellbutrin XL] 150 mg tablet extended release 24 hr 150 mg PO QAM clozapine [Clozaril] 100 MG tablet 100 mg PO TID Label Comments: pt states he takes 100mg AM 100 mg afternoon and 350 mg HS pantoprazole [Protonix] 20 MG tablet,delayed release (DR/EC) 40 mg PO BID lorazepam 2 MG tablet 2 mg PO BID propranolol 10 MG tablet 10 mg PO BID lithium carbonate 300 MG tablet extended release 150 mg PO HS lactulose 10 gram/15 mL Solution 15 - 30 ml PO DAILY PRN lactulose 10 gram/15 mL solution Label Comments: TAKE 15 TO 30 ML BY MOUTH EVERY DAY NEEDED Xarelto 10 mg tablet 20 tab PO DAILY Discharge Instructions Instructions: Premature Ventricular Contractions (ED) Additional Instructions: Continue to take your normally prescribed medications. If you develop any significant chest pain, shortness of breath, or change in your condition feel free to return to the emergency department for reassessment otherwise follow-up with your primary care provider for recheck of your symptoms and further discussion as needed. We have placed an order for outpatient heart monitoring and they will contact you to schedule having the monitor placed. Referrals: Tomás Carvalho MD [Primary Care Provider] - 1 week Discharge Orders Other Ambulatory Orders: Holter Monitor (STAT) Timeframe: [id number] Facility: [facility] - Location: Respiratory Therapy Ordered By: Hira Aceves Discharge Data Discharge Date/Time-TO BE ENTERED AT DEPARTURE: 05/07/22 13:36 Medical Decision Making Patient presenting to the emergency department for chief complaint of irregular heartbeat. Patient reports this is been intermittent for a while but has noticed it more recently. He states feeling the sensation of irregularity but denies any pain or discomfort. Patient denies all other symptoms and denies any current pain. Physical exam is unremarkable for any acute cardiac findings. Of note while monitoring patient on emergency department cardiac monitor technician PVCs were noted. We will plan on performing labs and EKG along with chest x-ray. Given patient's history of thyroid abnormality will also include TSH. do not feel there are any emergent interventions needed at this time. Please see physician interpretation for full interpretation of EKG but upon my review patient is in sinus rhythm, does appear that patient may have right bundle branch block, rate of 86, no findings to suggest acute STEMI. We will continue to monitor. Reviewed patient's labs and patient does have a slight anemia but this is chronic and stable and overall appearance, PTT PT/INR are all slightly elevated but I do not feel this is of significant concern. Patient has slightly elevated chloride at 108, BUN of 19, glucose 113 otherwise CMP is unremarkable nondiagnostic, troponin is undetectable. TSH is 0.08 with free T4 noted at 1.05. Chest x-ray reviewed along with radiologist interpretation and shows no acute abnormality. We will plan on repeating EKG to see if we can capture PVC events as I suspect patient is able to perceive these events but I doubt any acute cardiac emergent findings given overall unremarkable nonconcerning labs and patient denying any pain discomfort or other associated symptoms. EKG did capture PVCs and had less artifact. Please see physician interpretation for full interpretation of EKG but patient has sinus rhythm with rate of 87, PVC noted with ongoing right bundle branch block. In comparison to previous EKGs does not appear to be significantly or concerning changes noted. I will order outpatient Holter monitor to ensure no significant runs or abnormal rhythms occurring outside of the emergency department setting and will give patient return follow-up precautions. Reassessed patient and patient stated continued sensation of PVCs but denies all other symptoms. Given that vital signs heart rate and overall work-up is benign we will plan on discharging patient with follow-up to primary care provider. After discussion of diagnosis and plan of care patient has no further needs, questions, or concerns and states clear understanding to return to the emergency department for any worsening symptoms. This documentation was generated using [employer] system, please disregard any oddities of phrase or misspellings. Imaging Data Radiologic Study: Imaging: X-Ray Radiologist's impression: Exam(s) XR CHEST 2V PA LATERAL EXAM: XR CHEST 2V PA LATERAL CLINICAL HISTORY: Irregular heartbeat TECHNIQUE: 2D digital imaging was performed. COMPARISON: CR XR CHEST 2V PA LATERAL from 04/30/2022 FINDINGS: HEART: Normal size. Aorta: Not dilated. PULMONARY VASCULATURE: Normal. LUNGS: Clear. PLEURAL SPACE: No pleural effusion or pneumothorax. BONE:Syndesmophyte formation along thoracic spine IMPRESSION: No acute abnormality. Lab Data Lab results reviewed: Yes I reviewed the patient's lab results. HPI General Mode of arrival: ambulatory . Date/Time Provider Initiated Documentation: 05/07/22 10:50 . Limitations to Documentation: no limitations . Information obtained by: patient, RN notes reviewed and old records reviewed . History of Present Illness 51 year old M presents to the emergency department with the chief complaint of Irregular heartbeat, Quality is described as other (Denies pain and discomfort), Patient started experiencing this month(s) and it has been intermittent. No relieving factors improve symptom(s), No exacerbating factors reported . Patient notes no other symptoms.. Patient did receive the following treatments prior to arrival, none Related Data Home Medications Medication Instructions Recorded Confirmed clozapine 100 mg tablet (Clozaril) 100 mg PO TID 11/19/16 02/27/22 lorazepam 2 mg tablet 2 mg PO BID 11/19/16 02/27/22 pantoprazole 20 mg tablet,delayed 40 mg PO BID 11/19/16 02/07/22 release (Protonix) lithium carbonate 300 mg 150 mg PO HS 12/14/16 02/07/22 tablet,extended release propranolol 10 mg tablet 10 mg PO BID 12/14/16 02/07/22 lactulose 10 gram/15 mL oral 15 - 30 ml PO DAILY PRN 11/18/18 02/07/22 solution bupropion HCl 150 mg 24 hr tablet, 150 mg PO DAILY 12/08/18 02/27/22 extended release vit,calcium no.40-iron 1 tab PO DAILY 12/08/18 02/27/22 fum 27 mg iron-folate no.1 1 mg tablet (PNV-Select) testosterone 4 mg/24 hr 2 patch transdermal DAILY 08/26/19 11/15/22 transdermal 24 hour patch (Androderm) lactulose 10 gram/15 mL oral 02/27/22 02/27/22 solution rivaroxaban 10 mg tablet (Xarelto) 20 tab PO DAILY 02/27/22 02/27/22 albuterol sulfate 90 mcg/actuation 2 puff inhalation Q6H PRN 03/06/22 aerosol inhaler (Ventolin HFA) bupropion HCl 150 mg 24 hr tablet, 150 mg PO QAM 03/06/22 extended release (Wellbutrin XL) haloperidol 1 mg tablet 1 mg PO BID 03/06/22 Allergies Allergy/AdvReac Type Severity Reaction Status Date / Time codeine Allergy Unknown Verified 02/07/22 18:29 Sulfa (Sulfonamide Allergy Unknown Verified 02/07/22 18:29 Antibiotics) esomeprazole [From Nexium] Allergy Verified 02/07/22 18:29 fenofibrate [From Tricor] Allergy Verified 02/07/22 18:29 ferrous gluconate Allergy Verified 02/07/22 18:29 mafenide [From Sulfamylon] Allergy Verified 03/06/22 09:38 Penicillins Allergy Verified 02/07/22 18:29 General Stated Complaint: GenMedical DELORIS: 3 Review of Systems Constitutional Constitutional: Denies chills, Denies fever(s), Denies headache(s), Denies malaise and Denies weakness ENT Ears, Nose, Mouth, and Throat: Denies dizziness, Denies headache(s), Denies sore throat and Denies throat swelling Cardiovascular Cardiovascular: Reports as per HPI, Denies chest pain, Denies syncope, Denies rapid heart rate, Denies edema, Reports irregular heart rhythm, Denies leg edema, Denies lightheadedness and Denies dyspnea Respiratory Respiratory: Denies cough and Denies dyspnea Gastrointestinal Gastrointestinal: Denies abdominal pain, Denies nausea and Denies vomiting Musculoskeletal Musculoskeletal: Denies radiating pain into limb Neurologic Neurologic: Denies dizziness, Denies syncope, Denies headache(s) and Denies weakness Psychiatric Psychiatric: Denies anxiety Allergic/Immunologic Allergic/Immunologic: Denies throat swelling PFSH All Active Problems (Updated 05/07/22 @ 13:13 by Hira Aceves NP) Symptomatic PVCs (Acute) Tobacco abuse (Acute) Cholelithiasis (Acute) CKD (chronic kidney disease) (Chronic) Lower GI bleed (Acute) Mucocele of mouth (Acute) Cough (Acute) Shortness of breath (Acute) Confusion (Acute) Hiatal hernia (Chronic) Medical History Abnormal thyroid stimulating hormone (TSH) level Anemia Anxiety Chronic constipation Dyspepsia Dysphagia Fatigue Former smoker Gastritis Heme positive stool Hepatitis C History of hepatitis C Hypogonadism Lactose intolerance Low energy Microcytic anemia Obesity Onychomycosis of toenail Schizoaffective disorder SOB (shortness of breath) on exertion Vitamin D deficiency Surgical History H/O esophagogastroduodenoscopy History of surgery Surgery to penis Normal colonoscopy Social History Smoking/Tobacco Use Status: Former Tobacco Use Quit Date: 10/29/18 Smoking risk assessment performed?: Yes Alcohol Intake: never Drug use: Never Substance use type: does not use Do you feel safe at home: Yes Do you feel safe in your relationship?: Yes Exam Const General: cooperative, healthy appearing, comfortable, no acute distress, not diaphoretic and not ill appearing Nutritional Appearance: average body habitus Orientation: alert, awake and oriented x3 Limitations: mental status not altered Neck Neck: normal visual inspection, full ROM, trachea midline, supple and no anterior neck swelling Thyroid: thyroid normal Carotids: normal carotid upstroke and no bruits Chest Chest: normal inspection of the chest Resp Effort & Inspection: normal respiratory effort and able to speak in complete sentences Auscultation: clear to auscultation bilaterally Cardio Jugular venous pressure: no JVD Palpation: normal PMI Rate: regular rate Rhythm: regular rhythm Heart Sounds: S1 normal, S2 normal, no click, no gallops, no murmurs and no rubs Bruits: no abdominal aortic bruits and no carotid bruits Pulses: radial pulses present bilaterally 2+ Skin General skin exam: no rashes or lesions noted Neuro General: patient alert, patient awake, patient oriented x3, tone normal and moves all extremities Course Vital Signs Vital signs: Vital Signs Pulse 86 05/07/22 10:52 Respiratory Rate 18 05/07/22 10:52 Blood Pressure 123/81 05/07/22 10:52 Pulse Oximetry 98 05/07/22 10:52 Pulse 86 05/07/22 10:52 Respiratory Rate 18 05/07/22 11:26 Respiratory Effort Non-Labored 05/07/22 11:26 Respiratory Depth Normal 05/07/22 11:26 Respiratory Pattern Normal 05/07/22 11:26 Blood Pressure 123/81 05/07/22 10:52 Blood Pressure Position Supine 05/07/22 10:52 Pulse Oximetry 98 05/07/22 10:52 Oxygen Delivery Method Room Air 05/07/22 10:52 Oxygen Flow Rate 0 05/07/22 10:52
[2022-05-07 11:53] LABS: ALT 22 U/L (16-63); AST 15 U/L (15-37); Albumin 3.4 g/dL (3.4-5.0); Alkaline Phosphatase 99 U/L (46-116); Anion Gap 6.6 mmol/L (3-11); BUN 19 mg/dL (7-18); Bilirubin, Total 0.2 mg/dL (0.2-1.0); CO2 27.4 mmol/L (21.0-32.0); CREATININE 1.3 mg/dL (0.70-1.30); Calcium 9.7 mg/dL (8.5-10.1); Chloride 108 mmol/L (98-107); Estimated GFR 66.51 (mL/min/1.73m2); Glucose 113 mg/dL (74-106); Potassium 4.1 mmol/L (3.5-5.1); Sodium 142 mmol/L (136-145); TSH (W/Ref FT4) 0.08 uIU/mL (0.36-3.74); Total Protein 6.5 g/dL (6.4-8.2); Troponin I < 50 ng/L (<or=60)
[2022-05-07 12:00] LABS: Diff Comment Diff Reviewed; Macrocytosis 1+; Microcytosis 1+; Polychromasia Present
[2022-05-07 12:01] LABS: Poikilocytes 1+
[2022-05-07 12:11] LABS: FREE T4 1.05 ng/dL (0.76-1.46)
[2022-05-07 12:15] VITALS: BP 125/87; PULSE 80; RESP 18; TEMP 36.7; O2SAT 98
--- NOTE | 2022-05-07 12:30 | RT.EKG_ITS ---
APPROVED REPORT Exam: Resting ECG Reason for Exam: Irregular heart rhythm Patient Location: E HR:87 bpm ECG Measurements Heart Rate 87 AXIS AR 157 P 8 QRSd 134 QRS -34 QT 376 T 13 QTc 446 Conclusion Sinus rhythm. PVC Right bundle branch block ST elevation secondary to IVCD
--- NOTE | 2022-05-07 13:19 | NUR.NOTE ---
request follow up with PCP re: PVC symptomatic p.ND request completed on case management form [facility]
[2022-05-07 13:36] VITALS: BP 121/82; PULSE 79; RESP 18; O2SAT 98
--- NOTE | 2022-05-08 15:38 | NUR.NOTE ---
Nursing Note: Accessed pt chart to see if holter monitor was ordered.
== END 2022-05-07 13:36 | disposition home or self-care (01) ==
PROVIDERS: Emergency Provider Nurse Practitioner Family; PCP Internal Medicine
DX: I49.3 Ventricular premature depolarization (principal); D64.9 Anemia, unspecified; R79.1 Abnormal coagulation profile; I45.10 Unspecified right bundle-branch block
CPT/HCPCS: 36415; 80053; 93005; 99283; 71046; 83735; 84439; 84443; 84484; 85025; 85610; 85730; 93010; 99284

== ENCOUNTER 2022-05-15 00:43 | Outpatient (CLI) | payer MEDICARE, MEDICAID, SELFPAY ==
--- NOTE | 2022-05-15 09:15 | DI.NM_ITS ---
APPROVED REPORT Exam: Pharmacologic Patient Location: Out-Patient Room/Bed: Stress Nurse: Jennifer Frias RN Ordering Provider:RYNE COTA, Contact Number: [phone] BMI: 31.61 Baseline Rhythm: Sinus Rhythm Comment: RBBB w/ PVCs Indications: Chest pain Medical History Medical History: Anemia, anxiety, fatigue, former smoker, obesity, schizoaffective disorder, COPD, sy mptomatic PVCs, unsteady gait, hx of PE Cardiac Medications: Propranolol, pantoprale, xarelto, albuterol, sulfate inhaler Allergies: Fenofilbrate, ferrous gluconate, mafenide, codeine, sulfa, esomeprazole, PNCs Cardiac Risk Factors: Smoker (former), COPD Previous Cardiac Procedures: None Pretest Chest Pain Characteristics: None Exercise History: Sedentary Physical Disabilities: None Lung Sounds: Clear to auscultation Heart Sounds: Regular Stress Test Details Test: Exercise stress converted to pharmacologic stress due to failure to obtain a diagnostic stress test. Reason for pharmacologic stress test: changed from exercise stress test due to inability to reach t arget heart rate. Nuclear Acquisition: Rest Tc-99m/Stress Tc-99m 1 day Rest Isotope: Tc-99m Sestamibi. Dose: 10.2 Date: 05/15/2022 Injection Time: 0920 Stress Isotope: Tc-99m Sestamibi. Dose: 32.0 Date: 05/15/2022 Injection Time: 1050 HR Resting HR Supine: 87 bpm Max Heart Rate (APMHR): 169.490947 bpm Resting HR Standin bpm Target HR (85% APMHR): 143.734592 bpm Max HR Achieved: 138 bpm % of APMHR: 81.66 Recovery HR: 109 bpm HR response to stress: Normal HR response to stress Comment: Propranolol held this morning BP Resting BP Supine: 118/82 mmHg Resting BP Standin/74 mmHg Max BP: 132/82 mmHg Recovery BP: 132/82 mmHg BP response to stress: Normal blood pressure response to stress. ECG Resting ECG: Sinus Rhythm, Sinus Tachycardia, RBBB Ectopy: Occasional PVCs Stress ECG: Sinus Tachycardia, RBBB ST Change: Nondiagnostic low heart rate Arrhythmia: Rare PVCs Recovery ECG: Sinus Tachycardia, RBBB Recovery ST Change: Nondiagnostic low heart rate Recovery Arrhythmia: None Clinical Stress Symptoms: General Fatigue, Dyspnea Highest Stage Reached: Stage 2: 2.5 mph at 12% grade. Exercise capacity: 6.78 METs Angina Score: None Rate Pressure Product: [id number] Stress ECG Conclusion 1. Resting electrocardiogram showed right bundle branch block 2. Patient underwent testing using combination of exercise and pharmacologic stress with regadenoson 3. Peak heart rate achieved was 82% of predicted for age 4. The electrocardiographic portion of the test was nondiagnostic due to inadequate heart rate 5. See MPI report Stress Test Summary STAGE Time (mins) Speed (mph) Grade (%) HR BP SpO2 SYMPTOMS METS Supine 87 118/82 98% Standing 103 112/74 98% 1 3 1.7 10 126 130/68 98% 4.5 1 min post Lexiscan injection 136 128/54 98% Mild SOB 3 min post Lexiscan injection 109 132/82 98% SOB resolved Exercise stress converted to pharmacologic stress due to failure to obtain a target heart rate. Pt to lerated pharmacologic stress well. MPI Conclusion Normal myocardial perfusion without evidence of ischemia or prior infarction EF 56%, normal wall motion Radiologist Interpretation Radiologist agrees with Ruby Developer's Interpretation. Radiologist Interpretation by: Tory Ryan MD Interpretation Date/Time: 05/17/2022 14:08:01
[2022-05-15] MEDS: Regadenoson 0.4 MG/5 ML SYR IVP (10:57)
== END 2022-05-15 01:03 ==
LOC: DI 00:43
PROVIDERS: PCP Internal Medicine; Visit Provider Internal Medicine
DX: R07.9 Chest pain, unspecified (principal)
CPT/HCPCS: 78452; 93016; 93018; 93017; J2785

== ENCOUNTER 2022-05-17 13:05 | Outpatient (RCR) | payer MEDICARE, MEDICAID, SELFPAY ==
--- NOTE | 2022-05-17 13:23 | HOLTER_ITS ---
APPROVED REPORT Conclusion This is a 48-hour Holter monitor ordered for premature ventricular contractions Predominant rhythm was sinus with an average heart rate of 82. Minimum was 66, maximum 117 There were rare sporadic premature ventricular contractions, no couplets, no ventricular tachycardia There were very rare atrial premature beats There was no atrial fibrillation, no high-grade AV block, no pauses greater than 3 seconds
== END 2022-06-12 23:59 | disposition home or self-care (01) ==
LOC: CARDOPNVT 13:05
PROVIDERS: PCP Internal Medicine; Visit Provider Nurse Practitioner Family
DX: I49.3 Ventricular premature depolarization (principal)
CPT/HCPCS: 93227; 93225; 93226

== ENCOUNTER 2022-05-28 01:55 | Outpatient (CLI) | payer MEDICARE, MEDICAID, SELFPAY ==
[2022-05-28 10:02] LABS: Abs Immature Grans 0.01 10^3/uL (0.0-0.06); Absolute Basophil Count 0.02 10^3/uL (0.0-0.2); Absolute Lymphocyte Count 1.38 10^3/uL (1.2-3.4); Absolute Monocyte Count 0.36 10^3/uL (0.1-0.8); Absolute Neutrophil Count 3.32 10^3/uL (1.2-6.7); Basophils % 0.4; HCT 40.4 % (40.0-50.0); HGB 12.3 g/dL (13.5-17.5); Immature Grans % 0.2; Lymphocytes % 27.1; MCH 25.1 pg (27.0-33.0); MCHC 30.4 % (32.0-36.0); MCV 82 fL (80-95); MPV 9.3 fL (8.0-11.0); Monocytes % 7.1; Neutrophils % 65.2; Platelet Count 204 10^3/uL (130-400); RDW 20.3 % (11.8-14.1); RDW-SD 59.5 fL; WBC 5.09 10^3/uL (4.4-10.8)
[2022-05-28 10:21] LABS: Anisocytosis 1+; Diff Comment Diff Reviewed
[2022-05-28 10:39] LABS: ALT 24 U/L (16-63); AST 16 U/L (15-37); Albumin 3.3 g/dL (3.4-5.0); Alkaline Phosphatase 106 U/L (46-116); Anion Gap 5.9 mmol/L (3-11); BUN 20 mg/dL (7-18); Bilirubin, Total 0.2 mg/dL (0.2-1.0); CO2 27.1 mmol/L (21.0-32.0); CREATININE 1.2 mg/dL (0.70-1.30); Calcium 9.7 mg/dL (8.5-10.1); Chloride 107 mmol/L (98-107); Estimated GFR 73.22 (mL/min/1.73m2); Glucose 150 mg/dL (74-106); Potassium 4.1 mmol/L (3.5-5.1); Sodium 140 mmol/L (136-145); TSH (W/Ref FT4) 0.17 uIU/mL (0.36-3.74); Total Protein 6.4 g/dL (6.4-8.2)
[2022-05-28 10:59] LABS: FREE T4 1.08 ng/dL (0.76-1.46)
[2022-05-28 11:12] LABS: Lithium < 0.2 mmol/l (0.6-1.2)
[2022-05-28 17:51] LABS: T3, Total 134 ng/dL (97-169)
[2022-05-30 22:28] LABS: Clozapine 1260 ng/mL (350-600); Clozapine+Norclozapine Total 1863 ng/mL; Norclozapine 603 ng/mL
== END 2022-05-28 01:56 | disposition home or self-care (01) ==
LOC: LBO 01:56
PROVIDERS: PCP Internal Medicine; Visit Provider Psychiatry & Neurology Psychiatry
DX: F20.0 Paranoid schizophrenia (principal); R94.6 Abnormal results of thyroid function studies; Z79.899 Other long term (current) drug therapy; Z51.81 Encounter for therapeutic drug level monitoring
CPT/HCPCS: 36415; 80053; 80159; 80178; 84439; 84443; 84480; 85025

== ENCOUNTER 2022-06-25 03:16 | Outpatient (CLI) | payer MEDICARE, MEDICAID, SELFPAY ==
[2022-06-25 10:21] LABS: Abs Immature Grans 0.02 10^3/uL (0.0-0.06); Absolute Basophil Count 0.03 10^3/uL (0.0-0.2); Absolute Lymphocyte Count 1.33 10^3/uL (1.2-3.4); Absolute Monocyte Count 0.54 10^3/uL (0.1-0.8); Absolute Neutrophil Count 5.65 10^3/uL (1.2-6.7); Basophils % 0.4; HGB 13.8 g/dL (13.5-17.5); Immature Grans % 0.3; Lymphocytes % 17.6; MCH 26.7 pg (27.0-33.0); MCHC 32.9 % (32.0-36.0); MCV 81 fL (80-95); MPV 8.5 fL (8.0-11.0); Monocytes % 7.1; Neutrophils % 74.6; Platelet Count 196 10^3/uL (130-400); RBC 5.16 10^6/uL (4.36-5.78); RDW 15.8 % (11.8-14.1); RDW-SD 45.9 fL; WBC 7.57 10^3/uL (4.4-10.8)
[2022-06-25 11:25] LABS: Lithium < 0.2 mmol/l (0.6-1.2)
[2022-06-25 11:32] LABS: ALT 40 U/L (16-63); AST 15 U/L (15-37); Albumin 3.4 g/dL (3.4-5.0); Alkaline Phosphatase 111 U/L (46-116); Anion Gap 5.7 mmol/L (3-11); BUN 17 mg/dL (7-18); Bilirubin, Total 0.3 mg/dL (0.2-1.0); CO2 27.3 mmol/L (21.0-32.0); CREATININE 1.2 mg/dL (0.70-1.30); Calcium 9.8 mg/dL (8.5-10.1); Chloride 107 mmol/L (98-107); Estimated GFR 73.22 (mL/min/1.73m2); Glucose 109 mg/dL (74-106); Potassium 4.1 mmol/L (3.5-5.1); Sodium 140 mmol/L (136-145); TSH (W/Ref FT4) 0.18 uIU/mL (0.36-3.74); Total Protein 6.7 g/dL (6.4-8.2)
[2022-06-25 11:58] LABS: FREE T4 1.02 ng/dL (0.76-1.46)
[2022-06-25 17:55] LABS: T3, Total 129 ng/dL (97-169)
[2022-06-27 18:59] LABS: Clozapine 1360 ng/mL (350-600); Clozapine+Norclozapine Total 2066 ng/mL; Norclozapine 706 ng/mL
== END 2022-06-25 03:17 | disposition home or self-care (01) ==
PROVIDERS: PCP Internal Medicine; Visit Provider Psychiatry & Neurology Psychiatry
DX: F20.0 Paranoid schizophrenia (principal); Z79.899 Other long term (current) drug therapy; Z51.81 Encounter for therapeutic drug level monitoring
CPT/HCPCS: 36415; 80053; 80159; 80178; 84439; 84443; 84480; 85025

== ENCOUNTER 2022-07-16 10:19 | Outpatient (CLI) | payer MEDICARE, MEDICAID, SELFPAY ==
--- NOTE | 2022-07-16 13:50 | DI.US_ITS ---
APPROVED REPORT EXAM: Comprehensive 2D, Doppler, and color-flow Echocardiogram Patient Location: Out-Patient Ball[facility] Teacher: Rhea Vogel RDCS (AE) Indications: Chest pain, Frequent unifocal PVC Other Information Study Quality: Adequate Conclusion Normal left ventricular wall thickness and chamber size. Ejection fraction is 55 to 60%. There are no segmental wall motion abnormalities Normal right ventricular size and systolic function Both atria are normal in size There is no structural or hemodynamically significant valvular disease Estimated right ventricular systolic pressure is 15 mmHg Wall motion Left Ventricle The left ventricle is normal size. The left ventricular systolic function is normal. The left ventric ular ejection fraction is within the normal range. There is normal left ventricular wall thickness. T here is normal LV segmental wall motion. There is no ventricular septal defect visualized. LVEF is 55 -60%. Right Ventricle Right ventricle is grossly normal in size. Right ventricular systolic function is grossly normal. Atria The left atrium size is normal. The right atrium size is normal. The interatrial septum is intact wit h no evidence for an atrial septal defect. Aortic Valve The aortic valve is normal in structure. Aortic valve is trileaflet. There is no aortic valvular sten osis. No aortic regurgitation is present. Mitral Valve The mitral valve is normal in structure. No evidence of mitral valve stenosis. Trace mitral regurgita tion. Tricuspid Valve The tricuspid valve is normal in structure. There is no tricuspid valve stenosis. Trace tricuspid reg urgitation. Unable to assess PA pressure. Pulmonic Valve The pulmonary valve is normal in structure. There is no pulmonic valvular stenosis. Trace pulmonic re gurgitation. Great Vessels The aortic root is normal in size. The ascending aorta is normal in size. Aortic arch is normal in ca liber. IVC is normal in size and collapses >50% with inspiration. Pericardium There is no pericardial effusion. 2D Dimensions IVSD d PLAX 0.88 cm M: 0.6-1.2 LV Vol A2C d MOD 112.6 mL LVPW d PLAX 0.88 cm M: 0.6 - 1.2 LV Vol A4C d MOD 102.3 mL LVID d PLAX 4.35 cm M: 4.2 - 5.8 LA vol/ BSA A4C s A-L 21.1 mL/m2 LVDs 3.25 cm M: 2.5 - 4.0 LA Area A4C s MOD 15.77 cm2 Ao Root d 3.36 cm M: 3.1 - 3.7 LV EF A4C MOD 50.7 % RA Area A4C 11.54 cm2 LV EF A2C MOD 50.5 % RA Vol/ BSA A4C s A-L 12.9 mL/m2 LV EF Biplane MOD 50.7 % Ao Asc Diam d 3.20 cm M: 2.6 - 3.4 SV 55.68 mL LV EF Teichholz 49.6 % SV Index 29.09 mL/m2 LVEF (Wiley's) 50.67 % M: 52 - 72 LV Volume 83.65 mL M: 62 - 150 LV Volume Index 43.56 mL/m2 M: 34 - 74 LV Vol Biplane MOD 109.9 mL FS 24.90 % M-Mode TAPSE 2.22 cm (M/F) >1.7 LV Diastology MV E' medial 0.056 (>0.07 m/s) E/A Ratio 0.6 LV E/e MED 7.90 (<14) MV E Vmax 0.44 (0.4-1.3 m/s) MV E' lateral 0.090 (>0.1 m/s) MV A Vmax 0.75 (0.4-1.3 m/s) LV E/e LAT 4.90 (<14) MV E/A Ratio 0.57 MV E/E' medial 7.91 MV E/E' lateral 4.92 Aortic Valve LVOT Area 3.75 cm2 AoV Area Vmax 3.41 cm2 LVOT Vmax 1.04 m/s AoV Area/ BSA (Vmax) 1.78 cm2/m2 LVOT Mean Braden. 0.61 m/s PARVEZ Mean Braden. 2.84 cm2 LVOT Peak Grad 4.3 mmHg PARVEZ Mean Braden. Index 1.49 cm2/m2 LVOT Mean Grad 2.0 mmHg LVOT VTI 0.177 m LVOT Diam s 2.15 cm AoV Vmax 1.15 m/s Velocity Ratio 0.90 AoV Mean Braden. 0.81 m/s AoV Peak Grad 5.3 mmHg LVOT SV 66.47 mL AoV Mean Grad 2.9 mmHg AoV VTI 0.173 m AoV Area VTI 3.83 cm2 AoV Area/ BSA (VTI) 2.00 cm/m2 Mitral Valve MV DT 244 (160-240 msec) MV PHT 71 msec MV Area PHT 3.10 cm2 MV VTI 0.169 m MV Area VTI 3.93 (4.0-6.0 cm2) Pulmonary Valve PV Vmax 0.82 (0.5-1.5 m/s) RVOT Peak Gr. 1.38 mmHg PV Peak Grad 2.7 mmHg RVOT Mean Gr. 0.65 mmHg PV Mean Grad 1.4 mmHg RVOT VTI 0.095 m PV VTI 0.130 m RVOT Vmax 0.59 m/s Tricuspid Valve TR Peak Grad 11.7 mmHg TR Vmax 1.71 m/s RA Pressure 3.00 mmHg RVSP (TR) 14.7 mmHg
== END 2022-07-16 10:39 ==
LOC: DI 10:20
PROVIDERS: PCP Internal Medicine; Visit Provider Internal Medicine
DX: R07.9 Chest pain, unspecified (principal)
CPT/HCPCS: 93306

== ENCOUNTER 2022-07-23 01:58 | Outpatient (CLI) | payer MEDICARE, MEDICAID, SELFPAY ==
[2022-07-23 11:14] LABS: Absolute Basophil Count 0.01 10^3/uL (0.0-0.2); Absolute Lymphocyte Count 1.49 10^3/uL (1.2-3.4); Absolute Monocyte Count 0.42 10^3/uL (0.1-0.8); Absolute Neutrophil Count 3.47 10^3/uL (1.2-6.7); Basophils % 0.2; HCT 40.5 % (40.0-50.0); HGB 13.1 g/dL (13.5-17.5); Lymphocytes % 27.6; MCH 25.7 pg (27.0-33.0); MCHC 32.3 % (32.0-36.0); MCV 79 fL (80-95); MPV 8.8 fL (8.0-11.0); Monocytes % 7.8; Neutrophils % 64.4; Platelet Count 216 10^3/uL (130-400); RDW 13.6 % (11.8-14.1); RDW-SD 38.2 fL; WBC 5.39 10^3/uL (4.4-10.8)
[2022-07-23 11:51] LABS: ALT 29 U/L (16-63); AST 11 U/L (15-37); Albumin 3.3 g/dL (3.4-5.0); Alkaline Phosphatase 100 U/L (46-116); Anion Gap 6.5 mmol/L (3-11); BUN 16 mg/dL (7-18); Bilirubin, Total 0.2 mg/dL (0.2-1.0); CO2 27.5 mmol/L (21.0-32.0); CREATININE 1.2 mg/dL (0.70-1.30); Calcium 9.9 mg/dL (8.5-10.1); Chloride 107 mmol/L (98-107); Estimated GFR 73.22 (mL/min/1.73m2); Glucose 124 mg/dL (74-106); Lithium < 0.2 mmol/l (0.6-1.2); Potassium 3.9 mmol/L (3.5-5.1); Sodium 141 mmol/L (136-145); TSH (W/Ref FT4) 0.84 uIU/mL (0.36-3.74); Total Protein 6.7 g/dL (6.4-8.2)
[2022-07-23 17:28] LABS: T3, Total 128 ng/dL (97-169)
[2022-07-27 01:57] LABS: Clozapine 1520 ng/mL (350-600); Clozapine+Norclozapine Total 2370 ng/mL; Norclozapine 850 ng/mL
== END 2022-07-23 01:59 | disposition home or self-care (01) ==
LOC: LBO 01:59
PROVIDERS: PCP Internal Medicine; Visit Provider Psychiatry & Neurology Psychiatry
DX: R94.6 Abnormal results of thyroid function studies (principal); F20.0 Paranoid schizophrenia
CPT/HCPCS: 36415; 80053; 80159; 80178; 84443; 84480; 85025

== ENCOUNTER 2022-08-20 03:02 | Outpatient (CLI) | payer MEDICARE, MEDICAID, SELFPAY ==
[2022-08-20 14:35] LABS: Abs Immature Grans 0.01 10^3/uL (0.0-0.06); Absolute Basophil Count 0.02 10^3/uL (0.0-0.2); Absolute Lymphocyte Count 1.43 10^3/uL (1.2-3.4); Absolute Monocyte Count 0.43 10^3/uL (0.1-0.8); Absolute Neutrophil Count 3.19 10^3/uL (1.2-6.7); Basophils % 0.4; HCT 39.6 % (40.0-50.0); HGB 12.4 g/dL (13.5-17.5); Immature Grans % 0.2; Lymphocytes % 28.1; MCH 24.2 pg (27.0-33.0); MCHC 31.3 % (32.0-36.0); MCV 77 fL (80-95); MPV 9.5 fL (8.0-11.0); Monocytes % 8.5; Neutrophils % 62.8; Platelet Count 274 10^3/uL (130-400); RBC 5.12 10^6/uL (4.36-5.78); RDW 13.1 % (11.8-14.1); RDW-SD 37.1 fL; WBC 5.08 10^3/uL (4.4-10.8)
[2022-08-20 15:12] LABS: CREATININE 1.3 mg/dL (0.70-1.30); Calcium 9.6 mg/dL (8.5-10.1); Estimated GFR 66.51 (mL/min/1.73m2); TSH (W/Ref FT4) 0.22 uIU/mL (0.36-3.74)
[2022-08-20 15:39] LABS: Lithium < 0.2 mmol/l (0.6-1.2)
[2022-08-20 16:13] LABS: FREE T4 1.07 ng/dL (0.76-1.46)
[2022-08-22 23:04] LABS: Clozapine 905 ng/mL (350-600); Clozapine+Norclozapine Total 1481 ng/mL; Norclozapine 576 ng/mL
== END 2022-08-20 03:03 | disposition home or self-care (01) ==
LOC: LBO 03:02
PROVIDERS: PCP Internal Medicine; Visit Provider Psychiatry & Neurology Psychiatry
DX: F20.0 Paranoid schizophrenia (principal); Z79.899 Other long term (current) drug therapy; Z51.81 Encounter for therapeutic drug level monitoring
CPT/HCPCS: 36415; 80159; 80178; 82310; 82565; 84439; 84443; 85025

== ENCOUNTER 2022-09-11 09:06 | Outpatient (REF) | payer MEDICARE, MEDICAID, SELFPAY ==
[2022-09-11 15:33] LABS: Iron 19 ug/dL (65-175); Total Iron Binding Capacity 320 ug/dL (250-450); Transferrin Sat 6 % (20-55)
[2022-09-15 17:54] LABS: Testosterone, Free 11.4 ng/dL (4.06-15.6); Testosterone, Total 278 ng/dL (240-950)
== END 2022-09-11 09:07 | disposition home or self-care (01) ==
LOC: NCHCN 09:06
PROVIDERS: PCP Internal Medicine; Visit Provider Internal Medicine
DX: E29.1 Testicular hypofunction (principal); D50.9 Iron deficiency anemia, unspecified
CPT/HCPCS: 84402; 84403; 83540; 83550

== ENCOUNTER 2022-09-16 17:48 | Emergency (ER) | payer MEDICARE, MEDICAID, SELFPAY ==
[2022-09-16 17:56] VITALS: BP 126/79; PULSE 99; RESP 14; TEMP 36.7; O2SAT 99
--- NOTE | 2022-09-16 18:39 | ED.GENADUL_ITS ---
Discharge Plan Disposition Patient Disposition: Home Discharge Details Clinical Impression: Dental abscess Primary Care Provider: Tomás Carvalho ED Provider: Vignesh Deleon Home Meds and New Rx's Prescriptions: New clindamycin HCl 300 mg capsule 300 mg PO Q8H 10 Days Qty: 30 0RF No Action bupropion HCl 150 mg tablet extended release 24 hr 150 mg PO DAILY Patient Comments: 12/08/18 30 mg daily Androderm 4 mg/24 hr patch 24 hour 2 patch Transdermal DAILY Patient Comments: 12/08/18 1 patch Saturday, Saturday, Saturday. 2 patches the other days ev PNV-Select 27-1 mg tablet 1 tab PO DAILY Patient Comments: not taking haloperidol 1 mg tablet 1 mg PO BID albuterol sulfate [Ventolin HFA] 90 mcg/actuation HFA aerosol inhaler 2 puff inhalation Q6H PRN bupropion HCl [Wellbutrin XL] 150 mg tablet extended release 24 hr 150 mg PO QAM clozapine [Clozaril] 100 MG tablet 100 mg PO TID Patient Comments: pt states he takes 100mg AM 100 mg afternoon and 350 mg HS pantoprazole [Protonix] 20 MG tablet,delayed release (DR/EC) 40 mg PO BID lorazepam 2 MG tablet 2 mg PO BID propranolol 10 MG tablet 10 mg PO BID lithium carbonate 300 MG tablet extended release 150 mg PO HS lactulose 10 gram/15 mL Solution 15 - 30 ml PO DAILY PRN lactulose 10 gram/15 mL solution Patient Comments: TAKE 15 TO 30 ML BY MOUTH EVERY DAY NEEDED Xarelto 10 mg tablet 20 tab PO DAILY Discharge Instructions Instructions: Dental Abscess (ED) Additional Instructions: You were seen in the emergency department for left third upper maxillary tooth problem with small area or bump. This could represent an abscess and we have given you some antibiotics. Follow-up with your primary care doctor and dentist. If it does not improve with antibiotics you should ask your primary care doctor about a potential biopsy. Return for any worsening symptoms. Referrals: Tomás Carvalho MD [Primary Care Provider] - 2 weeks Discharge Data Discharge Physician: Vignesh Deleon Medical Decision Making 51-year-old male presents with mass or bulge at the area of left upper maxillary third molar. Does not obviously appear to be an abscess. We will give some antibiotics to treat it as an abscess regardless. No concern for other soft tissue abscesses of the throat or neck. He does not have any other symptoms. He is worried he could be cancer and there is no ulceration or other findings on it to suggest this diagnosis. I told him he should take the antibiotics and follow-up with his primary care doctor if it does not improve. He is in agreement with this plan. Will discharge with return precautions. I told him he should follow-up with a dentist additionally and he expressed understanding. Medical Records Medical records reviewed: Yes I reviewed the patient's medical records. HPI General Mode of arrival: ambulatory . Date/Time Provider Initiated Documentation: 09/16/22 18:32 . Limitations to Documentation: no limitations . Information obtained by: patient . HPI Narrative: 51-year-old male presents with foreign body sensation in the left upper tooth area. Says he had his left upper maxillary third molar removed about a year ago. Over the last few days he has noticed a bulge in that area. No sore throat. No trouble swallowing. He was worried that this could be oral cancer and wanted to get it checked out. No fevers or chills. He is denying any other complaints. Related Data Home Medications Medication Instructions Recorded Confirmed clozapine 100 mg tablet (Clozaril) 100 mg PO TID 11/19/16 02/27/22 lorazepam 2 mg tablet 2 mg PO BID 11/19/16 02/27/22 pantoprazole 20 mg tablet,delayed 40 mg PO BID 11/19/16 02/07/22 release (Protonix) lithium carbonate 300 mg 150 mg PO HS 12/14/16 02/07/22 tablet,extended release propranolol 10 mg tablet 10 mg PO BID 12/14/16 02/07/22 lactulose 10 gram/15 mL oral 15 - 30 ml PO DAILY PRN 11/18/18 02/07/22 solution bupropion HCl 150 mg 24 hr tablet, 150 mg PO DAILY 12/08/18 02/27/22 extended release vit,calcium no.40-iron 1 tab PO DAILY 12/08/18 02/27/22 fum 27 mg iron-folate no.1 1 mg tablet (PNV-Select) testosterone 4 mg/24 hr 2 patch transdermal DAILY 12/08/18 02/27/22 transdermal 24 hour patch (Androderm) lactulose 10 gram/15 mL oral 02/27/22 02/27/22 solution rivaroxaban 10 mg tablet (Xarelto) 20 tab PO DAILY 02/27/22 02/27/22 albuterol sulfate 90 mcg/actuation 2 puff inhalation Q6H PRN 03/06/22 aerosol inhaler (Ventolin HFA) bupropion HCl 150 mg 24 hr tablet, 150 mg PO QAM 03/06/22 extended release (Wellbutrin XL) haloperidol 1 mg tablet 1 mg PO BID 03/06/22 clindamycin HCl 300 mg capsule 300 mg PO Q8H 10 days #30 caps 09/16/22 Previous Rx's Medication Instructions Recorded clindamycin HCl 300 mg capsule 300 mg PO Q8H 10 days #30 caps 09/16/22 Allergies Allergy/AdvReac Type Severity Reaction Status Date / Time codeine Allergy Unknown Verified 09/16/22 17:58 Sulfa (Sulfonamide Allergy Unknown Verified 09/16/22 17:58 Antibiotics) esomeprazole [From Nexium] Allergy Verified 09/16/22 17:58 fenofibrate [From Tricor] Allergy Verified 09/16/22 17:58 ferrous gluconate Allergy Verified 09/16/22 17:58 mafenide [From Sulfamylon] Allergy Verified 09/16/22 17:58 Penicillins Allergy Verified 09/16/22 17:58 General Stated Complaint: GenMedical DELORIS: 4 Review of Systems Constitutional Constitutional: Denies chills, Denies fever(s) and Denies headache(s) Eyes Eyes: Denies change in vision ENT Ears, Nose, Mouth, and Throat: Denies headache(s) and Denies odynophagia Cardiovascular Cardiovascular: Denies chest pain and Denies dyspnea Respiratory Respiratory: Denies dyspnea Gastrointestinal Gastrointestinal: Denies abdominal pain, Denies diarrhea, Denies nausea, Denies odynophagia and Denies vomiting Genitourinary Genitourinary: Denies dysuria Musculoskeletal Musculoskeletal: Denies myalgias Integumentary/Breasts Skin/Breast: Denies changing lesions Neurologic Neurologic: Denies behavioral changes and Denies headache(s) Psychiatric Psychiatric: Denies behavioral changes Endocrine Endocrine: Denies heat intolerance Hematologic/Lymphatic Hematologic/Lymphatic: Denies lymphadenopathy PFSH All Active Problems Dental abscess (Acute) Tobacco abuse (Acute) Cholelithiasis (Acute) CKD (chronic kidney disease) (Chronic) Lower GI bleed (Acute) Mucocele of mouth (Acute) Cough (Acute) Shortness of breath (Acute) Confusion (Acute) Hiatal hernia (Chronic) Medical History Abnormal thyroid stimulating hormone (TSH) level Anemia Anxiety Chronic constipation Dyspepsia Dysphagia Fatigue Former smoker Gastritis Heme positive stool Hepatitis C History of hepatitis C Hypogonadism Lactose intolerance Low energy Microcytic anemia Obesity Onychomycosis of toenail Schizoaffective disorder SOB (shortness of breath) on exertion Vitamin D deficiency Surgical History H/O esophagogastroduodenoscopy History of surgery Surgery to penis Normal colonoscopy Social History Smoking/Tobacco Use Status: Former Tobacco Use Quit Date: 10/29/18 Smoking risk assessment performed?: Yes Alcohol Intake: never Drug use: Never Substance use type: does not use Do you feel safe at home: Yes Do you feel safe in your relationship?: Yes Exam Const General: cooperative Nutritional Appearance: average body habitus Orientation: alert, awake and oriented x3 HENMT Head: normal to inspection Ears: external ears normal Mouth: moist mucous membranes Other: swelling at site of old left upper maxillary third molar. No swelling and not indurated. Nontender. No obvious area of purulence. Otherwise uvula is midline and no tonsillar enlargement. Full range of motion of the neck without pain. Base of the tongue is soft. Eyes Pupils: PERRL EOM: EOM intact bilaterally and No nystagmus Neck Neck: full ROM and no tracheal deviation Chest Chest: normal inspection of the chest Resp Auscultation: clear to auscultation bilaterally Cardio Rate: regular rate Rhythm: regular rhythm GI Inspection: normal to inspection Palpation: soft, no guarding, not rigid and nontender Back/Spine/Pelvis Back: No no CVA tenderness Thoracic/Lumbar Spine: thoracic and lumbar spine normal to inspection Skin General skin exam: no rashes or lesions noted Neuro General: patient alert, patient awake and patient oriented x3 Cranial Nerves: CN's II-XI intact bilaterally, PERRL and no nystagmus Cognition: normal cognition Motor: muscle tone normal throughout and strength 5/5 throughout Sensory Exam: no sensory deficits noted Extrem General: normal to inspection Course Vital Signs Vital signs: Vital Signs Temperature 36.7 C 09/16/22 17:56 Pulse 99 H 09/16/22 17:56 Respiratory Rate 14 09/16/22 17:56 Blood Pressure 126/79 09/16/22 17:56 Pulse Oximetry 99 09/16/22 17:56 Temperature 36.7 C 09/16/22 17:56 Temperature Source Temporal Artery Scan 09/16/22 17:56 Pulse 99 H 09/16/22 17:56 Respiratory Rate 14 09/16/22 17:56 Respiratory Effort Normal, Non-Labored 09/16/22 17:59 Blood Pressure 126/79 09/16/22 17:56 Blood Pressure Position Sitting 09/16/22 17:56 Pulse Oximetry 99 09/16/22 17:56 Oxygen Delivery Method Room Air 09/16/22 17:56 Oxygen Flow Rate 0 09/16/22 17:56 Pain Level 0 09/16/22 17:56
[2022-09-16] MEDS: Clindamycin 300 MG CAP PO (19:00)
== END 2022-09-16 19:02 | disposition home or self-care (01) ==
PROVIDERS: Emergency Provider Student in an Organized Health Care Education/Training Program; PCP Internal Medicine
DX: K08.89 Other specified disorders of teeth and supporting structures (principal)
CPT/HCPCS: 99283; 99284

== ENCOUNTER 2022-09-24 04:30 | Outpatient (CLI) | payer MEDICARE, MEDICAID, SELFPAY ==
[2022-09-24 12:10] LABS: Abs Immature Grans 0.02 10^3/uL (0.0-0.06); Absolute Basophil Count 0.01 10^3/uL (0.0-0.2); Absolute Lymphocyte Count 1.36 10^3/uL (1.2-3.4); Absolute Monocyte Count 0.41 10^3/uL (0.1-0.8); Absolute Neutrophil Count 3.56 10^3/uL (1.2-6.7); Basophils % 0.2; HCT 38.3 % (40.0-50.0); HGB 11.5 g/dL (13.5-17.5); Immature Grans % 0.4; Lymphocytes % 25.4; MCH 22.9 pg (27.0-33.0); MCV 76 fL (80-95); Monocytes % 7.6; Neutrophils % 66.4; Platelet Count 248 10^3/uL (130-400); RBC 5.03 10^6/uL (4.36-5.78); RDW 17.5 % (11.8-14.1); RDW-SD 40.7 fL; WBC 5.36 10^3/uL (4.4-10.8)
[2022-09-24 12:46] LABS: ALT 36 U/L (16-63); AST 17 U/L (15-37); Albumin 3.5 g/dL (3.4-5.0); Alkaline Phosphatase 105 U/L (46-116); Anion Gap 7.4 mmol/L (3-11); BUN 20 mg/dL (7-18); Bilirubin, Total 0.3 mg/dL (0.2-1.0); CO2 25.6 mmol/L (21.0-32.0); CREATININE 1.2 mg/dL (0.70-1.30); Calcium 9.7 mg/dL (8.5-10.1); Chloride 108 mmol/L (98-107); Estimated GFR 73.22 (mL/min/1.73m2); Glucose 154 mg/dL (74-106); Potassium 4.1 mmol/L (3.5-5.1); Sodium 141 mmol/L (136-145); TSH (W/Ref FT4) 0.52 uIU/mL (0.36-3.74); Total Protein 6.9 g/dL (6.4-8.2)
[2022-09-24 12:51] LABS: Calculated LDL 74 mg/dL (<100); Cholesterol 167 mg/dL (<200); HDL Cholesterol 36 mg/dL (40-60); Triglyceride 287 mg/dL (<150)
[2022-09-24 14:25] LABS: Lithium < 0.2 mmol/l (0.6-1.2)
[2022-09-24 22:22] LABS: T3, Total 120 ng/dL (97-169)
[2022-09-26 18:41] LABS: Clozapine 1140 ng/mL (350-600); Clozapine+Norclozapine Total 1837 ng/mL; Norclozapine 697 ng/mL
== END 2022-09-24 04:31 | disposition home or self-care (01) ==
LOC: LBO 04:30
PROVIDERS: PCP Internal Medicine; Visit Provider Psychiatry & Neurology Psychiatry
DX: E66.9 Obesity, unspecified (principal); R94.6 Abnormal results of thyroid function studies; F20.9 Schizophrenia, unspecified; Z00.00 Encounter for general adult medical examination without abnormal findings
CPT/HCPCS: 36415; 80053; 80061; 80159; 80178; 84443; 84480; 85025

== ENCOUNTER 2022-10-22 02:43 | Outpatient (CLI) | payer MEDICARE, MEDICAID, SELFPAY ==
[2022-10-22 11:52] LABS: Abs Immature Grans 0.01 10^3/uL (0.0-0.06); Absolute Basophil Count 0.01 10^3/uL (0.0-0.2); Absolute Lymphocyte Count 1.24 10^3/uL (1.2-3.4); Absolute Monocyte Count 0.32 10^3/uL (0.1-0.8); Absolute Neutrophil Count 2.97 10^3/uL (1.2-6.7); Basophils % 0.2; HCT 43.4 % (40.0-50.0); HGB 13.4 g/dL (13.5-17.5); Immature Grans % 0.2; Lymphocytes % 27.3; MCH 24.7 pg (27.0-33.0); MCHC 30.9 % (32.0-36.0); MCV 80 fL (80-95); MPV 8.9 fL (8.0-11.0); Neutrophils % 65.3; Platelet Count 180 10^3/uL (130-400); RBC 5.42 10^6/uL (4.36-5.78); RDW 22.1 % (11.8-14.1); RDW-SD 61.7 fL; WBC 4.55 10^3/uL (4.4-10.8)
[2022-10-22 12:26] LABS: Anisocytosis 2+; Diff Comment RBC Morph Reviewed
[2022-10-22 12:27] LABS: ALT 28 U/L (16-63); AST 17 U/L (15-37); Albumin 3.3 g/dL (3.4-5.0); Alkaline Phosphatase 96 U/L (46-116); Anion Gap 8.5 mmol/L (3-11); BUN 20 mg/dL (7-18); Bilirubin, Total 0.4 mg/dL (0.2-1.0); CO2 24.5 mmol/L (21.0-32.0); CREATININE 1.1 mg/dL (0.70-1.30); Calcium 9.5 mg/dL (8.5-10.1); Chloride 109 mmol/L (98-107); Estimated GFR 80.77 (mL/min/1.73m2); Glucose 108 mg/dL (74-106); Potassium 4.4 mmol/L (3.5-5.1); Sodium 142 mmol/L (136-145); TSH (W/Ref FT4) 0.22 uIU/mL (0.36-3.74); Total Protein 6.7 g/dL (6.4-8.2)
[2022-10-22 12:38] LABS: Lithium < 0.2 mmol/l (0.6-1.2)
[2022-10-22 12:43] LABS: FREE T4 1.09 ng/dL (0.76-1.46)
[2022-10-23 16:34] LABS: T3, Total 132 ng/dL (97-169)
[2022-10-26 00:26] LABS: Clozapine 1620 ng/mL (350-600); Clozapine+Norclozapine Total 2326 ng/mL; Norclozapine 706 ng/mL
== END 2022-10-22 02:44 | disposition home or self-care (01) ==
LOC: LBO 02:43
PROVIDERS: PCP Internal Medicine; Visit Provider Psychiatry & Neurology Psychiatry
DX: F20.0 Paranoid schizophrenia (principal); Z79.899 Other long term (current) drug therapy; Z51.81 Encounter for therapeutic drug level monitoring
CPT/HCPCS: 36415; 80053; 80159; 80178; 84439; 84443; 84480; 85025

== ENCOUNTER 2022-11-19 02:52 | Outpatient (CLI) | payer MEDICARE, MEDICAID, SELFPAY ==
[2022-11-19 14:15] LABS: Abs Immature Grans 0.02 10^3/uL (0.0-0.06); Absolute Basophil Count 0.01 10^3/uL (0.0-0.2); Absolute Lymphocyte Count 1.43 10^3/uL (1.2-3.4); Absolute Monocyte Count 0.47 10^3/uL (0.1-0.8); Absolute Neutrophil Count 3.56 10^3/uL (1.2-6.7); Basophils % 0.2; HCT 42.7 % (40.0-50.0); HGB 13.8 g/dL (13.5-17.5); Immature Grans % 0.4; MCH 26.4 pg (27.0-33.0); MCHC 32.3 % (32.0-36.0); MCV 82 fL (80-95); MPV 8.8 fL (8.0-11.0); Monocytes % 8.6; Neutrophils % 64.8; Platelet Count 187 10^3/uL (130-400); RBC 5.23 10^6/uL (4.36-5.78); RDW 19.9 % (11.8-14.1); RDW-SD 58.4 fL; WBC 5.49 10^3/uL (4.4-10.8)
[2022-11-19 15:38] LABS: ALT 37 U/L (16-63); AST 17 U/L (15-37); Albumin 3.2 g/dL (3.4-5.0); Alkaline Phosphatase 112 U/L (46-116); Anion Gap 8.2 mmol/L (3-11); BUN 18 mg/dL (7-18); Bilirubin, Total 0.2 mg/dL (0.2-1.0); CO2 25.8 mmol/L (21.0-32.0); CREATININE 1.3 mg/dL (0.70-1.30); Calcium 9.6 mg/dL (8.5-10.1); Chloride 108 mmol/L (98-107); Glucose 144 mg/dL (74-106); Potassium 4.5 mmol/L (3.5-5.1); Sodium 142 mmol/L (136-145); TSH (W/Ref FT4) 0.35 uIU/mL (0.36-3.74); Total Protein 6.5 g/dL (6.4-8.2)
[2022-11-19 15:48] LABS: Lithium < 0.2 mmol/l (0.6-1.2)
[2022-11-19 16:15] LABS: FREE T4 1.11 ng/dL (0.76-1.46)
[2022-11-19 22:10] LABS: T3, Total 122 ng/dL (97-169)
[2022-11-22 19:21] LABS: Clozapine 1170 ng/mL (350-600); Clozapine+Norclozapine Total 1893 ng/mL; Norclozapine 723 ng/mL
== END 2022-11-19 02:53 | disposition home or self-care (01) ==
PROVIDERS: PCP Internal Medicine; Visit Provider Psychiatry & Neurology Psychiatry
DX: R94.6 Abnormal results of thyroid function studies (principal); F20.0 Paranoid schizophrenia
CPT/HCPCS: 36415; 80053; 80159; 80178; 84439; 84443; 84480; 84481; 85025

== ENCOUNTER 2022-12-18 02:29 | Outpatient (CLI) | payer MEDICARE, MEDICAID, SELFPAY ==
[2022-12-18 14:17] LABS: Abs Immature Grans 0.02 10^3/uL (0.0-0.06); Absolute Basophil Count 0.02 10^3/uL (0.0-0.2); Absolute Eosinophil Count 0.01 10^3/uL (0.0-0.7); Absolute Lymphocyte Count 1.34 10^3/uL (1.2-3.4); Absolute Monocyte Count 0.39 10^3/uL (0.1-0.8); Absolute Neutrophil Count 4.27 10^3/uL (1.2-6.7); Basophils % 0.3; Eosinophils % 0.2; HGB 13.4 g/dL (13.5-17.5); Immature Grans % 0.3; Lymphocytes % 22.1; MCH 26.3 pg (27.0-33.0); MCHC 31.9 % (32.0-36.0); MCV 83 fL (80-95); MPV 8.6 fL (8.0-11.0); Monocytes % 6.4; Neutrophils % 70.7; Platelet Count 199 10^3/uL (130-400); RBC 5.09 10^6/uL (4.36-5.78); RDW 15.3 % (11.8-14.1); RDW-SD 44.8 fL; WBC 6.05 10^3/uL (4.4-10.8)
[2022-12-18 14:42] LABS: ALT 67 U/L (16-63); AST 39 U/L (15-37); Albumin 3.4 g/dL (3.4-5.0); Alkaline Phosphatase 124 U/L (46-116); Anion Gap 8.5 mmol/L (3-11); BUN 15 mg/dL (7-18); Bilirubin, Total 0.3 mg/dL (0.2-1.0); CO2 24.5 mmol/L (21.0-32.0); CREATININE 1.2 mg/dL (0.70-1.30); Calcium 9.6 mg/dL (8.5-10.1); Chloride 108 mmol/L (98-107); Estimated GFR 72.76 (mL/min/1.73m2); Glucose 97 mg/dL (74-106); Potassium 4.1 mmol/L (3.5-5.1); Sodium 141 mmol/L (136-145); TSH (W/Ref FT4) 0.37 uIU/mL (0.36-3.74); Total Protein 6.8 g/dL (6.4-8.2)
[2022-12-18 15:01] LABS: Lithium < 0.2 mmol/l (0.6-1.2)
[2022-12-18 22:09] LABS: T3, Total 128 ng/dL (97-169)
[2022-12-20 17:54] LABS: Clozapine 1730 ng/mL (350-600); Clozapine+Norclozapine Total 2546 ng/mL; Norclozapine 816 ng/mL
== END 2022-12-18 02:30 | disposition home or self-care (01) ==
LOC: LBO 02:29
PROVIDERS: PCP Internal Medicine; Visit Provider Psychiatry & Neurology Psychiatry
DX: F20.0 Paranoid schizophrenia (principal); R94.6 Abnormal results of thyroid function studies; Z79.899 Other long term (current) drug therapy; Z51.81 Encounter for therapeutic drug level monitoring
CPT/HCPCS: 36415; 80053; 80159; 80178; 84443; 84480; 85025

== ENCOUNTER 2023-01-01 17:31 | Outpatient (REF) | payer MEDICARE, MEDICAID, SELFPAY ==
[2023-01-01 20:53] LABS: Iron 38 ug/dL (65-175); Total Iron Binding Capacity 268 ug/dL (250-450); Transferrin Sat 14 % (20-55)
== END 2023-01-01 17:32 | disposition home or self-care (01) ==
LOC: NCHCN 17:31
PROVIDERS: PCP Internal Medicine; Visit Provider Internal Medicine
DX: D50.9 Iron deficiency anemia, unspecified (principal)
CPT/HCPCS: 83540; 83550

== ENCOUNTER 2023-01-14 04:22 | Outpatient (CLI) | payer MEDICARE, MEDICAID, SELFPAY ==
[2023-01-14 12:39] LABS: Abs Immature Grans 0.02 10^3/uL (0.0-0.06); Absolute Basophil Count 0.01 10^3/uL (0.0-0.2); Absolute Lymphocyte Count 1.43 10^3/uL (1.2-3.4); Absolute Monocyte Count 0.34 10^3/uL (0.1-0.8); Basophils % 0.2; HGB 12.6 g/dL (13.5-17.5); Immature Grans % 0.4; Lymphocytes % 25.1; MCH 26.8 pg (27.0-33.0); MCHC 32.3 % (32.0-36.0); MCV 83 fL (80-95); Neutrophils % 68.3; Platelet Count 196 10^3/uL (130-400); RBC 4.71 10^6/uL (4.36-5.78); RDW 14.6 % (11.8-14.1); RDW-SD 42.5 fL
== END 2023-01-14 04:23 | disposition home or self-care (01) ==
LOC: LBO 04:23
PROVIDERS: PCP Internal Medicine; Visit Provider Psychiatry & Neurology Psychiatry
DX: Z79.899 Other long term (current) drug therapy (principal)
CPT/HCPCS: 36415; 85025

== ENCOUNTER 2023-02-05 16:56 | Emergency (ER) | payer MEDICARE, MEDICAID, SELFPAY ==
[2023-02-05 16:58] VITALS: BP 132/84; PULSE 106; RESP 16; TEMP 37.2; O2SAT 98
--- NOTE | 2023-02-05 17:15 | DI.RAD_ITS ---
Exam(s) XR CHEST 2V PA LATERAL EXAM: XR CHEST 2V PA LATERAL CLINICAL HISTORY: cough, sob. TECHNIQUE: 2D digital imaging was performed. COMPARISON: CR XR CHEST 2V PA LATERAL from 05/07/2022 FINDINGS: 2 views: Heart size is normal. The mediastinum is not widened. Lungs are clear. No infiltrates nor pleural effusions. IMPRESSION: No acute pulmonary findings. DATA REPOSITORY: RADIATION DOSE DELIVERED:
[2023-02-05 18:04] LABS: COVID-19 PCR Negative (Negative); Influenza A PCR Negative (Negative); Influenza B PCR Negative (Negative); RSV PCR Negative (Negative)
[2023-02-05 18:05] LABS: Source NASOPHARYNX
[2023-02-05] MEDS: Albuterol HFA 8 GM 60 PUFF INH IH (18:05)
--- NOTE | 2023-02-05 18:24 | ED.GENADUL_ITS ---
Discharge Plan Disposition Patient Disposition: Home Discharge Details Clinical Impression: Upper respiratory infection Primary Care Provider: Tomás Carvalho ED Provider: [place] Pompa Home Meds and New Rx's Prescriptions: Continued bupropion HCl 150 mg tablet extended release 24 hr 150 mg PO DAILY Patient Comments: 12/08/18 30 mg daily Androderm 4 mg/24 hr patch 24 hour 2 patch Transdermal DAILY Patient Comments: 12/08/18 1 patch Saturday, Saturday, Saturday. 2 patches the other days ev PNV-Select 27-1 mg tablet 1 tab PO DAILY Patient Comments: not taking haloperidol 1 mg tablet 1 mg PO BID albuterol sulfate [Ventolin HFA] 90 mcg/actuation HFA aerosol inhaler 2 puff inhalation Q6H PRN bupropion HCl [Wellbutrin XL] 150 mg tablet extended release 24 hr 150 mg PO QAM clozapine [Clozaril] 100 MG tablet 100 mg PO TID Patient Comments: pt states he takes 100mg AM 100 mg afternoon and 350 mg HS pantoprazole [Protonix] 20 MG tablet,delayed release (DR/EC) 40 mg PO BID lorazepam 2 MG tablet 2 mg PO BID propranolol 10 MG tablet 10 mg PO BID lithium carbonate 300 MG tablet extended release 150 mg PO HS lactulose 10 gram/15 mL Solution 15 - 30 ml PO DAILY PRN lactulose 10 gram/15 mL solution Patient Comments: TAKE 15 TO 30 ML BY MOUTH EVERY DAY NEEDED Xarelto 10 mg tablet 20 tab PO DAILY Discharge Instructions Instructions: Upper Respiratory Infection (ED) Additional Instructions: increase fluids, 8, 8oz glasses of water daily albuterol, 2 puffs every 4-6 hours as needed for cough, wheeze, shortness of breath recheck in 3 days with persistent symptoms Should you develop worsening shortness of breath fever greater than 100.4, or any new or worsening complaints including chest pain, please return for reassessment [place] to take Mucinex DM for upper respiratory congestion Referrals: Tomás Carvalho MD [Primary Care Provider] - 3 days Medical Decision Making 52-year-old male, alert and oriented, no acute distress, repeat pulse 100, oxygenation 98% on room air, no acute distress COVID flu and RSV negative, chest x-ray without acute abnormality per my interpretation, pending radiology over review Albuterol given for comfort Encourage fluids and Mucinex Return precautions reviewed and patient expressed understanding, low clinical evidence of recurrent pulmonary embolism in an anticoagulated patient without hypoxemia or tachypnea or significant tachycardia when compared to prior Recheck in 3 days recommended Early return precautions reviewed and patient expressed understanding discharged home in stable condition with stable vitals HPI General Date/Time Provider Initiated Documentation: 02/05/23 17:03 . HPI Narrative: This 52-year-old gentleman with history of pulmonary emboli, chronic kidney disease, tobacco use presents with report sore throat for the past 4 days with resolution today. Now with upper respiratory congestion and cough. Patient pre sents out of concern for pneumonia. He states he had pneumonia last year. He denies any fever or chills. He denies any shortness of breath or chest pain. He denies any calf pain or swelling. He is taken his Xarelto consistently. He denies any known sick contacts. He does report productive cough. Related Data Home Medications Medication Instructions Recorded Confirmed clozapine 100 mg tablet (Clozaril) 100 mg PO TID 11/19/16 02/27/22 lorazepam 2 mg tablet 2 mg PO BID 11/19/16 02/27/22 pantoprazole 20 mg tablet,delayed 40 mg PO BID 11/19/16 02/07/22 release (Protonix) lithium carbonate 300 mg 150 mg PO HS 12/14/16 02/07/22 tablet,extended release propranolol 10 mg tablet 10 mg PO BID 12/14/16 02/07/22 lactulose 10 gram/15 mL oral 15 - 30 ml PO DAILY PRN 11/18/18 02/07/22 solution bupropion HCl 150 mg 24 hr tablet, 150 mg PO DAILY 12/08/18 02/27/22 extended release vit,calcium no.40-iron 1 tab PO DAILY 12/08/18 02/27/22 fum 27 mg iron-folate no.1 1 mg tablet (PNV-Select) testosterone 4 mg/24 hr 2 patch transdermal DAILY 12/08/18 02/27/22 transdermal 24 hour patch (Androderm) lactulose 10 gram/15 mL oral 02/27/22 02/27/22 solution rivaroxaban 10 mg tablet (Xarelto) 20 tab PO DAILY 02/27/22 02/27/22 albuterol sulfate 90 mcg/actuation 2 puff inhalation Q6H PRN 03/06/22 aerosol inhaler (Ventolin HFA) bupropion HCl 150 mg 24 hr tablet, 150 mg PO QAM 03/06/22 extended release (Wellbutrin XL) haloperidol 1 mg tablet 1 mg PO BID 03/06/22 Allergies Allergy/AdvReac Type Severity Reaction Status Date / Time codeine Allergy Unknown Verified 02/05/23 17:03 Sulfa (Sulfonamide Allergy Unknown Verified 02/05/23 17:03 Antibiotics) esomeprazole [From Nexium] Allergy Verified 02/05/23 17:03 fenofibrate [From Tricor] Allergy Verified 02/05/23 17:03 ferrous gluconate Allergy Verified 02/05/23 17:03 mafenide [From Sulfamylon] Allergy Verified 02/05/23 17:03 Penicillins Allergy Verified 02/05/23 17:03 General Stated Complaint: GenMedical DELORIS: 4 PFSH All Active Problems (Updated 02/05/23 @ 18:12 by BRANDON Marshall) Upper respiratory infection (Acute) Tobacco abuse (Acute) Cholelithiasis (Acute) CKD (chronic kidney disease) (Chronic) Lower GI bleed (Acute) Mucocele of mouth (Acute) Cough (Acute) Shortness of breath (Acute) Confusion (Acute) Hiatal hernia (Chronic) Medical History Abnormal thyroid stimulating hormone (TSH) level Anemia Anxiety Chronic constipation Dyspepsia Dysphagia Fatigue Former smoker Gastritis Heme positive stool Hepatitis C History of hepatitis C Hypogonadism Lactose intolerance Low energy Microcytic anemia Obesity Onychomycosis of toenail Schizoaffective disorder SOB (shortness of breath) on exertion Vitamin D deficiency Surgical History H/O esophagogastroduodenoscopy History of surgery Surgery to penis Normal colonoscopy Social History Smoking/Tobacco Use Status: Former Tobacco Use Quit Date: 10/29/18 Smoking risk assessment performed?: Yes Alcohol Intake: never Drug use: Never Substance use type: does not use Housing: house Do you feel safe at home: Yes Do you feel safe in your relationship?: Yes Course Vital Signs Vital signs: Vital Signs Temperature 37.2 C 02/05/23 16:58 Pulse 106 H 02/05/23 16:58 Respiratory Rate 16 10/24/23 16:58 Blood Pressure 132/84 02/05/23 16:58 Pulse Oximetry 98 02/05/23 16:58 Temperature 37.2 C 02/05/23 16:58 Pulse 106 H 02/05/23 16:58 Respiratory Rate 16 02/05/23 16:58 Blood Pressure 132/84 02/05/23 16:58 Pulse Oximetry 98 02/05/23 16:58 Oxygen Delivery Method Room Air 02/05/23 16:58 Oxygen Flow Rate 0 02/05/23 16:58 Lab/Test Results Lab/Test Results: Laboratory Tests Range/Units 02/05/23 17:15 COVID-19 Source NASOPHARYNX SARS-CoV-2 (PCR) (Negative) Negative Influenza Type A (PCR) (Negative) Negative Influenza Type B (PCR) (Negative) Negative RSV (PCR) (Negative) Negative
== END 2023-02-05 18:27 | disposition home or self-care (01) ==
PROVIDERS: Emergency Provider Physician Assistant; PCP Internal Medicine
DX: J06.9 Acute upper respiratory infection, unspecified (principal); Z87.891 Personal history of nicotine dependence; Z20.822 Contact with and (suspected) exposure to COVID-19
CPT/HCPCS: 87637; 99283; 71046; 99282

== ENCOUNTER 2023-02-11 03:20 | Outpatient (CLI) | payer MEDICARE, MEDICAID, SELFPAY ==
[2023-02-11 09:15] LABS: Abs Immature Grans 0.03 10^3/uL (0.0-0.06); Absolute Basophil Count 0.02 10^3/uL (0.0-0.2); Absolute Lymphocyte Count 1.15 10^3/uL (1.2-3.4); Absolute Neutrophil Count 4.39 10^3/uL (1.2-6.7); Basophils % 0.3; HCT 43.3 % (40.0-50.0); HGB 14.1 g/dL (13.5-17.5); Immature Grans % 0.5; Lymphocytes % 19.2; MCH 27.2 pg (27.0-33.0); MCHC 32.6 % (32.0-36.0); MCV 84 fL (80-95); MPV 8.8 fL (8.0-11.0); Monocytes % 6.7; Neutrophils % 73.3; Platelet Count 240 10^3/uL (130-400); RBC 5.18 10^6/uL (4.36-5.78); RDW 14.8 % (11.8-14.1); RDW-SD 45.5 fL; WBC 5.99 10^3/uL (4.4-10.8)
[2023-02-11 10:15] LABS: ALT 24 U/L (16-63); AST 12 U/L (15-37); Albumin 3.5 g/dL (3.4-5.0); Alkaline Phosphatase 101 U/L (46-116); Anion Gap 11.8 mmol/L (3-11); BUN 21 mg/dL (7-18); Bilirubin, Total 0.3 mg/dL (0.2-1.0); CO2 24.2 mmol/L (21.0-32.0); CREATININE 1.3 mg/dL (0.70-1.30); Calcium 10.3 mg/dL (8.5-10.1); Chloride 107 mmol/L (98-107); Glucose 126 mg/dL (74-106); Sodium 143 mmol/L (136-145); Total Protein 7.1 g/dL (6.4-8.2)
== END 2023-02-11 03:21 | disposition home or self-care (01) ==
PROVIDERS: Psychiatry & Neurology Psychiatry; PCP Internal Medicine; Visit Provider Clinical Nurse Specialist Psychiatric/Mental Health
DX: F20.0 Paranoid schizophrenia (principal)
CPT/HCPCS: 36415; 80053; 85025

== ENCOUNTER 2023-03-11 03:22 | Outpatient (CLI) | payer MEDICARE, MEDICAID, SELFPAY ==
[2023-03-11 11:19] LABS: Abs Immature Grans 0.02 10^3/uL (0.0-0.06); Absolute Basophil Count 0.02 10^3/uL (0.0-0.2); Absolute Lymphocyte Count 1.51 10^3/uL (1.2-3.4); Absolute Neutrophil Count 4.35 10^3/uL (1.2-6.7); Basophils % 0.3; HCT 44.1 % (40.0-50.0); HGB 14.5 g/dL (13.5-17.5); Immature Grans % 0.3; MCH 26.9 pg (27.0-33.0); MCHC 32.9 % (32.0-36.0); MCV 82 fL (80-95); MPV 9.2 fL (8.0-11.0); Monocytes % 6.3; Neutrophils % 69.1; Platelet Count 200 10^3/uL (130-400); RDW 14.8 % (11.8-14.1); RDW-SD 44.3 fL
[2023-03-11 11:46] LABS: ALT 34 U/L (16-63); AST 17 U/L (15-37); Albumin 3.3 g/dL (3.4-5.0); Alkaline Phosphatase 111 U/L (46-116); Anion Gap 9.7 mmol/L (3-11); BUN 19 mg/dL (7-18); Bilirubin, Total 0.2 mg/dL (0.2-1.0); CO2 26.3 mmol/L (21.0-32.0); CREATININE 1.2 mg/dL (0.70-1.30); Calcium 10.1 mg/dL (8.5-10.1); Chloride 106 mmol/L (98-107); Estimated GFR 72.76 (mL/min/1.73m2); Glucose 144 mg/dL (74-106); Potassium 4.1 mmol/L (3.5-5.1); Sodium 142 mmol/L (136-145); Total Protein 6.9 g/dL (6.4-8.2)
== END 2023-03-11 03:23 | disposition home or self-care (01) ==
LOC: LBO 03:22
PROVIDERS: PCP Internal Medicine; Visit Provider Psychiatry & Neurology Psychiatry
DX: F20.0 Paranoid schizophrenia (principal)
CPT/HCPCS: 36415; 80053; 85025

== ENCOUNTER 2023-04-09 04:16 | Outpatient (CLI) | payer MEDICARE, MEDICAID, SELFPAY ==
[2023-04-09 10:21] LABS: Abs Immature Grans 0.01 10^3/uL (0.0-0.06); Absolute Basophil Count 0.03 10^3/uL (0.0-0.2); Absolute Lymphocyte Count 1.32 10^3/uL (1.2-3.4); Absolute Monocyte Count 0.43 10^3/uL (0.1-0.8); Basophils % 0.5; HCT 42.9 % (40.0-50.0); HGB 13.7 g/dL (13.5-17.5); Immature Grans % 0.2; MCH 26.9 pg (27.0-33.0); MCHC 31.9 % (32.0-36.0); MCV 84 fL (80-95); MPV 8.9 fL (8.0-11.0); Monocytes % 7.8; Neutrophils % 67.5; Platelet Count 199 10^3/uL (130-400); RDW 15.8 % (11.8-14.1); RDW-SD 48.3 fL; WBC 5.49 10^3/uL (4.4-10.8)
== END 2023-04-09 04:17 | disposition home or self-care (01) ==
LOC: LBO 04:16
PROVIDERS: PCP Internal Medicine; Visit Provider Psychiatry & Neurology Psychiatry
DX: F20.0 Paranoid schizophrenia (principal); Z79.899 Other long term (current) drug therapy
CPT/HCPCS: 36415; 85025

== ENCOUNTER 2023-05-06 04:53 | Outpatient (CLI) | payer MEDICARE, MEDICAID, SELFPAY ==
[2023-05-06 08:35] LABS: Abs Immature Grans 0.02 10^3/uL (0.0-0.06); Absolute Basophil Count 0.02 10^3/uL (0.0-0.2); Absolute Monocyte Count 0.47 10^3/uL (0.1-0.8); Absolute Neutrophil Count 3.61 10^3/uL (1.2-6.7); Basophils % 0.4; HCT 43.2 % (40.0-50.0); HGB 13.7 g/dL (13.5-17.5); Immature Grans % 0.4; Lymphocytes % 21.1; MCH 26.8 pg (27.0-33.0); MCHC 31.7 % (32.0-36.0); MCV 85 fL (80-95); MPV 8.8 fL (8.0-11.0); Neutrophils % 69.1; Platelet Count 195 10^3/uL (130-400); RBC 5.11 10^6/uL (4.36-5.78); RDW 15.4 % (11.8-14.1); RDW-SD 47.6 fL; WBC 5.22 10^3/uL (4.4-10.8)
== END 2023-05-06 04:54 | disposition home or self-care (01) ==
LOC: LBO 04:53
PROVIDERS: PCP Internal Medicine; Visit Provider Psychiatry & Neurology Psychiatry
DX: F20.0 Paranoid schizophrenia (principal); Z79.899 Other long term (current) drug therapy
CPT/HCPCS: 36415; 85025

== ENCOUNTER 2023-06-03 05:07 | Outpatient (CLI) | payer MEDICARE, MEDICAID, SELFPAY ==
--- OUTSIDE RECORDS SUMMARY | 2023-06-03 05:09 | XMS_ITS | CCD ---
Author Name Unknown Address [address] [place] [address] [id number] Organization Unknown Address [address] [place] [address] [id number] Care Team Providers Care Room Designer Name Role Phone UNLISTED REQUESTED, PROVIDER - Attending Physici an 0 Vital Signs Unknown or Not Available. Allergies Unknown or Not Available. Procedures Unknown or Not Available. History of Immunizations Unknown or Not Available. Problems Unknown or Not Available. Results CBC W/ DIFFERENTIAL* - Colle ct Date/Time: 07/31/2021 10:17 Test Name Code Test Result Test Units Test Ref Rang e WBC 6690-2 6.33 th/cmm L=5.00 H=10.00 NEUT % 68.0 % L=40.0 H=80.0 LYMPH % 24.2 % L=10.0 H=50.0 MONO % 20166-1 7.0 % L=2.0 H=12.0 EOS % 0.0 % L=0.0 H=8.0 BASO % 0.5 % L=0.0 H=3.0 IG % 2514-8 0.3 % L=0.0 H=1.1 NRBC % 87099-0 0.0 % L=0.0 H=0.0 NEUT abs count 751-8 4.3 th/cmm L=1.6 H=8. 4 LYMPH abs count 731-0 1.5 th/cmm L=1.5 H=4 .0 MONO abs count 742-7 0.4 th/cmm L=0.2 H=1. 0 EOS abs count 711-2 0.0 th/cmm L=0.0 H=0.5 BASO abs count 704-7 0.0 th/cmm L=0.0 H=0. 2 IG abs count 35453-7 0.0 th/cmm L=0.0 H=0.1 NRBC abs count 89811-7 0.0 mil/cmm L=0.0 H=0. 0 RBC 789-8 5.39 mil/cmm L=4.30 H=6.20 HEMOGLOBIN 718-7 13.3 gm/dL L=13.0 H=17.0 HEMATOCRIT 4544-3 43 % L=45 H=52 MCV 787-2 79 fL L=82 H=92 MCH 785-6 24.7 pg L=27.0 H=31.0 MCHC 786-4 31.1 % L=32.0 H=36.0 RDW-SD 788-0 45.0 fL L=39.0 H=49.0 PLATELET COUNT 777-3 275 th/cmm L=150 H=45 0 CLOZAPINE (CLOZARIL) QUANTIT ATIVE - Collect Date/Time: 07/31/2021 10:17 Test Name Code Test Result Test Units Test Ref Rang e Norclozapine 10895-8 594 ng/mL Clozapine+NorclozapineTotal 77063-2 1604 ng/mL Clozapine 6896-5 1010 N/A 350-600 Active Medications Unknown or Not Available. Medications Administered During Visit Unknown or Not Available. Encounters Encounter Diagnosis Diagnosis Code Start Date Paranoid schizophrenia [id number] 2 Social History Smoking Status Code Start Date End Date Never smoker [id number] Patient Decision Aids Unknown or Not Available. Discharge Instructions You were admitted to [facility] on 07/31/2021 10:09 with a principal diagnosis of Paranoid schizophrenia You had the following tests done:CBC W/ DIFFERENTIAL*CLOZAPINE (CLOZARIL) QUANTITATIVE You were discharged from [facility] on 07/31/2021 10:09 Should you have any questions prior to discharge, please contact a member of your healthcare team. If you have left the hospital and have any questions, please contact your primary care physician. Chief Complaint and Reason For Visit Unknown or Not Available. Function Status Unknown or Not Available. Plan of Care Unknown or Not Available. Referral/Transition of Care Unknown or Not Available.
--- OUTSIDE RECORDS SUMMARY | 2023-06-03 05:09 | XMS_ITS | Continuity of Care Document ---
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 Name Role Phone Tomás Carvalho Donell Primary Care Physician Encounter [facility] NBR [id number] Date(s): 02/07/22 - 02/08/[address] [address] [place] Encounter Diagnosis Pulmonary emboli(Discharge Diagnosis) - 02/08/22 Discharge Disposition: Home f/u External Provider Attending Physician: Julio Michel MD Admitting Physician: Julio Michel MD Referring Physician: Julio Michel MD Allergies, Adverse Reactions, Alerts Substance Reaction Severity Status penicillin Mild Active codeine sulfate Mild Active sulfa drugs Mild Active Functional Status 02/07/22 Other exposure to Infectious Disease Non e Medications Androderm 4 mg/24 hr transdermal film, extended release APPLY 2 PATCHES TOPICALLY TO THE SKIN DAILY Start Date: 02/08/22 Status: Ordered buPROPion 150 mg/24 hours (XL) oral tablet, extended release TAKE 1 TABLET BY MOUTH EVERY 24 HOURS FOR 7 DAYS Start Date: 02/08/22 Status: Ordered cloZAPine 100 mg oral tablet 100 mg = 1 tab, Oral, TID, # 21 tab, 0 Refill(s) Start Date: 02/08/22 Status: Ordered haloperidol 1 mg oral tablet TAKE 1 TABLET BY MOUTH THREE TIMES DAILY AND 1 TABLET IN THE AFTERNOON NEEDED FOR 7 DAYS Start Date: 02/08/22 Status: Ordered lithium 150 mg oral capsule 450 mg = 3 cap, Oral, BID, # 180 cap, 0 Refill(s) Start Date: 02/08/22 Status: Ordered LORazepam 2 mg oral tablet TAKE 1 TABLET BY MOUTH IN THE MORNING AND IN THE EVENING FOR 7 DAYS Start Date: 02/08/22 Status: Ordered pantoprazole 40 mg oral delayed release tablet TAKE 1 TABLET BY MOUTH EVERY DAY Start Date: 02/08/22 Status: Ordered propranolol 10 mg oral tablet TAKE 1 TABLET BY MOUTH TWICE DAILY FOR 7 DAYS Start Date: 02/08/22 Status: Ordered Results Laboratory List Name Date .Morphology (LTTL) 02/08/22 CBC w/ Diff 02/08/22 Comprehensive Metabolic Panel (CMP) 01/14 11/03 PT/ INR 02/08/22 PTT 02/08/22 Troponin-I 02/08/22 Automated Diff 02/08/22 Most recent to oldest [Reference Range]: 1 WBC [4.8-10.8 K/mcL] 6.8 K/mcL (02/08/22 1:06 AM) RBC [4.20-6.10 Million/mcL] 4.63 Million /mcL (02/08/22 1:06 AM) Neutro Auto [42.2-75.2 %] 67.4 % (02/08/22 1:06 AM) Lymph Auto [20.5-51.1 %] 23.2 % (02/08/22 1:06 AM) [place] Auto [1.7-9.3 %] 8.4 % (02/08/22 1:06 AM) Basophil Auto [0.0-0.2 %] 0.6 % *HI* (02/08/22 1:06 AM) Prothrombin Time [9.1-10.6 seconds] 12.2 seconds *HI* (02/08/22 1:06 AM) INR [0.9-1.1] 1.2 *HI* (02/08/22 1:06 AM) BUN [8-26 mg/dL] 17 mg/dL (02/08/22 1:06 AM) Glucose Level [74-106 mg/dL] 113 mg/dL *HI* (02/08/22 1:06 AM) Potassium Level [3.5-5.1 mmol/L] 4.2 mmo l/L (02/08/22 1:06 AM) Baso Absolute [0.0-0.2 K/mcL] 0.0 K/mcL (02/08/22 1:06 AM) MCV [80.0-99.0 fL] 74.5 fL *LOW* (02/08/22 1:06 AM) AST [15-41 IntlUnit/L] 16 IntlUnit/L (02/08/22 1:06 AM) ALT [17-63 IntlUnit/L] 14 IntlUnit/L *LOW* (02/08/22 1:06 AM) MCHC [32.0-36.0 g/dL] 30.1 g/dL *LOW* (02/08/22 1:06 AM) Osmolality [275-295 mOsm/kg] 276 mOsm/kg (02/08/22 1:06 AM) Troponin-I [<=0.05 ng/mL] <0.01 ng/mL (02/08/22 1:06 AM) Sodium Level [134-143 mmol/L] 137 mmol/L (02/08/22 1:06 AM) Lymph Absolute [1.2-3.4 K/mcL] 1.6 K/mcL (02/08/22 1:06 AM) Hct [37.0-52.0 %] 34.5 % *LOW* (02/08/22 1:06 AM) Microcyte 2+ *ABN* (02/08/22 1:06 AM) Hypochromia 2+ *ABN* (02/08/22 1:06 AM) Partial Thromboplastin Time [21.3-28.4 s econds] 35.7 seconds *HI* (02/08/22 1:06 AM) Calcium Level [8.9-10.3 mg/dL] 9.1 mg/dL (02/08/22 1:06 AM) [place] Absolute [0.1-0.6 K/mcL] 0.6 K/mcL (02/08/22 1:06 AM) Albumin Level [3.5-5.0 g/dL] 3.4 g/dL *LOW* (02/08/22 1:06 AM) Protein Total [6.5-8.1 g/dL] 6.1 g/dL *LOW* (02/08/22 1:06 AM) MCH [27.0-31.0 pg] 22.5 pg *LOW* (02/08/22 1:06 AM) Neutro Absolute [1.4-6.5 K/mcL] 4.6 K/mc L (02/08/22 1:06 AM) Bilirubin Total [0.2-1.2 mg/dL] 0.4 mg/d L (02/08/22 1:06 AM) Hgb [12.0-18.0 g/dL] 10.4 g/dL *LOW* (02/08/22 1:06 AM) Alk Phos [38-130 IntlUnit/L] 75 IntlUnit /L (02/08/22 1:06 AM) MPV [7.4-10.4 fL] 9.6 fL (02/08/22 1:06 AM) Platelets [130-400 K/mcL] 232 K/mcL (02/08/22 1:06 AM) CO2 [22-32 mmol/L] 25 mmol/L (02/08/22 1:06 AM) Eos Absolute [0.0-0.2 K/mcL] 0.0 K/mcL (02/08/22 1:06 AM) eGFR Non-AA 75 *NA* (02/08/22 1:06 AM) eGFR AA 75 *NA* (02/08/22 1:06 AM) Chloride Level [98-111 mmol/L] 109 mmol/ L (02/08/22 1:06 AM) RDW-CV [11.5-14.5 %] 16.9 % *HI* (02/08/22 1:06 AM) A/G Ratio 1.3 *NA* (02/08/22 1:06 AM) BUN/Creat Ratio [8.0-20.0] 14.5 (02/08/22 1:06 AM) Globulin 2.7 *NA* (02/08/22 1:06 AM) Imm Gran Absolute 0.03 *NA* (02/08/22 1:06 AM) Imm Gran Auto [0.0-0.5 %] 0.4 % (02/08/22 1:06 AM) Creatinine Level [0.61-1.24 mg/dL] 1.17 mg/dL (02/08/22 1:06 AM) Anion Gap [3.0-12.0] 3.0 (02/08/22 1:06 AM) Eos, Auto [0.00-3.00 %] 0.00 % (02/08/22 1:06 AM) Vital Signs Most recent to oldest [Reference Range]: 1 Temperature Tympanic [36.6-37.9 Deg C] 3 6.2 Deg C *LOW* (02/07/22 11:40 PM) Peripheral Pulse Rate [60-100 bpm] 97 bp m (02/07/22 11:40 PM) Respiratory Rate [12-24 br/min] 18 br/mi n (02/07/22 11:40 PM) Blood Pressure [90-140/60-90 mmHg] 115/8 1mmHg (02/07/22 11:40 PM) Weight Dosing 83.00 kg (02/07/22 11:56 PM) Weight Estimated 83.00 kg (02/07/22 11:40 PM) Height/Length Dosing 165.000 cm (02/07/22 11:56 PM) Height/Length Estimated 165.000 cm (02/07/22 11:40 PM) Social History Social History Type Response Tobacco Never tobacco user T obacco Use:. Sex Hospital Discharge Instructions Patient Education 02/08/2022 00:04:16 Pulmonary Embolism Pulmonary Embolism A pulmonary embolism (PE) is a sudden blockage or decrease of blood flow in one or both lungs that happens when a clot travels into the arteries of the lung (pulmonary arteries). Most blockages come from a blood clot that forms in the vein of a leg or arm (deep vein thrombosis, DVT) and travels to the lungs. A clot is blood that has thickened into a gel or solid. PE is a dangerous and life-threatening condition that needs to be treated right away. What are the causes? This condition is usually caused by a blood clot that forms in a vein and moves to the lungs. In rare cases, it may be caused by air, fat, part of a tumor, or other tissue that moves through the veins and into the lungs. What increases the risk? The following factors may make you more likely to develop this condition: ??? Experiencing a traumatic injury, such as breaking a hip or leg. ??? Having: ??? A spinal cord injury. ??? Major surgery, especially hip or knee replacement, or surgery on parts of the nervous system oron the abdomen. ??? A stroke. ??? A blood-clotting disease. ??? Long-term (chronic) lung or heart disease. ??? Cancer, especially if you are being treated with chemotherapy. ??? A central venous catheter. ??? Taking medicines that contain estrogen. These include control pills and hormone replacement therapy. ??? Being: ??? . ??? In the period of time after your baby is delivered (). ??? Older than age 60. ??? Overweight. ??? A smoker, especially if you have other risks. ??? Not very active (sedentary), not being able to move at all, or spending long periods sitting, such as travel over 6 hours. You are also at a greater risk if you have a leg in a cast or splint. What are the signs or symptoms? Symptoms of this condition usually start suddenly and include: ??? Shortness of breath during activity or at rest. ??? Coughing, coughing up blood, or coughing up bloody mucus. ??? Chest pain, back pain, or shoulder blade pain that gets worse with deep breaths. ??? Rapid or irregular heartbeat. ??? Feeling light-headed or dizzy, or fainting. ??? Feeling anxious. ??? Pain and swelling in a leg. This is a symptom of DVT, which can lead to PE. How is this diagnosed? This condition may be diagnosed based on your medical history, a physical exam, and tests. Tests may include: ??? Blood tests. ??? An ECG (electrocardiogram) of the heart. ??? A CT pulmonary angiogram. This test checks blood flow in and around your lungs. ??? A ventilation???perfusion scan, also called a lung VQ scan. This test measures air flow and blood flow to the lungs. ??? An ultrasound to check for a DVT. How is this treated? Treatment for this condition depends on many factors, such as the cause of your PE, your risk for bleeding or developing more clots, and other medical conditions you may have. Treatment aims to stop blood clots from forming or growing larger. In some cases, treatment may be aimed at breaking apart or removing the blood clot. Treatment may include: ??? Medicines, such as: ??? Blood thinning medicines, also called anticoagulants, to stop clots from forming and growing. ??? Medicines that break apart clots (fibrinolytics). ??? Procedures, such as: ??? Using a flexible tube to remove a blood clot (embolectomy) or to deliver medicine to destroy it(catheter-directed thrombolysis). ??? Surgery to remove the clot (surgical embolectomy). This is rare. You may need a combination of immediate, long-term, and extended treatments. Your treatment may continue for several months (maintenance therapy) or longer depending on your medical conditions. You and your health care provider will work together to choose the treatment program that is best for you. Follow these instructions at home: Medicines ??? Take [id number] and prescription medicines only as told by your health care provider. ??? If you are taking blood thinners: ??? Talk with your health care provider before you take any medicines that contain aspirin or NSAIDs, such as ibuprofen. These medicines increase your risk for dangerous bleeding. ??? Take your medicine exactly as told, at the same time every day. ??? Avoid activities that could cause injury or bruising, and follow instructions about how to prevent falls. ??? Wear a medical alert bracelet or carry a card that lists what medicines you take. ??? Understand what foods and drugs interact with any medicines that you are taking. General instructions ??? Ask your health care provider when you may return to your normal activities. Avoid sitting or lying for a long time without moving. ??? Maintain a healthy weight. Ask your health care provider what weight is healthy for you. ??? Do not use any products that contain nicotine or tobacco. These products include cigarettes, chewing tobacco, and vaping devices, such as e-cigarettes. If you need help quitting, ask your health care provider. ??? Talk with your health care provider about any travel plans. It is important to make sure that you are still able to take your medicine while traveling. ??? Keep all follow-up visits. This is important. Where to find more information ??? [place] [employer]: www.lung.org ??? Centers for Disease Control and Prevention: www.cdc.gov Contact a health care provider if: ??? You missed a dose of your blood thinner medicine. ??? You have a fever. Get help right away if: ??? You have: ??? New or increased pain, swelling, warmth, or redness in an arm or leg. ??? Shortness of breath that gets worse during activity or at rest. ??? Worsening chest pain. ??? A rapid or irregular heartbeat. ??? A severe headache. ??? Vision changes. ??? A serious fall or accident, or you hit your head. ??? Blood in your vomit, stool, or urine. ??? A cut that will not stop bleeding. ??? You cough up blood. ??? You feel light-headed or dizzy, and that feeling does not go away. ??? You cannot move your arms or legs. ??? You are confused or have memory loss. These symptoms may represent a serious problem that is an emergency. Do not wait to see if the symptoms will go away. Get medical help right away. Call your local emergency services (911 in the [place] Do not drive yourself to the hospital. Summary ??? A pulmonary embolism (PE) is a serious and potentially life-threatening condition. It happens when a blood clot from one part of the body travels to the arteries of the lung, causing a sudden blockage or decrease of blood flow to the lungs. This may result in shortness of breath, chest pain, dizziness, and fainting. ??? Treatments for this condition usually include medicines to thin your blood (anticoagulants) or medicines to break apart blood clots. ??? If you are given blood thinners, take your medicine exactly as told by your health care provider, at the same time every day. This is important. ??? Understand what foods and drugs interact with any medicines that you are taking. ??? If you have signs of PE or DVT, call your local emergency services (911 in the [place] This information is not intended to replace advice given to you by your health care provider. Make sure you discuss any questions you have with your health care provider. Document Revised: 03/03/2021 Document Reviewed: 03/03/2021 [employer] Patient Education ?? 2021 [employer] Follow Up Care 02/07/2022 23:40:38 With:Tomás Carvalho Address: [address] [place] [address]- When:2 to 4 days Patient Care team information Personnel Name: Tomás Carvalho Address: Address: [address] [place] [address]
[2023-06-03 15:02] LABS: Abs Immature Grans 0.03 10^3/uL (0.0-0.06); Absolute Basophil Count 0.02 10^3/uL (0.0-0.2); Absolute Eosinophil Count 0.01 10^3/uL (0.0-0.7); Absolute Lymphocyte Count 1.52 10^3/uL (1.2-3.4); Absolute Monocyte Count 0.47 10^3/uL (0.1-0.8); Absolute Neutrophil Count 4.03 10^3/uL (1.2-6.7); Basophils % 0.3; Eosinophils % 0.2; HCT 42.7 % (40.0-50.0); HGB 13.8 g/dL (13.5-17.5); Immature Grans % 0.5; MCH 27.1 pg (27.0-33.0); MCHC 32.3 % (32.0-36.0); MCV 84 fL (80-95); MPV 9.3 fL (8.0-11.0); Monocytes % 7.7; Neutrophils % 66.3; Platelet Count 223 10^3/uL (130-400); RDW 14.6 % (11.8-14.1); RDW-SD 44.4 fL; WBC 6.08 10^3/uL (4.4-10.8)
== END 2023-06-03 05:08 | disposition home or self-care (01) ==
LOC: LBO 05:07
PROVIDERS: PCP Internal Medicine; Visit Provider Psychiatry & Neurology Psychiatry
DX: Z79.899 Other long term (current) drug therapy (principal); F20.0 Paranoid schizophrenia
CPT/HCPCS: 36415; 85025

== ENCOUNTER 2023-07-01 05:39 | Outpatient (CLI) | payer MEDICARE, MEDICAID, SELFPAY ==
[2023-07-01 11:31] LABS: Abs Immature Grans 0.08 10^3/uL (0.0-0.06); Absolute Basophil Count 0.02 10^3/uL (0.0-0.2); Absolute Lymphocyte Count 1.76 10^3/uL (1.2-3.4); Absolute Monocyte Count 0.46 10^3/uL (0.1-0.8); Absolute Neutrophil Count 3.77 10^3/uL (1.2-6.7); Basophils % 0.3; HCT 42.7 % (40.0-50.0); Immature Grans % 1.3; Lymphocytes % 28.9; MCH 27.7 pg (27.0-33.0); MCHC 32.8 % (32.0-36.0); MCV 84 fL (80-95); MPV 9.1 fL (8.0-11.0); Monocytes % 7.6; Neutrophils % 61.9; Platelet Count 209 10^3/uL (130-400); RBC 5.06 10^6/uL (4.36-5.78); RDW 14.7 % (11.8-14.1); WBC 6.09 10^3/uL (4.4-10.8)
== END 2023-07-01 05:40 | disposition home or self-care (01) ==
LOC: LBO 05:39
PROVIDERS: PCP Internal Medicine; Visit Provider Psychiatry & Neurology Psychiatry
DX: Z79.899 Other long term (current) drug therapy (principal); F20.0 Paranoid schizophrenia
CPT/HCPCS: 36415; 85025

== ENCOUNTER 2023-07-04 21:13 | Outpatient (REF) | payer MEDICARE, MEDICAID, SELFPAY ==
[2023-07-04 21:27] LABS: ALT 64 U/L (16-63); AST 28 U/L (15-37); Albumin 3.5 g/dL (3.4-5.0); Alkaline Phosphatase 108 U/L (46-116); Anion Gap 11.5 mmol/L (3-11); BUN 24 mg/dL (7-18); Bilirubin, Total 0.3 mg/dL (0.2-1.0); CO2 23.5 mmol/L (21.0-32.0); CREATININE 1.1 mg/dL (0.70-1.30); Calcium 9.7 mg/dL (8.5-10.1); Chloride 109 mmol/L (98-107); Estimated GFR 80.77 (mL/min/1.73m2); Glucose 106 mg/dL (74-106); LDL CHOLESTEROL 129 mg/dL (<100); Potassium 4.6 mmol/L (3.5-5.1); Sodium 144 mmol/L (136-145); Total Protein 6.5 g/dL (6.4-8.2)
[2023-07-05 18:09] LABS: PSA, Diagnostic 0.5 ng/mL (<=3.5)
[2023-07-12 15:43] LABS: Testosterone, Free 12.3 ng/dL (4.06-15.6); Testosterone, Total 376 ng/dL (240-950)
== END 2023-07-04 21:14 | disposition home or self-care (01) ==
LOC: NCHCN 21:13
PROVIDERS: PCP Internal Medicine; Visit Provider Family Medicine
DX: N18.31 Chronic kidney disease, stage 3a (principal); Z00.00 Encounter for general adult medical examination without abnormal findings
CPT/HCPCS: 80053; 83721; 84402; 84403; 84153

== ENCOUNTER → 2023-07-16 02:02 | Outpatient (CLI) | payer MEDICARE, MEDICAID, SELFPAY ==
--- NOTE | 2023-07-16 | DI.CTLCSR_ITS ---
Exam(s) CT CHEST LUNG CANCER SCREEN EXAM: CT CHEST LUNG CANCER SCREEN CLINICAL HISTORY: HX NICOTINE DEPENDENCE Z87.891 SCREENING FOR LUNG CANCER. TECHNIQUE: Imaging Protocol: Low Dose Technique CONTRAST MATERIAL: None COMPARISON: CT CT CHEST PE CTA from 02/07/[address] CHEST PE ABD PELVIS W from 02/27/2022 CR XR CHEST 2V PA LATERAL from 02/05/2023 FINDINGS: CHEST: LUNGS: Both lungs are presently clear. There are no ominous pulmonary nodules. No infiltrates. The right lung infiltrate which was evident on CT scan of 02/27/2022 has resolved. There are no focal addi ng findings and there are no pleural effusions. MEDIASTINUM: There is no obvious hilar nor mediastinal adenopathy. CARDIAC: Heart size is normal. There is no pericardial effusion.Caliber of the thoracic aorta is wit hin normal limits. OTHER: OSSEOUS: No significant osseous lesions.. IMPRESSION: 1. No significant pulmonary nodules. No infiltrates. No pleural effusions. No intrathoracic adenop athy. 2. I note that this patient had bilateral lower lobe pulmonary emboli on chest CT angio of 02/07/2022 . he also had right lung infiltrate on CT scan of 02/27/2022. 3. Lung RADS Category 1 Lung rads category: 1-no significant lung nodules. Recommend follow-up LD CT in 12 months. Lung-RADS 1.0 CATEGORIES: Category 0 - Prior chest CT exam(s) being located for comparison. Category 1 - Annual screening in 12 months. No nodules or definitely benign nodules. Category 2 - Annual screening in 12 months. Benign appearance. Nodules with low likelihood of becomin g active cancer. Category 3 - 6-month follow-up. Probably benign. Short-term follow-up suggested. Nodules with low lik elihood of becoming active cancer. Category 4A - 3-month follow-up and CT/PET if >8 mm in size. Suspicious finding. Findings which requi re additional testing. Category 4B - Findings which require additional testing and tissue sampling. Category 4X - Category 3 or 4 nodules with additional features or imaging findings that increases the suspicion of malignancy. Modifier S- Potentially clinically significant findings (non lung cancer) RADIATION DOSE DELIVERED: Total DLP DATA REPOSITORY: All CT scans at this facility are submitted to the National Radiology Data Registry (NRDR) Dose Index Registry (DIR) with the [employer] (ACR). RADIATION OPTIMIZATION: All CT scans at this facility use at least one of these dose optimization te chniques: automated exposure control; mA and/or kV adjustment per patient size (includes targeted exa ms where dose is matched to clinical indication); or iterative reconstruction.
== END ==
PROVIDERS: PCP Internal Medicine; Visit Provider Family Medicine
DX: Z12.2 Encounter for screening for malignant neoplasm of respiratory organs (principal); Z87.891 Personal history of nicotine dependence; Z86.711 Personal history of pulmonary embolism
CPT/HCPCS: 71271

== ENCOUNTER 2023-07-29 06:01 | Outpatient (CLI) | payer MEDICARE, MEDICAID, SELFPAY ==
[2023-07-29 11:10] LABS: Abs Immature Grans 0.02 10^3/uL (0.0-0.06); Absolute Basophil Count 0.02 10^3/uL (0.0-0.2); Absolute Lymphocyte Count 1.48 10^3/uL (1.2-3.4); Absolute Monocyte Count 0.43 10^3/uL (0.1-0.8); Absolute Neutrophil Count 3.49 10^3/uL (1.2-6.7); Basophils % 0.4; HCT 41.9 % (40.0-50.0); HGB 13.6 g/dL (13.5-17.5); Immature Grans % 0.4; Lymphocytes % 27.2; MCH 26.8 pg (27.0-33.0); MCHC 32.5 % (32.0-36.0); MCV 83 fL (80-95); Monocytes % 7.9; Neutrophils % 64.1; Platelet Count 199 10^3/uL (130-400); RBC 5.07 10^6/uL (4.36-5.78); RDW 13.5 % (11.8-14.1); RDW-SD 40.3 fL; WBC 5.44 10^3/uL (4.4-10.8)
== END 2023-07-29 06:02 | disposition home or self-care (01) ==
LOC: LBO 06:01
PROVIDERS: PCP Internal Medicine; Visit Provider Psychiatry & Neurology Psychiatry
DX: F20.0 Paranoid schizophrenia (principal); Z79.899 Other long term (current) drug therapy
CPT/HCPCS: 36415; 85025

== ENCOUNTER 2023-08-26 04:57 | Outpatient (CLI) | payer MEDICARE, MEDICAID, SELFPAY ==
[2023-08-26 12:45] LABS: Abs Immature Grans 0.01 10^3/uL (0.0-0.06); Absolute Basophil Count 0.03 10^3/uL (0.0-0.2); Absolute Monocyte Count 0.52 10^3/uL (0.1-0.8); Absolute Neutrophil Count 5.79 10^3/uL (1.2-6.7); Basophils % 0.4 %; HCT 41.4 % (40.0-50.0); HGB 13.3 g/dL (13.5-17.5); Immature Grans % 0.1 %; MCH 25.8 pg (27.0-33.0); MCHC 32.1 % (32.0-36.0); MCV 80 fL (80-95); MPV 9.2 fL (8.0-11.0); Monocytes % 6.8 %; Neutrophils % 75.7 %; Platelet Count 194 10^3/uL (130-400); RBC 5.16 10^6/uL (4.36-5.78); RDW 13.4 % (11.8-14.1); RDW-SD 38.7 fL; WBC 7.65 10^3/uL (4.4-10.8)
[2023-08-28 20:33] LABS: Clozapine 1350 ng/mL (350-600); Clozapine+Norclozapine Total 2123 ng/mL; Norclozapine 773 ng/mL
== END 2023-08-26 04:58 | disposition home or self-care (01) ==
LOC: LBO 04:57
PROVIDERS: PCP Internal Medicine; Visit Provider Psychiatry & Neurology Psychiatry
DX: F20.0 Paranoid schizophrenia (principal); Z79.899 Other long term (current) drug therapy
CPT/HCPCS: 36415; 80159; 85025

== ENCOUNTER 2023-09-23 05:59 | Outpatient (CLI) | payer MEDICARE, MEDICAID, SELFPAY ==
[2023-09-23 13:36] LABS: Abs Immature Grans 0.01 10^3/uL (0.0-0.06); Absolute Basophil Count 0.03 10^3/uL (0.0-0.2); Absolute Lymphocyte Count 1.29 10^3/uL (1.2-3.4); Absolute Monocyte Count 0.56 10^3/uL (0.1-0.8); Absolute Neutrophil Count 3.73 10^3/uL (1.2-6.7); Basophils % 0.5 %; HCT 40.8 % (40.0-50.0); HGB 13.1 g/dL (13.5-17.5); Immature Grans % 0.2 %; MCH 25.1 pg (27.0-33.0); MCHC 32.1 % (32.0-36.0); MCV 78 fL (80-95); MPV 9.3 fL (8.0-11.0); Neutrophils % 66.3 %; Platelet Count 237 10^3/uL (130-400); RBC 5.22 10^6/uL (4.36-5.78); RDW 14.5 % (11.8-14.1); RDW-SD 40.4 fL; WBC 5.62 10^3/uL (4.4-10.8)
[2023-09-25 15:46] LABS: Clozapine 868 ng/mL (350-600); Clozapine+Norclozapine Total 1371 ng/mL; Norclozapine 503 ng/mL
== END 2023-09-23 06:00 | disposition home or self-care (01) ==
LOC: LBO 05:59
PROVIDERS: PCP Internal Medicine; Visit Provider Psychiatry & Neurology Psychiatry
DX: F20.0 Paranoid schizophrenia (principal); Z79.899 Other long term (current) drug therapy
CPT/HCPCS: 36415; 80159; 85025

== ENCOUNTER 2023-10-21 03:17 | Outpatient (CLI) | payer MEDICARE, MEDICAID, SELFPAY ==
[2023-10-21 11:27] LABS: Abs Immature Grans 0.02 10^3/uL (0.0-0.06); Absolute Basophil Count 0.03 10^3/uL (0.0-0.2); Absolute Lymphocyte Count 1.43 10^3/uL (1.2-3.4); Absolute Monocyte Count 0.41 10^3/uL (0.1-0.8); Absolute Neutrophil Count 5.36 10^3/uL (1.2-6.7); Basophils % 0.4 %; HCT 44.3 % (40.0-50.0); HGB 14.2 g/dL (13.5-17.5); Immature Grans % 0.3 %; Lymphocytes % 19.7 %; MCH 24.4 pg (27.0-33.0); MCHC 32.1 % (32.0-36.0); MCV 76 fL (80-95); MPV 9.7 fL (8.0-11.0); Monocytes % 5.7 %; Neutrophils % 73.9 %; Platelet Count 243 10^3/uL (130-400); RBC 5.83 10^6/uL (4.36-5.78); WBC 7.25 10^3/uL (4.4-10.8)
[2023-10-21 12:31] LABS: Hemoglobin A1C 5.8 % (<5.7)
[2023-10-21 12:33] LABS: ALT 23 U/L (16-63); AST 10 U/L (15-37); Albumin 3.5 g/dL (3.4-5.0); Alkaline Phosphatase 102 U/L (46-116); Anion Gap 6.9 mmol/L (3-11); BUN 22 mg/dL (7-18); Bilirubin, Total 0.39 mg/dL (0.2-1.0); CO2 24.1 mmol/L (21.0-32.0); CREATININE 1.1 mg/dL (0.70-1.30); Calculated LDL 114 mg/dL (<100); Chloride 104 mmol/L (98-107); Cholesterol 184 mg/dL (<200); Estimated GFR 80.27 (mL/min/1.73m2); Glucose 127 mg/dL (74-106); HDL Cholesterol 38 mg/dL (40-60); Potassium 4.3 mmol/L (3.5-5.1); Sodium 135 mmol/L (136-145); TSH (W/Ref FT4) 0.44 uIU/mL (0.36-3.74); Total Protein 7.1 g/dL (6.4-8.2); Triglyceride 163 mg/dL (<150)
[2023-10-30 15:44] LABS: Clozapine 689 ng/mL (350-600); Clozapine+Norclozapine Total 1123 ng/mL; Norclozapine 434 ng/mL
== END 2023-10-21 03:18 | disposition home or self-care (01) ==
LOC: LBO 03:17
PROVIDERS: PCP Internal Medicine; Visit Provider Psychiatry & Neurology Psychiatry
DX: Z79.899 Other long term (current) drug therapy (principal)
CPT/HCPCS: 36415; 80053; 80061; 80159; 83036; 84443; 85025

== ENCOUNTER 2023-11-18 03:26 | Outpatient (CLI) | payer MEDICARE, MEDICAID, SELFPAY ==
[2023-11-18 13:11] LABS: Abs Immature Grans 0.03 10^3/uL (0.0-0.06); Absolute Basophil Count 0.04 10^3/uL (0.0-0.2); Absolute Eosinophil Count 0.01 10^3/uL (0.0-0.7); Absolute Lymphocyte Count 1.88 10^3/uL (1.2-3.4); Absolute Monocyte Count 0.44 10^3/uL (0.1-0.8); Absolute Neutrophil Count 5.38 10^3/uL (1.2-6.7); Basophils % 0.5 %; Eosinophils % 0.1 %; HCT 44.2 % (40.0-50.0); HGB 13.5 g/dL (13.5-17.5); Immature Grans % 0.4 %; Lymphocytes % 24.2 %; MCH 23.6 pg (27.0-33.0); MCHC 30.5 % (32.0-36.0); MCV 77 fL (80-95); MPV 9.5 fL (8.0-11.0); Monocytes % 5.7 %; Neutrophils % 69.1 %; Platelet Count 252 10^3/uL (130-400); RBC 5.71 10^6/uL (4.36-5.78); RDW 16.6 % (11.8-14.1); RDW-SD 46.2 fL; WBC 7.78 10^3/uL (4.4-10.8)
== END 2023-11-18 03:27 | disposition home or self-care (01) ==
LOC: LBO 03:26
PROVIDERS: PCP Internal Medicine; Visit Provider Psychiatry & Neurology Psychiatry
DX: F20.0 Paranoid schizophrenia (principal)
CPT/HCPCS: 36415; 85025

== ENCOUNTER 2023-11-29 10:27 | Emergency (ER) | payer MEDICARE, MEDICAID, SELFPAY ==
[2023-11-29 10:33] VITALS: BP 129/89; PULSE 102; RESP 16; TEMP 36.8; O2SAT 99
--- NOTE | 2023-11-29 10:44 | ED.GENADUL_ITS ---
Discharge Plan Discharge Details Chief Complaint: PsychEval Primary Care Provider: Tomás Carvalho ED Provider: Herminia Viramontes Home Meds and New Rx's Prescriptions: No Action Androderm 4 mg/24 hr patch 24 hour 2 patch Transdermal DAILY Patient Comments: 12/08/18 1 patch Saturday, Saturday, Saturday. 2 patches the other days ev haloperidol 1 mg tablet 1 mg PO BID Patient Comments: has script from two different providers for same drug; other script is for 1 tab TID and 1 tab PRN Rx Instructions: Can have 1 tab PRN in the afternoon PRN clozapine [Clozaril] 100 MG tablet See Rx Instructions PO TID Patient Comments: pt states he takes 100mg AM 100 mg afternoon and 350 mg HS Has script from two different providers for same drug Rx Instructions: orally three times a day; orally; lorazepam 2 MG tablet 2 mg PO BID propranolol 10 MG tablet 10 mg PO BID Xarelto 10 mg tablet 10 mg PO DAILY docusate sodium [Colace] 100 mg capsule 100 mg PO BID testosterone 1 % (50 mg/5 gram) gel in packet Patient Comments: APPLY ONE PACKET ONCE DAILIY pantoprazole 40 mg tablet,delayed release (DR/EC) 40 mg PO DAILY Patient Comments: TAKE ONE TABLET BY MOUTH EVERY DAY HPI General Date/Time Provider Initiated Documentation: 11/29/23 10:40 . Limitations to Documentation: no limitations . Information obtained by: patient, family, RN notes reviewed and old records reviewed . History of Present Illness 53 year old M presents to the emergency department with the chief complaint of suicidal thoughts, increased paranoia, described as moderate and similar to prior episodes, Quality is described as constant, Patient started experiencing this unknown and it has been constant. No relieving factors improve symptom(s), Other factors that worsen symptoms (associates with passing of his mother and smoking) . Patient notes no other symptoms.. Patient did receive the following treatments prior to arrival, none Related Data Home Medications ?Medication ?Instructions ?Recorded ?Confirmed clozapine 100 mg tablet (Clozaril) See Rx Instructions PO TID 11/19/16 11/29/23 lorazepam 2 mg tablet 2 mg PO BID 11/19/16 11/29/23 propranolol 10 mg tablet 10 mg PO BID 12/14/16 11/29/23 testosterone 4 mg/24 hr 2 patch transdermal DAILY 12/08/18 11/29/23 transdermal 24 hour patch (Androderm) rivaroxaban 10 mg tablet (Xarelto) 10 mg PO DAILY 02/27/22 11/29/23 haloperidol 1 mg tablet 1 mg PO BID 03/06/22 11/29/23 docusate sodium 100 mg capsule 100 mg PO BID 11/29/23 11/29/23 (Colace) pantoprazole 40 mg tablet,delayed 40 mg PO DAILY 11/29/23 11/29/23 release testosterone 1 % (50 mg/5 gram) 11/29/23 transdermal gel packet Allergies Allergy/AdvReac Type Severity Reaction Status Date / Time codeine Allergy Unknown Unknown Verified 11/29/23 10:35 Sulfa (Sulfonamide Allergy Unknown Hives Verified 11/29/23 10:35 Antibiotics) esomeprazole (From Nexium) Allergy Unknown Verified 11/29/23 10:35 fenofibrate (From Tricor) Allergy Unknown Verified 11/29/23 10:35 ferrous gluconate Allergy Unknown Verified 11/29/23 10:35 mafenide (From Sulfamylon) Allergy Unknown Verified 11/29/23 10:35 Penicillins Allergy Hives Verified 11/29/23 10:35 General Stated Complaint: PsychEval DELORIS: 2 Review of Systems Constitutional Constitutional: Reports as per HPI, Denies chills, Denies fatigue, Denies fe shimon(s) and Denies weakness Cardiovascular Cardiovascular: Reports as per HPI, Denies chest pain, Denies lightheadedness and Denies dyspnea Respiratory Respiratory: Reports as per HPI, Denies cough and Denies dyspnea Gastrointestinal Gastrointestinal: Reports as per HPI, Denies abdominal pain, Denies change in bowel habits, Denies nausea and Denies vomiting Genitourinary Genitourinary: Denies system reviewed and no additional complaints, except as documented (denies any change in urinary habits) Musculoskeletal Musculoskeletal: Denies abnormal gait Integumentary/Breasts Skin/Breast: Reports as per HPI and Denies rash Neurologic Neurologic: Denies abnormal movements, Denies abnormal speech, Denies abnormal gait and Denies weakness Endocrine Endocrine: Denies fatigue Exam Const General: cooperative, healthy appearing, comfortable, no acute distress, well developed and well groomed Nutritional Appearance: average body habitus and well nourished Orientation: alert and awake Eyes General: appearance normal, both eyes and all related structures Resp Effort & Inspection: normal respiratory effort, able to speak in complete sentences and no respiratory distress Auscultation: clear to auscultation bilaterally Cardio Rate: regular rate Rhythm: regular rhythm Heart Sounds: S1 normal and S2 normal Skin General skin exam: no rashes or lesions noted Trauma: no lacerations or abrasions Neuro General: patient alert and patient awake Cognition: normal cognition Speech: speech normal Gait: normal gait Psych Appearance: grossly normal Mental Status: mental status grossly normal Speech and Movement: speech and movement normal Mood: congruent mood Affect: normal affect Attitude: cooperative Thought Process: perseverating Thought Content: delusions and suicidality Insight: poor Judgment: poor Course Vital Signs Vital signs: Vital Signs Temperature 36.8 C 11/29/23 10:33 Pulse 102 H 11/29/23 10:33 Respiratory Rate 16 11/29/23 10:33 Blood Pressure 129/89 11/29/23 10:33 Pulse Oximetry 99 11/29/23 10:33 Temperature 36.8 C 11/29/23 10:33 Temperature Source Temporal Artery Scan 11/29/23 10:33 Pulse 102 H 11/29/23 10:33 Respiratory Rate 16 11/29/23 10:33 Blood Pressure 129/89 11/29/23 10:33 Blood Pressure Position Sitting 11/29/23 10:33 Pulse Oximetry 99 11/29/23 10:33 Oxygen Delivery Method Room Air 11/29/23 10:33 Oxygen Flow Rate 0 11/29/23 10:33 Pain Level 0 11/29/23 10:33 Medical Decision Making Patient is pleasant 53-year-old male past medical history significant for paranoid schizophrenia, schizoaffective disorder, hepatitis C, anxiety, brought in by family with concerns for worsening mental health status. Patient reports that his mother recently. Began smoking shortly after that. Family is concerned that this may alter the levels of his clozapine which had been keeping his paranoid schizophrenia under control prior to these episodes. They report that recently he has been going on medications during which time he does not use his cell phone as he is concerned that somebody may have been monitoring her cell phone for tapping it. He also reports that somebody was not murdered at his apartment and now he is being accused of murder on a daily basis. Family's concern that he disappeared for over 30 hours during which time he had to call the police to try and find him. He denies any plan for suicide but states that he does think about this fairly regularly. Has been smoking again. States that he has been taking his medications as prescribed. Did take them this morning. On exam, patient appears nontoxic. He is resting comfortably. He does appear paranoid and has limited ability to acknolwedge these as paranoid ideas. He is not actively suicidal but states he thinks about dying. Does not want to harm anyone else. Does not feel safe where he is living. MH at bedside, they agreed that patient should be inpatient voluntarily. His routine medications as well as nicotine supplementation has been ordered for the patient. He remains voluntary, pleasant and is currently in zone B. As the medication prescribing time with the patient has picked up his 6 questionable, will obtain baseline labs. Labs reviewed. Urine still pending as well as clozapine level. Patient remains voluntary, resting comfortably and agreeable with staff. H eis in zone B, in paper clothes. At the end of my shift, care transitioned to oncoming clinician. Quality:SDOH Health Related Social Needs: No Data to Display PFSH All Active Problems (Updated 03/08/23 @ 00:03 by SUZANNE PALM) Tobacco abuse (Acute) Cholelithiasis (Acute) CKD (chronic kidney disease) (Chronic) Lower GI bleed (Acute) Mucocele of mouth (Acute) Cough (Acute) Shortness of breath (Acute) Confusion (Acute) Hiatal hernia (Chronic) Medical History Abnormal thyroid stimulating hormone (TSH) level Anemia Anxiety Chronic constipation Dyspepsia Dysphagia Fatigue Former smoker Gastritis Heme positive stool Hepatitis C History of hepatitis C Hypogonadism Lactose intolerance Low energy Microcytic anemia Obesity Onychomycosis of toenail Schizoaffective disorder SOB (shortness of breath) on exertion Vitamin D deficiency Surgical History H/O esophagogastroduodenoscopy History of surgery Surgery to penis Normal colonoscopy Social History Smoking/Tobacco Use Status: Former Tobacco Use Quit Date: 10/29/18 Smoking risk assessment performed?: Yes Alcohol Intake: never Drug use: Never Substance use type: does not use Housing: house Do you feel safe at home: Yes Do you feel safe in your relationship?: Yes
[2023-11-29 13:21] LABS: Abs Immature Grans 0.03 10^3/uL (0.0-0.06); Absolute Basophil Count 0.02 10^3/uL (0.0-0.2); Absolute Lymphocyte Count 1.35 10^3/uL (1.2-3.4); Absolute Monocyte Count 0.35 10^3/uL (0.1-0.8); Absolute Neutrophil Count 4.45 10^3/uL (1.2-6.7); Basophils % 0.3 %; HCT 45.2 % (40.0-50.0); HGB 13.8 g/dL (13.5-17.5); Immature Grans % 0.5 %; Lymphocytes % 21.8 %; MCH 23.9 pg (27.0-33.0); MCHC 30.5 % (32.0-36.0); MCV 78 fL (80-95); MPV 9.1 fL (8.0-11.0); Monocytes % 5.6 %; Neutrophils % 71.8 %; Platelet Count 246 10^3/uL (130-400); RBC 5.78 10^6/uL (4.36-5.78); RDW 17.6 % (11.8-14.1); RDW-SD 47.2 fL
[2023-11-29 13:53] LABS: Salicylate 2.9 mg/dL (<2.8)
[2023-11-29 13:55] LABS: Acetaminophen < 2 ug/mL (10-30)
[2023-11-29 13:56] LABS: ALT 18 U/L (16-63); AST 10 U/L (15-37); Albumin 3.8 g/dL (3.4-5.0); Alkaline Phosphatase 112 U/L (46-116); Anion Gap 7.3 mmol/L (3-11); BUN 13 mg/dL (7-18); CO2 29.7 mmol/L (21.0-32.0); CREATININE 1.4 mg/dL (0.70-1.30); Calcium 10.4 mg/dL (8.5-10.1); Chloride 104 mmol/L (98-107); Glucose 129 mg/dL (74-106); Potassium 4.4 mmol/L (3.5-5.1); Sodium 141 mmol/L (136-145); TSH (W/Ref FT4) 0.28 uIU/mL (0.36-3.74); Total Protein 7.3 g/dL (6.4-8.2)
[2023-11-29 13:57] LABS: ETHANOL BLOOD < 3.0 mg/dL (<10)
[2023-11-29 14:17] LABS: FREE T4 1.38 ng/dL (0.76-1.46)
[2023-11-29 15:18] LABS: Bilirubin Negative (Negative); Blood Negative (Negative); Clarity Sl Cloudy (Clear); Glucose Negative (Negative); Ketones Negative (Negative); Leukocyte Esterase Negative (Negative); Nitrite Negative (Negative); Specific Gravity 1.025 (1.005-1.025); Urobilinogen 0.2 mg/dL (Up to 0.2); pH 5.5 (5-8)
[2023-11-29 15:29] LABS: *AMPHETAMINES SCREEN URINE Negative (Negative); *BARBITURATES SCREEN URINE Negative (Negative); *BENZODIAZEPINES SCREEN URINE Negative (Negative); Cannabinoids THC Negative (Negative); Cocaine Screen,Urine Negative (Negative); METHADONE URINE SCREEN Negative (Negative); OPIATES URINE SCREEN Negative (Negative)
[2023-11-29 15:30] LABS: Tricyclic Antidepressants Negative (Negative)
--- NOTE | 2023-11-29 16:02 | W.EDPROG ---
Date of service: 11/29/23 Time of Service: 16:02 Medical Decision Making Patient signed out to me pending voluntary admission to psychiatric facility. Patient has history of schizophrenia with paranoid features. Patient's mother few months previous and question of medication compliance versus his increase of nicotine decreasing some of the medications effectiveness. At time of signout patient comfortably resting in psychiatric safe room pending psych bed availability. Will continue to monitor Reassessed patient who did eat dinner, has been resting calmly in bed, did state some anxiety which already ordered meds were given and patient continue to rest in room with no issues. Will continue to monitor. Patient remained resting in room and patient signed out to overnight provider for further care pending voluntary admission. Quality:SDOH Health Related Social Needs: No Data to Display Sign Out Sign Out Data: Sign Out Comment: Mental health evaluated the patient. He has known paranoid schizophrenia which is typically more controlled but uncontrolled currently. Patient seeking voluntary admission for suicidality and increased paranoid thoughts, mental health agrees with this plan. Waiting for bed placement. Last updated by Herminia Viramontes PA at 11/29/23 15:26 Discharge Plan Discharge Details Chief Complaint: PsychEval Primary Care Provider: Tomás Carvalho ED Provider: Hira Aceves Home Meds and New Rx's Prescriptions: No Action Androderm 4 mg/24 hr patch 24 hour 2 patch Transdermal DAILY Patient Comments: 12/08/18 1 patch Saturday, Saturday, Saturday. 2 patches the other days ev haloperidol 1 mg tablet 1 mg PO BID Patient Comments: has script from two different providers for same drug; other script is for 1 tab TID and 1 tab PRN Rx Instructions: Can have 1 tab PRN in the afternoon PRN clozapine [Clozaril] 100 MG tablet See Rx Instructions PO TID Patient Comments: pt states he takes 100mg AM 100 mg afternoon and 350 mg HS Has script from two different providers for same drug Rx Instructions: orally three times a day; orally; lorazepam 2 MG tablet 2 mg PO BID propranolol 10 MG tablet 10 mg PO BID Xarelto 10 mg tablet 10 mg PO DAILY docusate sodium [Colace] 100 mg capsule 100 mg PO BID testosterone 1 % (50 mg/5 gram) gel in packet Patient Comments: APPLY ONE PACKET ONCE DAILIY pantoprazole 40 mg tablet,delayed release (DR/EC) 40 mg PO DAILY Patient Comments: TAKE ONE TABLET BY MOUTH EVERY DAY
[2023-11-29 19:04] VITALS: BP 110/70; PULSE 113; RESP 18; TEMP 37.1; O2SAT 99
--- NOTE | 2023-11-29 19:07 | CMSP_ITS ---
Date of service: 11/29/23 Time of Service: 19:07 Care Management Safety Plan Status Status: Voluntary Reason for Wait Reason for Wait: Inpatient Admission Safety Plan Safety Plan: VOLUNTARY FOR INPATIENT PSYCHIATRIC STABILIZATION.? Patient is appropriate in all interactions since arriving at [facility]; Pt has demonstrated appropriate coping and communication skills, has articulated his or her needs and concerns and is fully engaged during staff interactions. Safety plan has been established with patient, and care team, to adhere to patient goals, identify restrictions based on behavioral status, address nutrition, and determine allowed personal belongings, tools for hygiene and personal care. Determine level of activity including ambulation, level of superv ision, visitors, and determine privileges based on behaviors and level of engagement by pt. VOLUNTARY SAFETY PLAN: 1. Will remain on suicide precautions, in paper clothes 2. Will remain in Zone B under direct supervision of one-on-one staff at all times provided by [employer]; EDEL, ROLLER OPERATOR certified coatings inspector. 3. May have paper cups, plates, finger foods as well as a cardboard spoon with which to eat meals. 4. Follow [facility] Management of the Admitted Behavioral Health Patient policy. 5. Shower available in Zone B without restriction. 6. Personal belongings-soft items permitted at RN discretion. 7. Visitors- family may visit, at RN discretion. 8. Activities: soft cart items approved per RN discretion. 9.? Bathroom available in Zone B without restriction. 10. Phone: incoming/outgoing calls limited to [facility] cordless phone at RN discretion. Due to VOLUNTARY status, if patient wishes to leave [facility], staff will contact [facility] Crisis Screener ([phone]) and Clinical Rn ([phone]) as soon as possible. In the event of elopement, notify [facility] Police ([phone]). Patient is currently voluntarily at [facility] and seeking inpatient admission when a bed becomes available. [facility] Frontline Vehicle Upholsterer will continue seeking placement. Please contact the Clinical Rn ([phone]) and [facility] Vehicle Upholsterer ([phone]) for any needed changes in the Safety Plan. Safety plan has been provided to interdepartmental care team.
--- NOTE | 2023-11-29 19:07 | PDOC.CMSAFE ---
Date of service: 11/29/23 Time of Service: 19:07 Care Management Safety Plan Status Status: Voluntary Reason for Wait Reason for Wait: Inpatient Admission Safety Plan Safety Plan: VOLUNTARY FOR INPATIENT PSYCHIATRIC STABILIZATION.? Patient is appropriate in all interactions since arriving at [facility]; Pt has demonstrated appropriate coping and communication skills, has articulated his or her needs and concerns and is fully engaged during staff interactions. Safety plan has been established with patient, and care team, to adhere to patient goals, identify restrictions based on behavioral status, address nutrition, and determine allowed personal belongings, tools for hygiene and personal care. Determine level of activity including ambulation, level of supervision, visitors, and determine privileges based on behaviors and level of engagement by pt. VOLUNTARY SAFETY PLAN: 1. Will remain on suicide precautions, in paper clothes 2. Will remain in Zone B under direct supervision of one-on-one staff at all times provided by [employer]; EDEL, FOOD TESTER napping machine operator. 3. May have paper cups, plates, finger foods as well as a cardboard spoon with which to eat meals. 4. Follow [facility] Management of the Admitted Behavioral Health Patient policy. 5. Shower available in Zone B without restriction. 6. Personal belongings-soft items permitted at RN discretion. 7. Visitors- family may visit, at RN discretion. 8. Activities: soft cart items approved per RN discretion. 9.? Bathroom available in Zone B without restriction. 10. Phone: incoming/outgoing calls limited to [facility] cordless phone at RN discretion. Due to VOLUNTARY status, if patient wishes to leave [facility], staff will contact [facility] Crisis Screener ([phone]) and Shoe Stainer ([phone]) as soon as possible. In the event of elopement, notify [facility] Police ([phone]). Patient is currently voluntarily at [facility] and seeking inpatient admission when a bed becomes available. [facility] Frontline Plastic Welder will continue seeking placement. Please contact the Shoe Stainer ([phone]) and [facility] Plastic Welder ([phone]) for any needed changes in the Safety Plan. Safety plan has been provided to interdepartmental care team.
--- NOTE | 2023-11-29 19:08 | PDOC.CMPRO ---
Date of service: 11/29/23 Time of Service: 19:08 Care Management Progress Note Progress Note Text Progress Note Text: CM huddled with staff regarding Sean's plan of care. Demetra, [facility], stated that Sean has had many stressors recently, including his mother passing away (in August), and him moving into a new apartment alone. He has reportedly started smoking cigarettes. There is a question about his ability to manage his medication in this state. He has been having delusions and paranoia. Referrals have been placed to [facility] PRACTITIONER and for therapy. Per RN, he has been appropriate and cooperative. He is reportedly close to his brother, Julio and sister in law, Gifty, who are supportive. They are added to the safety plan for visitation/phone calls as needed, at RN discretion. Sean is voluntarily seeking inpatient admission for psychiatric treatment. Per [facility], he meets criteria for placement, and referrals have been sent to accepting facilities. Safety plan in place. CM will continue to follow.
[2023-11-29] MEDS: LORazepam 1 MG TAB 2 MG PO (19:14)
[2023-11-29] MEDS: Haloperidol 1 MG TAB PO (20:09)
[2023-11-29] MEDS: Docusate Sodium 100 MG CAP PO (20:09)
--- NOTE | 2023-11-29 20:29 | NUR.NOTE ---
Faxed over face sheet to radha sargent
--- NOTE | 2023-11-30 07:11 | ED.PROG_ITS ---
Date of service: 11/30/23 Time of Service: 07:11 Medical Decision Making Patient here voluntarily for decompensated schizophrenia and thoughts of self- harm, no reported issues during prior shift and currently calm and cooperative with no new acute complaints. Will continue to monitor until safe disposition found. Lab Data Lab results reviewed: Yes I reviewed the patient's lab results. Quality:SDOH Health Related Social Needs: No Data to Display Sign Out Sign Out Data: Sign Out Comment: Mental health evaluated the patient. He has known paranoid schizophrenia which is typically more controlled but uncontrolled currently. Patient seeking voluntary admission for suicidality and increased paranoid thoughts, mental health agrees with this plan. Waiting for bed placement. Last updated by Herminia Viramontes PA at 11/29/23 15:26 Sign Out Comment: Patient pending voluntary admission for paranoid schizophrenia and some suicidal thoughts. Patient waiting on bed placement. Last updated by Hira Aceves NP at 11/29/23 23:49 Sign Out Comment: Patient stable throughout the night, pending voluntary admission/placement for paranoid schizophrenia. Med reconciliation has been completed. No interventions needed throughout the night. If patient does try to leave reach out to mental health for disposition options. Last updated by Ankur Pereyra DO at 11/30/23 06:55 Discharge Plan Discharge Details Chief Complaint: PsychEval Primary Care Provider: Tomás Carvalho ED Provider: Hodo Deleon Home Meds and New Rx's Prescriptions: No Action Androderm 4 mg/24 hr patch 24 hour 2 patch Transdermal DAILY Patient Comments: 12/08/18 1 patch Saturday, Saturday, Saturday. 2 patches the other days ev haloperidol 1 mg tablet 1 mg PO BID Patient Comments: has script from two different providers for same drug; other script is for 1 tab TID and 1 tab PRN Rx Instructions: Can have 1 tab PRN in the afternoon PRN clozapine [Clozaril] 100 MG tablet See Rx Instructions PO TID Patient Comments: pt states he takes 100mg AM 100 mg afternoon and 350 mg HS Has script from two different providers for same drug Rx Instructions: orally three times a day; orally; lorazepam 2 MG tablet 2 mg PO BID propranolol 10 MG tablet 10 mg PO BID Xarelto 10 mg tablet 10 mg PO DAILY docusate sodium [Colace] 100 mg capsule 100 mg PO BID testosterone 1 % (50 mg/5 gram) gel in packet Patient Comments: APPLY ONE PACKET ONCE DAILIY pantoprazole 40 mg tablet,delayed release (DR/EC) 40 mg PO DAILY Patient Comments: TAKE ONE TABLET BY MOUTH EVERY DAY
[2023-11-30] MEDS: Docusate Sodium 100 MG CAP PO ×2 (08:30→20:29)
[2023-11-30] MEDS: Rivaroxaban 10 MG TABLET PO (08:31)
[2023-11-30] MEDS: Haloperidol 1 MG TAB PO ×2 (08:31→20:29)
[2023-11-30] MEDS: Pantoprazole 40 MG TABCR PO (08:31)
[2023-11-30 08:34] VITALS: BP 95/64; PULSE 119; RESP 20; TEMP 36.3; O2SAT 99
[2023-11-30] MEDS: LORazepam 1 MG TAB 2 MG PO ×3 (08:52→18:56)
[2023-11-30] MEDS: Propranolol 10 MG TAB PO ×2 (08:52→20:29)
[2023-11-30] MEDS: Lactulose 20 GM/30 ML CUP 10 GM PO (16:34)
--- NOTE | 2023-11-30 18:03 | W.EDPROG ---
Date of service: 11/30/23 Time of Service: 17:00 Medical Decision Making In brief, this is a 53-year-old male patient with a past medical history significant for schizophrenia, CKD, depression, and gastritis who is boarding in our emergency department pending final placement. He presented with suicidal ideation, and has been in our emergency department for over 1 day. He has been taking his prescribed medications with no difficulties, and has not required additional medications for chemical restraints or agitation. He is voluntary, comfortable, and has been hemodynamically appropriate though slightly tachycardic. He has been tolerating p.o. intake. At the time that I signed out care of this patient to the oncoming team, his disposition was pending final placement, likely [facility] given that they manage his care. All further care per the oncoming team Erin Arana MD Medical Records Medical records reviewed: Yes I reviewed the patient's medical records. Lab Data Lab results reviewed: Yes I reviewed the patient's lab results. Quality:SDOH Health Related Social Needs: No Data to Display Exam Narrative Exam Narrative: Gen: Awake and alert, in no apparent distress HEENT: Non-icteric sclera Neck: Supple Lungs: No apparent respiratory distress, normal respiratory effort. CV: Appears well perfused Abdomen: Non-distended MSK: Moves 4 extremities without apparent limitation in ROM Skin: Visualized skin without rashes, cyanosis. Neuro: Normal Gait, no obvious focal deficits or facial asymmetry. Speaks in full, clear sentences. Psych: Appropriate for situation. Patient calm, cooperative, engages in conversation appropriately. Sign Out Sign Out Data: Sign Out Comment: Mental health evaluated the patient. He has known paranoid schizophrenia which is typically more controlled but uncontrolled currently. Patient seeking voluntary admission for suicidality and increased paranoid thoughts, mental health agrees with this plan. Waiting for bed placement. Last updated by Herminia Viramontes PA at 11/29/23 15:26 Sign Out Comment: Patient pending voluntary admission for paranoid schizophrenia and some suicidal thoughts. Patient waiting on bed placement. Last updated by Hira Aceves NP at 11/29/23 23:49 Sign Out Comment: Patient stable throughout the night, pending voluntary admission/placement for paranoid schizophrenia. Med reconciliation has been completed. No interventions needed throughout the night. If patient does try to leave reach out to mental health for disposition options. Last updated by Ankur Pereyra DO at 11/30/23 06:55 Sign Out Comment: Patient with decompensated schizophrenia and also depression with thoughts of self-harm without a plan. Has had care at [facility] and him and his family request referral sent there which has been done by [facility], patient declined to go to [place]. Last updated by Hood Deleon MD at 11/30/23 16:33 Discharge Plan Disposition Condition: Poor Discharge Details Chief Complaint: PsychEval Clinical Impression: Depression Primary Care Provider: Tomás Carvalho ED Provider: Erin Arana Home Meds and New Rx's Prescriptions: No Action Androderm 4 mg/24 hr patch 24 hour 2 patch Transdermal DAILY Patient Comments: 12/08/18 1 patch Saturday, Saturday, Saturday. 2 patches the other days ev haloperidol 1 mg tablet 1 mg PO BID Patient Comments: has script from two different providers for same drug; other script is for 1 tab TID and 1 tab PRN Rx Instructions: Can have 1 tab PRN in the afternoon PRN clozapine [Clozaril] 100 MG tablet See Rx Instructions PO TID Patient Comments: pt states he takes 100mg AM 100 mg afternoon and 350 mg HS Has script from two different providers for same drug Rx Instructions: orally three times a day; orally; lorazepam 2 MG tablet 2 mg PO BID propranolol 10 MG tablet 10 mg PO BID Xarelto 10 mg tablet 10 mg PO DAILY docusate sodium [Colace] 100 mg capsule 100 mg PO BID testosterone 1 % (50 mg/5 gram) gel in packet 1 packet transdermal DAILY Patient Comments: APPLY ONE PACKET ONCE DAILIY pantoprazole 40 mg tablet,delayed release (DR/EC) 40 mg PO DAILY Patient Comments: TAKE ONE TABLET BY MOUTH EVERY DAY lactulose 10 gram/15 mL solution 10 g PO DAILY PRN Patient Comments: TAKE 15 TO 30 ML BY MOUTH DAILY NEEDED
--- NOTE | 2023-11-30 18:50 | NUR.NOTE ---
Nursing Note: Assumed care of pt @ [id number]. Received report from Hood Barba RN.
[2023-11-30 18:55] VITALS: BP 121/85; PULSE 109; RESP 18; TEMP 37.4; O2SAT 99
--- NOTE | 2023-11-30 19:08 | CMSP_ITS ---
Date of service: 11/30/23 Time of Service: 19:08 Care Management Safety Plan Status Status: Voluntary Reason for Wait Reason for Wait: Inpatient Admission Safety Plan Safety Plan: VOLUNTARY FOR INPATIENT PSYCHIATRIC STABILIZATION.? Patient is appropriate in all interactions since arriving at [facility]; Pt has demonstrated appropriate coping and communication skills, has articulated his or her needs and concerns and is fully engaged during staff interactions. Safety plan has been established with patient, and care team, to adhere to patient goals, identify restrictions based on behavioral status, address nutrition, and determine allowed personal belongings, tools for hygiene and personal care. Determine level of activity including ambulation, level of supervision, visitors, and determine privileges based on behaviors and level of engagement by pt. VOLUNTARY SAFETY PLAN: 1. Will remain on suicide precautions, in paper clothes 2. Will remain in Zone B under direct supervision of one-on-one staff at all times provided by [employer]; EDEL, CORPORATE HUMAN RESOURCES MANAGER measuring machine operator. 3. May have paper cups, plates, finger foods as well as a cardboard spoon with which to eat meals. 4. Follow [facility] Management of the Admitted Behavioral Health Patient policy. 5. Shower available in Zone B without restriction. 6. Personal belongings-soft items permitted at RN discretion. 7. Visitors- family may visit, at RN discretion. 8. Activities: soft cart items approved per RN discretion. 9.? Bathroom available in Zone B without restriction. 10. Phone: incoming/outgoing calls limited to [facility] cordless phone at RN discretion. Due to VOLUNTARY status, if patient wishes to leave [facility], staff will contact [facility] Crisis Screener ([phone]) and Project Inspector ([phone]) as soon as possible. In the event of elopement, notify [facility] Police ([phone]). Patient is currently voluntarily at [facility] and seeking inpatient admission when a bed becomes available. [facility] Frontline Sheeting Puller will continue seeking placement. Please contact the Project Inspector ([phone]) and [facility] Sheeting Puller ([phone]) for any needed changes in the Safety Plan. Safety plan has been provided to interdepartmental care team.
--- NOTE | 2023-11-30 19:08 | PDOC.CMSAFE ---
Date of service: 11/30/23 Time of Service: 19:08 Care Management Safety Plan Status Status: Voluntary Reason for Wait Reason for Wait: Inpatient Admission Safety Plan Safety Plan: VOLUNTARY FOR INPATIENT PSYCHIATRIC STABILIZATION.? Patient is appropriate in all interactions since arriving at [facility]; Pt has demonstrated appropriate coping and communication skills, has articulated his or her needs and concerns and is fully engaged during staff interactions. Safety plan has been established with patient, and care team, to adhere to patient goals, identify restrictions based on behavioral status, address nutrition, and determine allowed personal belongings, tools for hygiene and personal care. Determine level of activity including ambulation, level of supervision, visitors, and determine privileges based on behaviors and level of engagement by pt. VOLUNTARY SAFETY PLAN: 1. Will remain on suicide precautions, in paper clothes 2. Will remain in Zone B under direct supervision of one-on-one staff at all times provided by [employer]; EDEL, FIELD CLERK pipe organ tuner and repairer. 3. May have paper cups, plates, finger foods as well as a cardboard spoon with which to eat meals. 4. Follow [facility] Management of the Admitted Behavioral Health Patient policy. 5. Shower available in Zone B without restriction. 6. Personal belongings-soft items permitted at RN discretion. 7. Visitors- family may visit, at RN discretion. 8. Activities: soft cart items approved per RN discretion. 9.? Bathroom available in Zone B without restriction. 10. Phone: incoming/outgoing calls limited to [facility] cordless phone at RN discretion. Due to VOLUNTARY status, if patient wishes to leave [facility], staff will contact [facility] Crisis Screener ([phone]) and Boarding Room Fixer ([phone]) as soon as possible. In the event of elopement, notify [facility] Police ([phone]). Patient is currently voluntarily at [facility] and seeking inpatient admission when a bed becomes available. [facility] Frontline Body Shop Estimator will continue seeking placement. Please contact the Boarding Room Fixer ([phone]) and [facility] Body Shop Estimator ([phone]) for any needed changes in the Safety Plan. Safety plan has been provided to interdepartmental care team.
--- NOTE | 2023-11-30 19:09 | CMPROGNOTE_ITS ---
Date of service: 11/30/23 Time of Service: 19:09 Care Management Progress Note Progress Note Text Progress Note Text: Sean received a bed offer at [facility] today, which he and his family declined. Sean's brother and sister in law, Bonita, are very involved in Sean's care, and advocated for him to go to [facility] or [facility] for inpatient psychiatric care, which is what Sean's psychiatrist recommended, and where he has received treatment in the past. HEMA discussed this with [facility], who agreed to send the referrals to both facilities, although stated that since Sean has a bed offer elsewhere, he likely will not get accepted at another facility. CM discussed this with his family, who expressed understanding. CM huddled with staff regarding Sean's plan of care. Per RN, Sean has been cooperative and appropriate while in zone B. Safety plan in place.
--- NOTE | 2023-11-30 23:29 | NUR.NOTE ---
Nursing Note: Pt's [id number] dropped of pt's own home med, Testosterone 1% (50mg/5g) packets Directions: apply one packet once daily in AM. Med placed in bin in locked cupboard, provider notified for order to be palced.
--- NOTE | 2023-12-01 07:03 | ED.PROG_ITS ---
Date of service: 12/01/23 Time of Service: 16:11 Medical Decision Making Care assumed from off going provider. Patient is a 53-year-old gentleman with schizophrenia. Has been medically cleared and is pending voluntary inpatient psychiatric placement. Patient was accepted at [facility] yesterday, but family declined transport to that hospital. They stated that they only wanted to go to [facility] or [facility]. Referrals have been sent to them, but no acceptance has been received. I was contacted by [facility], and the patient was accepted by them for placement tomorrow. [facility] and care management were updated on this acceptance. They did have a discussion with the family. At this time the family does not want the patient placed at [facility] either. Given their disagreement with treatment plan, they will safety plan the patient home. At this time the [facility] worker is on an emergent call and will contact the family when she is ready to do the safety plan so that they can be here as well. Quality:[facility] Health Related Social Needs: No Data to Display Sign Out Sign Out Data: Sign Out Comment: Mental health evaluated the patient. He has known paranoid schizophrenia which is typically more controlled but uncontrolled currently. Patient seeking voluntary admission for suicidality and increased paranoid thoughts, mental health agrees with this plan. Waiting for bed placement. Last updated by Herminia Viramontes PA at 11/29/23 15:26 Sign Out Comment: Patient pending voluntary admission for paranoid schizophrenia and some suicidal thoughts. Patient waiting on bed placement. Last updated by Hira Aceves NP at 11/29/23 23:49 Sign Out Comment: Patient stable throughout the night, pending voluntary admission/placement for paranoid schizophrenia. Med reconciliation has been completed. No interventions needed throughout the night. If patient does try to leave reach out to mental health for disposition options. Last updated by Ankur Pereyra DO at 11/30/23 06:55 Sign Out Comment: Patient with decompensated schizophrenia and also depression with thoughts of self-harm without a plan. Has had care at [facility] and him and his family request referral sent there which has been done by [facility], patient declined to go to [place]. Last updated by Hood Deleon MD at 11/30/23 16:33 Sign Out Comment: Patient with decompensated schizophrenia, suicidal thoughts without plan or intent, boarding in the emergency department awaiting placement. Receives care at [facility], likely will find out tomorrow morning if he gets excepted there, alternatively potential for safety planning. Is voluntary, taking daily meds, no need for PRNs. Last updated by Erin Arana MD at 11/30/23 22:02 Sign Out Comment: Patient stable throughout shift. No new interventions needed. Patient was started on his regular testosterone. Pending placement. [facility] was declined yesterday, [facility] may accept patient. If [facility] refuses patient patient could potentially be safety planned home. Last updated by Ankur Pereyra DO at 12/01/23 07:45 Discharge Plan Disposition Condition: Poor Discharge Details Chief Complaint: PsychEval Clinical Impression: Depression Primary Care Provider: Tomás Carvalho ED Provider: Holly Pantoja Home Meds and New Rx's Prescriptions: No Action Androderm 4 mg/24 hr patch 24 hour 2 patch Transdermal DAILY Patient Comments: 12/08/18 1 patch Saturday, Saturday, Saturday. 2 patches the other days ev haloperidol 1 mg tablet 1 mg PO BID Patient Comments: has script from two different providers for same drug; other script is for 1 tab TID and 1 tab PRN Rx Instructions: Can have 1 tab PRN in the afternoon PRN clozapine [Clozaril] 100 MG tablet See Rx Instructions PO TID Patient Comments: pt states he takes 100mg AM 100 mg afternoon and 350 mg HS Has script from two different providers for same drug Rx Instructions: orally three times a day; orally; lorazepam 2 MG tablet 2 mg PO BID propranolol 10 MG tablet 10 mg PO BID Xarelto 10 mg tablet 10 mg PO DAILY docusate sodium [Colace] 100 mg capsule 100 mg PO BID testosterone 1 % (50 mg/5 gram) gel in packet 1 packet transdermal DAILY Patient Comments: APPLY ONE PACKET ONCE DAILIY pantoprazole 40 mg tablet,delayed release (DR/EC) 40 mg PO DAILY Patient Comments: TAKE ONE TABLET BY MOUTH EVERY DAY lactulose 10 gram/15 mL solution 10 g PO DAILY PRN Patient Comments: TAKE 15 TO 30 ML BY MOUTH DAILY NEEDED
[2023-12-01] MEDS: Pantoprazole 40 MG TABCR PO (08:26)
[2023-12-01] MEDS: Rivaroxaban 10 MG TABLET PO (08:26)
[2023-12-01] MEDS: Haloperidol 1 MG TAB PO (08:26)
[2023-12-01] MEDS: Docusate Sodium 100 MG CAP PO (08:26)
[2023-12-01 08:27] VITALS: BP 117/79; PULSE 92; RESP 17; TEMP 37.5; O2SAT 98
[2023-12-01] MEDS: Propranolol 10 MG TAB PO (08:27)
[2023-12-01] MEDS: Lactulose 20 GM/30 ML CUP 10 GM PO (08:52)
[2023-12-01] MEDS: LORazepam 1 MG TAB 2 MG PO ×2 (08:53→16:58)
--- NOTE | 2023-12-01 09:22 | CMSP_ITS ---
Date of service: 12/01/23 Time of Service: 09:22 Care Management Safety Plan Status Status: Voluntary Reason for Wait Reason for Wait: Inpatient Admission Safety Plan Safety Plan: VOLUNTARY FOR INPATIENT PSYCHIATRIC STABILIZATION.? Patient is appropriate in all interactions since arriving at [facility]; Pt has demonstrated appropriate coping and communication skills, has articulated his or her needs and concerns and is fully engaged during staff interactions. Safety plan has been established with patient, and care team, to adhere to patient goals, identify restrictions based on behavioral status, address nutrition, and determine allowed personal belongings, tools for hygiene and personal care. Determine level of activity including ambulation, level of supervision, visitors, and determine privileges based on behaviors and level of engagement by pt. VOLUNTARY SAFETY PLAN: 1. Will remain on suicide precautions, in paper clothes 2. Will remain in Zone B under direct supervision of one-on-one staff at all times provided by [employer]; EDEL, COMPANION CAREGIVER director product safety. 3. May have paper cups, plates, finger foods as well as a cardboard spoon with which to eat meals. 4. Follow [facility] Management of the Admitted Behavioral Health Patient policy. 5. Shower available in Zone B without restriction. 6. Personal belongings-soft items permitted at RN discretion. 7. Visitors- family may visit, at RN discretion. 8. Activities: soft cart items approved per RN discretion. 9.? Bathroom available in Zone B without restriction. 10. Phone: incoming/outgoing calls limited to [facility] cordless phone at RN discretion. Due to VOLUNTARY status, if patient wishes to leave [facility], staff will contact [facility] Crisis Screener ([phone]) and Aircraft Maintenance Manager ([phone]) as soon as possible. In the event of elopement, notify [facility] Police ([phone]). Patient is currently voluntarily at [facility] and seeking inpatient admission when a bed becomes available. [facility] Frontline Hoop Maker Machine will continue seeking placement. Please contact the Aircraft Maintenance Manager ([phone]) and [facility] Hoop Maker Machine ([phone]) for any needed changes in the Safety Plan. Safety plan has been provided to interdepartmental care team.
--- NOTE | 2023-12-01 09:23 | CMPROGNOTE_ITS ---
Date of service: 12/01/23 Time of Service: 09:23 Care Management Progress Note Progress Note Text Progress Note Text: Sean received a bed offer from [facility] today. [facility] referrals remain pending with no response. HEMA discussed the bed offer with family, who contacted Sean's psychiatrist. Per family report, his psychiatrist recommended that they decline the bed offer from [facility], and that [facility] should safety plan Sean into their care; his psychiatrist will make further recommendations to his family regarding his care. HEMA consulted with MD, who felt that this is appropriate, as they have now declined two bed offers for treatburke Estrada's family feel they can keep him safe in their care. HEMA discussed this plan with [facility], who agreed, and will complete the safety plan with Sean and his family, and he will be discharged later today. HEMA will continue to follow.
[2023-12-01] MEDS: Calcium Carbonate *TUMS* 500 MG CHEW PO (13:24)
--- NOTE | 2023-12-01 13:24 | NUR.NOTE ---
Nursing Note: Pt ate large lunch consisting of peppers, onions, and sausage. C/O heart burn after meal and requesting protonix. Pt was updated that he had already received his Protonix this AM with his morning dose, but received orders for TUMS PRN. Pt was noted to be laying flat after his meal, was educated that it would be best to sit up straight after meals to prevent his GERD sx. Pt verbalized understanding, was noted to be laying down again after this Nurse left the room.
--- NOTE | 2023-12-01 19:10 | ED.PROG_ITS ---
Date of service: 12/01/23 Time of Service: 17:00 Medical Decision Making In brief, this is a 53-year-old male patient with a history of schizophrenia and depression who has been boarding in our emergency department with suicidal ideation without intent or plan. At the time that I took over his care, his disposition was pending a reevaluation by crisis. He has been offered admission at some locations and the family has declined, and at this time the patient's acute suicidality has improved to the point where he is appropriate for safety planning. This was performed by a member of the crisis team, and the patient and family feel comfortable with this plan and will follow up with their outpatient providers. At this time, the patient has had a full medical evaluation and is safe for discharge to home. They are hemodynamically stable, ambulatory, and tolerating PO. They are understanding of the follow-up plan and return precautions. They left our facility without incident. Erin Arana MD Medical Records Medical records reviewed: Yes I reviewed the patient's medical records. Lab Data Lab results reviewed: Yes I reviewed the patient's lab results. Quality:[facility] Health Related Social Needs: No Data to Display Sign Out Sign Out Data: Sign Out Comment: Mental health evaluated the patient. He has known paranoid schizophrenia which is typically more controlled but uncontrolled currently. Patient seeking voluntary admission for suicidality and increased paranoid thoughts, mental health agrees with this plan. Waiting for bed placement. Last updated by Herminia Viramontes PA at 11/29/23 15:26 Sign Out Comment: Patient pending voluntary admission for paranoid schizophrenia and some suicidal thoughts. Patient waiting on bed placement. Last updated by Hira Aceves NP at 11/29/23 23:49 Sign Out Comment: Patient stable throughout the night, pending voluntary admission/placement for paranoid schizophrenia. Med reconciliation has been c ompleted. No interventions needed throughout the night. If patient does try to leave reach out to mental health for disposition options. Last updated by Ankur Pereyra DO at 11/30/23 06:55 Sign Out Comment: Patient with decompensated schizophrenia and also depression with thoughts of self-harm without a plan. Has had care at [facility] and him and his family request referral sent there which has been done by [facility], patient declined to go to [place]. Last updated by Hood Deleon MD at 11/30/23 16:33 Sign Out Comment: Patient with decompensated schizophrenia, suicidal thoughts without plan or intent, boarding in the emergency department awaiting placement. Receives care at [facility], likely will find out tomorrow morning if he gets excepted there, alternatively potential for safety planning. Is voluntary, taking daily meds, no need for PRNs. Last updated by Erin Arana MD at 11/30/23 22:02 Sign Out Comment: Patient stable throughout shift. No new interventions needed. Patient was started on his regular testosterone. [facility], [facility] may accept patient. If [facility] refuses patient patient could potentially be safety planned home. Last updated by Ankur Pereyra DO at 12/01/23 07:45 Sign Out Comment: 53y M with schizophrenia. family rejected placement at [facility] sister and HS are coming to do a safety plan home Last updated by Holly Pantoja MD at 12/01/23 16:40 Discharge Plan Disposition Patient Disposition: Home Condition: Stable Discharge Details Clinical Impression: Depression Primary Care Provider: Tomás Carvalho ED Provider: Erin Arana Home Meds and New Rx's Prescriptions: No Action Androderm 4 mg/24 hr patch 24 hour 2 patch Transdermal DAILY Patient Comments: 12/08/18 1 patch Saturday, Saturday, Saturday. 2 patches the other days ev haloperidol 1 mg tablet 1 mg PO BID Patient Comments: has script from two different providers for same drug; other script is for 1 tab TID and 1 tab PRN Rx Instructions: Can have 1 tab PRN in the afternoon PRN clozapine [Clozaril] 100 MG tablet See Rx Instructions PO TID Patient Comments: pt states he takes 100mg AM 100 mg afternoon and 350 mg HS Has script from two different providers for same drug Rx Instructions: orally three times a day; orally; lorazepam 2 MG tablet 2 mg PO BID propranolol 10 MG tablet 10 mg PO BID Xarelto 10 mg tablet 10 mg PO DAILY docusate sodium [Colace] 100 mg capsule 100 mg PO BID testosterone 1 % (50 mg/5 gram) gel in packet 1 packet transdermal DAILY Patient Comments: APPLY ONE PACKET ONCE DAILIY pantoprazole 40 mg tablet,delayed release (DR/EC) 40 mg PO DAILY Patient Comments: TAKE ONE TABLET BY MOUTH EVERY DAY lactulose 10 gram/15 mL solution 10 g PO DAILY PRN Patient Comments: TAKE 15 TO 30 ML BY MOUTH DAILY NEEDED Discharge Instructions Instructions: Depression, Adult ED Additional Instructions: You were seen in the emergency department today for mental health concerns, and were evaluated by a member of our crisis team. You made a safety plan and should follow this plan as recommended by their team. You can always return to the emergency department if you develop suicidal thoughts or feelings, change in responsiveness, fevers or chills, or any other symptoms that cause you concern. Thank you for allowing us to be part of your care.
[2023-12-02 15:38] LABS: Clozapine 948 ng/mL (350-600); Clozapine+Norclozapine Total 1529 ng/mL; Norclozapine 581 ng/mL
== END 2023-12-01 19:17 | disposition home or self-care (01) ==
PROVIDERS: Physician Assistant; Emergency Provider Emergency Medicine; PCP Internal Medicine
DX: R45.851 Suicidal ideations (principal); F20.0 Paranoid schizophrenia; F32.A Depression, unspecified; F41.9 Anxiety disorder, unspecified; N18.9 Chronic kidney disease, unspecified; Z79.01 Long term (current) use of anticoagulants; Z79.899 Other long term (current) drug therapy
CPT/HCPCS: 00123; 80053; 80307; 99285; 80159; 80320; 80329; 81003; 84439; 84443; 85025

== ENCOUNTER 2023-12-17 04:46 | Outpatient (CLI) | payer MEDICARE, MEDICAID, SELFPAY ==
[2023-12-17 12:04] LABS: Abs Immature Grans 0.02 10^3/uL (0.0-0.06); Absolute Basophil Count 0.03 10^3/uL (0.0-0.2); Absolute Lymphocyte Count 1.49 10^3/uL (1.2-3.4); Absolute Monocyte Count 0.44 10^3/uL (0.1-0.8); Absolute Neutrophil Count 3.69 10^3/uL (1.2-6.7); Basophils % 0.5 %; HCT 42.4 % (40.0-50.0); HGB 12.8 g/dL (13.5-17.5); Immature Grans % 0.4 %; Lymphocytes % 26.3 %; MCH 23.5 pg (27.0-33.0); MCHC 30.2 % (32.0-36.0); MCV 78 fL (80-95); MPV 9.1 fL (8.0-11.0); Monocytes % 7.8 %; Platelet Count 265 10^3/uL (130-400); RBC 5.45 10^6/uL (4.36-5.78); RDW 17.2 % (11.8-14.1); RDW-SD 47.4 fL; WBC 5.67 10^3/uL (4.4-10.8)
== END 2023-12-17 04:47 | disposition home or self-care (01) ==
PROVIDERS: PCP Family Medicine; Visit Provider Psychiatry & Neurology Psychiatry
DX: Z79.899 Other long term (current) drug therapy (principal)
CPT/HCPCS: 36415; 85025

== ENCOUNTER 2024-01-14 03:33 | Outpatient (CLI) | payer MEDICARE, MEDICAID, SELFPAY ==
[2024-01-14 08:52] LABS: Abs Immature Grans 0.03 10^3/uL (0.0-0.06); Absolute Basophil Count 0.03 10^3/uL (0.0-0.2); Absolute Lymphocyte Count 0.98 10^3/uL (1.2-3.4); Absolute Neutrophil Count 8.58 10^3/uL (1.2-6.7); Basophils % 0.3 %; HCT 40.5 % (40.0-50.0); HGB 12.6 g/dL (13.5-17.5); Immature Grans % 0.3 %; Lymphocytes % 9.4 %; MCH 23.3 pg (27.0-33.0); MCHC 31.1 % (32.0-36.0); MCV 75 fL (80-95); MPV 9.1 fL (8.0-11.0); Monocytes % 7.7 %; Neutrophils % 82.3 %; Platelet Count 229 10^3/uL (130-400); RBC 5.41 10^6/uL (4.36-5.78); RDW-SD 45.1 fL; WBC 10.42 10^3/uL (4.4-10.8)
[2024-01-14 09:14] LABS: Hemoglobin A1C 5.6 % (<5.7)
[2024-01-14 09:31] LABS: ALT 30 U/L (16-63); AST 12 U/L (15-37); Albumin 3.4 g/dL (3.4-5.0); Alkaline Phosphatase 118 U/L (46-116); Anion Gap 9.1 mmol/L (3-11); BUN 18 mg/dL (7-18); Bilirubin, Total 0.46 mg/dL (0.2-1.0); CO2 24.9 mmol/L (21.0-32.0); CREATININE 1.6 mg/dL (0.70-1.30); Calcium 10.4 mg/dL (8.5-10.1); Calculated LDL 111 mg/dL (<100); Chloride 105 mmol/L (98-107); Cholesterol 191 mg/dL (<200); Glucose 196 mg/dL (74-106); HDL Cholesterol 41 mg/dL (40-60); Sodium 139 mmol/L (136-145); TSH (W/Ref FT4) 0.24 uIU/mL (0.36-3.74); Total Protein 7.4 g/dL (6.4-8.2); Triglyceride 197 mg/dL (<150)
[2024-01-14 09:34] LABS: Diff Comment RBC Morph Reviewed; Microcytosis 1+
[2024-01-14 09:52] LABS: FREE T4 1.14 ng/dL (0.76-1.46)
[2024-01-16 20:10] LABS: Clozapine 1800 ng/mL (350-600); Clozapine+Norclozapine Total 2467 ng/mL; Norclozapine 667 ng/mL
== END 2024-01-14 03:34 | disposition home or self-care (01) ==
LOC: LBO 03:33
PROVIDERS: PCP Family Medicine; Visit Provider Psychiatry & Neurology Psychiatry
DX: Z79.899 Other long term (current) drug therapy (principal); F20.0 Paranoid schizophrenia
CPT/HCPCS: 36415; 80053; 80061; 80159; 83036; 84439; 84443; 85025

== ENCOUNTER 2024-02-11 02:53 | Outpatient (CLI) | payer MEDICARE, MEDICAID, SELFPAY ==
[2024-02-11 16:00] LABS: Abs Immature Grans 0.01 10^3/uL (0.0-0.06); Absolute Basophil Count 0.02 10^3/uL (0.0-0.2); Absolute Lymphocyte Count 1.34 10^3/uL (1.2-3.4); Absolute Monocyte Count 0.35 10^3/uL (0.1-0.8); Absolute Neutrophil Count 2.91 10^3/uL (1.2-6.7); Basophils % 0.4 %; HCT 40.9 % (40.0-50.0); HGB 12.3 g/dL (13.5-17.5); Immature Grans % 0.2 %; Lymphocytes % 28.9 %; MCH 23.2 pg (27.0-33.0); MCHC 30.1 % (32.0-36.0); MCV 77 fL (80-95); MPV 8.8 fL (8.0-11.0); Monocytes % 7.6 %; Neutrophils % 62.9 %; Platelet Count 225 10^3/uL (130-400); RDW 17.1 % (11.8-14.1); RDW-SD 47.3 fL; WBC 4.63 10^3/uL (4.4-10.8)
== END 2024-02-11 02:54 | disposition home or self-care (01) ==
LOC: LBO 02:53
PROVIDERS: PCP Family Medicine; Visit Provider Psychiatry & Neurology Psychiatry
DX: F20.0 Paranoid schizophrenia (principal); Z79.899 Other long term (current) drug therapy
CPT/HCPCS: 36415; 85025

== ENCOUNTER 2024-02-17 13:53 | Outpatient (REF) | payer MEDICARE, MEDICAID, SELFPAY ==
[2024-02-17 15:51] LABS: Anion Gap 4.6 mmol/L (3-11); BUN 13 mg/dL (7-18); CO2 29.4 mmol/L (21.0-32.0); CREATININE 1.3 mg/dL (0.70-1.30); Calcium 10.3 mg/dL (8.5-10.1); Chloride 112 mmol/L (98-107); Estimated GFR 65.69 (mL/min/1.73m2); Glucose 112 mg/dL (74-106); Potassium 4.6 mmol/L (3.5-5.1); Sodium 146 mmol/L (136-145)
[2024-02-17 16:16] LABS: Microalb ug/mg Crea 2.1 ug/mg Cr
== END 2024-02-17 13:54 | disposition home or self-care (01) ==
LOC: NCHCN 13:53
PROVIDERS: PCP Family Medicine; Visit Provider Family Medicine
DX: N18.31 Chronic kidney disease, stage 3a (principal)
CPT/HCPCS: 80048; 82043; 82570

== ENCOUNTER 2024-02-27 13:34 | Outpatient (CLI) | payer MEDICARE, MEDICAID, SELFPAY ==
[2024-02-27 23:09] LABS: HIV-1/2 Ag & Ab Screen Negative (Negative)
== END 2024-02-27 13:35 | disposition home or self-care (01) ==
LOC: LBO 13:35
PROVIDERS: PCP Family Medicine; Visit Provider Family Medicine
DX: Z00.00 Encounter for general adult medical examination without abnormal findings (principal)
CPT/HCPCS: 36415; 87389

== ENCOUNTER 2024-03-09 02:37 | Outpatient (CLI) | payer MEDICARE, MEDICAID, SELFPAY ==
[2024-03-09 14:24] LABS: Abs Immature Grans 0.02 10^3/uL (0.0-0.06); Absolute Basophil Count 0.03 10^3/uL (0.0-0.2); Absolute Monocyte Count 0.51 10^3/uL (0.1-0.8); Absolute Neutrophil Count 4.47 10^3/uL (1.2-6.7); Basophils % 0.4 %; HCT 36.5 % (40.0-50.0); Immature Grans % 0.3 %; Lymphocytes % 25.3 %; MCH 23.2 pg (27.0-33.0); MCHC 30.1 % (32.0-36.0); MCV 77 fL (80-95); MPV 9.2 fL (8.0-11.0); Monocytes % 7.6 %; Neutrophils % 66.4 %; Platelet Count 233 10^3/uL (130-400); RBC 4.74 10^6/uL (4.36-5.78); RDW 16.3 % (11.8-14.1); RDW-SD 45.3 fL; WBC 6.73 10^3/uL (4.4-10.8)
== END 2024-03-09 02:38 | disposition home or self-care (01) ==
LOC: LBO 02:37
PROVIDERS: PCP Family Medicine; Visit Provider Psychiatry & Neurology Psychiatry
DX: Z79.899 Other long term (current) drug therapy (principal)
CPT/HCPCS: 36415; 85025

== ENCOUNTER 2024-04-06 02:36 | Outpatient (CLI) | payer MEDICARE, MEDICAID, SELFPAY ==
[2024-04-06 13:30] LABS: Abs Immature Grans 0.02 10^3/uL (0.0-0.06); Absolute Basophil Count 0.03 10^3/uL (0.0-0.2); Absolute Lymphocyte Count 1.34 10^3/uL (1.2-3.4); Absolute Monocyte Count 0.36 10^3/uL (0.1-0.8); Absolute Neutrophil Count 4.73 10^3/uL (1.2-6.7); Basophils % 0.5 %; HCT 38.8 % (40.0-50.0); HGB 11.7 g/dL (13.5-17.5); Immature Grans % 0.3 %; Lymphocytes % 20.7 %; MCH 22.4 pg (27.0-33.0); MCHC 30.2 % (32.0-36.0); MCV 74 fL (80-95); Monocytes % 5.6 %; Neutrophils % 72.9 %; Platelet Count 279 10^3/uL (130-400); RBC 5.23 10^6/uL (4.36-5.78); RDW 15.7 % (11.8-14.1); RDW-SD 41.4 fL; WBC 6.48 10^3/uL (4.4-10.8)
[2024-04-06 13:44] LABS: Diff Comment RBC Morph Reviewed
[2024-04-06 13:55] LABS: ALT 21 U/L (16-63); AST 12 U/L (15-37); Albumin 3.6 g/dL (3.4-5.0); Alkaline Phosphatase 105 U/L (46-116); Anion Gap 8.1 mmol/L (3-11); BUN 17 mg/dL (7-18); Bilirubin, Total 0.38 mg/dL (0.2-1.0); CO2 27.9 mmol/L (21.0-32.0); CREATININE 1.4 mg/dL (0.70-1.30); Calcium 10.2 mg/dL (8.5-10.1); Calculated LDL 93 mg/dL (<100); Chloride 106 mmol/L (98-107); Cholesterol 178 mg/dL (<200); Glucose 115 mg/dL (74-106); HDL Cholesterol 48 mg/dL (40-60); Potassium 4.3 mmol/L (3.5-5.1); Sodium 142 mmol/L (136-145); Total Protein 7.1 g/dL (6.4-8.2); Triglyceride 186 mg/dL (<150)
[2024-04-06 14:14] LABS: Hemoglobin A1C 5.8 % (<5.7)
[2024-04-09 17:30] LABS: Clozapine 686 ng/mL (350-600); Clozapine+Norclozapine Total 1183 ng/mL; Norclozapine 497 ng/mL
== END 2024-04-06 02:37 | disposition home or self-care (01) ==
LOC: LBO 02:36
PROVIDERS: PCP Family Medicine; Visit Provider Psychiatry & Neurology Psychiatry
DX: Z79.899 Other long term (current) drug therapy (principal); F20.0 Paranoid schizophrenia
CPT/HCPCS: 36415; 80053; 80061; 80159; 83036; 85025

== ENCOUNTER 2024-05-04 03:21 | Outpatient (CLI) | payer MEDICARE, MEDICAID, SELFPAY ==
[2024-05-04 11:09] LABS: Abs Immature Grans 0.06 10^3/uL (0.0-0.06); Absolute Basophil Count 0.06 10^3/uL (0.0-0.2); Absolute Lymphocyte Count 2.17 10^3/uL (1.2-3.4); Absolute Monocyte Count 0.55 10^3/uL (0.1-0.8); Basophils % 0.6 %; HCT 37.5 % (40.0-50.0); HGB 11.1 g/dL (13.5-17.5); Immature Grans % 0.6 %; Lymphocytes % 21.4 %; MCH 21.5 pg (27.0-33.0); MCHC 29.6 % (32.0-36.0); MCV 73 fL (80-95); MPV 9.1 fL (8.0-11.0); Monocytes % 5.4 %; Platelet Count 341 10^3/uL (130-400); RBC 5.17 10^6/uL (4.36-5.78); RDW 16.3 % (11.8-14.1); RDW-SD 41.7 fL; WBC 10.14 10^3/uL (4.4-10.8)
[2024-05-06 20:00] LABS: Clozapine 810 ng/mL (350-600); Clozapine+Norclozapine Total 1247 ng/mL; Norclozapine 437 ng/mL
== END 2024-05-04 03:22 | disposition home or self-care (01) ==
PROVIDERS: PCP Family Medicine; Visit Provider Psychiatry & Neurology Psychiatry
DX: Z79.899 Other long term (current) drug therapy (principal); F20.0 Paranoid schizophrenia
CPT/HCPCS: 36415; 80159; 85025

== ENCOUNTER 2024-05-10 05:42 | Emergency (ER) | payer MEDICARE, MEDICAID, SELFPAY ==
[2024-05-10] VITALS (25 sets, daily range): BP systolic 109–132; BP diastolic 71–102; PULSE 99–145; RESP 15–27; TEMP 37; O2SAT 94–100
--- NOTE | 2024-05-10 05:45 | RT.EKG_ITS ---
APPROVED REPORT Exam: Resting ECG Reason for Exam: tachycardia Patient Location: E HR:131 bpm ECG Measurements Heart Rate 131 AXIS MD 129 P 35 QRSd 120 QRS -79 QT 316 T 29 QTc 468 Conclusion Sinus tachycardia...rate> 99 RBBB and LAFB...QRSd >120mS, axis(-40,240) no ST segment or T wave abnormalities to suggest occlusive TX
--- NOTE | 2024-05-10 06:07 | ED.GENADUL_ITS ---
Discharge Plan Discharge Details Chief Complaint: Abd Prob Clinical Impression: Vomiting, Fluid volume depletion Primary Care Provider: Jasper Browne ED Provider: Rina Baker Home Meds and New Rx's Prescriptions: No Action Androderm 4 mg/24 hr patch 24 hour 2 patch Transdermal DAILY Patient Comments: 12/08/18 1 patch Saturday, Saturday, Saturday. 2 patches the other days ev haloperidol 1 mg tablet 1 mg PO BID Patient Comments: has script from two different providers for same drug; other script is for 1 tab TID and 1 tab PRN Rx Instructions: Can have 1 tab PRN in the afternoon PRN clozapine [Clozaril] 100 MG tablet See Rx Instructions PO TID Patient Comments: pt states he takes 100mg AM 100 mg afternoon and 350 mg HS Has script from two different providers for same drug Rx Instructions: orally three times a day; orally; lorazepam 2 MG tablet 2 mg PO BID propranolol 10 MG tablet 10 mg PO BID Xarelto 10 mg tablet 10 mg PO DAILY docusate sodium [Colace] 100 mg capsule 100 mg PO BID testosterone 1 % (50 mg/5 gram) gel in packet 1 packet transdermal DAILY Patient Comments: APPLY ONE PACKET ONCE DAILIY pantoprazole 40 mg tablet,delayed release (DR/EC) 40 mg PO DAILY Patient Comments: TAKE ONE TABLET BY MOUTH EVERY DAY lactulose 10 gram/15 mL solution 10 g PO DAILY PRN Patient Comments: TAKE 15 TO 30 ML BY MOUTH DAILY NEEDED HPI General Mode of arrival: ambulatory . Date/Time Provider Initiated Documentation: 05/10/24 05:44 . Limitations to Documentation: no limitations . Information obtained by: patient . HPI Narrative: 53yo M with hx schizoaffective, CKD, chronic constipation, presenting with nausea and vomiting. Yesterday evening at 6pm took lactulose (4-5 tablespoons for constipation)- reports that this was about 8 months past it's expiration date. Last BM was 3 days ago, normal. Shortly after taking the lactulose he began vomiting, has vomited 10-12 times since then, non-bloody non-bilious. Not able to keep down fluids. No abdominal pain or diarrhea. Feels lightheaded particularly with standing. No chest pain or shortness of breath. Otherwise in his usual state of health with no fevers, chills, rash, dysuria, hematuria, or other concerns. Related Data Home Medications ?Medication ?Instructions ?Recorded ?Confirmed clozapine 100 mg tablet (Clozaril) See Rx Instructions PO TID 11/19/16 05/10/24 lorazepam 2 mg tablet 2 mg PO BID 11/19/16 05/10/24 propranolol 10 mg tablet 10 mg PO BID 12/14/16 05/10/24 testosterone 4 mg/24 hr 2 patch transdermal DAILY 12/08/18 05/10/24 transdermal 24 hour patch (Androderm) rivaroxaban 10 mg tablet (Xarelto) 10 mg PO DAILY 02/27/22 05/10/24 haloperidol 1 mg tablet 1 mg PO BID 03/06/22 05/10/24 docusate sodium 100 mg capsule 100 mg PO BID 11/29/23 05/10/24 (Colace) pantoprazole 40 mg tablet,delayed 40 mg PO DAILY 11/29/23 05/10/24 release testosterone 1 % (50 mg/5 gram) 1 packet transdermal DAILY 11/29/23 05/10/24 transdermal gel packet lactulose 10 gram/15 mL oral 10 g PO DAILY PRN 11/30/23 05/10/24 solution Allergies Allergy/AdvReac Type Severity Reaction Status Date / Time codeine Allergy Unknown Unknown Verified 05/10/24 05:52 Sulfa (Sulfonamide Allergy Unknown Hives Verified 05/10/24 05:52 Antibiotics) esomeprazole (From Nexium) Allergy Unknown Verified 05/10/24 05:52 fenofibrate (From Tricor) Allergy Unknown Verified 05/10/24 05:52 ferrous gluconate Allergy Unknown Verified 05/10/24 05:52 mafenide (From Sulfamylon) Allergy Unknown Verified 05/10/24 05:52 Penicillins Allergy Hives Verified 05/10/24 05:52 General Stated Complaint: Abd Prob DELORIS: 3 Review of Systems Narrative: see HPI Exam Narrative Exam Narrative: General: Alert, well appearing, well nourished, in no acute distress. Head: Normocephalic, atraumatic Neck: Trachea midline, ?Neck supple. ENT: ?Dry MM.? No oropharygeal lesions or exudate. Cardiac: ?Tachycardiac, regular, no murmurs appreciated Resp: No respiratory distress. CTAB. Abd: ?Soft, non-distended, nontender : ?No suprapubic tenderness. Extremities: ?No deformities.? No peripheral edema. Neurologic: GCS 15. ? Moves all extremities freely against gravity Course Vital Signs Vital signs: Vital Signs Temperature 37.0 C 05/10/24 05:49 Pulse 131 H 05/10/24 05:49 Respiratory Rate 18 05/10/24 05:49 Blood Pressure 128/81 05/10/24 05:49 Temperature 37.0 C 05/10/24 05:49 Pulse 131 H 05/10/24 05:49 Respiratory Rate 18 05/10/24 05:49 Blood Pressure 128/81 05/10/24 05:49 Pain Level 0 05/10/24 05:49 Medical Decision Making 53yo M with hx schizoaffective, CKD, chronic constipation, presenting with nausea and vomiting after taking lactulose yesterday evening. Now vomiting. Last BM 3 days ago, normal. No abdominal pain. Tachycardia on arrival to 130's, vital signs otherwise reassuring. Dry MM on exam, non-toxic appearing, abdomen soft and nontender. Not concerned for surgical intraabdominal process, bowel obstruction, etc; would not get CT imaging. Will give 1L IVFB and zofran, GI cocktail, and PO challenge. Will get CBC, CMP, Mg given degree of vomiting. Labs reviewed as below, CBC with leukocytosis to 16 (non-specific), CMP with Cr elevated at 1.9 (most recent prior on [facility] record review 1.4) which I suspect 2/t volume depletion. No actionable electrolyte abnormalities. With HR and WBC, does meet SIRS criteria however bacterial infection unlikely, suspect medication reaction vs gastroenteritis (high community prevalence currently); would not treat as septic. Repeat HR about 500cc into fluid bolus improved to 110's. Will be signed out to oncoming physician, plan to reassess after fluids and PO challenge. If VS improved, tolerating PO, and remains well appearing would discharge home with prescription for zofran. Lab Data Lab results reviewed: Yes I reviewed the patient's lab results. Labs: Laboratory Tests Range/Units 05/10/24 06:07 WBC (4.4-10.8) 10^3/uL 16.75 H RBC (4.36-5.78) 10^6/uL 6.30 H Hgb (13.5-17.5) g/dL 13.4 L Hct (40.0-50.0) % 46.0 MCV (80-95) fL 73 L MCH (27.0-33.0) pg 21.3 L MCHC (32.0-36.0) % 29.1 L RDW (11.8-14.1) % 17.8 H Plt Count (130-400) 10^3/uL 477 H MPV (8.0-11.0) fL 9.2 Immature Gran % % 0.4 Neutrophils % % 83.4 Lymphocytes % % 9.6 Monocytes % % 6.1 Eosinophils % % 0.1 Basophils % % 0.4 Nucleated RBC % (0.0-0.3) % 0.0 Absolute Neutrophils (1.2-6.7) 10^3/uL 13.97 H Absolute Lymphocytes (1.2-3.4) 10^3/uL 1.61 Absolute Monocytes (0.1-0.8) 10^3/uL 1.02 H Absolute Eosinophils (0.0-0.7) 10^3/uL 0.02 Absolute Basophils (0.0-0.2) 10^3/uL 0.07 RBC Morphology See Below Microcytosis 2+ Sodium (136-145) mmol/L 144 Potassium (3.5-5.1) mmol/L 3.9 Chloride (98-107) mmol/L 106 Carbon Dioxide (21.0-32.0) mmol/L 26.4 Anion Gap (3-11) mmol/L 11.6 H BUN (7-18) mg/dL 29 H Creatinine (0.70-1.30) mg/dL 1.9 H Est GFR (CKD-EPI 2020) (mL/min/1.73m2) 41.66 Glucose (74-106) mg/dL 177 H Calcium (8.5-10.1) mg/dL 11.0 H Magnesium (1.8-2.4) mg/dL 2.1 Total Bilirubin (0.2-1.0) mg/dL 0.54 AST (15-37) U/L 13 L ALT (16-63) U/L 23 Alkaline Phosphatase (46-116) U/L 121 H Total Protein (6.4-8.2) g/dL 8.4 H Albumin (3.4-5.0) g/dL 3.9 Quality:[facility] Health Related Social Needs: No Data to Display PFSH All Active Problems (Updated 05/10/24 @ 06:50 by Rina Baker MD) Fluid volume depletion (Acute) Vomiting (Acute) Tobacco abuse (Acute) Cholelithiasis (Acute) CKD (chronic kidney disease) (Chronic) Lower GI bleed (Acute) Mucocele of mouth (Acute) Cough (Acute) Shortness of breath (Acute) Confusion (Acute) Hiatal hernia (Chronic) Medical History Abnormal thyroid stimulating hormone (TSH) level Anemia Anxiety Chronic constipation Dyspepsia Dysphagia Fatigue Former smoker Gastritis Heme positive stool Hepatitis C History of hepatitis C Hypogonadism Lactose intolerance Low energy Microcytic anemia Obesity Onychomycosis of toenail Schizoaffective disorder SOB (shortness of breath) on exertion Vitamin D deficiency Surgical History H/O esophagogastroduodenoscopy History of surgery Surgery to penis Normal colonoscopy Social History Smoking/Tobacco Use Status: Former Tobacco Use Quit Date: 10/29/18 Smoking risk assessment performed?: Yes Alcohol Intake: never Drug use: Never Substance use type: does not use Housing: house Do you feel safe at home: Yes Do you feel safe in your relationship?: Yes
[2024-05-10] MEDS: Normal Saline 1,000 ML 1000 ML IV ×2 (06:15→07:14)
[2024-05-10] MEDS: Ondansetron 4 MG/2 ML VIAL IVP (06:21)
[2024-05-10 06:23] LABS: Abs Immature Grans 0.07 10^3/uL (0.0-0.06); Absolute Basophil Count 0.07 10^3/uL (0.0-0.2); Absolute Monocyte Count 1.02 10^3/uL (0.1-0.8); Basophils % 0.4 %; Eosinophils % 0.1 %; HGB 13.4 g/dL (13.5-17.5); Immature Grans % 0.4 %; Lymphocytes % 9.6 %; MCH 21.3 pg (27.0-33.0); MCHC 29.1 % (32.0-36.0); MCV 73 fL (80-95); MPV 9.2 fL (8.0-11.0); Monocytes % 6.1 %; Neutrophils % 83.4 %; Platelet Count 477 10^3/uL (130-400); RDW 17.8 % (11.8-14.1); RDW-SD 43.1 fL; WBC 16.75 10^3/uL (4.4-10.8)
[2024-05-10 06:32] LABS: Absolute Eosinophil Count 0.02 10^3/uL (0.0-0.7); Absolute Lymphocyte Count 1.61 10^3/uL (1.2-3.4); Absolute Neutrophil Count 13.97 10^3/uL (1.2-6.7); Microcytosis 2+
[2024-05-10 06:36] LABS: ALT 23 U/L (16-63); AST 13 U/L (15-37); Albumin 3.9 g/dL (3.4-5.0); Alkaline Phosphatase 121 U/L (46-116); Anion Gap 11.6 mmol/L (3-11); BUN 29 mg/dL (7-18); Bilirubin, Total 0.54 mg/dL (0.2-1.0); CO2 26.4 mmol/L (21.0-32.0); CREATININE 1.9 mg/dL (0.70-1.30); Chloride 106 mmol/L (98-107); Estimated GFR 41.66 (mL/min/1.73m2); Glucose 177 mg/dL (74-106); Magnesium 2.1 mg/dL (1.8-2.4); Potassium 3.9 mmol/L (3.5-5.1); Sodium 144 mmol/L (136-145); Total Protein 8.4 g/dL (6.4-8.2)
--- NOTE | 2024-05-10 07:46 | ED.PROG_ITS ---
Date of service: 05/10/24 Time of Service: 07:46 Medical Decision Making Patient signed out to me pending reevaluation after fluids. Patient feeling significantly better and has no symptoms. Denies any abdominal pain and has been able to tolerate p.o. Heart rate on my exam 96. Given he has no tenderness now and is tolerating p.o. I feel he stable for discharge and advised to follow-up with his PCP if symptoms continue and return precautions given Quality:[facility] Health Related Social Needs: No Data to Display Discharge Plan Disposition Patient Disposition: Home Condition: Good Discharge Details Clinical Impression: Vomiting, Fluid volume depletion Primary Care Provider: Jasper rBowne ED Provider: Hood Deleon Home Meds and New Rx's Prescriptions: New ondansetron HCl 4 mg tablet 4 mg PO Q12H PRNQty: 4 0RF Continued Androderm 4 mg/24 hr patch 24 hour 2 patch Transdermal DAILY Patient Comments: 12/08/18 1 patch Saturday, Saturday, Saturday. 2 patches the other days ev haloperidol 1 mg tablet 1 mg PO BID Patient Comments: has script from two different providers for same drug; other script is for 1 tab TID and 1 tab PRN Rx Instructions: Can have 1 tab PRN in the afternoon PRN clozapine [Clozaril] 100 MG tablet See Rx Instructions PO TID Patient Comments: pt states he takes 100mg AM 100 mg afternoon and 350 mg HS Has script from two different providers for same drug Rx Instructions: orally three times a day; orally; lorazepam 2 MG tablet 2 mg PO BID propranolol 10 MG tablet 10 mg PO BID Xarelto 10 mg tablet 10 mg PO DAILY docusate sodium [Colace] 100 mg capsule 100 mg PO BID testosterone 1 % (50 mg/5 gram) gel in packet 1 packet transdermal DAILY Patient Comments: APPLY ONE PACKET ONCE DAILIY pantoprazole 40 mg tablet,delayed release (DR/EC) 40 mg PO DAILY Patient Comments: TAKE ONE TABLET BY MOUTH EVERY DAY lactulose 10 gram/15 mL solution 10 g PO DAILY PRN Patient Comments: TAKE 15 TO 30 ML BY MOUTH DAILY NEEDED Discharge Instructions Instructions: Nausea and Vomiting, Adult ED Additional Instructions: Ondansetron up to every 12 hours as needed for vomiting. Do not take more than this as it can interact with some of your other medications and lead to life- threatening cardiac arrhythmias. Call your primary care doctor on Saturday to schedule an appointment for within the following 48 hours to follow up on your visit here. Return to the emergency department for new or worsening symptoms including fever, inability to keep down fluids, feeling like you are going to pass out, blood in your vomit or stool, abdominal pain, or if you have any other concerns. Referrals: Jasper Browne MD [Primary Care Provider] -
[2024-05-10] MEDS: Ondansetron O.D.T. 4 MG TABEF, 3 TABS/BTL PO (08:12)
== END 2024-05-10 08:16 | disposition home or self-care (01) ==
PROVIDERS: Student in an Organized Health Care Education/Training Program; Emergency Provider Emergency Medicine; PCP Family Medicine
DX: R11.2 Nausea with vomiting, unspecified (principal); E86.9 Volume depletion, unspecified; K59.00 Constipation, unspecified; Z79.01 Long term (current) use of anticoagulants
CPT/HCPCS: 00123; 80053; 93005; 96361; 96374; 99284; 83735; 85025; 93010; 99283; J2405

== ENCOUNTER 2024-05-11 20:14 | Emergency (ER) | payer MEDICARE, MEDICAID, SELFPAY ==
[2024-05-11] VITALS (44 sets, daily range): BP systolic 95–112; BP diastolic 42–80; PULSE 82–100; RESP 18–31; TEMP 36.5; O2SAT 90–100
--- NOTE | 2024-05-11 20:00 | RT.EKG_ITS ---
APPROVED REPORT Exam: Resting ECG Reason for Exam: chest pain Patient Location: E HR:96 bpm ECG Measurements Heart Rate 96 AXIS ME 126 P 1 QRSd 134 QRS -49 QT 368 T 19 QTc 466 Conclusion Sinus rhythm 96 normal axis RBBB no stemi
[2024-05-11 20:28] LABS: Abs Immature Grans 0.03 10^3/uL (0.0-0.06); HCT 33.6 % (40.0-50.0); MCH 21.5 pg (27.0-33.0); MCHC 29.8 % (32.0-36.0); MCV 72 fL (80-95); MPV 9.9 fL (8.0-11.0); RBC 4.66 10^6/uL (4.36-5.78); RDW 16.5 % (11.8-14.1); RDW-SD 41.9 fL; WBC 4.92 10^3/uL (4.4-10.8)
--- NOTE | 2024-05-11 20:36 | ED.GENADUL_ITS ---
Discharge Plan Discharge Details Chief Complaint: AMS/LOC Primary Care Provider: Jasper Browne ED Provider: Holly Pantoja Home Meds and New Rx's Prescriptions: No Action Androderm 4 mg/24 hr patch 24 hour 2 patch Transdermal DAILY Patient Comments: 12/08/18 1 patch Saturday, Saturday, Saturday. 2 patches the other days ev haloperidol 1 mg tablet 1 mg PO BID Patient Comments: has script from two different providers for same drug; other script is for 1 tab TID and 1 tab PRN Rx Instructions: Can have 1 tab PRN in the afternoon PRN clozapine [Clozaril] 100 MG tablet See Rx Instructions PO TID Patient Comments: pt states he takes 100mg AM 100 mg afternoon and 350 mg HS Has script from two different providers for same drug Rx Instructions: orally three times a day; orally; lorazepam 2 MG tablet 2 mg PO BID propranolol 10 MG tablet 10 mg PO BID ondansetron HCl 4 mg tablet 4 mg PO Q12H PRNQty: 4 0RF Xarelto 10 mg tablet 10 mg PO DAILY docusate sodium [Colace] 100 mg capsule 100 mg PO BID testosterone 1 % (50 mg/5 gram) gel in packet 1 packet transdermal DAILY Patient Comments: APPLY ONE PACKET ONCE DAILIY pantoprazole 40 mg tablet,delayed release (DR/EC) 40 mg PO DAILY Patient Comments: TAKE ONE TABLET BY MOUTH EVERY DAY lactulose 10 gram/15 mL solution 10 g PO DAILY PRN Patient Comments: TAKE 15 TO 30 ML BY MOUTH DAILY NEEDED HPI General Date/Time Provider Initiated Documentation: 05/11/24 20:17 . Limitations to Documentation: altered mental status . Information obtained by: patient, EMS and old records reviewed . HPI Narrative: 53-year-old gentleman with past medical history of schizophrenia, GI bleed, alcohol abuse, CKD presents for evaluation of altered mental status. EMS reports that they were called out to the residence for complaint of shortness of breath. After their arrival, the patient complained of chest pain and back pain. He was given Tylenol and route. The patient is not really able to provide significant history at this time. EMS reports obtaining history on scene from the patient's [id number]. There is a report that he may have taken too many ativan tonight. Related Data Home Medications ?Medication ?Instructions ?Recorded ?Confirmed clozapine 100 mg tablet (Clozaril) See Rx Instructions PO TID 11/19/16 05/11/24 lorazepam 2 mg tablet 2 mg PO BID 11/19/16 05/11/24 propranolol 10 mg tablet 10 mg PO BID 12/14/16 05/11/24 testosterone 4 mg/24 hr 2 patch transdermal DAILY 12/08/18 05/11/24 transdermal 24 hour patch (Androderm) rivaroxaban 10 mg tablet (Xarelto) 10 mg PO DAILY 02/27/22 05/11/24 haloperidol 1 mg tablet 1 mg PO BID 03/06/22 05/11/24 docusate sodium 100 mg capsule 100 mg PO BID 11/29/23 05/11/24 (Colace) pantoprazole 40 mg tablet,delayed 40 mg PO DAILY 11/29/23 05/11/24 release testosterone 1 % (50 mg/5 gram) 1 packet transdermal DAILY 11/29/23 05/11/24 transdermal gel packet lactulose 10 gram/15 mL oral 10 g PO DAILY PRN 11/30/23 05/11/24 solution ondansetron HCl 4 mg tablet 4 mg PO Q12H PRN #4 tabs 05/10/24 05/11/24 Previous Rx's ?Medication ?Instructions ?Recorded ondansetron HCl 4 mg tablet 4 mg PO Q12H PRN #4 tabs 05/10/24 Allergies Allergy/AdvReac Type Severity Reaction Status Date / Time codeine Allergy Unknown Unknown Verified 05/11/24 20:18 Sulfa (Sulfonamide Allergy Unknown Hives Verified 05/11/24 20:18 Antibiotics) esomeprazole (From Nexium) Allergy Unknown Verified 05/11/24 20:18 fenofibrate (From Tricor) Allergy Unknown Verified 05/11/24 20:18 ferrous gluconate Allergy Unknown Verified 05/11/24 20:18 mafenide (From Sulfamylon) Allergy Unknown Verified 05/11/24 20:18 Penicillins Allergy Hives Verified 05/11/24 20:18 General Stated Complaint: AMS/LOC DELORIS: 3 Exam Narrative Exam Narrative: Review of Systems: All systems reviewed & are unremarkable except as noted in HPI and below Well-developed NCAT PERRL, normal conjunctiva , not pinpoint RRR no murmur Unlabored respiratory effort, no hypoxia, coarse breath sounds but minimal respiratory effort Nondistended abdomen soft nontender Extremities w/o deformity Flat affect, able to follow commands, not very engaged Course Vital Signs Vital signs: Vital Signs Temperature 36.5 C 05/11/24 20:15 Pulse 97 H 05/11/24 20:15 Respiratory Rate 20 05/11/24 20:15 Blood Pressure 97/79 L 05/11/24 20:15 Pulse Oximetry 94 05/11/24 20:15 Temperature 36.5 C 05/11/24 20:15 Temperature Source Skin 05/11/24 20:15 Pulse 97 H 05/11/24 20:15 Respiratory Rate 24 05/11/24 20:19 Respiratory Effort Normal 05/11/24 20:19 Respiratory Depth Normal 05/11/24 20:19 Respiratory Pattern Normal 05/11/24 20:19 Blood Pressure 97/79 L 05/11/24 20:15 Blood Pressure Position Supine 05/11/24 20:15 Pulse Oximetry 94 05/11/24 20:15 Oxygen Delivery Method Room Air 05/11/24 20:15 Oxygen Flow Rate 0 05/11/24 20:15 Medical Decision Making Emergent evaluation of altered mental status. The patient family members reports that he has treatment resistant schizophrenia and is not compliant with his medication and he chews his Ativan like candy. The symptoms that they are noticing today are not significantly different than he has presented in the past. There is no signs of trauma. He is protecting his airway though he does seem very sleepy. He is not hypoxic or having any signs of respiratory failure. He was placed on end-tidal. An EKG was obtained that did not reveal an acute abnormality. He was sent for CT scan of his head to evaluate for possible intracranial process contributing to his mental status change in this was negative. Lab work was reviewed, no leukocytosis. He has baseline anemia with a hemoglobin of 10. When looking at his chart, it does appear that his hemoglobin was 13 yesterday, but at that time he was being treated significantly for dehydration and that is not his baseline. His baseline is closer to 10. So I do not suspect significant blood loss anemia or GI bleeding that is causing his symptoms today. His renal function is baseline, his electrolytes are not deranged. His ammonia level is not significantly elevated. His alcohol level is negative. The patient's family member reports history of genital trauma and that he will occasionally have urinary retention. He has about 200 cc of urine in his bladder at this time apparently he has a history of significantly difficult catheterization secondary to his trauma. At this time there is no indication for catheterization given that he is not in acute retention, will c paul to monitor. His end-tidal CO2 has maintained within appropriate normal limits. At this time he just seems sleepy which is likely secondary to excessive opiate use. At this time the plan will be to allow the patient to continue to metabolize in the emergency department until he returns to normal mental status. Reevaluation of the patient in the morning will be signed out to oncoming physician. Quality:SDOH Health Related Social Needs: No Data to Display PFSH All Active Problems (Updated 05/10/24 @ 06:50 by Rina Baker MD) Fluid volume depletion (Acute) Vomiting (Acute) Tobacco abuse (Acute) Cholelithiasis (Acute) CKD (chronic kidney disease) (Chronic) Lower GI bleed (Acute) Mucocele of mouth (Acute) Cough (Acute) Shortness of breath (Acute) Confusion (Acute) Hiatal hernia (Chronic) Medical History Abnormal thyroid stimulating hormone (TSH) level Anemia Anxiety Chronic constipation Dyspepsia Dysphagia Fatigue Former smoker Gastritis Heme positive stool Hepatitis C History of hepatitis C Hypogonadism Lactose intolerance Low energy Microcytic anemia Obesity Onychomycosis of toenail Schizoaffective disorder SOB (shortness of breath) on exertion Vitamin D deficiency Surgical History H/O esophagogastroduodenoscopy History of surgery Surgery to penis Normal colonoscopy Social History Smoking/Tobacco Use Status: Former Tobacco Use Quit Date: 10/29/18 Smoking risk assessment performed?: Yes Alcohol Intake: never Drug use: Never Substance use type: does not use Housing: house Do you feel safe at home: Yes Do you feel safe in your relationship?: Yes
[2024-05-11] MEDS: Naloxone 0.4 MG/ML VIAL IVP (20:40)
[2024-05-11 20:42] LABS: Absolute Lymphocyte Count 1.97 10^3/uL (1.2-3.4); Absolute Monocyte Count 0.79 10^3/uL (0.1-0.8); Absolute Neutrophil Count 2.16 10^3/uL (1.2-6.7); Atypical Lymphocytes % 2 %; Bands % 3 %; Platelet Count 339 10^3/uL (130-400)
[2024-05-11 20:43] LABS: Diff Comment Manual Differential; Hypochromasia 1+; Microcytosis 1+
[2024-05-11 20:48] LABS: ETHANOL BLOOD < 3.0 mg/dL (<10)
[2024-05-11 20:49] LABS: ALT 13 U/L (16-63); AST 13 U/L (15-37); Albumin 2.9 g/dL (3.4-5.0); Alkaline Phosphatase 85 U/L (46-116); Anion Gap 11.1 mmol/L (3-11); BUN 39 mg/dL (7-18); CO2 25.9 mmol/L (21.0-32.0); CREATININE 1.5 mg/dL (0.70-1.30); Calcium 10.1 mg/dL (8.5-10.1); Chloride 104 mmol/L (98-107); Estimated GFR 55.32 (mL/min/1.73m2); Glucose 124 mg/dL (74-106); Sodium 141 mmol/L (136-145); Total Protein 6.5 g/dL (6.4-8.2); Troponin I 4 ng/L (<or=76)
[2024-05-11 20:49] LABS: Ammonia 29 umol/L (11-32)
--- NOTE | 2024-05-11 20:52 | DI.CT_ITS ---
Exam(s) CT HEAD WO EXAM: CT HEAD WO CLINICAL HISTORY: AMS. TECHNIQUE: Imaging Protocol: Axial computed tomography images with coronal and sagittal reformatted images were created and reviewed COMPARISON: No exams were available for comparison FINDINGS: There is artifact seen in the skull base. Ventricles and Extra axial spaces: Normal in size and morphology for the patient's age. Hemorrhage: None. Cerebral parenchyma: There is no evidence of an acute territorial infarct. No mass effect is identif ied. Midline shift: None. Brainstem/Cerebellum: Normal. Calvarium: Normal. Visualized Paranasal sinuses/Mastoids: There is mucosal thickening in the maxillary sinuses with a sm all mucous retention cyst or polyp in the left maxillary sinus. Soft Tissues: Unremarkable. IMPRESSION: No acute intracranial process. RADIATION DOSE DELIVERED: 941.16mGy.cm Total DLP DATA REPOSITORY: All CT scans at this facility are submitted to the National Radiology Data Registry (NRDR) Dose Index Registry (DIR) with the [employer] (A[employer]). RADIATION OPTIMIZATION: All CT scans at this facility use at least one of these dose optimization te chniques: automated exposure control; mA and/or kV adjustment per patient size (includes targeted exa ms where dose is matched to clinical indication); or iterative reconstruction.
[2024-05-11 21:21] LABS: FREE T4 1.19 ng/dL (0.76-1.46)
[2024-05-11 21:28] LABS: BE (Venous) 3 mmol/L (-2-3); HCO3 (Venous) 27 mmol/L (23-28); O2 Sat (Venous) 94 %; TCO2 (Venous) 26 mmol/L (24-29); pCO2 (Venous) 41 mmHg (41-51); pH (Venous) 7.43 (7.31-7.41); pO2 (Venous) 65 mmHg
--- NOTE | 2024-05-11 21:44 | DI.VRAD_ITS ---
PROCEDURE INFORMATION: Exam: CT Head Without Contrast Exam date and time: 05/11/2024 8:43 PM Age: 53 years old Clinical indication: Altered mental status / memory loss; Confusion or disorientation TECHNIQUE: Imaging protocol: Computed tomography of the head without contrast. Radiation optimization: All CT scans at this facility use at least one of these dose optimization techniques: automated exposure control; mA and/or kV adjustment per patient size (includes targeted exams where dose is matched to clinical indication); or iterative reconstruction. COMPARISON: CT HEAD WO 04/24/2020 2:23 AM FINDINGS: Brain: No hemorrhage. Unremarkable white matter. No mass effect. Cerebral ventricles: No ventriculomegaly. Paranasal sinuses: Inferior left maxillary sinus retention cyst. Right maxillary sinus mild mucoperiosteal thickening. Mastoid air cells: Visualized mastoid air cells are well aerated. Bones: Unremarkable. No acute fracture. Soft tissues: Unremarkable. IMPRESSION: No acute intracranial findings. Dictated and Authenticated by: Shawn Taveras MD. Orderin Scarlett Mckenzie MD
--- NOTE | 2024-05-11 22:23 | DI.RAD_ITS ---
Exam(s) XR PORTABLE CHEST AP EXAM: XR PORTABLE CHEST AP CLINICAL HISTORY: SOB TECHNIQUE: 2D digital imaging was performed of the chest. One image was obtained. An AP view was ob tained. COMPARISON: CR,XR XR PORTABLE CHEST AP from 12/01/2020 CR XR CHEST 2V PA LATERAL from 02/05/2023 FINDINGS: There is poor inspiration. MEDIASTINUM: Normal. HEART: Normal. PULMONARY VASCULATURE: Normal. LUNGS: Clear. PLEURAL SPACE: No pleural effusion or pneumothorax. BONE:Within normal limits for the patient's age. OTHER FINDINGS:Normal. IMPRESSION: Within the limits of the examination, no acute pulmonary process is seen. DATA REPOSITORY: RADIATION DOSE DELIVERED:
--- NOTE | 2024-05-11 22:30 | DI.VRAD_ITS ---
PROCEDURE INFORMATION: Exam: XR Chest Exam date and time: 05/11/2024 10:22 PM Age: 53 years old Clinical indication: Shortness of breath TECHNIQUE: Imaging protocol: Radiologic exam of the chest. Views: 1 view. COMPARISON: CT CHEST LUNG CANCER SCREEN 07/16/2023 9:15 AM FINDINGS: Tubes, catheters and devices: Cardiac leads superimposed over the chest. Lungs: No alveolar infiltrate. Pleural spaces: No pleural fluid collection. No pneumothorax. Heart/Mediastinum: Heart size within normal limits. Bones/joints: Unremarkable for patient age. Other findings: Expiratory film. IMPRESSION: 1. Expiratory film. 2. No active pulmonary disease. Dictated and Authenticated by: Shawn Taveras MD. Orderin Scarlett Mckenzie MD
[2024-05-12] VITALS (39 sets, daily range): BP systolic 93–108; BP diastolic 60–71; PULSE 82–102; RESP 17–26; O2SAT 98–100
== END 2024-05-12 05:33 | disposition home or self-care (01) ==
PROVIDERS: Emergency Medicine; Physician Assistant; Emergency Provider Emergency Medicine; PCP Family Medicine
DX: R41.82 Altered mental status, unspecified (principal); R07.9 Chest pain, unspecified; I45.2 Bifascicular block; Z79.01 Long term (current) use of anticoagulants; Z87.891 Personal history of nicotine dependence
CPT/HCPCS: 80053; 82805; 93005; 99285; 70450; 71045; 80320; 82140; 83735; 84439; 84443; 84484; 85025; 93010; 99284; J2310

== ENCOUNTER 2024-06-17 04:36 | Emergency (ER) | payer MEDICARE, MEDICAID, SELFPAY ==
[2024-06-17 04:36] VITALS: BP 150/88; PULSE 110; RESP 24; TEMP 36.8; O2SAT 97
[2024-06-17] MEDS: Lidocaine 1% Pres-Free W/EPI 1/200,000 30 ML VIAL (04:52)
[2024-06-17 05:18] LABS: Abs Immature Grans 0.04 10^3/uL (0.0-0.06); Absolute Basophil Count 0.02 10^3/uL (0.0-0.2); Absolute Lymphocyte Count 1.32 10^3/uL (1.2-3.4); Absolute Monocyte Count 0.39 10^3/uL (0.1-0.8); Absolute Neutrophil Count 5.27 10^3/uL (1.2-6.7); Basophils % 0.3 %; HCT 45.5 % (40.0-50.0); HGB 13.4 g/dL (13.5-17.5); Immature Grans % 0.6 %; Lymphocytes % 18.8 %; MCH 23.2 pg (27.0-33.0); MCHC 29.5 % (32.0-36.0); MCV 79 fL (80-95); MPV 9.6 fL (8.0-11.0); Monocytes % 5.5 %; Neutrophils % 74.8 %; Platelet Count 263 10^3/uL (130-400); RBC 5.77 10^6/uL (4.36-5.78); RDW 23.1 % (11.8-14.1); WBC 7.04 10^3/uL (4.4-10.8)
[2024-06-17 05:37] LABS: Lithium 0.3 mmol/L (0.6-1.2); Salicylate < 2.8 mg/dL (<2.8)
[2024-06-17 05:38] LABS: Acetaminophen < 2 ug/mL (10-30)
[2024-06-17 05:39] LABS: ALT 25 U/L (16-63); AST 15 U/L (15-37); Albumin 3.8 g/dL (3.4-5.0); Alkaline Phosphatase 132 U/L (46-116); Anion Gap 11.5 mmol/L (3-11); BUN 8 mg/dL (7-18); Bilirubin, Total 0.24 mg/dL (0.2-1.0); CO2 27.5 mmol/L (21.0-32.0); CREATININE 1.2 mg/dL (0.70-1.30); Calcium 10.4 mg/dL (8.5-10.1); Chloride 107 mmol/L (98-107); Estimated GFR 72.31 (mL/min/1.73m2); Glucose 158 mg/dL (74-106); Magnesium 2.2 mg/dL (1.8-2.4); Potassium 3.6 mmol/L (3.5-5.1); Sodium 146 mmol/L (136-145); Total Protein 7.5 g/dL (6.4-8.2)
[2024-06-17 05:42] LABS: Anisocytosis 1+; Diff Comment RBC Morph Reviewed
[2024-06-17 05:47] LABS: ETHANOL BLOOD < 3.0 mg/dL (<10)
--- NOTE | 2024-06-17 05:55 | W.ED.GENAD ---
Discharge Plan Discharge Details Chief Complaint: Suicide-Atempt Primary Care Provider: Jasper Browne ED Provider: Hector Leon Home Meds and New Rx's Prescriptions: No Action Androderm 4 mg/24 hr patch 24 hour 2 patch Transdermal DAILY Patient Comments: 12/08/18 1 patch Saturday, Saturday, Saturday. 2 patches the other days ev haloperidol 1 mg tablet 7.5 mg PO TID Patient Comments: 7.5mg TID with 2 additional doses PRN Rx Instructions: Can have 2 doses PRN as well clozapine [Clozaril] 100 MG tablet See Rx Instructions PO TID Patient Comments: pt states he takes 100mg AM 100 mg afternoon and 350 mg HS Has script from two different providers for same drug Rx Instructions: orally three times a day; orally; lorazepam 2 MG tablet 2 mg PO BID propranolol 10 MG tablet 10 mg PO BID haloperidol 5 mg tablet hydroxyzine HCl 50 mg tablet 50 mg PO DAILY PRN lithium carbonate 300 mg capsule 900 mg PO HS Xarelto 10 mg tablet 10 mg PO DAILY docusate sodium [Colace] 100 mg capsule 100 mg PO BID testosterone 1 % (50 mg/5 gram) gel in packet 1 packet transdermal DAILY Patient Comments: APPLY ONE PACKET ONCE DAILIY pantoprazole 40 mg tablet,delayed release (DR/EC) 40 mg PO DAILY Patient Comments: TAKE ONE TABLET BY MOUTH EVERY DAY lactulose 10 gram/15 mL solution 10 g PO DAILY PRN Patient Comments: TAKE 15 TO 30 ML BY MOUTH DAILY NEEDED HPI General Date/Time Provider Initiated Documentation: 06/17/24 05:09. HPI Narrative: The patient is a 53-year-old male, with a past medical history significant for schizophrenia and recently released from [facility] after prolonged hospitalization for suicide attempt at the end of April 2024, who was at his brother's home after release yesterday for increased safety with an outpatient medication plan, and attempted to commit suicide again by lacerating his bilateral wrists with a steak knife. The patient last took his nighttime medications at around 10 PM, including Clozaril and Haldol. The patient was not able to take his nighttime dose of lithium, because this medication was not available until this morning through his local pharmacy. At around 4:30 AM, EMS was contacted for the call, and they found the patient in the home on a bed with his wrist covered in towels to help stop the bleeding. The patient is accompanied by multiple family siblings. The patient reports that he has ongoing thoughts of suicidal ideation and worthlessness to his family and community. Related Data Home Medications ?Medication ?Instructions ?Recorded ?Confirmed clozapine 100 mg tablet (Clozaril) See Rx Instructions PO TID 11/19/16 06/17/24 lorazepam 2 mg tablet 2 mg PO BID 11/19/16 06/17/24 propranolol 10 mg tablet 10 mg PO BID 12/14/16 06/17/24 testosterone 4 mg/24 hr 2 patch transdermal DAILY 12/08/18 06/17/24 transdermal 24 hour patch (Androderm) rivaroxaban 10 mg tablet (Xarelto) 10 mg PO DAILY 02/27/22 05/11/24 haloperidol 1 mg tablet 7.5 mg PO TID 03/06/22 06/17/24 docusate sodium 100 mg capsule 100 mg PO BID 11/29/23 06/17/24 (Colace) pantoprazole 40 mg tablet,delayed 40 mg PO DAILY 11/29/23 06/17/24 release testosterone 1 % (50 mg/5 gram) 1 packet transdermal DAILY 11/29/23 06/17/24 transdermal gel packet lactulose 10 gram/15 mL oral 10 g PO DAILY PRN 11/30/23 06/17/24 solution haloperidol 5 mg tablet mg 06/17/24 hydroxyzine HCl 50 mg tablet 50 mg PO DAILY PRN 06/17/24 06/17/24 lithium carbonate 300 mg capsule 900 mg PO HS 06/17/24 06/17/24 Allergies Allergy/AdvReac Type Severity Reaction Status Date / Time codeine Allergy Unknown Unknown Verified 06/17/24 04:44 Sulfa (Sulfonamide Allergy Unknown Hives Verified 06/17/24 04:44 Antibiotics) esomeprazole (From Nexium) Allergy Unknown Verified 06/17/24 04:44 fenofibrate (From Tricor) Allergy Unknown Verified 06/17/24 04:44 ferrous gluconate Allergy Unknown Verified 06/17/24 04:44 mafenide (From Sulfamylon) Allergy Unknown Verified 06/17/24 04:44 Penicillins Allergy Hives Verified 06/17/24 04:44 General Stated Complaint: Suicide-Atempt DELORIS: 2 Exam Const General: cooperative and well groomed Nutritional Appearance: average body habitus Orientation: alert, awake and oriented x3 Eyes General: appearance normal, both eyes and all related structures Eyelids: eyelids normal Pupils: PERRL EOM: EOM intact bilaterally Chest Chest: normal inspection of the chest Resp Effort & Inspection: normal respiratory effort Auscultation: clear to auscultation bilaterally Cardio Jugular venous pressure: no JVD Rate: regular rate Rhythm: regular rhythm Heart Sounds: S1 normal and S2 normal GI Inspection: normal to inspection Palpation: soft Auscultation: normal bowel sounds Skin Trauma: laceration (4 cm right wrist, 5 cm left wrist) Neuro General: patient alert, patient awake, patient oriented x3, moves all extremities, normal light touch, pain and propioception, no focal motor deficits and CN's II-XI intact bilaterally Extrem General: full ROM, no clubbing and no edema Psych Appearance: well kempt Speech and Movement: delayed speech Mood: anxious mood and paranoid Affect: blunted Attitude: cooperative Thought Content: suicidality Insight: fair Judgment: limited Course Vital Signs Vital signs: Vital Signs Temperature 36.8 C 06/17/24 04:36 Pulse 110 H 06/17/24 04:36 Respiratory Rate 24 06/17/24 04:36 Blood Pressure 150/88 H 06/17/24 04:36 Pulse Oximetry 97 06/17/24 04:36 Temperature 36.8 C 06/17/24 04:36 Temperature Source Temporal Artery Scan 06/17/24 04:36 Pulse 110 H 06/17/24 04:36 Respiratory Rate 24 06/17/24 04:36 Blood Pressure 150/88 H 06/17/24 04:36 Blood Pressure Position Supine 06/17/24 04:36 Pulse Oximetry 97 06/17/24 04:36 Oxygen Delivery Method Room Air 06/17/24 04:36 Oxygen Flow Rate 0 06/17/24 04:36 Pain Level 10 06/17/24 04:49 Lab/Test Results Lab/Test Results: Laboratory Tests Range/Units 06/17/24 04:46 WBC (4.4-10.8) 10^3/uL 7.04 RBC (4.36-5.78) 10^6/uL 5.77 Hgb (13.5-17.5) g/dL 13.4 L Hct (40.0-50.0) % 45.5 MCV (80-95) fL 79 L MCH (27.0-33.0) pg 23.2 L MCHC (32.0-36.0) % 29.5 L RDW (11.8-14.1) % 23.1 H Plt Count (130-400) 10^3/uL 263 MPV (8.0-11.0) fL 9.6 Immature Gran % % 0.6 Neutrophils % % 74.8 Lymphocytes % % 18.8 Monocytes % % 5.5 Eosinophils % % 0.0 Basophils % % 0.3 Nucleated RBC % (0.0-0.3) % 0.0 Absolute Neutrophils (1.2-6.7) 10^3/uL 5.27 Absolute Lymphocytes (1.2-3.4) 10^3/uL 1.32 Absolute Monocytes (0.1-0.8) 10^3/uL 0.39 Absolute Eosinophils (0.0-0.7) 10^3/uL 0.00 Absolute Basophils (0.0-0.2) 10^3/uL 0.02 RBC Morphology See Below Anisocytosis 1+ Sodium (136-145) mmol/L 146 H Potassium (3.5-5.1) mmol/L 3.6 Chloride (98-107) mmol/L 107 Carbon Dioxide (21.0-32.0) mmol/L 27.5 Anion Gap (3-11) mmol/L 11.5 H BUN (7-18) mg/dL 8 Creatinine (0.70-1.30) mg/dL 1.2 Est GFR (CKD-EPI 2020) (mL/min/1.73m2) 72.31 Glucose (74-106) mg/dL 158 H Calcium (8.5-10.1) mg/dL 10.4 H Magnesium (1.8-2.4) mg/dL 2.2 Total Bilirubin (0.2-1.0) mg/dL 0.24 AST (15-37) U/L 15 ALT (16-63) U/L 25 Alkaline Phosphatase (46-116) U/L 132 H Total Protein (6.4-8.2) g/dL 7.5 Albumin (3.4-5.0) g/dL 3.8 Salicylates (<2.8) mg/dL < 2.8 Acetaminophen (10-30) ug/mL < 2 [place] (0.6-1.2) mmol/L 0.3 L Ethyl Alcohol (<10) mg/dL < 3.0 Procedure Laceration right wrist: Date of Procedure: 06/17/24 Time of procedure: 05:30 Provider that performed the procedure: Hector Leon Standard Time Out Performed: Yes Patient Consented: Emergent Case Site: upper extremity (Right volar wrist) Side (If applicable): right Description: linear and clean Depth: simple, single layer Local anesthetic: Lidocaine 1% and with Epi Amount of anesthesia used (mL): 3 Pre-repair:: wound explored, irrigated extensively and deep structures intact Skin layer closed with: nylon Suture size: 4-0 Number of sutures:: 6 Technique: running Complications: None Procedure Description/Note: Wound covered with bacitracin, roll gauze, and Coban. left wrist: Date of Procedure: 06/17/24 Time of procedure: 05:45 Provider that performed the procedure: Hector Leon Standard Time Out Performed: Yes Patient Consented: Emergent Case Site: upper extremity (Left volar wrist) Side (If applicable): left Description: linear Local anesthetic: Lidocaine 1% and with Epi Amount of anesthesia used (mL): 4 Pre-repair:: wound explored, irrigated extensively and deep structures intact Skin layer closed with: nylon Suture size: 4-0 Number of sutures:: 8 Technique: running Complications: None Procedure Description/Note: Wound covered with bacitracin, roll gauze, and Coban. Medical Decision Making The patient was seen and examined. He is in no distress but has ongoing thoughts of paranoia and suicidal ideation, with somewhat delayed psychomotor response to speech and stimuli, likely due to his antipsychotic use earlier in the evening. The patient's wounds were primarily repaired after examination and cleansing with copious irrigation. The deeper structures of the wrists were not damaged to visual inspection. The patient has normal range of motion in his hands and wrists. The patient had blood work obtained including toxicology studies, although this is unlikely to be necessary given the amount of observation of the patient was under, has limited access to medications due to his prior overdose attempt, and his recent hospitalization with likely adequate nutrition and hydration. These were obtained because the patient will be placed on an involuntary evaluation for placement for ongoing management. I did reach out and discussed the case with Terrell from [facility], who will contact her cloth laminating supervisor and determine who will come and see the patient this morning in person. 0700 - The case was signed out over the shift to the morning provider pending [facility] eval and further disposition planning. Quality:SDOH Health Related Social Needs: No Data to Display PFSH All Active Problems (Updated 06/12/24 @ 00:02 by SUZANNE PALM) Tobacco abuse (Acute) Cholelithiasis (Acute) CKD (chronic kidney disease) (Chronic) Lower GI bleed (Acute) Mucocele of mouth (Acute) Cough (Acute) Shortness of breath (Acute) Confusion (Acute) Hiatal hernia (Chronic) Medical History Abnormal thyroid stimulating hormone (TSH) level Anemia Anxiety Chronic constipation Dyspepsia Dysphagia Fatigue Former smoker Gastritis Heme positive stool Hepatitis C History of hepatitis C Hypogonadism Lactose intolerance Low energy Microcytic anemia Obesity Onychomycosis of toenail Schizoaffective disorder SOB (shortness of breath) on exertion Vitamin D deficiency Surgical History H/O esophagogastroduodenoscopy History of surgery Surgery to penis Normal colonoscopy Social History Smoking/Tobacco Use Status: Former Tobacco Use Quit Date: 10/29/18 Smoking risk assessment performed?: Yes Alcohol Intake: never Drug use: Never Substance use type: does not use Housing: house Do you feel safe at home: Yes Do you feel safe in your relationship?: Yes
[2024-06-17 08:29] VITALS: BP 138/89; PULSE 107; RESP 19; TEMP 37.6; O2SAT 100
[2024-06-17 08:50] LABS: *AMPHETAMINES SCREEN URINE Negative (Negative); *BARBITURATES SCREEN URINE Negative (Negative); *BENZODIAZEPINES SCREEN URINE Negative (Negative); Cannabinoids THC Negative (Negative); Cocaine Screen,Urine Negative (Negative); METHADONE URINE SCREEN Negative (Negative); OPIATES URINE SCREEN Negative (Negative)
[2024-06-17 08:51] LABS: Tricyclic Antidepressants Negative (Negative)
--- NOTE | 2024-06-17 15:56 | PDOC.MHCN ---
Date of service: 06/17/24 Time of Service: 15:59 PHQ-9 Over the last 2 weeks, how often have you been bothered by any of the following problems? 1. Little interest or pleasure in doing things: nearly every day 2. Feeling down, depressed, or hopeless: nearly every day 3. Trouble falling or staying asleep, or sleeping too much: nearly every day 4. Feeling tired or having little energy: nearly every day 5. Poor appetite or overeating: nearly every day 6. Feeling bad about yourself - or that you are a failure or have let yourself and your family down: nearly every day 7. Trouble concentrating on things, such as reading the newspaper or watching television: nearly every day 8. Moving or speaking so slowly that other people could have noticed? - Or the opposite - being so fidgety or restless that you have been moving around a lot more than usual: nearly every day 9. Thoughts that you would be better off or of hurting yourself in some way: nearly every day Total score: 27 If you checked off any problems, how difficult have these problems made it for you to do your work, take care of things at home, or get along with other people?: extremely difficult PHQ-9 Results: Positive Source: Developed by Drs. Rhys Baldwin, Lorene Hernandez, Paco Sherman and colleagues, with an educational bobbi from [employer]. Suicide Severity Rate CSSRS Have you wished you were or wished you could go to sleep and not wake up?: Yes Have you actually had any thoughts of killing yourself?: Yes CSSRS2 Have you been thinking about how you might do this?: Yes Have you had these thoughts and had some intention of acting on them?: Yes Have you started to work out or worked out the details of how to kill yourself? Do you intend to carry out this plan?: Yes CSSRS3 Have you ever done anything, started to do anything or prepared to do anything to end your life?: Yes CSSRS4 Was this within the past three months?: Yes Screening Score Total Score: 8 Screening: Positive Mental Health Emergency Note Release [facility] release signed:: Yes Reason for Visit The client arrived to the ED via ambulance after intentionally cutting his wrists with the intent to . [facility] requested evaluation after the ED provider started the EE process. The client has since become voluntary. 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 The client was discharged after 35 days at [facility] [place] on 06.16.24 for what he reported was a breakdown. He has also been hospitalized per his report at [facility] before. The client is followed by his PCP, Dr. Browne with [facility] and Dr. Haile. In the last 2 weeks has the pt presented for ES prior to today?: No Client Information Client is: New Well Housed: Yes Non Suicidal Self Injury Current: No History: No Safety Risk/Harm to Self or Others Current Ideation to Harm Self or Others: Yes to self. (Cut his wrists) Intent: yes, has intent. Plan: yes,has a plan. History of suicide attempt: yes,history of suicide attempt reported. Details of previous suicide attempt: The client based on history has cut off his penis and has jumped from the [facility]. and to others. (No one in mind.) Intent: No Plan: no, does not have a plan. History of becoming violent with another person(any age): no history of violence with others. Risk: Does risk to harm exist?: yes. Access to means: No. Risk: Severe Duty to warn indicated: No Asssessment/Mental Status Appearance: Disheveled Attitude: Cooperative Behavior: Unremarkable Speech: Normal Affect: Flat Mood: Depressed Thought process: Goal directed Hallucinations: No evidence Delusions: yes, Persectory/Paranoid Attention: Unremarkable Perception: Not impaired Orientation: Fully orientated Memory: Intact Insight: Fair Judgement: Poor Neurovegetative Symptoms Sleep: Decrease Appetitie: Decrease Interests: Decrease Energy: Decrease Libido: Not applicable Substance Use: Do you use nicotine?: No Have you used substances in the last 7 days?: No Additional Issues: Assaultive/Threatening Behavior: No Medical Concerns: No Client engaged in active self harm w/weapon: No Threatening to run away: No Child reported abuse/neglect: No Voluntarily presenting for services: Yes Domestic violence is a concern: No Extreme Psychosis or extreme behavior is present: Yes Impression The client is a 53-year-old, single, , male who lives in [place], [place] and is unemployed. He is diagnosed with Paranoid Schizophrenia. The client reported that he is still experiencing paranoia. The client uses He/Him pronouns. All underrepresented identifiers were honored during this assessment. The client engaged in all screening tools including the CSSRS. No CAMS were completed today. The client would not engage in a full assessment earlier with [facility]. She did safety plan him however, there were concerns about EMTALA violations and the hospital was not comfortable in his ability to travel safely with family. This clinician met with the ED and other hospital staff to discuss next steps. This clinician is familiar with the client and this may have made him more comfortable to speak with this clinician. The client endorsed current SI rating his risk an 8/10 with a plan to cut his wrists and no identifiable deterrents. He also endorsed HI however, stated no one in mind. He endorsed his intent on 3.4.25 was to . The client presents lying in bed watching TV with no sound. He stares blankly at he TV throughout the assessment and only made eye contact when this clinician entered the room. He at this time is showing fair judgment however, has no insight to why he did what he did last night. He reports poor sleep and appetite. Because the client is willing to engage in a voluntary placement the EE process started by [facility] was not completed and the client is aware that we will send his referral to all hospitals including [facility] [place] [place] where he was most recently a patient. Plan/Disposition Recommended Disposition: Hospitalization (Referrals faxed. ) facilities contacted. Plan: The client will remain at [facility] pending acceptance to a psychiatric facility. The family has made [facility] [place] [place] aware and is in communication with them. He will be assessed daily until placed. Person reported agreement to plan: Yes Facilities contacted if Applicable [facility] Not accepted, Other [facility] Not accepted, Other [facility] Not accepted, Other, [facility] Not accepted, Other Reports/communication Outcome discussed with: ED/Personnel
--- NOTE | 2024-06-17 16:28 | W.EDPROG ---
Date of service: 06/17/24 Time of Service: 16:36 Medical Decision Making Patient was reevaluated by mental health. Patient voluntarily wishes for inpatient management at this time, and we will no longer continue the EE. That being said he still does have suicidal ideations and is not safe or stable for discharge home. We will place outpatient referrals. Plan was agreed upon by mental health advocate Zulay. Family does request that once the referral is placed for [facility] that they be contacted and they will contact the psychiatrist at [facility] personally who will try to expedite his transfer to [facility]. Patient remained stable. Quality:SDOH Health Related Social Needs: No Data to Display Discharge Plan Discharge Details Chief Complaint: Suicide-Atempt Primary Care Provider: Jasper Browne ED Provider: Ankur Pereyra Home Meds and New Rx's Prescriptions: No Action Androderm 4 mg/24 hr patch 24 hour 2 patch Transdermal DAILY Patient Comments: 12/08/18 1 patch Saturday, Saturday, Saturday. 2 patches the other days ev haloperidol 1 mg tablet 7.5 mg PO TID Patient Comments: 7.5mg TID with 2 additional doses PRN Rx Instructions: Can have 2 doses PRN as well clozapine [Clozaril] 100 MG tablet See Rx Instructions PO TID Patient Comments: pt states he takes 100mg AM 100 mg afternoon and 350 mg HS Has script from two different providers for same drug Rx Instructions: orally three times a day; orally; lorazepam 2 MG tablet 2 mg PO BID propranolol 10 MG tablet 10 mg PO BID haloperidol 5 mg tablet hydroxyzine HCl 50 mg tablet 50 mg PO DAILY PRN lithium carbonate 300 mg capsule 900 mg PO HS Xarelto 10 mg tablet 10 mg PO DAILY Patient Comments: Pt states that he is still taking this medication 06/17/24 CT docusate sodium [Colace] 100 mg capsule 100 mg PO BID testosterone 1 % (50 mg/5 gram) gel in packet 1 packet transdermal DAILY Patient Comments: APPLY ONE PACKET ONCE DAILIY pantoprazole 40 mg tablet,delayed release (DR/EC) 40 mg PO DAILY Patient Comments: TAKE ONE TABLET BY MOUTH EVERY DAY lactulose 10 gram/15 mL solution 10 g PO DAILY PRN Patient Comments: TAKE 15 TO 30 ML BY MOUTH DAILY NEEDED
--- NOTE | 2024-06-17 18:45 | ED.PROG_ITS ---
Date of service: 06/17/24 Time of Service: 16:45 Medical Decision Making 53-year-old male with history of schizophrenia presented after self-inflicted wound to wrist bilaterally. Currently voluntary for psychiatric admission. Patient's home Clozaril was ordered. No other significant changes during shift. Still awaiting placement. Quality:[facility] Health Related Social Needs: No Data to Display Discharge Plan Discharge Details Chief Complaint: Suicide-Atempt Primary Care Provider: Jasper Browne ED Provider: Caroline Portillo [facility] Meds and New Rx's Prescriptions: No Action Androderm 4 mg/24 hr patch 24 hour 2 patch Transdermal DAILY Patient Comments: 12/08/18 1 patch Saturday, Saturday, Saturday. 2 patches the other days ev haloperidol 1 mg tablet 7.5 mg PO TID Patient Comments: 7.5mg TID with 2 additional doses PRN Rx Instructions: Can have 2 doses PRN as well clozapine [Clozaril] 100 MG tablet See Rx Instructions PO TID Patient Comments: pt states he takes 100mg AM 100 mg afternoon and 350 mg HS Has script from two different providers for same drug Rx Instructions: orally three times a day; orally; lorazepam 2 MG tablet 2 mg PO BID propranolol 10 MG tablet 10 mg PO BID haloperidol 5 mg tablet hydroxyzine HCl 50 mg tablet 50 mg PO DAILY PRN lithium carbonate 300 mg capsule 900 mg PO HS Xarelto 10 mg tablet 10 mg PO DAILY Patient Comments: Pt states that he is still taking this medication 06/17/24 CT docusate sodium [Colace] 100 mg capsule 100 mg PO BID testosterone 1 % (50 mg/5 gram) gel in packet 1 packet transdermal DAILY Patient Comments: APPLY ONE PACKET ONCE DAILIY pantoprazole 40 mg tablet,delayed release (DR/EC) 40 mg PO DAILY Patient Comments: TAKE ONE TABLET BY MOUTH EVERY DAY lactulose 10 gram/15 mL solution 10 g PO DAILY PRN Patient Comments: TAKE 15 TO 30 ML BY MOUTH DAILY NEEDED
--- NOTE | 2024-06-17 19:23 | CMSP_ITS ---
Date of service: 06/17/24 Time of Service: 19:23 Care Management Safety Plan Status Status: Voluntary Reason for Wait Reason for Wait: Inpatient Admission Safety Plan Safety Plan: VOLUNTARY FOR INPATIENT PSYCHIATRIC STABILIZATION.? Patient is appropriate in all interactions since arriving at [facility]; Pt has demonstrated appropriate coping and communication skills, has articulated his or her needs and concerns and is fully engaged during staff interactions. Safety plan has been established with patient, and care team, to adhere to patient goals, identify restrictions based on behavioral status, address nutrition, and determine allowed personal belongings, tools for hygiene and personal care. Determine level of activity including ambulation, level of superv ision, visitors, and determine privileges based on behaviors and level of engagement by pt. VOLUNTARY SAFETY PLAN: 1. Will remain on suicide precautions, in paper clothes 2. Will remain in Zone B under direct supervision of one-on-one staff at all times provided by [employer]; EDEL, SHOT POLISHER mirror polisher. 3. May have paper cups, plates, finger foods as well as a cardboard spoon with which to eat meals. 4. Follow [facility] Management of the Admitted Behavioral Health Patient policy. 5. Shower available in Zone B without restriction. 6. Personal belongings-soft items permitted at RN discretion. 7. Visitors- family are very supportive, and may visit, at RN discretion. 8. Activities: soft cart items approved per RN discretion. 9.? Bathroom available in Zone B without restriction. 10. Phone: incoming/outgoing calls to family, limited to [facility] cordless phone at RN discretion. Due to VOLUNTARY status, if patient wishes to leave [facility], staff will contact [facility] Crisis Screener ([phone]) and Senior Human Resources Representative ([phone]) as soon as possible. In the event of elopement, notify [facility] Police ([phone]). Patient is currently voluntarily at [facility] and seeking inpatient admission when a bed becomes available. [facility] Frontline Transfusion Nurse will continue seeking placement. Please contact the Senior Human Resources Representative ([phone]) and [facility] Transfusion Nurse ([phone]) for any needed changes in the Safety Plan. Safety plan has been provided to interdepartmental care team.
--- NOTE | 2024-06-17 19:23 | PDOC.CMSAFE ---
Date of service: 06/17/24 Time of Service: 19:23 Care Management Safety Plan Status Status: Voluntary Reason for Wait Reason for Wait: Inpatient Admission Safety Plan Safety Plan: VOLUNTARY FOR INPATIENT PSYCHIATRIC STABILIZATION.? Patient is appropriate in all interactions since arriving at [facility]; Pt has demonstrated appropriate coping and communication skills, has articulated his or her needs and concerns and is fully engaged during staff interactions. Safety plan has been established with patient, and care team, to adhere to patient goals, identify restrictions based on behavioral status, address nutrition, and determine allowed personal belongings, tools for hygiene and personal care. Determine level of activity including ambulation, level of supervision, visitors, and determine privileges based on behaviors and level of engagement by pt. VOLUNTARY SAFETY PLAN: 1. Will remain on suicide precautions, in paper clothes 2. Will remain in Zone B under direct supervision of one-on-one staff at all times provided by [employer]; EDEL, ROUGE MIXER student life coordinator. 3. May have paper cups, plates, finger foods as well as a cardboard spoon with which to eat meals. 4. Follow [facility] Management of the Admitted Behavioral Health Patient policy. 5. Shower available in Zone B without restriction. 6. Personal belongings-soft items permitted at RN discretion. 7. Visitors- family are very supportive, and may visit, at RN discretion. 8. Activities: soft cart items approved per RN discretion. 9.? Bathroom available in Zone B without restriction. 10. Phone: incoming/outgoing calls to family, limited to [facility] cordless phone at RN discretion. Due to VOLUNTARY status, if patient wishes to leave [facility], staff will contact [facility] Crisis Screener ([phone]) and Erecting Engineer ([phone]) as soon as possible. In the event of elopement, notify [facility] Police ([phone]). Patient is currently voluntarily at [facility] and seeking inpatient admission when a bed becomes available. [facility] Frontline Metallographer will continue seeking placement. Please contact the Erecting Engineer ([phone]) and [facility] Metallographer ([phone]) for any needed changes in the Safety Plan. Safety plan has been provided to interdepartmental care team.
--- NOTE | 2024-06-17 19:24 | CMPROGNOTE_ITS ---
Date of service: 06/17/24 Time of Service: 19:24 Care Management Progress Note Progress Note Text Progress Note Text: CM huddled with staff regarding Sean's plan of care. [facility] informed CM that he would be safety planned into the custody of his family, who intended to bring him to [facility]. At that time, had completed EE paperwork, although the [facility] QMHP portion of the paperwork was not yet completed. [facility] assessed Sean again, who agreed to remain at [facility] for voluntary mental health treatment, and he stated that he is open to going to any facility. Per RN, his family has been visiting today, and are very supportive. Family visits and phone calls were added to his safety plan. Sean is voluntary, seeking inpatient psychiatric treatment for SI, which he rated 8/10 this afternoon. He has had previous inpatient treatment at [facility], including a 35 day stay, which he was discharged home from yesterday evening. [facility] is being contacted to consider taking him back, as he had a suicide attempt within 24 hours of discharge. Referrals have been sent to all facilities in [place] as well. Safety plan in place; CM will continue to follow. Social Determinants of Health Screening Will the Patient Participate in the Screening?: Unable to obtain
--- NOTE | 2024-06-17 19:24 | PDOC.CMPRO ---
Date of service: 06/17/24 Time of Service: 19:24 Care Management Progress Note Progress Note Text Progress Note Text: CM huddled with staff regarding Sean's plan of care. [facility] informed CM that he would be safety planned into the custody of his family, who intended to bring him [place] [facility]. At that time, had completed EE paperwork, although the [facility] QMHP portion of the paperwork was not yet completed. [facility] assessed Sean again, who agreed to remain at [facility] for voluntary mental health treatment, and he stated that he is open to going to any facility. Per RN, his family has been visiting today, and are very supportive. Family visits and phone calls were added to his safety plan. Sean is voluntary, seeking inpatient psychiatric treatment for SI, which he rated 8/10 this afternoon. He has had previous inpatient treatment at [facility], including a 35 day stay, which he was discharged home from yesterday evening. [facility] is being contacted to consider taking him back, as he had a suicide attempt within 24 hours of discharge. Referrals have been sent to all facilities in [place] as well. Safety plan in place; CM will continue to follow. Social Determinants of Health Screening Will the Patient Participate in the Screening?: Unable to obtain
[2024-06-17] MEDS: Docusate Sodium 100 MG CAP PO (20:28)
[2024-06-17] MEDS: Haloperidol 5 MG TAB 7.5 MG PO (20:29)
[2024-06-18 06:56] VITALS: BP 125/83; PULSE 120; RESP 18; TEMP 36.2; O2SAT 97
[2024-06-18] MEDS: hydrOXYzine HCL 25 MG TAB 50 MG PO (08:50)
[2024-06-18] MEDS: Haloperidol 5 MG TAB 7.5 MG PO ×2 (08:51→14:08)
[2024-06-18] MEDS: Lactulose 20 GM/30 ML CUP 10 GM PO (10:19)
[2024-06-18] MEDS: Docusate Sodium 100 MG CAP PO (10:19)
[2024-06-18] MEDS: Pantoprazole 40 MG TABCR PO (10:19)
--- NOTE | 2024-06-18 12:23 | PDOC.CMSAFE ---
Date of service: 06/18/24 Time of Service: 12:23 Care Management Safety Plan Status Status: Voluntary Reason for Wait Reason for Wait: Inpatient Admission Safety Plan Safety Plan: VOLUNTARY FOR INPATIENT PSYCHIATRIC STABILIZATION.? Patient is appropriate in all interactions since arriving at [facility]; Pt has demonstrated appropriate coping and communication skills, has articulated his or her needs and concerns and is fully engaged during staff interactions. Safety plan has been established with patient, and care team, to adhere to patient goals, identify restrictions based on behavioral status, address nutrition, and determine allowed personal belongings, tools for hygiene and personal care. Determine level of activity including ambulation, level of supervision, visitors, and determine privileges based on behaviors and level of engagement by pt. VOLUNTARY SAFETY PLAN: 1. Will remain on suicide precautions, in paper clothes 2. Will remain in Zone B under direct supervision of one-on-one staff at all times provided by [employer]; EDEL, WIRE HARNESS ASSEMBLER retort feeder ground bone. 3. May have paper cups, plates, finger foods as well as a cardboard spoon with which to eat meals. 4. Follow [facility] Management of the Admitted Behavioral Health Patient policy. 5. Shower available in Zone B without restriction. 6. Personal belongings-soft items permitted at RN discretion. 7. Visitors- family are very supportive, and may visit, at RN discretion. 8. Activities: soft cart items approved per RN discretion. 9.? Bathroom available in Zone B without restriction. 10. Phone: incoming/outgoing calls to family, limited to [facility] cordless phone at RN discretion. Due to VOLUNTARY status, if patient wishes to leave [facility], staff will contact [facility] Crisis Screener ([phone]) and Warper Fixer ([phone]) as soon as possible. In the event of elopement, notify [facility] Police ([phone]). Patient is currently voluntarily at [facility] and seeking inpatient admission when a bed becomes available. [facility] Frontline Electrician Apprentice will continue seeking placement. Please contact the Warper Fixer ([phone]) and [facility] Electrician Apprentice ([phone]) for any needed changes in the Safety Plan. Safety plan has been provided to interdepartmental care team.
--- NOTE | 2024-06-18 12:27 | CMPROGNOTE_ITS ---
Date of service: 06/18/24 Time of Service: 12:27 Care Management Progress Note Progress Note Text Progress Note Text: CM huddled with available staff regarding Sean's plan of care. Per RN, he has been cooperative and appropriate today. His family have been visiting/calling, which has been supportive. Per [facility], Sean is reporting SI today. He stated that he prefers to return to [facility], as he was just discharged from their facility. He expressed concern about going to a different facility, such as [place], due to the size and negative things he has heard from others. Sean remains voluntary, seeking inpatient psychiatric treatment. Referrals were sent to all facilities, including [facility]; [facility] contacted his RN today and requested documentation, which was sent. Safety plan in place. Later this afternoon, Sean was accepted at [facility]; RN to RN and MD to MD have been completed. He will transport later this evening by [employer]. CM will continue to follow. Social Determinants of Health Screening Will the Patient Participate in the Screening?: Unable to obtain
--- NOTE | 2024-06-18 12:27 | PDOC.CMPRO ---
Date of service: 06/18/24 Time of Service: 12:27 Care Management Progress Note Progress Note Text Progress Note Text: CM huddled with available staff regarding Sean's plan of care. Per RN, he has been cooperative and appropriate today. His family have been visiting/calling, which has been supportive. Per [facility], Sean is reporting SI today. He stated that [place] [facility] just [place] their [place]. He expressed concern about going to a different facility, such as [facility], due to the size and negative things he has heard from others. Sean remains voluntary, seeking inpatient psychiatric treatment. Ref[place] were [place] to all facilities, [place] [facility] [place] [facility] [place] his RN today and requested documentation, which was sent. Safety plan in place. Later this afternoon, Sean was accepted [place] [facility] [place]; RN to RN and MD to MD have been completed. He will transport later this evening by [facility]. CM will continue to follow. Social Determinants of Health Screening Will the Patient Participate in the Screening?: Unable to obtain
[2024-06-18 16:09] VITALS: PULSE 103; O2SAT 99
--- NOTE | 2024-06-18 16:39 | ED.PROG_ITS ---
Date of service: 06/18/24 Time of Service: 16:39 Medical Decision Making Patient stayed notably stable while here in the ED during the shift. He was agreeable with being transition to [facility]. [facility] accepted the patient and I spoke with Dr. Mansoor Gresham's and he accepts the patient for transfer. Patient has received his medications for the day. Patient will be transition down to [facility]. I have extensively reviewed the treatment plan with the patient. I have addressed all patient concerns at this time. I have also discussed the plan with the admitting physician and they agree with the current assessment and plan and have agreed to assume responsibility for the patient. All parties demonstrate verbal understanding and agreement with our assessment and plan at this time. The documentation in this chart was dictated using [employer] dictation software. Please excuse any dictation errors. At time of transfer the patient was reassessed and continued to demonstrate No signs of acute respiratory distress requiring intubation, hemodynamic instability requiring pressor support, or rapidly declining mental status. Quality:SDOH Health Related Social Needs: No Data to Display Discharge Plan Disposition Patient Disposition: Psychiatric Hospital/Unit Specific Psychiatric Facility: [facility] Condition: Improving Discharge Details Chief Complaint: Suicide-Atempt Clinical Impression: Suicidal ideation, Intentional self-harm Primary Care Provider: Jasper Browne ED Provider: Ankur Pereyra Home Meds and New Rx's Prescriptions: No Action Androderm 4 mg/24 hr patch 24 hour 2 patch Transdermal DAILY Patient Comments: 12/08/18 1 patch Saturday, Saturday, Saturday. 2 patches the other days ev haloperidol 1 mg tablet 7.5 mg PO TID Patient Comments: 7.5mg TID with 2 additional doses PRN Rx Instructions: Can have 2 doses PRN as well clozapine [Clozaril] 100 MG tablet See Rx Instructions PO TID Patient Comments: pt states he takes 100mg AM 100 mg afternoon and 350 mg HS Has script from two different providers for same drug Rx Instructions: orally three times a day; orally; lorazepam 2 MG tablet 2 mg PO BID propranolol 10 MG tablet 10 mg PO BID haloperidol 5 mg tablet hydroxyzine HCl 50 mg tablet 50 mg PO DAILY PRN lithium carbonate 300 mg capsule 900 mg PO HS Xarelto 10 mg tablet 10 mg PO DAILY Patient Comments: Pt states that he is still taking this medication 06/17/24 CT docusate sodium [Colace] 100 mg capsule 100 mg PO BID testosterone 1 % (50 mg/5 gram) gel in packet 1 packet transdermal DAILY Patient Comments: APPLY ONE PACKET ONCE DAILIY pantoprazole 40 mg tablet,delayed release (DR/EC) 40 mg PO DAILY Patient Comments: TAKE ONE TABLET BY MOUTH EVERY DAY lactulose 10 gram/15 mL solution 10 g PO DAILY PRN Patient Comments: TAKE 15 TO 30 ML BY MOUTH DAILY NEEDED
== END 2024-06-18 18:37 ==
PROVIDERS: Emergency Medicine Emergency Medical Services; Emergency Provider Student in an Organized Health Care Education/Training Program; PCP Family Medicine
DX: S61.512A Laceration without foreign body of left wrist, initial encounter (principal); S61.511A Laceration without foreign body of right wrist, initial encounter; F20.9 Schizophrenia, unspecified; X78.1XXA Intentional self-harm by knife, initial encounter; Y93.89 Activity, other specified; Y92.018 Other place in single-family (private) house as the place of occurrence of the external cause
CPT/HCPCS: 00123; 80053; 80307; 96127; 99285; 80178; 80320; 80329; 83735; 85025; J2004